=== PATIENT | female | born 1955 | race Caucasian/White ===

== ENCOUNTER → 2016-07-05 | Outpatient (CLI) | payer OTHER ==
[~2016-07-05] MED LIST: AMLO-114 PO; AMR2 PO; HYT/2 PO; LEVO25TA PO; METO-217 PO; SIMV10TA2 PO
[2016-07-05 16:39] LABS: HEMATOCRIT 39.9 % (37-47); MEAN CELL VOLUME 86.2 fL (80-100); MEAN CORPUSCULAR HEMOGLOBIN 27.6 pg (25-34); MEAN CORPUSCULAR HGB CONC 32.1 g/dl (32-36); MEAN PLATELET VOLUME 10.3 fL (7.4-10.4); PLATELET COUNT 358 K/uL (130-400); RED BLOOD COUNT 4.63 M/uL (4.2-5.4); WHITE BLOOD COUNT 8.45 K/uL (4.8-10.8)
[2016-07-05 17:20] LABS: ALT/SGPT 23 U/L (12-78); AST/SGOT 13 U/L (15-37); BLOOD UREA NITROGEN 44 mg/dl (7-18); CALCIUM 9.1 mg/dl (8.5-10.1); CARBON DIOXIDE 23 mmol/L (21-32); CHLORIDE 107 mmol/L (98-107); GLUCOSE 131 mg/dl (70-99); SODIUM 140 mmol/L (136-145)
[2016-07-05 17:31] LABS: ALB/GLOB RATIO 0.7 (0.9-2); ALKALINE PHOSPHATASE 104 U/L (45-117); CHOLESTEROL 124 mg/dl (0-200); CHOLESTEROL/HDL RATIO 2.5; HDL CHOLESTEROL 50 mg/dl; LDL CHOLESTEROL CALCULATED 42 mg/dl; TRIGLYCERIDES 158 mg/dl (0-150); VERY LOW DENSITY LIPOPROT CALC 32 mg/dl
[2016-07-06 06:43] LABS: ESTIMATED AVERAGE GLUCOSE 160 mg/dl; HA1C FLAG Normal (Normal)
== END | disposition home or self-care (01) ==
LOC: C.LABBFT 12:41
PROVIDERS: ATTEND Internal Medicine
DX: E11.29 Type 2 diabetes mellitus with other diabetic kidney complication (principal); I10 Essential (primary) hypertension; E78.00 Pure hypercholesterolemia, unspecified

== ENCOUNTER → 2016-07-19 | Outpatient (CLI) | payer OTHER ==
--- NOTE | 2016-07-19 12:13 | DIAGNOSTIC IMAGING REPORT ---
EXAMINATION: RENAL ULTRASOUND CLINICAL HISTORY: N17.9 Acute kidney [id number] COMPARISON STUDY: None FINDINGS: The right kidney measures 5.2 cm. The left kidney measures 9 cm. There is no evidence of hydronephrosis. There is a 12 mm lower pole right renal cyst. There is increased renal cortical echogenicity, consistent with medical renal disease. No bladder abnormalities are visualized. Bilateral ureteral jets were visualized. IMPRESSION : 1. Increased renal cortical echogenicity, consistent with medical renal disease 2. No evidence of hydronephrosis. Electronically signed by: Cesar Pan M.D. 07/19/2016 12:11 PM Dictated Date/Time: 07/19/2016 12:10 PM
== END | disposition home or self-care (01) ==
LOC: C.ULTR 11:32
PROVIDERS: ATTEND Internal Medicine
DX: N17.9 Acute kidney failure, unspecified (principal)

== ENCOUNTER → 2016-08-09 | Outpatient (CLI) | payer OTHER ==
[2016-08-14 10:12] LABS: ALBUMIN 3.1 G/DL (3.8-4.8); FREE KAPPA 60.2 MG/L (3.3-19.4); FREE LAMBDA 37.6 MG/L (5.7-26.3); GAMMA GLOBULIN 0.8 G/DL (0.8-1.7); TOTAL PROTEIN 6.4 G/DL (6.2-8.3)
== END | disposition home or self-care (01) ==
LOC: C.LABBFT 14:05
PROVIDERS: ATTEND Internal Medicine Nephrology
DX: N17.9 Acute kidney failure, unspecified (principal)

== ENCOUNTER → 2016-10-13 | Outpatient (CLI) | payer OTHER ==
[~2016-10-13] MED LIST changes: +ASPEC81 PO; +CHOL1TAB42 PO; +CMD3 PO; +CMD5 PO; +GLIM1TAB PO; +NVLGIPEN SC; +PLV75 PO; +TPRSR50 PO; +WARF2.5T8 PO; +ZCR40 PO
[2016-10-13 12:45] LABS: BLOOD UREA NITROGEN 38 mg/dl (7-18); BUN/CREATININE RATIO 21.2 (10-20); CALCIUM 8.7 mg/dl (8.5-10.1); CARBON DIOXIDE 27 mmol/L (21-32); CHLORIDE 106 mmol/L (98-107); GLUCOSE 104 mg/dl (70-99); MAGNESIUM 2.3 mg/dl (1.8-2.4); POTASSIUM 5.4 mmol/L (3.5-5.1); SODIUM 139 mmol/L (136-145)
[2016-10-13 12:46] LABS: PHOSPHORUS 4.2 mg/dl (2.5-4.9)
== END | disposition home or self-care (01) ==
LOC: C.LABBFT 10:04
PROVIDERS: ATTEND Internal Medicine Nephrology
DX: N18.3 Chronic kidney disease, stage 3 (moderate) (principal)

== ENCOUNTER → 2016-12-14 | Outpatient (CLI) | payer OTHER ==
[2016-12-14 17:31] LABS: BASO % 0.5 %; BASO ABS # 0.04 K/uL (0-0.2); COMPLETE YES; EOS % 2.7 %; HEMATOCRIT 36.8 % (37-47); IG% 0.3 %; LYMPH % 19.4 %; LYMPH ABS # 1.54 K/uL (1.2-3.4); MEAN CORPUSCULAR HEMOGLOBIN 25.7 pg (25-34); MEAN CORPUSCULAR HGB CONC 29.9 g/dl (32-36); MEAN PLATELET VOLUME 9.9 fL (7.4-10.4); MONO % 4.8 %; NEUT % 72.3 %; PLATELET COUNT 371 K/uL (130-400); RED BLOOD COUNT 4.28 M/uL (4.2-5.4); WHITE BLOOD COUNT 7.92 K/uL (4.8-10.8)
[2016-12-14 17:55] LABS: BLOOD UREA NITROGEN 43 mg/dl (7-18); BUN/CREATININE RATIO 20.3 (10-20); CALCIUM 8.4 mg/dl (8.5-10.1); CARBON DIOXIDE 23 mmol/L (21-32); CHLORIDE 110 mmol/L (98-107); GLUCOSE 51 mg/dl (70-99); MAGNESIUM 2.4 mg/dl (1.8-2.4); POTASSIUM 5.8 mmol/L (3.5-5.1); SODIUM 141 mmol/L (136-145)
[2016-12-14 17:56] LABS: PHOSPHORUS 3.7 mg/dl (2.5-4.9)
== END | disposition home or self-care (01) ==
LOC: C.LABBFT 11:45
PROVIDERS: ATTEND Internal Medicine Nephrology
DX: N18.3 Chronic kidney disease, stage 3 (moderate) (principal)

== ENCOUNTER → 2016-12-19 | Outpatient (CLI) | payer OTHER ==
[2016-12-19 16:45] LABS: BLOOD UREA NITROGEN 33 mg/dl (7-18); BUN/CREATININE RATIO 17.4 (10-20); CALCIUM 8.4 mg/dl (8.5-10.1); CARBON DIOXIDE 25 mmol/L (21-32); CHLORIDE 108 mmol/L (98-107); GLUCOSE 110 mg/dl (70-99); POTASSIUM 5.5 mmol/L (3.5-5.1); SODIUM 140 mmol/L (136-145)
== END | disposition home or self-care (01) ==
LOC: C.LAB1850 15:33
PROVIDERS: ATTEND Internal Medicine Nephrology
DX: E87.5 Hyperkalemia (principal)

== ENCOUNTER → 2017-01-05 | Outpatient (CLI) | payer OTHER ==
[~2017-01-05] MED LIST changes: -CHOL1TAB42 PO; -CMD3 PO; -GLIM1TAB PO; -WARF2.5T8 PO
[2017-01-05 13:07] LABS: BLOOD UREA NITROGEN 34 mg/dl (7-18); BUN/CREATININE RATIO 19.8 (10-20); CALCIUM 8.7 mg/dl (8.5-10.1); CARBON DIOXIDE 29 mmol/L (21-32); CHLORIDE 107 mmol/L (98-107); GLUCOSE 86 mg/dl (70-99); PHOSPHORUS 3.9 mg/dl (2.5-4.9); POTASSIUM 5.1 mmol/L (3.5-5.1); SODIUM 140 mmol/L (136-145)
== END | disposition home or self-care (01) ==
LOC: C.LABBFT 10:35
PROVIDERS: ATTEND Internal Medicine Nephrology
DX: E87.5 Hyperkalemia (principal)

== ENCOUNTER → 2017-03-12 | Outpatient (CLI) | payer OTHER ==
[2017-03-12 12:43] LABS: BASO % 0.8 %; BASO ABS # 0.07 K/uL (0-0.2); COMPLETE YES; EOS % 3.3 %; HEMATOCRIT 37.4 % (37-47); IG% 0.2 %; LYMPH % 16.8 %; LYMPH ABS # 1.41 K/uL (1.2-3.4); MEAN CELL VOLUME 82.6 fL (80-100); MEAN CORPUSCULAR HEMOGLOBIN 26.7 pg (25-34); MEAN CORPUSCULAR HGB CONC 32.4 g/dl (32-36); MEAN PLATELET VOLUME 9.6 fL (7.4-10.4); MONO % 5.7 %; NEUT % 73.2 %; PLATELET COUNT 339 K/uL (130-400); RED BLOOD COUNT 4.53 M/uL (4.2-5.4)
[2017-03-12 13:03] LABS: ESTIMATED AVERAGE GLUCOSE 163 mg/dl; HA1C FLAG Normal (Normal)
[2017-03-12 13:20] LABS: ALT/SGPT 13 U/L (12-78); AST/SGOT 9 U/L (15-37); BLOOD UREA NITROGEN 38 mg/dl (7-18); CALCIUM 8.5 mg/dl (8.5-10.1); CARBON DIOXIDE 27 mmol/L (21-32); CHLORIDE 102 mmol/L (98-107); GLUCOSE 126 mg/dl (70-99); POTASSIUM 5.3 mmol/L (3.5-5.1); SODIUM 135 mmol/L (136-145)
[2017-03-12 13:31] LABS: ALB/GLOB RATIO 0.5 (0.9-2); ALKALINE PHOSPHATASE 101 U/L (45-117); CHOLESTEROL 159 mg/dl (0-200); CHOLESTEROL/HDL RATIO 3.2; HDL CHOLESTEROL 50 mg/dl; LDL CHOLESTEROL CALCULATED 83 mg/dl; PHOSPHORUS 3.9 mg/dl (2.5-4.9); TRIGLYCERIDES 132 mg/dl (0-150); VERY LOW DENSITY LIPOPROT CALC 26 mg/dl
== END | disposition home or self-care (01) ==
LOC: C.LABBFT 10:03
PROVIDERS: ATTEND Internal Medicine
DX: I10 Essential (primary) hypertension (principal); E78.00 Pure hypercholesterolemia, unspecified; E03.9 Hypothyroidism, unspecified; E11.29 Type 2 diabetes mellitus with other diabetic kidney complication

== ENCOUNTER 2017-03-30 10:54 | Inpatient (IN) | payer OTHER ==
[~2017-03-30] VITALS: Ht 154.9 cm; Wt 70.3 kg
[2017-03-30] MEDS ORDERED: ONDANSETRON INJ 2 MG/ML 2 ML VIAL ONE (11:08)
[2017-03-30] MEDS ORDERED: SIMV10TA2 PO (11:34)
[2017-03-30] MEDS ORDERED: HYT/2 PO (11:34)
[2017-03-30] MEDS ORDERED: AMR2 PO (11:34)
[2017-03-30] MEDS ORDERED: AMLO-114 PO (11:34)
[2017-03-30] MEDS ORDERED: LEVO25TA PO (11:34)
[2017-03-30] MEDS ORDERED: METO-217 PO (11:34)
--- NOTE | 2017-03-30 11:43 | EMERGENCY ROOM VISIT NOTE ---
History Report prepared by Edi: Mónica Cook Under the Supervision of: Dr. Ghassan Lomas M.D. First contact with patient: 11:30 Chief Complaint: CARDIAC ASSESSMENT Stated Complaint: AFIB Nursing Triage Summary: Pt. arrives to exam room via EMS. Per EMS, pt. has had periods of confusion over the last 24 hours, has had several falls, and episodes of incontinence. On monitor, pt. in rapid afib. History of Present Illness The patient is a 61 year old female who presents to the Emergency Room with complaints of increasing confusion over the past two days. The patient's states that the patient fell yesterday, injuring the right side of her face. The patient's states that the patient has not been making sense over the past several days. He states that the patient did not want him to call anyone to help her, but states that today she was too confused. The patient's states that the patient has a history of atrial fibrillation, noting that the patient has been increasingly tachycardic. He states that the patient has been vomiting as well. The patient's denies the patient having any fever, pain, or shortness of breath. He reports that the patient has a history of hypertension as well. The history is limited secondary to the patient's altered mental status. Source of History: spouse/significant other (husbad) History Limited By: AMS Onset: two days Position: other (global) Quality: other (confusion) Timing: other (increasing) Associated Symptoms: No fevers, No SOB Note: Associated Symptoms: tachycardic, fall Review of Systems The history is limited secondary to the patient altered mental status Past Medical & Surgical Medical Problems: (1) Atrial fibrillation (2) Hypertension Family History No pertinent family history stated. Social History Smoking Status: Former Smoker Marital Status: Housing Status: lives with significant other Occupation Status: retired Current/Historical Medications Scheduled Amlodipine (Norvasc), 10 MG PO DAILY Glimepiride (Glimepiride), 2 MG PO BID Levothyroxine Sodium (Synthroid), 25 MCG PO DAILY Metoprolol Succinate (Toprol Xl), 50 MG PO DAILY Simvastatin (Zocor), 10 MG PO HS Terazosin Hcl (Hytrin), 1 CAP PO DAILY Allergies Coded Allergies: Penicillins (Unverified Allergy, Intermediate, ., 03/30/17) Physical Exam Vital Signs Date Time Temp Pulse Resp B/P (MAP) Pulse Ox O2 Delivery O2 Flow Rate FiO2 03/30/17 14:30 92 16 123/91 97 Nasal Cannula 2.0 03/30/17 14:29 98 Nasal Cannula 2.0 03/30/17 14:07 136/74 03/30/17 14:05 92 21 98 03/30/17 14:02 140/92 03/30/17 14:00 94 17 98 03/30/17 13:59 144 152/129 03/30/17 13:57 127/96 03/30/17 13:55 91 21 97 03/30/17 13:52 130/94 03/30/17 13:50 121 19 98 03/30/17 13:46 144 18 152/129 95 Nasal Cannula 2.0 03/30/17 13:46 152/129 03/30/17 13:45 134 12 96 03/30/17 12:00 116 18 130/93 95 Nasal Cannula 2.0 03/30/17 11:30 121 18 119/81 94 Nasal Cannula 2.0 03/30/17 11:05 132 03/30/17 10:54 95 Nasal Cannula 2.0 03/30/17 10:54 95 Nasal Cannula 2.0 03/30/17 10:54 36.7 152 28 129/108 95 Nasal Cannula 2.0 Physical Exam GENERAL: Patient awake, alert, confused, disoriented, not responding appropriately to any questions, patient apperas to be staring off into space. SKIN: No erythema, pallor, cyanosis or rash HEENT: Normal head, pupils equal, reactive to light and accommodation. Oral cavity and posterior pharynx appear normal. Neck: Without adenopathy, no neck vein distention. LUNGS: Clear to auscultation. No wheezes, no rales, no rhonchi. HEART: Irregular, irregular rapid rate. No murmurs. No gallops. No rubs ABDOMEN: Obese. No masses, no rebound, no hepatomegaly or splenomegaly. EXTREMITIES: No signs of trauma. No pedal or pretibial edema. No calf or thigh tenderness. NEUROLOGIC: Cranial nerves II-XII within normal limits. No gross motor sensory function deficits. Medical Decision & Procedures ER Provider Diagnostic Interpretation: Radiology results as stated below per my review and radiologist interpretation: HEAD CT NONCONTRAST CT DOSE: 537.48 mGy.cm HISTORY: Head injury. altered fell 1 day ago hit right confucianist TECHNIQUE: Multiaxial CT images of the head were performed without the use of intravenous contrast. Automated exposure control was utilized for this study. A dose lowering technique was utilized adhering to the principles of ALARA. Comparison: None. Findings: The paranasal sinuses and mastoid air cells are clear. The calvarium and skull base are intact. The ventricles and sulci demonstrate mild age-related involutional changes. There is no hematoma, midline shift. Old lacunar infarct seen within the left basal ganglia. Hypodensity within the left posterior temporal lobe. This could represent a subacute infarct or edema. Impression: 1. No acute intracranial hemorrhage. 2. Hypodensity within the left posterior temporal lobe favors a subacute infarct. However, vasogenic edema secondary to an underlying mass cannot be excluded. Therefore, follow-up brain MRI with and without intravenous contrast is recommended for further evaluation. Electronically signed by: Ethan Mari M.D. 03/30/2017 12:02 PM Dictated Date/Time: 03/30/2017 11:56 AM CHEST ONE VIEW PORTABLE CLINICAL HISTORY: Altered mental status. Atrial fibrillation. COMPARISON STUDY: No previous studies for comparison. FINDINGS: The heart is at the upper limits of normal in size. There is no failure. There is no lobar pulmonary consolidation.[ No pleural effusions are visualized. Minimally increased left basal markings are likely atelectatic, although a small inflammatory process could appear similar. IMPRESSION: Minimal increased left basal markings, likely atelectatic Electronically signed by: Cesar Pan M.D. 03/30/2017 12:31 PM Dictated Date/Time: 03/30/2017 12:30 PM MRI OF THE BRAIN WITHOUT CONTRAST CLINICAL HISTORY: Head trauma. Abnormal CT scan. Infarct versus mass. COMPARISON STUDY: Noncontrast head CT dated 03/30/2017 FINDINGS: Sagittal T1, axial diffusion, proton density and T2 weighted axial, coronal FLAIR, and axial T1-weighted images were acquired. No intra or extra-axial mass lesions are visualized. No contrast was administered, as the patient has a diminished GFR of 23. There is an extensive area of restricted water diffusion involving the left temporal lobe. There is also involvement of the left insular cortex. The reticular water diffusion extends over a length of 7 cm. The findings are consistent with acute/subacute infarct. There is no evidence of ventricular dilatation. Proton density T2-weighted and FLAIR images reveal there is increased FLAIR signal in the region of the patient's left temporal infarct. There is scattered foci of increased T2 and FLAIR signal within the white matter likely a small vessel basis. There is an old lacunar infarct in the left basal ganglia. There are no abnormal flow voids. IMPRESSION: Moderate sized acute/subacute left temporal lobe infarct. Electronically signed by: Cesar Pan M.D. 03/30/2017 1:40 PM Dictated Date/Time: 03/30/2017 1:36 PM Laboratory Results 03/30/17 12:07 Red Blood Count 4.71, Mean Corpuscular Volume 80.7, Mean Corpuscular Hemoglobin 25.5, Mean Corpuscular Hemoglobin Concent 31.6, Mean Platelet Volume 9.1, Neutrophils (%) (Auto) 92.8, Lymphocytes (%) (Auto) 4.2, Monocytes (%) (Auto) 2.5, Eosinophils (%) (Auto) 0.0, Basophils (%) (Auto) 0.2, Neutrophils # (Auto) 10.99, Lymphocytes # (Auto) 0.50, Monocytes # (Auto) 0.29, Eosinophils # (Auto) 0.00, Basophils # (Auto) 0.02 03/30/17 12:07 Test 03/30/17 12:07 03/30/17 12:18 03/30/17 14:38 White Blood Count 11.83 K/uL (4.8-10.8) Red Blood Count 4.71 M/uL (4.2-5.4) Hemoglobin 12.0 g/dL (12.0-16.0) Hematocrit 38.0 % (37-47) Mean Corpuscular Volume 80.7 fL (80-100) Mean Corpuscular Hemoglobin 25.5 pg (25-34) Mean Corpuscular Hemoglobin Concent 31.6 g/dl (32-36) Platelet Count 411 K/uL (130-400) Mean Platelet Volume 9.1 fL (7.4-10.4) Neutrophils (%) (Auto) 92.8 % Lymphocytes (%) (Auto) 4.2 % Monocytes (%) (Auto) 2.5 % Eosinophils (%) (Auto) 0.0 % Basophils (%) (Auto) 0.2 % Neutrophils # (Auto) 10.99 K/uL (1.4-6.5) Lymphocytes # (Auto) 0.50 K/uL (1.2-3.4) Monocytes # (Auto) 0.29 K/uL (0.11-0.59) Eosinophils # (Auto) 0.00 K/uL (0-0.5) Basophils # (Auto) 0.02 K/uL (0-0.2) RDW Standard Deviation 46.1 fL (36.4-46.3) RDW Coefficient of Variation 15.7 % (11.5-14.5) Immature Granulocyte % (Auto) 0.3 % Immature Granulocyte # (Auto) 0.03 K/uL (0.00-0.02) Prothrombin Time 11.2 SECONDS (9.0-12.0) Prothromb Time International Ratio 1.0 (0.9-1.1) Activated Partial Thromboplast Time 25.9 SECONDS (21.0-31.0) Partial Thromboplastin Ratio 1.0 Anion Gap 9.0 mmol/L (3-11) Est Creatinine Clear Calc Drug Dose 28.2 ml/min Estimated GFR () 26.8 Estimated GFR (Non- 23.1 BUN/Creatinine Ratio 17.9 (10-20) Calcium Level 9.1 mg/dl (8.5-10.1) Total Bilirubin 0.4 mg/dl (0.2-1) Aspartate Amino Transf (AST/SGOT) 13 U/L (15-37) Alanine Aminotransferase (ALT/SGPT) 12 U/L (12-78) Alkaline Phosphatase 107 U/L (45-117) Ammonia < 10.0 umol/L (11-32) Troponin I 0.337 ng/ml (0-0.045) Total Protein 7.9 gm/dl (6.4-8.2) Albumin 2.7 gm/dl (3.4-5.0) Globulin 5.1 gm/dl (2.5-4.0) Albumin/Globulin Ratio 0.5 (0.9-2) Thyroid Stimulating Hormone (TSH) 1.470 uIu/ml (0.300-4.500) Urine Color YELLOW Urine Appearance CLEAR (CLEAR) Urine pH 6.5 (4.5-7.5) Urine Specific [place] 1.018 (1.000-1.030) Urine Protein 4+ (NEG) Urine Glucose (UA) 1+ (NEG) Urine Ketones NEG (NEG) Urine Occult Blood 2+ (NEG) Urine Nitrite NEG (NEG) Urine Bilirubin NEG (NEG) Urine Urobilinogen NEG (NEG) Urine Leukocyte Esterase SMALL (NEG) Urine WBC (Auto) >30 /hpf (0-5) Urine RBC (Auto) 0-4 /hpf (0-4) Urine Hyaline Casts (Auto) 1-5 /lpf (0-5) Urine Epithelial Cells (Auto) 0-5 /lpf (0-5) Urine Bacteria (Auto) NEG (NEG) Laboratory results as stated above per my review. Medications Administered Medications (Trade) Dose Ordered Sig/Joe Route Start Time Stop Time Status Last Admin Dose Admin Ondansetron HCl (Zofran Inj) 4 mg STK-MED ONCE .ROUTE 03/30/17 11:08 03/30/17 11:09 DC 03/30/17 11:31 4 MG Metoprolol Tartrate (Lopressor Iv) 15 mg NOW STAT IV 03/30/17 13:06 03/30/17 13:07 DC 03/30/17 13:59 15 MG ECG Indication: altered mental status Rate (beats per minute): 136 Rhythm: atrial fibrillation Findings: nonspecific-ST abn, other (Rapid ventricular response, normal axis) ED Course 1108: Ordered Zofran Inj 4 mg .route. 1131: Past medical records reviewed. The patient was evaluated in room C9. A complete history and physical examination was performed. 1306: Ordered Lopressor IV 15 mg IV. 1327: I discussed the patients case with Dr. Mejia [facility]. He is going to evaluate the patient for further treatment. 1340: I reevaluated the patient and she is resting. I discussed the exam findings with the patient's family and I discussed the treatment plan. They verbalized complete understanding and agreement. The patient will be evaluated for further treatment. Medical Decision Nurses notes reviewed. Medical history sheet reviewed. Differential diagnosis includes but is not limited to: CVA, TIA, hepatic encephalopathy, subdural hematoma, epidural hematoma, metabolic disorder, infection, pneumonia, UTI, sepsis. The patient is here with significant alteration of her mental status compared to her baseline. The patient is now unable to follow commands or answer questions. Multiple labs, EKG and imaging were obtained. CT is concerning for a subacute infarct. MRI as listed above. Multiple labs were also evaluated. EKG reveals atrial fibrillation with rapid ventricular response. The family believes that she's had atrial fibrillation in the past. The patient also has an elevated troponin. I discussed care with the patient's family and with the hospitalist. The patient was given IV Lopressor to control her heart rate. Medication Reconcilliation Current Medication List: was personally reviewed by me Blood Pressure Screening Patient's blood pressure: Normal blood pressure Blood pressure disposition: Did not require urgent referral Consults Time Called: 1308 Consulting Physician: SUDHA Ashley Returned Call: 1327 I discussed the patients case with SUDHA Ashley. He is going to evaluate the patient for further treatment. Impression Primary Impression: Altered mental status Additional Impressions: Elevated troponin Atrial fibrillation with rapid ventricular response Focal infarction of brain Critical Care I have personally spent greater than 35 minutes of critical care time in the direct management of this patient. This includes bedside care, interpretation of diagnostic studies, and testing, discussion with consultants, patient, and family members, and other required patient management activities. This 35 minutes is in excess of all separately billable procedures. Scribe Attestation The scribe's documentation has been prepared under my direction and personally reviewed by me in its entirety. I confirm that the note above accurately reflects all work, treatment, procedures, and medical decision making performed by me. Departure Information Dispostion Being Evaluated By Hospitalist Referrals Ugo Walker M.D. (PCP) Problem Qualifiers
--- NOTE | 2017-03-30 12:04 | DIAGNOSTIC IMAGING REPORT ---
HEAD CT NONCONTRAST CT DOSE: 537.48 mGy.cm HISTORY: Head injury. altered fell 1 day ago hit right zoroastrianism TECHNIQUE: Multiaxial CT images of the head were performed without the use of intravenous contrast. Automated exposure control was utilized for this study. A dose lowering technique was utilized adhering to the principles of ALARA. Comparison: None. Findings: The paranasal sinuses and mastoid air cells are clear. The calvarium and skull base are intact. The ventricles and sulci demonstrate mild age-related involutional changes. There is no hematoma, midline shift. Old lacunar infarct seen within the left basal ganglia. Hypodensity within the left posterior temporal lobe. This could represent a subacute infarct or edema. Impression: 1. No acute intracranial hemorrhage. 2. Hypodensity within the left posterior temporal lobe favors a subacute infarct. However, vasogenic edema secondary to an underlying mass cannot be excluded. Therefore, follow-up brain MRI with and without intravenous contrast is recommended for further evaluation. Electronically signed by: Ethan Mari M.D. 03/30/2017 12:02 PM Dictated Date/Time: 03/30/2017 11:56 AM
[2017-03-30 12:26] LABS: MEAN CELL VOLUME 80.7 fL (80-100); MEAN CORPUSCULAR HEMOGLOBIN 25.5 pg (25-34); MEAN CORPUSCULAR HGB CONC 31.6 g/dl (32-36); MEAN PLATELET VOLUME 9.1 fL (7.4-10.4); PLATELET COUNT 411 K/uL (130-400); RED BLOOD COUNT 4.71 M/uL (4.2-5.4); WHITE BLOOD COUNT 11.83 K/uL (4.8-10.8)
[2017-03-30 12:32] LABS: URINE APPEARANCE CLEAR (CLEAR); URINE BILIRUBIN NEG (NEG); URINE COLOR YELLOW; URINE EPITHELIAL CELL AUTO 0-5 /lpf (0-5); URINE NITRITE NEG (NEG); URINE PH 6.5 (4.5-7.5); URINE SPECIFIC GRAVITY 1.018 (1.000-1.030); UROBILINOGEN NEG (NEG); ZZURINE CULT IF INDIC CATH YES
--- NOTE | 2017-03-30 12:33 | DIAGNOSTIC IMAGING REPORT ---
CHEST ONE VIEW PORTABLE CLINICAL HISTORY: Altered mental status. Atrial fibrillation. COMPARISON STUDY: No previous studies for comparison. FINDINGS: The heart is at the upper limits of normal in size. There is no failure. There is no lobar pulmonary consolidation.[ No pleural effusions are visualized. Minimally increased left basal markings are likely atelectatic, although a small inflammatory process could appear similar. IMPRESSION: Minimal increased left basal markings, likely atelectatic Electronically signed by: Cesar Pan M.D. 03/30/2017 12:31 PM Dictated Date/Time: 03/30/2017 12:30 PM
[2017-03-30 12:34] LABS: PROTHROMBIN TIME (PATIENT) 11.2 SECONDS (9.0-12.0)
[2017-03-30 12:35] LABS: MANUAL MICROSCOPIC REQUIRED? NO; REVIEW REQ? NO
[2017-03-30 12:44] LABS: BASO % 0.2 %; BASO ABS # 0.02 K/uL (0-0.2); COMPLETE YES; IG% 0.3 %; LYMPH % 4.2 %; MONO % 2.5 %; NEUT % 92.8 %
[2017-03-30 12:47] LABS: BUN/CREATININE RATIO 17.9 (10-20); CALCIUM 9.1 mg/dl (8.5-10.1); CREATININE 2.2 mg/dl (0.60-1.20); POTASSIUM 4.6 mmol/L (3.5-5.1)
[2017-03-30 13:03] LABS: ALB/GLOB RATIO 0.5 (0.9-2); THYROID STIMULATING HORMONE 1.47 uIu/ml (0.300-4.500)
[2017-03-30] MEDS ORDERED: METOPROLOL TARTRATE 1 MG/ML VIAL IV STA (13:06)
--- NOTE | 2017-03-30 13:42 | DIAGNOSTIC IMAGING REPORT ---
MRI OF THE BRAIN WITHOUT CONTRAST CLINICAL HISTORY: Head trauma. Abnormal CT scan. Infarct versus mass. COMPARISON STUDY: Noncontrast head CT dated 03/30/2017 FINDINGS: Sagittal T1, axial diffusion, proton density and T2 weighted axial, coronal FLAIR, and axial T1-weighted images were acquired. No intra or extra-axial mass lesions are visualized. No contrast was administered, as the patient has a diminished GFR of 23. There is an extensive area of restricted water diffusion involving the left temporal lobe. There is also involvement of the left insular cortex. The reticular water diffusion extends over a length of 7 cm. The findings are consistent with acute/subacute infarct. There is no evidence of ventricular dilatation. Proton density T2-weighted and FLAIR images reveal there is increased FLAIR signal in the region of the patient's left temporal infarct. There is scattered foci of increased T2 and FLAIR signal within the white matter likely a small vessel basis. There is an old lacunar infarct in the left basal ganglia. There are no abnormal flow voids. IMPRESSION: Moderate sized acute/subacute left temporal lobe infarct. Electronically signed by: Cesar Pan M.D. 03/30/2017 1:40 PM Dictated Date/Time: 03/30/2017 1:36 PM
[2017-03-30 14:29] VITALS: O2SAT 98; Ht 154.9 cm; Wt 70.3 kg
--- NOTE | 2017-03-30 14:58 | History and Physical ---
History & Physical Date & Time of Service: Mar 30, 2017 at 14:37 Chief Complaint: AFIB Primary Care Physician: Ugo Walker M.D. History of Present Illness Source: family Ms. Fletcher arrived to the emergency department today with her . This morning her heard her moaning and he found her laying on the floor by the recliner she normally sleeps in. She had a small emesis. Her then put a pillow under her head and went back to bed. When he got back up she was still on the floor and her speech was incoherent. She has been having decreasing mobility over the past year and yesterday she fell 4 times. She has not been eating or drinking for the past day although she was able to take her pills today. She was a smoker until a year and a half ago. She used to smoke a pack a day for 30 years. She was told in the past that she had a blockage in her carotid but she did not want to go to surgery. She has a history of diabetes type 2, hypertension, hypothyroidism, and hyperlipidemia. She sees Osmel Jang for kidney problems, her family doctor is Dr. Walker. Past Medical/Surgical History Medical Problems: (1) Atrial fibrillation Status: Chronic (2) Hypertension Status: Chronic Family History No children Both parents , father of a heart attack at 52, mother at 79 of ovarian ca. Two brothers history significant for htn and hyperlipidemia Social History Smoking Status: Former Smoker (30 pack year history) Smokeless Tobacco Use: No Alcohol Use: none Drug Use: none Marital Status: Housing status: lives with significant other () Occupational Status: retired Immunizations History of Influenza Vaccine: No History of Tetanus Vaccine?: No History of Pneumococcal: No Multi-Drug Resistant Organisms History of MDRO: No Allergies Coded Allergies: Penicillins (Unverified Allergy, Intermediate, ., 03/30/17) Home Medications Scheduled Amlodipine (Norvasc), 10 MG PO DAILY Glimepiride (Glimepiride), 2 MG PO BID Levothyroxine Sodium (Synthroid), 25 MCG PO DAILY Metoprolol Succinate (Toprol Xl), 50 MG PO DAILY Simvastatin (Zocor), 10 MG PO HS Terazosin Hcl (Hytrin), 1 CAP PO DAILY Review of Systems Respiratory: No cough, No shortness of breath Cardiovascular: No chest pain, No palpitations Abdomen: + nausea, + vomiting, No pain, No diarrhea Genitourinary - Female: + urinary incontinence (urge) Physical Exam Vital Signs Date Time Temp Pulse Resp B/P (MAP) Pulse Ox O2 Delivery O2 Flow Rate FiO2 03/30/17 14:07 136/74 03/30/17 14:05 92 21 98 03/30/17 14:02 140/92 03/30/17 14:00 94 17 98 03/30/17 13:59 144 152/129 03/30/17 13:57 127/96 03/30/17 13:55 91 21 97 03/30/17 13:52 130/94 03/30/17 13:50 121 19 98 03/30/17 13:46 144 18 152/129 95 Nasal Cannula 2.0 03/30/17 13:46 152/129 03/30/17 13:45 134 12 96 03/30/17 12:00 116 18 130/93 95 Nasal Cannula 2.0 03/30/17 11:30 121 18 119/81 94 Nasal Cannula 2.0 03/30/17 11:05 132 03/30/17 10:54 95 Nasal Cannula 2.0 03/30/17 10:54 95 Nasal Cannula 2.0 03/30/17 10:54 36.7 152 28 129/108 95 Nasal Cannula 2.0 General Appearance: + mild distress Eyes: PERRL, + pertinent finding (unable to follow command to move through EOM , able to track to either side ) Respiratory/Chest: chest non-tender, lungs clear, normal breath sounds, no respiratory distress, no accessory muscle use Cardiovascular: no edema, no gallop, no murmur, normal peripheral pulses, + irregularly irregular Abdomen/GI: normal bowel sounds, non tender, soft Extremities/Musculoskelatal: no pedal edema Neurologic/Psych: + aphasia (severe), + pertinent finding (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2 % Monocytes (%) (Auto) 2.5 % Eosinophils (%) (Auto) 0.0 % Basophils (%) (Auto) 0.2 % Neutrophils # (Auto) 10.99 1.4-6.5 K/uL Lymphocytes # (Auto) 0.50 1.2-3.4 K/uL Monocytes # (Auto) 0.29 0.11-0.59 K/uL Eosinophils # (Auto) 0.00 0-0.5 K/uL Basophils # (Auto) 0.02 0-0.2 K/uL RDW Standard Deviation 46.1 36.4-46.3 fL RDW Coefficient of Variation 15.7 11.5-14.5 % Immature Granulocyte % (Auto) 0.3 % Immature Granulocyte # (Auto) 0.03 0.00-0.02 K/uL Prothrombin Time 11.2 9.0-12.0 SECONDS Prothromb Time International Ratio 1.0 0.9-1.1 Activated Partial Thromboplast Time 25.9 21.0-31.0 SECONDS Partial Thromboplastin Ratio 1.0 Sodium Level 139 136-145 mmol/L Potassium Level 4.6 3.5-5.1 mmol/L Chloride Level 105 98-107 mmol/L Carbon Dioxide Level 25 21-32 mmol/L Anion Gap 9.0 3-11 mmol/L Blood Urea Nitrogen 39 7-18 mg/dl Creatinine 2.20 0.60-1.20 mg/dl Est Creatinine Clear Calc Drug Dose 28.2 ml/min Estimated GFR () 26.8 Estimated GFR (Non- 23.1 BUN/Creatinine Ratio 17.9 10-20 Random Glucose 195 70-99 mg/dl Calcium Level 9.1 8.5-10.1 mg/dl Total Bilirubin 0.4 0.2-1 mg/dl Aspartate Amino Transf (AST/SGOT) 13 15-37 U/L Alanine Aminotransferase (ALT/SGPT) 12 12-78 U/L Alkaline Phosphatase 107 45-117 U/L Ammonia < 10.0 11-32 umol/L Troponin I 0.337 0-0.045 ng/ml Total Protein 7.9 6.4-8.2 gm/dl Albumin 2.7 3.4-5.0 gm/dl Globulin 5.1 2.5-4.0 gm/dl Albumin/Globulin Ratio 0.5 0.9-2 Thyroid Stimulating Hormone (TSH) 1.470 0.300-4.500 uIu/ml Urine Color YELLOW Urine Appearance CLEAR CLEAR Urine pH 6.5 4.5-7.5 Urine Specific [place] 1.018 1.000-1.030 Urine Protein 4+ NEG Urine Glucose (UA) 1+ NEG Urine Ketones NEG NEG Urine Occult Blood 2+ NEG Urine Nitrite NEG NEG Urine Bilirubin NEG NEG Urine Urobilinogen NEG NEG Urine Leukocyte Esterase SMALL NEG Urine WBC (Auto) >30 0-5 /hpf Urine RBC (Auto) 0-4 0-4 /hpf Urine Hyaline Casts (Auto) 1-5 0-5 /lpf Urine Epithelial Cells (Auto) 0-5 0-5 /lpf Urine Bacteria (Auto) NEG NEG Microbiology Results 03/30/17 Urine Culture, Received Pending Diagnostic Radiology MRI OF THE BRAIN WITHOUT CONTRAST CLINICAL HISTORY: Head trauma. Abnormal CT scan. Infarct versus mass. COMPARISON STUDY: Noncontrast head CT dated 03/30/2017 FINDINGS: Sagittal T1, axial diffusion, proton density and T2 weighted axial, coronal FLAIR, and axial T1-weighted images were acquired. No intra or extra-axial mass lesions are visualized. No contrast was administered, as the patient has a diminished GFR of 23. There is an extensive area of restricted water diffusion involving the left temporal lobe. There is also involvement of the left insular cortex. The reticular water diffusion extends over a length of 7 cm. The findings are consistent with acute/subacute infarct. There is no evidence of ventricular dilatation. Proton density T2-weighted and FLAIR images reveal there is increased FLAIR signal in the region of the patient's left temporal infarct. There is scattered foci of increased T2 and FLAIR signal within the white matter likely a small vessel basis. There is an old lacunar infarct in the left basal ganglia. There are no abnormal flow voids. IMPRESSION: Moderate sized acute/subacute left temporal lobe infarct. CHEST ONE VIEW PORTABLE CLINICAL HISTORY: Altered mental status. Atrial fibrillation. COMPARISON STUDY: No previous studies for comparison. FINDINGS: The heart is at the upper limits of normal in size. There is no failure. There is no lobar pulmonary consolidation.[ No pleural effusions are visualized. Minimally increased left basal markings are likely atelectatic, although a small inflammatory process could appear similar. IMPRESSION: Minimal increased left basal markings, likely atelectatic HEAD CT NONCONTRAST CT DOSE: 537.48 mGy.cm HISTORY: Head injury. altered fell 1 day ago hit right bahai TECHNIQUE: Multiaxial CT images of the head were performed without the use of intravenous contrast. Automated exposure control was utilized for this study. A dose lowering technique was utilized adhering to the principles of ALARA. Comparison: None. Findings: The paranasal sinuses and mastoid air cells are clear. The calvarium and skull base are intact. The ventricles and sulci demonstrate mild age-related involutional changes. There is no hematoma, midline shift. Old lacunar infarct seen within the left basal ganglia. Hypodensity within the left posterior temporal lobe. This could represent a subacute infarct or edema. Impression: 1. No acute intracranial hemorrhage. 2. Hypodensity within the left posterior temporal lobe favors a subacute infarct. However, vasogenic edema secondary to an underlying mass cannot be excluded. Therefore, follow-up brain MRI with and without intravenous contrast is recommended for further evaluation. 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 She was also found to be in Afib RVR when she arrived to the ED with a max rate in the 150s that responded to IV metoprolol. CVA - She is outside the treatment window for TPA. Neurology consulted. Carotid dopplers. NPO until evaluated by speech, hydrate with NSS. ASA, PT/OT, Speech therapy A.fib - rate is now controlled in the 90s, metoprolol IV while NPO. Discussed case with Dr. Michele from neurology, recommended starting low dose no bolus drip and repeat CT in the morning. Echocardiogram Elevated troponin - likely demand ischemia from rapid rate - serial troponins Diabetes - hold home meds, start sliding scale, A1c HTN - permissive htn post ischemic CVA, home htn meds held for now Hypothyroidism - IV synthroid Code status - full resuscitation DVT prophylaxis - heparin gtt Level of Care Telemetry Advanced Directives Existing Advance Directive: No Existing Living Will: No Existing Power of Evidence Custodian: No Existing Health Care Proxy: No Resuscitation Status FULL RESUSCITATION VTE Prophylaxis VTE Risk Assessment Done? Y/N: Yes Risk Level: Moderate Social Service Consult None Apply
[2017-03-30] MEDS ORDERED: HydrALAZINE HCL 20 MG/ML VIAL IV. PRN (15:15)
[2017-03-30] MEDS ORDERED: PHARMACIST DISCHARGE MED REC CONSULT PRN (15:30)
[2017-03-30] MEDS ORDERED: GLUCOSE 10 TABS/TUBE PO PRN (17:00)
[2017-03-30] MEDS ORDERED: GLUCAGON FOR INJ 1 MG VIAL SQ PRN (17:00)
[2017-03-30] MEDS ORDERED: DEXTROSE 50% 50 ML SYR IV PRN (17:00)
[2017-03-30] MEDS ORDERED: GLUCOSE 40% GEL 15 GM TUBE PO PRN (17:00)
[2017-03-30] MEDS ORDERED: HEPARIN IV LOW DOSE NO BOLUS SCH (17:04)
[2017-03-30 17:30] VITALS: BP 156/83; PULSE 103; TEMP 36.9; O2SAT 94
[2017-03-30] MEDS ORDERED: ASPIRIN 300 MG SUPP PR ONE (17:45)
[2017-03-30] MEDS: SODIUM CHLORIDE 0.9% 1000ML 1,000 ML IV SCH (18:09)
[2017-03-30] MEDS: METOPROLOL TARTRATE 1 MG/ML VIAL IV. SCH (18:10)
[2017-03-30] MEDS: HEPARIN 25,000 UNIT/500ML D5W 500 ML IV PRN (18:48)
[2017-03-30 19:05] VITALS: BP 159/78; PULSE 95; TEMP 36.5; O2SAT 99
[2017-03-30] MEDS ORDERED: NURSING VERBAL MED ORDER ONE (19:15)
[2017-03-30 20:00] VITALS: O2SAT 99
[2017-03-30] MEDS ORDERED: SIMVASTATIN 10 MG TAB PO SCH (21:00)
[2017-03-30] MEDS ORDERED: INSULIN ASPART 100 UNITS/ML 3 ML PEN SC SCH (21:00)
--- NOTE | 2017-03-30 21:33 | DIAGNOSTIC IMAGING REPORT ---
CAROTID DOPPLER NECK ART CLINICAL HISTORY: 61 years-old Female with cva. Patient presents with acute to subacute left temporal lobe infarction. COMPARISON: MRI brain 03/30/2017 TECHNIQUE: Multiple real time sonographic images of the carotid bifurcations were obtained assessing caldwell scale, color Doppler and spectral wave form appearance FINDINGS: The exam is very limited secondary to patient being uncooperative and agitated throughout the study. The patient would not hold still per electron gun inspector. RIGHT CAROTID: The peak systolic velocity measured 55 cm/sec. The end diastolic velocity measured 9 cm/sec. The ICA to CCA ratio measured 0.9. There is no flow with increased echogenicity within the proximal right ICA compatible with occlusion of unknown chronicity. Extensive mixed plaquing is noted. LEFT CAROTID: The peak systolic velocity measured 93 cm/sec. The end diastolic velocity measured 28 cm/sec. The ICA to CCA ratio measured 0.9 which correlates with a stenosis of 0-50%. Extensive mixed plaquing of the left carotid bulb and left ICA. There is normal antegrade vertebral flow bilaterally. IMPRESSION: 1. Limited study secondary to uncooperative patient. 2. Occluded proximal right ICA of unknown chronicity. This finding could be further evaluated with CTA of the neck. 3. Extensive mixed plaquing of the bilateral carotid vasculature. No hemodynamically significant stenosis on the left. 4. Antegrade flow of the bilateral vertebral arteries. The above report was generated using voice recognition software. It may contain grammatical, syntax or spelling errors. Electronically signed by: José Sanchez M.D. 03/30/2017 9:31 PM Dictated Date/Time: 03/30/2017 9:24 PM
[2017-03-30] MEDS ORDERED: HEPARIN SOD 5000 UNIT/0.5 ML CARP SQ SCH (22:00)
[2017-03-30 23:59] VITALS: BP 118/85; PULSE 95; TEMP 37; O2SAT 98
[2017-03-31] VITALS (13 sets, daily range): BP systolic 145–167; BP diastolic 75–89; PULSE 76–112; TEMP 36.4–37.1; O2SAT 86–99
[2017-03-31] MEDS: METOPROLOL TARTRATE 1 MG/ML VIAL IV. SCH ×2 (00:08→06:17)
[2017-03-31 01:31] LABS: PARTIAL THROMBOPLASTIN RATIO 1.3
[2017-03-31 01:45] LABS: BUN/CREATININE RATIO 19.1 (10-20); CALCIUM 8.1 mg/dl (8.5-10.1); POTASSIUM 4.3 mmol/L (3.5-5.1)
[2017-03-31] MEDS ORDERED: NURSING VERBAL MED ORDER ONE (01:45)
[2017-03-31 01:57] LABS: CHOLESTEROL/HDL RATIO 2.3
[2017-03-31] MEDS: HEPARIN 25,000 UNIT/500ML D5W 500 ML IV PRN ×2 (02:04→22:28)
[2017-03-31] MEDS: SODIUM CHLORIDE 0.9% 1000ML 1,000 ML IV SCH ×4 (02:07→22:17)
[2017-03-31] MEDS: INSULIN ASPART 100 UNITS/ML 3 ML PEN SC SCH ×4 (06:00→17:37)
[2017-03-31 07:30] LABS: ESTIMATED AVERAGE GLUCOSE 166 mg/dl; HA1C FLAG Normal (Normal)
[2017-03-31 08:01] LABS: BASO % 0.4 %; BASO ABS # 0.04 K/uL (0-0.2); COMPLETE YES; EOS % 0.8 %; HEMATOCRIT 35.1 % (37-47); IG% 0.2 %; LYMPH % 8.2 %; LYMPH ABS # 0.74 K/uL (1.2-3.4); MEAN CELL VOLUME 82.4 fL (80-100); MEAN CORPUSCULAR HEMOGLOBIN 25.4 pg (25-34); MEAN CORPUSCULAR HGB CONC 30.8 g/dl (32-36); MEAN PLATELET VOLUME 9.2 fL (7.4-10.4); MONO % 4.6 %; NEUT % 85.8 %; PLATELET COUNT 355 K/uL (130-400); RED BLOOD COUNT 4.26 M/uL (4.2-5.4); WHITE BLOOD COUNT 9.01 K/uL (4.8-10.8)
[2017-03-31 08:15] LABS: PARTIAL THROMBOPLASTIN RATIO 1.4
--- NOTE | 2017-03-31 08:38 | DIAGNOSTIC IMAGING REPORT ---
HEAD WITHOUT CONTRAST (CT) CLINICAL HISTORY: 61 years-old Female presenting with cva. TECHNIQUE: Multidetector CT imaging of the head was performed without the use of intravenous contrast. IV contrast: None. A dose lowering technique was used consistent with the principles of ALARA (as low as reasonably achievable). COMPARISON: 03/30/2017. CT DOSE (mGy.cm): The estimated cumulative dose is 1074.96 mGy.cm. FINDINGS: Ambulatory Care Coordinator topogram: Unremarkable. Proportional ventricular and sulcal prominence, likely age-related parenchymal volume loss. Again demonstrated is hypodensity involving the caldwell and white matter of the posterior left temporal lobe with regional sulcal effacement, consistent with acute/subacute infarct in the left MCA territory. The left MCA is not hyperdense. Old lacunar infarct in the left basal ganglia adjacent to the head of the caudate. No mass effect or midline shift. No hemorrhage or acute territorial infarct. No extra-axial fluid collection. Paranasal sinuses and mastoid air cells clear. Calvarium intact. IMPRESSION: 1. Unchanged findings of acute/subacute infarct of the left posterior temporal lobe and the left MCA territory. No hemorrhage. No increased mass effect. 2. Old lacunar infarct in the left basal ganglia. Electronically signed by: Ubaldo Agarwal M.D. 03/31/2017 8:36 AM Dictated Date/Time: 03/31/2017 8:33 AM
[2017-03-31] MEDS ORDERED: LEVOTHYROXINE SODIUM INJ 12.5 MCG in SYRINGE 0 ML IV SCH (09:00)
[2017-03-31] MEDS ORDERED: ASPIRIN 300 MG SUPP PR SCH (09:00)
[2017-03-31] MEDS ORDERED: LEVOTHYROXINE 25 MCG TAB PO SCH (09:00)
[2017-03-31] MEDS ORDERED: ASPIRIN 81 MG ECTAB PO SCH (09:00)
[2017-03-31] MEDS: METOPROLOL SUCC 50MG EXT REL TAB PO SCH (09:19)
--- NOTE | 2017-03-31 10:31 | Neurology Consultation ---
Neurology Consultation Date of Consultation: Mar 31, 2017. Attending Physician: Nuha Currie MD Primary Care Physician: Ugo Walker M.D. Reason for Consultation: "CVA" History of Present Illness Source: hospital records The patient is a 61-year-old female who was admitted to the hospital yesterday for further assessment of altered mental status that began 2 days prior according to her . She has also had a recent fall with a slight injury to the right side of her face. Her had indicated that her confusion significantly worsened which prompted him to seek medical attention. She also has had some vomiting. The patient currently exhibits a significant mixed aphasia and is unable to provide a meaningful history of present illness. Her past medical history is notable for atrial fibrillation. She had not been prescribed an anticoagulant. History also notable for hypertension. Outpatient medications include Norvasc, glimepiride, Synthroid, metoprolol, Zocor, and Hytrin. Electrocardiogram revealed atrial fibrillation with a heart rate of [address] of the head reveals a hypodensity within the posterior aspect of the left temporal lobe as well as a chronic left basal ganglia lacunar. I reviewed the images and radiologist's report pertaining to this study. A follow-up brain MRI has also been completed. This study reveals an acute to subacute infarct within the left temporal lobe also affecting the left insular cortex. Infarct size about 7 cm. I reviewed both the images and radiologist's interpretation of this study as well and agree with the findings. If follow-up CT of the head was completed earlier this morning. There is no evidence of hemorrhagic transformation of the previously identified subacute/acute infarct. There is no evidence of midline shift. In light of this patient's history of atrial fibrillation and recent stroke she was started on a heparin drip. I had discussed her management with the admitting hospitalist last night. A carotid duplex has revealed an occluded proximal right internal carotid artery as well as extensive plaque of both carotid arteries. A follow-up CT angiogram of the neck was suggested although this patient appears to have acute renal insufficiency. It looks like an MRA of the neck without contrast has been ordered. Past Medical/Surgical History Medical Problems: (1) Altered mental status Status: Acute (2) Atrial fibrillation with rapid ventricular response Status: Acute (3) Elevated troponin Status: Acute (4) Focal infarction of brain Status: Acute Family History Family history notable for myocardial infarction in the father and ovarian cancer in the mother. Social History Smokeless Tobacco Use: No Alcohol Use: none Drug Use: none Marital Status: Housing Status: lives with significant other Occupation Status: retired Allergies Coded Allergies: Penicillins (Unverified Allergy, Intermediate, ., 03/30/17) Current Inpatient Medications Current Inpatient Medications Medications (Trade) Dose Ordered Sig/Joe Route Start Time Stop Time Status Last Admin Dose Admin Sodium Chloride 1,000 ml @ 125 mls/hr Q8H IV 03/30/17 15:03 04/29/17 15:02 03/31/17 09:19 125 MLS/HR Metoprolol Succinate (Toprol Xl Tab) 50 mg DAILY PO 03/31/17 09:00 04/30/17 08:59 03/31/17 09:19 50 MG Simvastatin (Zocor Tab) 10 mg HS PO 03/30/17 21:00 04/29/17 20:59 Hydralazine HCl (HydrALAZINE INJ) 10 mg Q4H PRN IV. 03/30/17 15:15 04/29/17 15:14 Miscellaneous Information (Pharmacist Discharge Med Rec Consult) 1 ea UD PRN N/A 03/30/17 15:30 04/29/17 15:29 Aspirin (Aspirin Supp) 300 mg DAILY LA 03/31/17 09:00 04/30/17 08:59 03/31/17 09:19 300 MG Metoprolol Tartrate (Lopressor Iv) 5 mg Q4 PRN IV 03/30/17 15:30 04/29/17 15:29 Metoprolol Tartrate (Lopressor Iv) 5 mg Q6 IV. 03/30/17 18:00 04/29/17 17:59 03/31/17 06:17 5 MG Levothyroxine Sodium 12.5 mcg/ Syringe 0.625 ml @ 2 mls/min DAILY@09 IV 03/31/17 09:00 04/30/17 08:59 03/31/17 09:19 2 MLS/MIN Glucose (Glucose 40% Gel) 15-30 GRAMS 15 GRAMS... UD PRN PO 03/30/17 17:00 04/29/17 16:59 Glucose (Glucose Chew Tab) 4-8 Tablets 4 Tabl... UD PRN PO 03/30/17 17:00 04/29/17 16:59 Dextrose (Dextrose 50% 50ML Syringe) 25-50ML OF 50% DW IV FOR... UD PRN IV 03/30/17 17:00 04/29/17 16:59 Glucagon (Glucagon Inj) 1 mg UD PRN SQ 03/30/17 17:00 04/29/17 16:59 Heparin Sodium/ Dextrose 500 ml @ 19 mls/hr Q24H PRN IV 03/30/17 18:30 04/29/17 18:29 03/31/17 02:04 19 MLS/HR Insulin Aspart (novoLOG ASPART) SLIDING SCALE If C... Q6 SC 03/31/17 00:00 04/30/17 00:00 Review of Systems A review of systems cannot be obtained from this patient given her significant mixed aphasia Physical Exam Vital Signs (Past 24 Hrs): Date Time Temp Pulse Resp B/P (MAP) Pulse Ox O2 Delivery O2 Flow Rate FiO2 03/31/17 07:30 97 Nasal Cannula 2.0 03/31/17 06:17 113 153/85 03/31/17 06:13 36.7 112 20 153/85 (107) 95 Nasal Cannula 2.0 03/31/17 04:00 98 Nasal Cannula 2.0 03/31/17 03:30 36.4 78 20 145/89 (107) 98 Nasal Cannula 2.0 03/31/17 00:08 86 03/31/17 00:00 98 Nasal Cannula 2.0 03/30/17 23:59 37.0 95 20 118/85 (96) 98 Nasal Cannula 2.0 03/30/17 20:00 99 Nasal Cannula 2.0 03/30/17 19:05 36.5 95 20 159/78 (105) 99 Nasal Cannula 2.0 03/30/17 18:10 87 156/83 03/30/17 17:30 36.9 103 16 156/83 (107) 94 Nasal Cannula 2.0 03/30/17 16:56 102 14 137/105 97 03/30/17 15:31 167/114 03/30/17 15:30 94 19 98 Nasal Cannula 2.0 03/30/17 15:01 145/98 03/30/17 15:00 91 21 98 Nasal Cannula 2.0 03/30/17 14:32 123/91 03/30/17 14:30 93 16 97 03/30/17 14:30 92 16 123/91 97 Nasal Cannula 2.0 03/30/17 14:29 98 Nasal Cannula 2.0 03/30/17 14:07 136/74 03/30/17 14:05 92 21 98 03/30/17 14:02 140/92 03/30/17 14:00 94 17 98 03/30/17 13:59 144 152/129 03/30/17 13:57 127/96 03/30/17 13:55 91 21 97 03/30/17 13:52 130/94 03/30/17 13:50 121 19 98 03/30/17 13:46 144 18 152/129 95 Nasal Cannula 2.0 03/30/17 13:46 152/129 03/30/17 13:45 134 12 96 03/30/17 12:00 116 18 130/93 95 Nasal Cannula 2.0 03/30/17 11:30 121 18 119/81 94 Nasal Cannula 2.0 03/30/17 11:05 132 03/30/17 10:54 95 Nasal Cannula 2.0 03/30/17 10:54 95 Nasal Cannula 2.0 03/30/17 10:54 36.7 152 28 129/108 95 Nasal Cannula 2.0 The patient is a chronically ill-appearing elderly female. She is lying quietly in bed and does not appear to be in significant distress. She is alert. Orientation to person place and time cannot be assessed due to her significant mixed aphasia. Recent and remote memory cannot be assessed. She appears attentive. Concentration cannot be assessed. The patient is unable to name objects. She is unable to repeat phrases. She does not follow simple commands. She was able to correctly show me her left thumb. Fund of knowledge and vocabulary cannot be assessed. Visual duffy cannot be adequately assessed although she appears to have a left gaze preference. Visual acuity cannot be adequately assessed. Pupils equal round reactive to light and accommodation. Eye movements grossly intact by observation. Corneal reflexes intact bilaterally. Otherwise, facial sensation cannot really be adequately assessed. There is a right facial droop. Hearing cannot be adequately assessed. Palate elevates to midline. Shoulder shrug strength intact bilaterally. Tongue protrudes to midline. Sensation of the limbs cannot be adequately assessed. Deep tendon reflexes are relatively brisk for the right arm and leg. The right plantar response is upgoing, left plantar responses downgoing. There is dysmetria with finger to nose and heel to kim on the right. No dysmetria with these maneuvers on the left. Ophthalmoscopic examination reveals normal- appearing optic disks and posterior segments. No hemorrhages or papilledema. Carotid pulses normal bilaterally, no bruits to auscultation. Gait and station cannot be tested. Muscle strength testing reveals a right hemiparesis affecting the face and arm greater than the leg. Right upper extremity strength and lower extremity strength would be graded 4 out of 5. There is increased flexor tone for the right upper extremity. There is no atrophy. No abnormal movements appreciated. Laboratory Results Past 24 Hours: 03/31/17 07:48 Red Blood Count 4.26, Mean Corpuscular Volume 82.4, Mean Corpuscular Hemoglobin 25.4, Mean Corpuscular Hemoglobin Concent 30.8, Mean Platelet Volume 9.2, Neutrophils (%) (Auto) 85.8, Lymphocytes (%) (Auto) 8.2, Monocytes (%) (Auto) 4.6, Eosinophils (%) (Auto) 0.8, Basophils (%) (Auto) 0.4, Neutrophils # (Auto) 7.73, Lymphocytes # (Auto) 0.74, Monocytes # (Auto) 0.41, Eosinophils # (Auto) 0.07, Basophils # (Auto) 0.04 03/31/17 01:01 Test 03/30/17 12:07 03/30/17 12:18 03/31/17 01:01 03/31/17 06:18 Prothrombin Time 11.2 SECONDS (9.0-12.0) Prothromb Time International Ratio 1.0 (0.9-1.1) Estimated Average Glucose 166 mg/dl Hemoglobin A1c 7.4 % (4.5-5.6) Total Bilirubin 0.4 mg/dl (0.2-1) Aspartate Amino Transf (AST/SGOT) 13 U/L (15-37) Alanine Aminotransferase (ALT/SGPT) 12 U/L (12-78) Alkaline Phosphatase 107 U/L (45-117) Ammonia < 10.0 umol/L (11-32) Total Protein 7.9 gm/dl (6.4-8.2) Albumin 2.7 gm/dl (3.4-5.0) Globulin 5.1 gm/dl (2.5-4.0) Albumin/Globulin Ratio 0.5 (0.9-2) Thyroid Stimulating Hormone (TSH) 1.470 uIu/ml (0.300-4.500) Hepatitis C Antibody Screen NEG (NEG) Urine Color YELLOW Urine Appearance CLEAR (CLEAR) Urine pH 6.5 (4.5-7.5) Urine Specific [place] 1.018 (1.000-1.030) Urine Protein 4+ (NEG) Urine Glucose (UA) 1+ (NEG) Urine Ketones NEG (NEG) Urine Occult Blood 2+ (NEG) Urine Nitrite NEG (NEG) Urine Bilirubin NEG (NEG) Urine Urobilinogen NEG (NEG) Urine Leukocyte Esterase SMALL (NEG) Urine WBC (Auto) >30 /hpf (0-5) Urine RBC (Auto) 0-4 /hpf (0-4) Urine Hyaline Casts (Auto) 1-5 /lpf (0-5) Urine Epithelial Cells (Auto) 0-5 /lpf (0-5) Urine Bacteria (Auto) NEG (NEG) Anion Gap 7.0 mmol/L (3-11) Est Creatinine Clear Calc Drug Dose 31.1 ml/min Estimated GFR () 30.0 Estimated GFR (Non- 25.9 BUN/Creatinine Ratio 19.1 (10-20) Calcium Level 8.1 mg/dl (8.5-10.1) Troponin I 0.736 ng/ml (0-0.045) Triglycerides Level 109 mg/dl (0-150) Cholesterol Level 127 mg/dl (0-200) HDL Cholesterol 55 mg/dl LDL Cholesterol, Calculated 50 mg/dl VLDL Cholesterol, Calculated 22 mg/dl Cholesterol/HDL Ratio 2.3 Bedside Glucose 102 mg/dl (70-90) Test 03/31/17 07:48 White Blood Count 9.01 K/uL (4.8-10.8) Red Blood Count 4.26 M/uL (4.2-5.4) Hemoglobin 10.8 g/dL (12.0-16.0) Hematocrit 35.1 % (37-47) Mean Corpuscular Volume 82.4 fL (80-100) Mean Corpuscular Hemoglobin 25.4 pg (25-34) Mean Corpuscular Hemoglobin Concent 30.8 g/dl (32-36) Platelet Count 355 K/uL (130-400) Mean Platelet Volume 9.2 fL (7.4-10.4) Neutrophils (%) (Auto) 85.8 % Lymphocytes (%) (Auto) 8.2 % Monocytes (%) (Auto) 4.6 % Eosinophils (%) (Auto) 0.8 % Basophils (%) (Auto) 0.4 % Neutrophils # (Auto) 7.73 K/uL (1.4-6.5) Lymphocytes # (Auto) 0.74 K/uL (1.2-3.4) Monocytes # (Auto) 0.41 K/uL (0.11-0.59) Eosinophils # (Auto) 0.07 K/uL (0-0.5) Basophils # (Auto) 0.04 K/uL (0-0.2) RDW Standard Deviation 47.7 fL (36.4-46.3) RDW Coefficient of Variation 15.8 % (11.5-14.5) Immature Granulocyte % (Auto) 0.2 % Immature Granulocyte # (Auto) 0.02 K/uL (0.00-0.02) Activated Partial Thromboplast Time 37.5 SECONDS (21.0-31.0) Partial Thromboplastin Ratio 1.4 Impression This is a 61-year-old female who presents with a significant mixed aphasia ( receptive and expressive) with an associated right hemiparesis and evidence of an acute to subacute posterior left temporal lobe/left insular cortex infarct identified on MRI. Her symptoms began 2 days prior to her assessment in the emergency department and she was thus not an appropriate candidate for TPA. Stroke etiology probably cardioembolic given her history of atrial fibrillation. She also has a complete occlusion of the right internal carotid artery on ultrasound of unknown chronicity. No occlusive lesion identified within the left internal carotid artery. Plan Agree with anticoagulation. Continue with heparin drip. Patient will need to be transitioned to an oral anticoagulant going forward. Warfarin may be advantageous as a can be acutely reversed if necessary. She will need to follow-up with her primary care physician or tree surgeon helper for monitoring of her atrial fibrillation and anticoagulation. Please order a transthoracic echocardiogram with bubble study. Please order a repeat noncontrast CT of the head to be completed tomorrow morning. Maintain systolic blood pressure between 140 and 160 mmHg for the time being. Follow up with results of noncontrast MRA of the neck. However, image quality will probably be poor and results may be of limited value. Perhaps if this patient's renal function improves, a CT angiogram of the head and neck could be completed. Alternatively, an MRA of the neck with gadolinium could be completed. Consultations with physical therapy, occupational therapy, and speech therapy Please contact me if I may be of further assistance
--- NOTE | 2017-03-31 10:37 | ECHOCARDIOGRAM REPORT ---
*NOTICE TO RECEIVING LIBERTARIAN AGENCY This information is strictly Confidential and protected under [place] law. [place] law prohibits you from making any further disclosure of this information unless further disclosure is expressly permitted by the written consent of the person to whom it pertains or is authorized by law. A general authorization for the release of medical or other information is not sufficient for this purpose. Hospital accepts no responsibility if the information is made available to any other person, INCLUDING THE PATIENT. Interpretation Summary * Name: HUGO STEIN Study Date: 03/31/2017 07:13 AM BP: 153/85 mmHg * Patient Location: C.2T\S\S231\S\1 HR: 90 * : 1955 (M/d/yyy) Gender: Female Height: 61 in * Age: 61 yrs Ethnicity: CA Weight: 218 lb * Ordering Physician: Tiffanie Otero * Referring Physician: Self, Referred * Performed By: Mónica Bush RDCS * * Reason For Study: CEREBRAL ISCHEMIA/EMBOLUS * BSA: 2.0 m2 * -- Conclusions -- * 1. Small LV cavity. Moderate concentric LVH. * 2. Hyperdynamic LV. LVEF >70%. No regional wall motion abnormalities. * 3. Normal RV size and function. * 4. No significant valvular pathology. * 5. Negative bubble study for interatrial shunt. * 6. Trace pericardial effusion. * 7. No prior studies for comparison. Procedure Details * A saline contrast injection was performed to assess for cardiac shunting. * The injection was performed through an intravenous line in the right arm. * The attending nurse who injected the saline contrast was NAE GILMAN. * A total of 10 cc of agitated saline was given. * PATIENT UNABLE TO FOLLOW COMMANDS Left Ventricle * The left ventricular cavity is small. * There is moderate concentric left ventricular hypertrophy. * Ejection Fraction = >70 %. * No regional wall motion abnormalities noted. Right Ventricle * The right ventricle is grossly normal size. * The right ventricular systolic function is normal as assessed by tricuspid annular plane systolic excursion (TAPSE) (normal >1.5 cm). Atria * The left atrium is mildly dilated. * Right atrial size is normal. * Injection of contrast documented no interatrial shunt. Mitral Valve * The mitral valve is grossly normal. * Mitral stenosis is absent. * There is trace mitral regurgitation. Tricuspid Valve * The tricuspid valve is not well visualized. * Significant tricuspid regurgitation is absent. Aortic Valve * The aortic valve opens well. * No hemodynamically significant valvular aortic stenosis. * There is no significant aortic regurgitation. Pulmonic Valve * The pulmonary valve is inadequately visualized, but the Doppler data is adequate for interpretation. * Pulmonic stenosis is absent. * Trace pulmonic valvular regurgitation. Great Vessels * The aortic root and proximal ascending aorta are normal sized. Pericardium/Pleural * Trace pericardial effusion. Great Vessels * Normal inferior vena cava size and collapsability with sniff indicates a normal right atrial pressure of 3 mmHg MMode 2D Measurements and Calculations IVSd 1.6 cm IVSs 2.2 cm LVIDd 3.6 cm LVIDs 2.6 cm LVPWd 1.8 cm LVPWs 2.0 cm IVS/LVPW 0.92 FS 27.4 % EDV(Teich) 53.3 ml ESV(Teich) 24.4 ml EF(Teich) 54.2 % EDV(cubed) 45.4 ml ESV(cubed) 17.4 ml EF(cubed) 61.7 % % IVS thick 37.1 % % LVPW thick 13.6 % LV mass(C)d 240.0 grams LV mass(C)dI 122.5 grams/m\S\2 LV mass(C)s 246.8 grams LV mass(C)sI 126.0 grams/m\S\2 SV(Teich) 28.9 ml SI(Teich) 14.7 ml/m\S\2 SV(cubed) 28.0 ml SI(cubed) 14.3 ml/m\S\2 LA dimension 3.6 cm LVAd ap4 24.4 cm\S\2 LVLd ap4 8.2 cm EDV(MOD-sp4) 61.1 ml EDV(sp4-el) 61.8 ml LVAs ap4 15.7 cm\S\2 LVLs ap4 7.7 cm ESV(MOD-sp4) 27.4 ml ESV(sp4-el) 27.3 ml EF(MOD-sp4) 55.1 % EF(sp4-el) 55.8 % LVAd ap2 18.3 cm\S\2 LVLd ap2 7.7 cm EDV(MOD-sp2) 36.4 ml EDV(sp2-el) 36.6 ml LVAs ap2 11.8 cm\S\2 LVLs ap2 7.6 cm ESV(MOD-sp2) 20.6 ml ESV(sp2-el) 15.5 ml EF(MOD-sp2) 43.4 % EF(sp2-el) 57.6 % LVLd %diff -5.39 % EDV(MOD-bp) 47.8 ml LVLs %diff -1.29 % ESV(MOD-bp) 22.4 ml EF(MOD-bp) 53.1 % SV(MOD-sp4) 33.6 ml SI(MOD-sp4) 17.2 ml/m\S\2 SV(MOD-sp2) 15.8 ml SI(MOD-sp2) 8.1 ml/m\S\2 SV(MOD-bp) 25.4 ml SI(MOD-bp) 12.9 ml/m\S\2 SV(sp4-el) 34.5 ml SI(sp4-el) 17.6 ml/m\S\2 SV(sp2-el) 21.0 ml SI(sp2-el) 10.7 ml/m\S\2 Doppler Measurements and Calculations MV E max tessie 96.0 cm/sec MV dec time 0.29 sec Ao V2 max 103.5 cm/sec Ao max PG 4.3 mmHg Ao max PG (full) 1.5 mmHg LV V1 max PG 2.8 mmHg LV V1 max 83.0 cm/sec
--- NOTE | 2017-03-31 11:26 | Hospitalist Progress Note ---
Hospitalist Progress Note Date of Service Mar 31, 2017. (Tiffanie Otero ., VAZQUEZ) Subjective Pt evaluation today including: conversation w/ patient, chart review Voiding: em catheter in place Ms. Fletcher is laying in bed this morning, no apparent distress, at bedside. She is severely aphasic and is unable to provide history or answer questions. She is able to follow some commands. Tender left shoulder to touch. Constitutional: + see HPI Respiratory: + see HPI All Other Systems: Reviewed and Negative (Tiffanie Otero CRNP) Objective Vital Signs Date Time Temp Pulse Resp B/P (MAP) Pulse Ox O2 Delivery O2 Flow Rate FiO2 03/31/17 07:30 97 Nasal Cannula 2.0 03/31/17 06:17 113 153/85 03/31/17 06:13 36.7 112 20 153/85 (107) 95 Nasal Cannula 2.0 03/31/17 04:00 98 Nasal Cannula 2.0 03/31/17 03:30 36.4 78 20 145/89 (107) 98 Nasal Cannula 2.0 03/31/17 00:08 86 03/31/17 00:00 98 Nasal Cannula 2.0 03/30/17 23:59 37.0 95 20 118/85 (96) 98 Nasal Cannula 2.0 03/30/17 20:00 99 Nasal Cannula 2.0 03/30/17 19:05 36.5 95 20 159/78 (105) 99 Nasal Cannula 2.0 03/30/17 18:10 87 156/83 03/30/17 17:30 36.9 103 16 156/83 (107) 94 Nasal Cannula 2.0 03/30/17 16:56 102 14 137/105 97 03/30/17 15:31 167/114 03/30/17 15:30 94 19 98 Nasal Cannula 2.0 03/30/17 15:01 145/98 03/30/17 15:00 91 21 98 Nasal Cannula 2.0 03/30/17 14:32 123/91 03/30/17 14:30 93 16 97 03/30/17 14:30 92 16 123/91 97 Nasal Cannula 2.0 03/30/17 14:29 98 Nasal Cannula 2.0 03/30/17 14:07 136/74 03/30/17 14:05 92 21 98 03/30/17 14:02 140/92 03/30/17 14:00 94 17 98 03/30/17 13:59 144 152/129 03/30/17 13:57 127/96 03/30/17 13:55 91 21 97 03/30/17 13:52 130/94 03/30/17 13:50 121 19 98 03/30/17 13:46 144 18 152/129 95 Nasal Cannula 2.0 03/30/17 13:46 152/129 03/30/17 13:45 134 12 96 03/30/17 12:00 116 18 130/93 95 Nasal Cannula 2.0 03/30/17 11:30 121 18 119/81 94 Nasal Cannula 2.0 (Tiffanie Otero CRNP) Physical Exam Notes: General: no distress Eyes: normal inspection, PERLL Respiratory: chest non tender, clear to auscultation, normal breath sounds, no respiratory distress, no accessory muscle use Cardiac: regular rate and rhythm, no rub or gallop, no murmur, no edema, no jvd GI/: active bowel sounds, no abd pain or tenderness, soft, non distended Extremities: Right arm has increased tone and is weaker than the left, tender left shoulder to touch. Legs are stiff, she is unable to hold them off the bed , she does grimace when Babinski performed in both feet. Neuro/Psych: alert unable to assess orientation due to aphasia, patient unable to name objects or answer questions intelligibly, right side hemiparesis and neglect. Skin: normal color, dry (Tiffanie Otero CRNP) Laboratory Results Last 24 Hours Test 03/30/17 12:07 03/30/17 12:18 03/30/17 18:54 03/31/17 00:16 White Blood Count 11.83 K/uL Red Blood Count 4.71 M/uL Hemoglobin 12.0 g/dL Hematocrit 38.0 % Mean Corpuscular Volume 80.7 fL Mean Corpuscular Hemoglobin 25.5 pg Mean Corpuscular Hemoglobin Concent 31.6 g/dl Platelet Count 411 K/uL Mean Platelet Volume 9.1 fL Neutrophils (%) (Auto) 92.8 % Lymphocytes (%) (Auto) 4.2 % Monocytes (%) (Auto) 2.5 % Eosinophils (%) (Auto) 0.0 % Basophils (%) (Auto) 0.2 % Neutrophils # (Auto) 10.99 K/uL Lymphocytes # (Auto) 0.50 K/uL Monocytes # (Auto) 0.29 K/uL Eosinophils # (Auto) 0.00 K/uL Basophils # (Auto) 0.02 K/uL RDW Standard Deviation 46.1 fL RDW Coefficient of Variation 15.7 % Immature Granulocyte % (Auto) 0.3 % Immature Granulocyte # (Auto) 0.03 K/uL Prothrombin Time 11.2 SECONDS Prothromb Time International Ratio 1.0 Activated Partial Thromboplast Time 25.9 SECONDS Partial Thromboplastin Ratio 1.0 Sodium Level 139 mmol/L Potassium Level 4.6 mmol/L Chloride Level 105 mmol/L Carbon Dioxide Level 25 mmol/L Anion Gap 9.0 mmol/L Blood Urea Nitrogen 39 mg/dl Creatinine 2.20 mg/dl Est Creatinine Clear Calc Drug Dose 28.2 ml/min Estimated GFR () 26.8 Estimated GFR (Non- 23.1 BUN/Creatinine Ratio 17.9 Random Glucose 195 mg/dl Estimated Average Glucose 166 mg/dl Hemoglobin A1c 7.4 % Calcium Level 9.1 mg/dl Total Bilirubin 0.4 mg/dl Aspartate Amino Transf (AST/SGOT) 13 U/L Alanine Aminotransferase (ALT/SGPT) 12 U/L Alkaline Phosphatase 107 U/L Ammonia < 10.0 umol/L Troponin I 0.337 ng/ml 0.656 ng/ml Total Protein 7.9 gm/dl Albumin 2.7 gm/dl Globulin 5.1 gm/dl Albumin/Globulin Ratio 0.5 Thyroid Stimulating Hormone (TSH) 1.470 uIu/ml Hepatitis C Antibody Screen NEG Urine Color YELLOW Urine Appearance CLEAR Urine pH 6.5 Urine Specific [place] 1.018 Urine Protein 4+ Urine Glucose (UA) 1+ Urine Ketones NEG Urine Occult Blood 2+ Urine Nitrite NEG Urine Bilirubin NEG Urine Urobilinogen NEG Urine Leukocyte Esterase SMALL Urine WBC (Auto) >30 /hpf Urine RBC (Auto) 0-4 /hpf Urine Hyaline Casts (Auto) 1-5 /lpf Urine Epithelial Cells (Auto) 0-5 /lpf Urine Bacteria (Auto) NEG Bedside Glucose 82 mg/dl Test 03/31/17 01:01 03/31/17 06:18 03/31/17 07:48 03/31/17 10:49 Activated Partial Thromboplast Time 32.8 SECONDS 37.5 SECONDS Partial Thromboplastin Ratio 1.3 1.4 Sodium Level 144 mmol/L Potassium Level 4.3 mmol/L Chloride Level 111 mmol/L Carbon Dioxide Level 26 mmol/L Anion Gap 7.0 mmol/L Blood Urea Nitrogen 38 mg/dl Creatinine 2.00 mg/dl Est Creatinine Clear Calc Drug Dose 31.1 ml/min Estimated GFR () 30.0 Estimated GFR (Non- 25.9 BUN/Creatinine Ratio 19.1 Random Glucose 77 mg/dl Calcium Level 8.1 mg/dl Troponin I 0.736 ng/ml Triglycerides Level 109 mg/dl Cholesterol Level 127 mg/dl HDL Cholesterol 55 mg/dl LDL Cholesterol, Calculated 50 mg/dl VLDL Cholesterol, Calculated 22 mg/dl Cholesterol/HDL Ratio 2.3 Bedside Glucose 102 mg/dl White Blood Count 9.01 K/uL Red Blood Count 4.26 M/uL Hemoglobin 10.8 g/dL Hematocrit 35.1 % Mean Corpuscular Volume 82.4 fL Mean Corpuscular Hemoglobin 25.4 pg Mean Corpuscular Hemoglobin Concent 30.8 g/dl Platelet Count 355 K/uL Mean Platelet Volume 9.2 fL Neutrophils (%) (Auto) 85.8 % Lymphocytes (%) (Auto) 8.2 % Monocytes (%) (Auto) 4.6 % Eosinophils (%) (Auto) 0.8 % Basophils (%) (Auto) 0.4 % Neutrophils # (Auto) 7.73 K/uL Lymphocytes # (Auto) 0.74 K/uL Monocytes # (Auto) 0.41 K/uL Eosinophils # (Auto) 0.07 K/uL Basophils # (Auto) 0.04 K/uL RDW Standard Deviation 47.7 fL RDW Coefficient of Variation 15.8 % Immature Granulocyte % (Auto) 0.2 % Immature Granulocyte # (Auto) 0.02 K/uL (Tiffanie Otero CRNP) Assessment and Plan 61 year old woman here with 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 She was also found to be in Afib RVR when she arrived to the ED with a max rate in the 150s that responded to IV metoprolol. CVA - She was outside the treatment window for TPA. Neurology consulted. Evaluated by speech - mechanical soft diet. Hydrate with NSS. plavix, PT/OT A.fib - No mention of A.fib from outpatient records. Currently rate controlled, continue po metoprolol. Discussed case with Dr. Michele from neurology, recommended starting low dose no bolus drip and initiating warfarin. Check check PT/ INR now and in the mornings. Repeat CT in the morning to monitor for bleed. No thrombus or PFO on echo. Right internal carotid occlusion on doppler and neck MRA - consulted vascular surgery Elevated troponin - likely demand ischemia from rapid rate - troponins peaked at .602, no wall motion abnormalities on echocardiogram. Hypoxia - titrate down O2 Shoulder/elbow tenderness s/p fall - Shoulder and wrist x ray. Diabetes - hold home meds, start sliding scale, A1c 7.4 HTN - permissive htn post ischemic CVA, home htn meds held for now Chronic Kidney Disease Stage IV - Avoid nephrotoxic drugs, renally dose medications. Hypothyroidism - continue levothyroxine 25 mg. 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 Discussed with Ms. Partidaoriadele and agree with findings and plan as documented in the note. Any exceptions or clarifications are listed here: Pt tried to answer my questions but would replace some words for others most of the time, but seemed to understand what I was asking. Discussed all results and case at length with pt and her at the bedside. Pt reports pt has been falling repeatedly and c/o bilateral foot and leg pain at least for the last month, having to use walker all the time. Does not recall a dx of peripheral neuropathy at all. found her down on the ground 4 times in the 2 days leading up to admission and attributed it to her usual falls she had been having , but then when her speech became unintelligible the day of admission, he called 911. Pt quit smoking about 18 months ago, no diagnosis of COPD Tele with A-fib, up to 130s when was out of bed with OT, but mostly rate controlled in 70s-80s. Vitals reviewed NAD, lying in bed, alert, awake, not able to answer orientation questions Anicteric sclerae Irreg irreg, rate normal, no mgr Lungs with diminished BS throughout and faint basilar crackles Abd +BS, soft NT ND Ext: left wrist with mild edema/effusion and exquisite point tenderness over distal radius, also with tenderness over left elbow and effusion, and +TTP over left superior aspect of shoulder, pt not verbal but jumped up off the bed during strength testing of her upper extremities indicating pain Neuro: Right sided facial droop present, right alison-neglect, strength slightly reduced in RUE and RLE compared to left but difficult to get her to follow commands for testing, sensory testing limited too but seemed to indicate it was equal throughout, RUE in flexion with increased tone All imaging reviewed as per H[employer] AND EYE ATTACHER note plus MRA Neck which again confirms total occlusion TARUN, also images of left wrist/elbow/shoulder reviewed and agree with Radiology assessment Pt is a 61 yo female with a h/o LOPEZ with complete occlusion TARUN, HTN, DMII, hypothyroidism, HL, and CKD stage IV, here with 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 -plan as per H[employer] AND EYE ATTACHER note -ASA allergy as per and confirmed in outpt chart--> so will give Plavix -starting coumadin and bridge with heparin gtt for A-fib, watching for hemorrhagic conversion clinically and repeat head CT in AM -complete occlusion TARUN but no right sided brain findings on MRI--> Vascular opinion appreciated, continue Plavix and increase Zocor to 40mg daily -Demand ischemia/PAF (new onset)--> ECHO result reviewed and no significant findings, continue Toprol for rate control, AC as above -PT/OT/ST evals and will need acute rehab -continue to hold home amlodipine and Hytrin from home -Acute hypoxemic Respiratory failure-previous long time smoker, no formal dx of COPD, quit smoking--> start albuterol nebs and wean O2 as able to -Left distal radius and possible prox radius fractures--> ice fo rnow, tylenol prn, will likely need reduction of wrist fracture and casting/splinting--> Appreciate Ortho consult Documented By: Nuha Currie (Nuha Currie MD)
--- NOTE | 2017-03-31 13:05 | Hospitalist Progress Note ---
Hospitalist Progress Note Date of Service Mar 31, 2017. Objective Vital Signs Date Time Temp Pulse Resp B/P (MAP) Pulse Ox O2 Delivery O2 Flow Rate FiO2 03/31/17 11:59 37.1 86 16 167/75 (105) 93 Nasal Cannula 03/31/17 07:30 97 Nasal Cannula 2.0 03/31/17 06:17 113 153/85 03/31/17 06:13 36.7 112 20 153/85 (107) 95 Nasal Cannula 2.0 03/31/17 04:00 98 Nasal Cannula 2.0 03/31/17 03:30 36.4 78 20 145/89 (107) 98 Nasal Cannula 2.0 03/31/17 00:08 86 03/31/17 00:00 98 Nasal Cannula 2.0 03/30/17 23:59 37.0 95 20 118/85 (96) 98 Nasal Cannula 2.0 03/30/17 20:00 99 Nasal Cannula 2.0 03/30/17 19:05 36.5 95 20 159/78 (105) 99 Nasal Cannula 2.0 03/30/17 18:10 87 156/83 03/30/17 17:30 36.9 103 16 156/83 (107) 94 Nasal Cannula 2.0 03/30/17 16:56 102 14 137/105 97 03/30/17 15:31 167/114 03/30/17 15:30 94 19 98 Nasal Cannula 2.0 03/30/17 15:01 145/98 03/30/17 15:00 91 21 98 Nasal Cannula 2.0 03/30/17 14:32 123/91 03/30/17 14:30 93 16 97 03/30/17 14:30 92 16 123/91 97 Nasal Cannula 2.0 03/30/17 14:29 98 Nasal Cannula 2.0 03/30/17 14:07 136/74 03/30/17 14:05 92 21 98 03/30/17 14:02 140/92 03/30/17 14:00 94 17 98 03/30/17 13:59 144 152/129 03/30/17 13:57 127/96 03/30/17 13:55 91 21 97 03/30/17 13:52 130/94 03/30/17 13:50 121 19 98 03/30/17 13:46 144 18 152/129 95 Nasal Cannula 2.0 03/30/17 13:46 152/129 03/30/17 13:45 134 12 96 Laboratory Results Last 24 Hours Test 03/30/17 18:54 03/31/17 00:16 03/31/17 01:01 03/31/17 06:18 Troponin I 0.656 ng/ml 0.736 ng/ml Bedside Glucose 82 mg/dl 102 mg/dl Activated Partial Thromboplast Time 32.8 SECONDS Partial Thromboplastin Ratio 1.3 Sodium Level 144 mmol/L Potassium Level 4.3 mmol/L Chloride Level 111 mmol/L Carbon Dioxide Level 26 mmol/L Anion Gap 7.0 mmol/L Blood Urea Nitrogen 38 mg/dl Creatinine 2.00 mg/dl Est Creatinine Clear Calc Drug Dose 31.1 ml/min Estimated GFR () 30.0 Estimated GFR (Non- 25.9 BUN/Creatinine Ratio 19.1 Random Glucose 77 mg/dl Calcium Level 8.1 mg/dl Triglycerides Level 109 mg/dl Cholesterol Level 127 mg/dl HDL Cholesterol 55 mg/dl LDL Cholesterol, Calculated 50 mg/dl VLDL Cholesterol, Calculated 22 mg/dl Cholesterol/HDL Ratio 2.3 Test 03/31/17 07:48 03/31/17 10:49 03/31/17 11:09 White Blood Count 9.01 K/uL Red Blood Count 4.26 M/uL Hemoglobin 10.8 g/dL Hematocrit 35.1 % Mean Corpuscular Volume 82.4 fL Mean Corpuscular Hemoglobin 25.4 pg Mean Corpuscular Hemoglobin Concent 30.8 g/dl Platelet Count 355 K/uL Mean Platelet Volume 9.2 fL Neutrophils (%) (Auto) 85.8 % Lymphocytes (%) (Auto) 8.2 % Monocytes (%) (Auto) 4.6 % Eosinophils (%) (Auto) 0.8 % Basophils (%) (Auto) 0.4 % Neutrophils # (Auto) 7.73 K/uL Lymphocytes # (Auto) 0.74 K/uL Monocytes # (Auto) 0.41 K/uL Eosinophils # (Auto) 0.07 K/uL Basophils # (Auto) 0.04 K/uL RDW Standard Deviation 47.7 fL RDW Coefficient of Variation 15.8 % Immature Granulocyte % (Auto) 0.2 % Immature Granulocyte # (Auto) 0.02 K/uL Activated Partial Thromboplast Time 37.5 SECONDS Partial Thromboplastin Ratio 1.4 Troponin I 0.602 ng/ml Bedside Glucose 106 mg/dl Assessment and Plan 61 year old woman here with 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 She was also found to be in Afib RVR when she arrived to the ED with a max rate in the 150s that responded to IV metoprolol. CVA - She is outside the treatment window for TPA. Neurology consulted. Carotid dopplers. NPO until evaluated by speech, hydrate with NSS. ASA, PT/OT, Speech therapy A.fib - rate is now controlled in the 90s, metoprolol IV while NPO. Discussed case with Dr. Michele from neurology, recommended starting low dose no bolus drip and repeat CT in the morning. Will consider starting warfarin . Echocardiogram Elevated troponin - likely demand ischemia from rapid rate - troponins peaked at .602 Hypoxia - titrate down O2 Diabetes - hold home meds, start sliding scale, A1c HTN - permissive htn post ischemic CVA, home htn meds held for now Chronic Kidney Disease Stage IV - Avoid nephrotoxic drugs, renally dose medications. Hypothyroidism - IV synthroid Code status - full resuscitation DVT prophylaxis - heparin gtt
--- NOTE | 2017-03-31 13:34 | DIAGNOSTIC IMAGING REPORT ---
MRA NECK WITHOUT CONTRAST CLINICAL HISTORY: 61 years-old Female presenting with stroke of the left temporal lobe. TECHNIQUE: MR angiography of the neck was performed without the use of intravenous contrast using 3-D [id number] technique. 3-D volumetric and/or maximum intensity projection (MIP) images were subsequently reconstructed for review. IV contrast: None. Stenosis measurements were based on NASCET-like criteria. COMPARISON: Ultrasound from 03/30/2017. FINDINGS: Suboptimal assessment secondary to motion artifact. The aortic arch is incompletely visualized. The bilateral common carotid arteries are grossly patent. Nonvisualization of the right internal carotid artery suggesting complete occlusion. The left internal carotid artery is patent. Left dominant vertebral artery. Both vertebral arteries contribute to the basilar artery. Limited evaluation of the intracranial vasculature demonstrates a patent posterior circulation. Anterior circulation is remarkable for hypoplastic A1 segment of the right anterior cerebral artery. IMPRESSION: 1. Occluded right internal carotid artery. 2. Significantly limited examination secondary to patient motion. No gross evidence of a significant stenosis within limits of image quality. If there is continuing clinical concern, CTA of the head or neck to be obtained. Electronically signed by: Ubaldo Agarwal M.D. 03/31/2017 1:32 PM Dictated Date/Time: 03/31/2017 1:27 PM
[2017-03-31 14:50] LABS: INR 1.1 (0.9-1.1); PROTHROMBIN TIME (PATIENT) 11.3 SECONDS (9.0-12.0)
--- NOTE | 2017-03-31 15:40 | DIAGNOSTIC IMAGING REPORT ---
L WRIST MIN 3 VIEWS ROUTINE CLINICAL HISTORY: 61 years-old Female presenting with wrist pain s/p fall. TECHNIQUE: Frontal, bilateral oblique, and lateral views of the left wrist were obtained. COMPARISON: None. FINDINGS: Osteopenia. Cortical deformity of the radial and ulnar aspects of the radial metaphysis with mild apex volar angulation, consistent with a distal radial metaphysis fracture. Radiocarpal, intercarpal, and carpometacarpal articulations intact. Distal radial ulnar joint intact. IMPRESSION: Distal radial metaphysis fracture with mild apex volar angulation (Colles' fracture). Electronically signed by: Ubaldo Agarwal M.D. 03/31/2017 3:39 PM Dictated Date/Time: 03/31/2017 3:37 PM
--- NOTE | 2017-03-31 15:42 | DIAGNOSTIC IMAGING REPORT ---
L ELBOW 2 VIEWS CLINICAL HISTORY: 61 years-old Female presenting with elbow pain s/p fall. TECHNIQUE: Frontal and lateral views of the left elbow were obtained. COMPARISON: None. FINDINGS: No acute fracture or malalignment. Posteriorly displaced posterior fat pad suggesting elbow joint effusion. Regional soft tissues otherwise normal. IMPRESSION: Suggestion of elbow joint effusion. This could suggest nondisplaced intra-articular fracture. However, no radiographic evidence of acute osseous injury. If there is continuing clinical concern, noncontrast CT could be obtained versus dedicated radiographs of the radial head. Electronically signed by: Ubaldo Agarwal M.D. 03/31/2017 3:41 PM Dictated Date/Time: 03/31/2017 3:39 PM
--- NOTE | 2017-03-31 15:43 | DIAGNOSTIC IMAGING REPORT ---
L SHOULDER MIN 2 VIEWS ROUTINE CLINICAL HISTORY: 61 years-old Female presenting with shoulder pain s/p fall. TECHNIQUE: Internal rotation, external rotation, and Grashey views of the left shoulder were obtained. COMPARISON: None. FINDINGS: Acromioclavicular and glenohumeral joints congruent. No acute fracture or subluxation. Regional soft tissues normal. Visualized portion of the left hemithorax demonstrates atherosclerosis. IMPRESSION: No acute osseous injury of the left shoulder. Electronically signed by: Ubaldo Agarwal M.D. 03/31/2017 3:42 PM Dictated Date/Time: 03/31/2017 3:41 PM
[2017-03-31] MEDS: WARFARIN SOD 5 MG TAB PO SCH (17:35)
[2017-03-31 17:37] LABS: PARTIAL THROMBOPLASTIN RATIO 1.6
[2017-03-31] MEDS: SIMVASTATIN 40 MG TAB PO SCH (19:51)
[2017-03-31] MEDS: ALBUTEROL 0.083% NEBU SOLN 3 ML VIAL INH SCH (20:15)
[2017-04-01] VITALS (12 sets, daily range): BP systolic 124–172; BP diastolic 71–84; PULSE 68–111; TEMP 36.7–37.2; O2SAT 90–96
[2017-04-01 00:35] LABS: PARTIAL THROMBOPLASTIN RATIO 1.7
[2017-04-01] MEDS: ALBUTEROL 0.083% NEBU SOLN 3 ML VIAL INH SCH ×4 (01:34→19:40)
[2017-04-01] MEDS: METOPROLOL TARTRATE 1 MG/ML VIAL IV PRN ×2 (02:06→08:00)
[2017-04-01] MEDS: LEVOTHYROXINE 25 MCG TAB PO SCH (06:30)
[2017-04-01] MEDS: SODIUM CHLORIDE 0.9% 1000ML 1,000 ML IV SCH ×3 (06:30→23:20)
[2017-04-01] MEDS: INSULIN ASPART 100 UNITS/ML 3 ML PEN SC SCH ×5 (06:31→21:00)
--- NOTE | 2017-04-01 06:35 | DIAGNOSTIC IMAGING REPORT ---
HEAD WITHOUT CONTRAST (CT) CLINICAL HISTORY: 61 years-old Female with cva with heparin gtt. Follow-up study to assess subacute left temporal lobe infarction TECHNIQUE: Multiple axial CT images of the head were obtained without contrast. A dose lowering technique was utilized adhering to the principles of ALARA. CT DOSE: 614.27 mGy.cm COMPARISON: None. FINDINGS: No acute intracranial hemorrhage, midline shift, mass, or abnormal extra-axial collection. Large subacute infarction involving the left MCA distribution within the posterior left temporal lobe redemonstrated. Mildly progressive evolution of the infarction is seen with sulcal effacement and cytotoxic edema within this distribution. No associated hemorrhage or significant mass effect. Background chronic microvascular ischemic changes with remote lacunar infarction in the region of the left lentiform nucleus and external capsule region of the left. There is moderate atrophy with ex vacuo ventriculomegaly. The calvarium is intact. The paranasal sinuses, mastoid air cells, and middle ear cavities are clear. IMPRESSION: 1. Mildly progressive evolution of a subacute infarction of the left MCA distribution posterior left temporal lobe with moderate degree of cytotoxic edema and sulcal effacement. No significant mass effect, midline shift or hemorrhage. 2. Atrophy with background chronic microvascular ischemic changes. Remote lacunar infarction of the left basal ganglia. The above report was generated using voice recognition software. It may contain grammatical, syntax or spelling errors. Electronically signed by: José Sanchez M.D. 04/01/2017 6:33 AM Dictated Date/Time: 04/01/2017 6:29 AM
[2017-04-01 07:39] LABS: BASO % 0.4 %; BASO ABS # 0.04 K/uL (0-0.2); COMPLETE YES; EOS % 0.2 %; HEMATOCRIT 33.7 % (37-47); IG% 0.3 %; LYMPH % 10.2 %; LYMPH ABS # 0.94 K/uL (1.2-3.4); MEAN CELL VOLUME 81.6 fL (80-100); MEAN CORPUSCULAR HEMOGLOBIN 25.7 pg (25-34); MEAN CORPUSCULAR HGB CONC 31.5 g/dl (32-36); MEAN PLATELET VOLUME 9.5 fL (7.4-10.4); MONO % 4.5 %; NEUT % 84.4 %; PLATELET COUNT 356 K/uL (130-400); RED BLOOD COUNT 4.13 M/uL (4.2-5.4); WHITE BLOOD COUNT 9.26 K/uL (4.8-10.8)
[2017-04-01 07:43] LABS: BUN/CREATININE RATIO 15.6 (10-20); CALCIUM 8.3 mg/dl (8.5-10.1); CREATININE 1.8 mg/dl (0.60-1.20); POTASSIUM 3.9 mmol/L (3.5-5.1)
[2017-04-01 08:00] LABS: INR 1.2 (0.9-1.1); PROTHROMBIN TIME (PATIENT) 12.9 SECONDS (9.0-12.0)
[2017-04-01] MEDS: CLOPIDOGREL BISULFATE 75 MG TAB PO SCH (08:04)
[2017-04-01] MEDS: METOPROLOL SUCC 50MG EXT REL TAB PO SCH (08:05)
[2017-04-01] MEDS: ASPIRIN 81 MG ECTAB PO SCH (08:05)
[2017-04-01] MEDS ORDERED: METOPROLOL SUCC 25MG EXT REL TAB PO SCH (09:00)
--- NOTE | 2017-04-01 09:21 | Neurology Progress Notes ---
Neurology Progress Note Date of Service Apr 01, 2017. Subjective Follow-up for stroke The patient continues to exhibit significant, mixed aphasia and associated mild to moderate right hemiparesis secondary to her subacute posterior left temporal lobe/insular cortex infarct. She has not exhibited any significant change in her neurological deficits compared with yesterday. The patient is unable to elaborate any further on symptoms given her significant mixed aphasia. A follow-up CT of the head was completed this morning. I reviewed both images and radiologist's interpretation of this test. There is normal evolution of the previously identified posterior left temporal lobe infarct with some associated cytotoxic edema. No shift or hemorrhage. Warfarin was started yesterday in light of this patient's history of atrial fibrillation. She continues with the heparin drip. Objective Date Time Temp Pulse Resp B/P (MAP) Pulse Ox O2 Delivery O2 Flow Rate FiO2 04/01/17 08:00 133 124/76 04/01/17 07:52 36.7 94 20 124/76 (92) 92 Nasal Cannula 2.0 04/01/17 07:26 82 18 92 Nasal Cannula 2.0 04/01/17 04:00 95 Nasal Cannula 2.0 04/01/17 03:33 37.2 107 16 159/84 (109) 92 Nasal Cannula 2.0 04/01/17 02:06 125 163/76 04/01/17 01:35 111 18 93 Nasal Cannula 2.0 04/01/17 00:00 96 Nasal Cannula 2.0 03/31/17 23:20 36.7 96 16 163/76 (105) 92 Nasal Cannula 2.0 03/31/17 20:15 76 20 96 Nasal Cannula 2.0 03/31/17 20:00 96 Nasal Cannula 2.0 03/31/17 19:20 36.7 89 20 153/78 (103) 86 Nasal Cannula 2.0 03/31/17 16:00 99 Nasal Cannula 2.0 03/31/17 15:14 36.6 93 22 157/77 (103) 93 Nasal Cannula 2.0 03/31/17 12:00 98 Nasal Cannula 2.0 03/31/17 11:59 37.1 86 16 167/75 (105) 93 Nasal Cannula Last 24 Hours Test 03/31/17 10:49 03/31/17 11:09 03/31/17 14:27 03/31/17 17:18 Troponin I 0.602 ng/ml Bedside Glucose 106 mg/dl Prothrombin Time 11.3 SECONDS Prothromb Time International Ratio 1.1 Activated Partial Thromboplast Time 42.4 SECONDS Partial Thromboplastin Ratio 1.6 Test 03/31/17 17:36 04/01/17 00:00 04/01/17 00:11 04/01/17 05:58 Bedside Glucose 117 mg/dl 89 mg/dl 152 mg/dl Activated Partial Thromboplast Time 44.4 SECONDS Partial Thromboplastin Ratio 1.7 Test 04/01/17 06:35 White Blood Count 9.26 K/uL Red Blood Count 4.13 M/uL Hemoglobin 10.6 g/dL Hematocrit 33.7 % Mean Corpuscular Volume 81.6 fL Mean Corpuscular Hemoglobin 25.7 pg Mean Corpuscular Hemoglobin Concent 31.5 g/dl Platelet Count 356 K/uL Mean Platelet Volume 9.5 fL Neutrophils (%) (Auto) 84.4 % Lymphocytes (%) (Auto) 10.2 % Monocytes (%) (Auto) 4.5 % Eosinophils (%) (Auto) 0.2 % Basophils (%) (Auto) 0.4 % Neutrophils # (Auto) 7.81 K/uL Lymphocytes # (Auto) 0.94 K/uL Monocytes # (Auto) 0.42 K/uL Eosinophils # (Auto) 0.02 K/uL Basophils # (Auto) 0.04 K/uL RDW Standard Deviation 47.6 fL RDW Coefficient of Variation 15.8 % Immature Granulocyte % (Auto) 0.3 % Immature Granulocyte # (Auto) 0.03 K/uL Nucleated RBC Absolute Count (auto) 0.00 K/uL Nucleated Red Blood Cells % 0.0 % Prothrombin Time 12.9 SECONDS Prothromb Time International Ratio 1.2 Activated Partial Thromboplast Time 51.4 SECONDS Partial Thromboplastin Ratio 2.0 Sodium Level 140 mmol/L Potassium Level 3.9 mmol/L Chloride Level 109 mmol/L Carbon Dioxide Level 22 mmol/L Anion Gap 9.0 mmol/L Blood Urea Nitrogen 28 mg/dl Creatinine 1.80 mg/dl Est Creatinine Clear Calc Drug Dose 29.3 ml/min Estimated GFR () 34.1 Estimated GFR (Non- 29.4 BUN/Creatinine Ratio 15.6 Random Glucose 148 mg/dl Calcium Level 8.3 mg/dl Exam: The patient is alert. Continues to exhibit a significant, mixed aphasia affecting both expressive and receptive speech. Orientation cannot be assessed. She often repeats the word "yes." She is unable to name objects. She is unable to repeat phrases. She will follow very simple commands such as "show me her left hand." She continues to have an element of right-sided visual neglect although this issue appears slightly improved compared with yesterday. Eye movements are normal to observation. Pupils equal round reactive to light. There is a right facial droop. There is normal movement of the tongue and palate. The patient continues to exhibit a right hemiparesis, 4 out of 5 strength for the arm and leg, although there may be an element of right sided sensory neglect confounding her motor assessment. Current Inpatient Medications Medications (Trade) Dose Ordered Sig/Joe Route Start Time Stop Time Status Last Admin Dose Admin Sodium Chloride 1,000 ml @ 125 mls/hr Q8H IV 03/30/17 15:03 04/29/17 15:02 04/01/17 06:30 125 MLS/HR Miscellaneous Information (Pharmacist Discharge Med Rec Consult) 1 ea UD PRN N/A 03/30/17 15:30 04/29/17 15:29 Metoprolol Tartrate (Lopressor Iv) 5 mg Q4 PRN IV 03/30/17 15:30 04/29/17 15:29 04/01/17 08:00 5 MG Glucose (Glucose 40% Gel) 15-30 GRAMS 15 GRAMS... UD PRN PO 03/30/17 17:00 04/29/17 16:59 Glucose (Glucose Chew Tab) 4-8 Tablets 4 Tabl... UD PRN PO 03/30/17 17:00 04/29/17 16:59 Dextrose (Dextrose 50% 50ML Syringe) 25-50ML OF 50% DW IV FOR... UD PRN IV 03/30/17 17:00 04/29/17 16:59 Glucagon (Glucagon Inj) 1 mg UD PRN SQ 03/30/17 17:00 04/29/17 16:59 Heparin Sodium/ Dextrose 500 ml @ 24 mls/hr [id number] PRN IV 03/30/17 18:30 04/29/17 18:29 03/31/17 22:28 23 MLS/HR Insulin Aspart (novoLOG ASPART) SLIDING SCALE If C... Q6 SC 03/31/17 00:00 04/30/17 00:00 04/01/17 06:31 1 UNITS Levothyroxine Sodium (Synthroid Tab) 25 mcg DAILYBB PO 04/01/17 06:00 05/01/17 05:59 04/01/17 06:30 25 MCG Aspirin (Ecotrin Tab) 81 mg DAILY PO 04/01/17 09:00 05/01/17 08:59 04/01/17 08:05 81 MG Simvastatin (Zocor Tab) 40 mg HS PO 03/31/17 21:00 04/29/17 20:59 03/31/17 19:51 40 MG Clopidogrel Bisulfate (plAVix TAB) 75 mg QAM PO 04/01/17 09:00 05/01/17 08:59 04/01/17 08:04 75 MG Warfarin Sodium (Coumadin Tab) 5 mg DAILY@16 PO 03/31/17 16:00 04/30/17 15:59 03/31/17 17:35 5 MG Albuterol Sulfate (Ventolin 0.083% 2.5MG/3ML Neb) 2.5 mg Q6R INH 03/31/17 21:00 04/30/17 20:59 04/01/17 07:24 2.5 MG Metoprolol Succinate (Toprol Xl Tab) 75 mg DAILY PO 04/02/17 09:00 05/02/17 08:59 Metoprolol Succinate (Toprol Xl Tab) 25 mg 0900 PO 04/01/17 09:00 04/01/17 10:00 Impression 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 Cardioembolic etiology in light of history of atrial fibrillation. 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 There is no evidence of acute or subacute infarct within the right cerebral hemisphere. Plan Continue with anticoagulation. Plan to transition from heparin to warfarin. Would consider obtaining a CT angiogram of the head and neck depending on further improvement of her renal function. Would obtain a repeat CT of the head tomorrow afternoon or evening to continue to observe for potential hemorrhagic transformation. Physical therapy, occupational therapy, and speech therapy. This patient's anticoagulation and atrial fibrillation will need to be monitored by her primary care physician and/or bike mechanic. Please contact me if I can be of further assistance.
--- NOTE | 2017-04-01 10:12 | Cardiology Consultation ---
Cardiology Consultation Date of Consultation: Apr 01, 2017. Requesting Physician: Dr. Currie Reason for Consultation: Atrial fibrillation, CVA Pt evaluation today including: conversation w/ patient, physical exam, lab review, review of studies, review of inpatient medication list History of Present Illness This is a 61-year-old woman who has a history of diabetes, hypertension, hypothyroidism, hyperlipidemia (on statins) and chronic kidney disease. Her hospital admission suggest that she has a history of atrial fibrillation although I don't see that in our office chart. She presented with less responsiveness, was noted to have a left hemispheric CVA and to be in atrial fibrillation with a rapid heart rate. She was therefore admitted. She was started on heparin as an anticoagulant and metoprolol IV, now switched to by mouth. I cannot obtain any history from her, she is awake and responds by moaning although she will say "yeah" in response to questions but not always appropriately. She appears to be comfortable. Her did arrive while I was examining her, however he seems quite unaware of her cardiac history although it sounds as though she may have had some type of cardiac examination in the past. He is not clear at all that she had atrial fibrillation identified however. Past Medical/Surgical History (1) Hypertension Social History Smoking Status: Former Smoker (30 pack year history) History of Alcohol Use: No Review of Systems Review of systems cannot be adequately performed due to her inability to answer questions appropriately Allergies Coded Allergies: Penicillins (Unverified Allergy, Intermediate, ., 03/30/17) Aspirin (Verified Allergy, Unknown, swelling, 03/31/17) Hydralazine (Verified Allergy, Unknown, myalgias, 03/31/17) Procaine (Verified Allergy, Unknown, unknown, 03/31/17) Medications Current Inpatient Medications Medications (Trade) Dose Ordered Sig/Joe Route Start Time Stop Time Status Last Admin Dose Admin Sodium Chloride 1,000 ml @ 125 mls/hr Q8H IV 03/30/17 15:03 04/29/17 15:02 04/01/17 06:30 125 MLS/HR Miscellaneous Information (Pharmacist Discharge Med Rec Consult) 1 ea UD PRN N/A 03/30/17 15:30 04/29/17 15:29 Metoprolol Tartrate (Lopressor Iv) 5 mg Q4 PRN IV 03/30/17 15:30 04/29/17 15:29 04/01/17 08:00 5 MG Glucose (Glucose 40% Gel) 15-30 GRAMS 15 GRAMS... UD PRN PO 03/30/17 17:00 04/29/17 16:59 Glucose (Glucose Chew Tab) 4-8 Tablets 4 Tabl... UD PRN PO 03/30/17 17:00 04/29/17 16:59 Dextrose (Dextrose 50% 50ML Syringe) 25-50ML OF 50% DW IV FOR... UD PRN IV 03/30/17 17:00 04/29/17 16:59 Glucagon (Glucagon Inj) 1 mg UD PRN SQ 03/30/17 17:00 04/29/17 16:59 Heparin Sodium/ Dextrose 500 ml @ 24 mls/hr [id number] PRN IV 03/30/17 18:30 04/29/17 18:29 03/31/17 22:28 23 MLS/HR Insulin Aspart (novoLOG ASPART) SLIDING SCALE If C... Q6 SC 03/31/17 00:00 04/30/17 00:00 04/01/17 06:31 1 UNITS Levothyroxine Sodium (Synthroid Tab) 25 mcg DAILYBB PO 04/01/17 06:00 05/01/17 05:59 04/01/17 06:30 25 MCG Aspirin (Ecotrin Tab) 81 mg DAILY PO 04/01/17 09:00 05/01/17 08:59 04/01/17 08:05 81 MG Simvastatin (Zocor Tab) 40 mg HS PO 03/31/17 21:00 04/29/17 20:59 03/31/17 19:51 40 MG Clopidogrel Bisulfate (plAVix TAB) 75 mg QAM PO 04/01/17 09:00 05/01/17 08:59 04/01/17 08:04 75 MG Warfarin Sodium (Coumadin Tab) 5 mg DAILY@16 PO 03/31/17 16:00 04/30/17 15:59 03/31/17 17:35 5 MG Albuterol Sulfate (Ventolin 0.083% 2.5MG/3ML Neb) 2.5 mg Q6R INH 03/31/17 21:00 04/30/17 20:59 04/01/17 07:24 2.5 MG Metoprolol Succinate (Toprol Xl Tab) 75 mg DAILY PO 04/02/17 09:00 05/02/17 08:59 Metoprolol Succinate (Toprol Xl Tab) 25 mg 0900 PO 04/01/17 09:00 04/01/17 10:00 Physical Exam Vital Signs Past 12 Hours Date Time Temp Pulse Resp B/P (MAP) Pulse Ox O2 Delivery O2 Flow Rate FiO2 04/01/17 08:00 133 124/76 04/01/17 07:52 36.7 94 20 124/76 (92) 92 Nasal Cannula 2.0 04/01/17 07:26 82 18 92 Nasal Cannula 2.0 04/01/17 04:00 95 Nasal Cannula 2.0 04/01/17 03:33 37.2 107 16 159/84 (109) 92 Nasal Cannula 2.0 04/01/17 02:06 125 163/76 04/01/17 01:35 111 18 93 Nasal Cannula 2.0 04/01/17 00:00 96 Nasal Cannula 2.0 03/31/17 23:20 36.7 96 16 163/76 (105) 92 Nasal Cannula 2.0 Constitutional: General Apperance: overweight Level of Distress: NAD Psychiatric: Mental Status: active & alert Head: normocephalic Eyes: EOM: EOMI ENMT: normal ENT inspection, hearing grossly normal, pertinent finding (right facial droop) Neck: supple, no masses Lungs: Respiratory effort: no dyspnea, good air movement Auscultation: breath sounds normal, no wheezing Cardiovascular: Heart Auscultation: no murmurs, no rubs, no gallops, tachycardia, irregular rate rhythm Peripheral Pulses: Bruits: none appreciated Abdomen: Bowel Sounds: normal Inspection & Palpation: soft, no tenderness, guarding & rebound, no masses Musculoskeletal: pertinent finding (she does not seem to be able to move her right arm or right leg and she has dysarthria or aphasia) Extremities: no edema Neurologic: Cranial Nerves: pertinent finding (right facial droop) Data Laboratory Results: Last 24 Hours Test 03/31/17 10:49 03/31/17 11:09 03/31/17 14:27 03/31/17 17:18 Troponin I 0.602 ng/ml Bedside Glucose 106 mg/dl Prothrombin Time 11.3 SECONDS Prothromb Time International Ratio 1.1 Activated Partial Thromboplast Time 42.4 SECONDS Partial Thromboplastin Ratio 1.6 Test 03/31/17 17:36 04/01/17 00:00 04/01/17 00:11 04/01/17 05:58 Bedside Glucose 117 mg/dl 89 mg/dl 152 mg/dl Activated Partial Thromboplast Time 44.4 SECONDS Partial Thromboplastin Ratio 1.7 Test 04/01/17 06:35 White Blood Count 9.26 K/uL Red Blood Count 4.13 M/uL Hemoglobin 10.6 g/dL Hematocrit 33.7 % Mean Corpuscular Volume 81.6 fL Mean Corpuscular Hemoglobin 25.7 pg Mean Corpuscular Hemoglobin Concent 31.5 g/dl Platelet Count 356 K/uL Mean Platelet Volume 9.5 fL Neutrophils (%) (Auto) 84.4 % Lymphocytes (%) (Auto) 10.2 % Monocytes (%) (Auto) 4.5 % Eosinophils (%) (Auto) 0.2 % Basophils (%) (Auto) 0.4 % Neutrophils # (Auto) 7.81 K/uL Lymphocytes # (Auto) 0.94 K/uL Monocytes # (Auto) 0.42 K/uL Eosinophils # (Auto) 0.02 K/uL Basophils # (Auto) 0.04 K/uL RDW Standard Deviation 47.6 fL RDW Coefficient of Variation 15.8 % Immature Granulocyte % (Auto) 0.3 % Immature Granulocyte # (Auto) 0.03 K/uL Nucleated RBC Absolute Count (auto) 0.00 K/uL Nucleated Red Blood Cells % 0.0 % Prothrombin Time 12.9 SECONDS Prothromb Time International Ratio 1.2 Activated Partial Thromboplast Time 51.4 SECONDS Partial Thromboplastin Ratio 2.0 Sodium Level 140 mmol/L Potassium Level 3.9 mmol/L Chloride Level 109 mmol/L Carbon Dioxide Level 22 mmol/L Anion Gap 9.0 mmol/L Blood Urea Nitrogen 28 mg/dl Creatinine 1.80 mg/dl Est Creatinine Clear Calc Drug Dose 29.3 ml/min Estimated GFR () 34.1 Estimated GFR (Non- 29.4 BUN/Creatinine Ratio 15.6 Random Glucose 148 mg/dl Calcium Level 8.3 mg/dl Imaging: CT scan shows a left hemispheric CVA, no bleed EKG: On arrival 03/30/2017 atrial fibrillation with a heart rate of 136 bpm, this morning atrial fibrillation with a heart rate of 108 bpm. Telemetry reviewed: Atrial fibrillation with a generally fast heart rate Assessment & Plan #1. CVA: Presumably due to atrial fibrillation, I don't know if she has had atrial fibrillation in the past although her chart suggests it, her think she might of had it but can't give me any indication that she actually did. She also has carotid disease, but that appears to be an occluded right internal carotid not the left. Since she did not have hemorrhagic conversion she is on an anticoagulant. #2. Atrial fibrillation: I can't tell if this is new or old, I think it is relatively new but probably not acute. I don't think there is any way to tell. She was in the office 03/16/2017 at her heart rate was not fast therefore I don' t believe she was in it that. We need to control the heart rate and keep her anticoagulated. I agree with increasing her beta blockade, her heart rate has been fast but she is just starting a higher dose of metoprolol today. I've not adjusted her medications. She is taking oral medications. #3. Elevated troponin: Her troponin is slightly elevated, there is no evidence of acute injury on her electrocardiogram and her echo does not show wall motion abnormalities. She may well of coronary disease (she does have carotid disease) but it is most likely due to demand ischemia and I would not pursue further at this time. Thank you for allowing me to participate in her care.
[2017-04-01] MEDS ORDERED: ACETAMINOPHEN 325 MG TAB PO PRN (16:00)
--- NOTE | 2017-04-01 16:02 | Hospitalist Progress Note ---
Hospitalist Progress Note Date of Service Apr 01, 2017. Subjective Pt evaluation today including: conversation w/ patient, conversation w/ family Pt sitting in chair today, still not able to say anything other than "yeah" to most questions. Is following some simple commands today. HR elevated on tele and metoprolol increased this AM. No other concerns All Other Systems: Reviewed and Negative Objective Vital Signs Date Time Temp Pulse Resp B/P (MAP) Pulse Ox O2 Delivery O2 Flow Rate FiO2 04/01/17 15:19 37.0 68 22 125/71 (89) 95 Nasal Cannula 3.0 04/01/17 14:13 96 18 94 Nasal Cannula 3.0 04/01/17 11:26 36.7 88 20 172/84 (113) 93 Nasal Cannula 2.0 04/01/17 08:00 133 124/76 04/01/17 07:52 36.7 94 20 124/76 (92) 92 Nasal Cannula 2.0 04/01/17 07:26 82 18 92 Nasal Cannula 2.0 04/01/17 04:00 95 Nasal Cannula 2.0 04/01/17 03:33 37.2 107 16 159/84 (109) 92 Nasal Cannula 2.0 04/01/17 02:06 125 163/76 04/01/17 01:35 111 18 93 Nasal Cannula 2.0 04/01/17 00:00 96 Nasal Cannula 2.0 03/31/17 23:20 36.7 96 16 163/76 (105) 92 Nasal Cannula 2.0 03/31/17 20:15 76 20 96 Nasal Cannula 2.0 03/31/17 20:00 96 Nasal Cannula 2.0 03/31/17 19:20 36.7 89 20 153/78 (103) 86 Nasal Cannula 2.0 03/31/17 16:00 99 Nasal Cannula 2.0 Physical Exam General Appearance: WD/WN, no apparent distress Eyes: normal inspection, sclerae normal ENT: hearing grossly normal Neck: trachea midline Respiratory/Chest: lungs clear, normal breath sounds, no respiratory distress, no accessory muscle use Cardiovascular: no edema, no murmur, + irregularly irregular (with mild tachycardia) Abdomen: normal bowel sounds, non tender, soft Extremities: no pedal edema, no calf tenderness, + pertinent finding ( sarcopenia in legs, right arm in flexed position at rest, left wrist with mild edema and +TTP over distal radius) Neurologic/Psychiatric: alert, + pertinent finding (+right sided hemineglect, when asked to raise her right hand she looks to the left, when asked to raise left hand she does, she has 4/5 strength in RLE today but has difficulty fully cooperating for the exam, right arm 2/5 strength, +right facial droop) Skin: warm/dry, no rash Laboratory Results Last 24 Hours Test 03/31/17 17:18 03/31/17 17:36 04/01/17 00:00 04/01/17 00:11 Activated Partial Thromboplast Time 42.4 SECONDS 44.4 SECONDS Partial Thromboplastin Ratio 1.6 1.7 Bedside Glucose 117 mg/dl 89 mg/dl Test 04/01/17 05:58 04/01/17 06:35 04/01/17 12:30 04/01/17 13:19 Bedside Glucose 152 mg/dl 162 mg/dl 210 mg/dl White Blood Count 9.26 K/uL Red Blood Count 4.13 M/uL Hemoglobin 10.6 g/dL Hematocrit 33.7 % Mean Corpuscular Volume 81.6 fL Mean Corpuscular Hemoglobin 25.7 pg Mean Corpuscular Hemoglobin Concent 31.5 g/dl Platelet Count 356 K/uL Mean Platelet Volume 9.5 fL Neutrophils (%) (Auto) 84.4 % Lymphocytes (%) (Auto) 10.2 % Monocytes (%) (Auto) 4.5 % Eosinophils (%) (Auto) 0.2 % Basophils (%) (Auto) 0.4 % Neutrophils # (Auto) 7.81 K/uL Lymphocytes # (Auto) 0.94 K/uL Monocytes # (Auto) 0.42 K/uL Eosinophils # (Auto) 0.02 K/uL Basophils # (Auto) 0.04 K/uL RDW Standard Deviation 47.6 fL RDW Coefficient of Variation 15.8 % Immature Granulocyte % (Auto) 0.3 % Immature Granulocyte # (Auto) 0.03 K/uL Nucleated RBC Absolute Count (auto) 0.00 K/uL Nucleated Red Blood Cells % 0.0 % Prothrombin Time 12.9 SECONDS Prothromb Time International Ratio 1.2 Activated Partial Thromboplast Time 51.4 SECONDS Partial Thromboplastin Ratio 2.0 Sodium Level 140 mmol/L Potassium Level 3.9 mmol/L Chloride Level 109 mmol/L Carbon Dioxide Level 22 mmol/L Anion Gap 9.0 mmol/L Blood Urea Nitrogen 28 mg/dl Creatinine 1.80 mg/dl Est Creatinine Clear Calc Drug Dose 29.3 ml/min Estimated GFR () 34.1 Estimated GFR (Non- 29.4 BUN/Creatinine Ratio 15.6 Random Glucose 148 mg/dl Calcium Level 8.3 mg/dl Assessment and Plan Pt is a 61 yo female with a h/o LOPEZ with complete occlusion TARUN, HTN, DMII, hypothyroidism, HL, and CKD stage IV, here with 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 Subacute-Acute CVA,Right LOPEZ- Large left side temporal lobe infarct w/ Right hemiparesis and significant mixed aphasia. She was outside the treatment window for TPA. Likely cardioembolic source given Rapid A-fib on presentation. ECHO without interatrial shunt and no thrombus. 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 Was told in past she needs CEA and she declined. But this is not the source of her left sided CVA. Neurology consulted and recommended continued surveillance for hemorrhagic conversion with Head CT -repeat head CT neg x 2 for ICH, shows evolution of infarct, no midline shift -repeat Head CT again on Sunday afternoon -Evaluated by speech - mechanical soft diet. 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 No previous h/o Afib as per records or by 's account Elevated troponin - likely demand ischemia from rapid rate - troponins peaked at .602, no wall motion abnormalities on echocardiogram. -continue Toprol for rate control and increase to 75mg daily -continue heparin drip and warfarin until INR therapeutic - follow PT/ INR HTN- allow permissive HTN -continue to hold home amlodipine and Hytrin from home -continue Toprol XL -continue IVF 125 mls/hr NS to keep BP up Acute hypoxemic Respiratory failure-previous long time smoker, no formal dx of COPD, quit smoking--> -continue albuterol nebs and wean O2 as able to Left distal radius and possible prox radius fractures--> from multiple falls -will likely need reduction of wrist fracture and casting/splinting -continue ice for now, tylenol prn - Appreciate Ortho consult which is still pending Diabetes mellitus II - A1c 7.4% hold home meds -SSI and accuchecks Chronic Kidney Disease Stage IV - 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 Hypothyroidism - TSH here normal -continue levothyroxine 25 mg. Code status - full resuscitation DVT prophylaxis - heparin gtt, coumadin Dispo-to acute rehab in 1-2 days if stable and accepted
[2017-04-01] MEDS: WARFARIN SOD 5 MG TAB PO SCH (16:51)
[2017-04-01] MEDS ORDERED: NURSING VERBAL MED ORDER ONE (17:00)
[2017-04-01] MEDS: SIMVASTATIN 40 MG TAB PO SCH (19:32)
[2017-04-01] MEDS: HEPARIN 25,000 UNIT/500ML D5W 500 ML IV PRN (19:41)
--- NOTE | 2017-04-01 22:04 | DIAGNOSTIC IMAGING REPORT ---
L WRIST 2 VIEW HISTORY: 61 years-old Female post reduction status post reduction of left distal radial fracture COMPARISON: Left wrist radiographs 03/31/2017 TECHNIQUE: 2 views of the left wrist were obtained status post reduction FINDINGS: Fine bony details obscured by overlying cast material. There is persistent slightly improved mild dorsal cortical buckling of the distal radius status post reduction and casting. No additional acute fracture or dislocation. IMPRESSION: Persistent slightly improved dorsal cortical buckling of the distal radius status post reduction and casting. The above report was generated using voice recognition software. It may contain grammatical, syntax or spelling errors. Electronically signed by: José Sanchez M.D. 04/01/2017 10:03 PM Dictated Date/Time: 04/01/2017 10:00 PM
[2017-04-02] VITALS (12 sets, daily range): BP systolic 156–189; BP diastolic 69–96; PULSE 85–107; TEMP 36.6–37.2; O2SAT 87–95
--- NOTE | 2017-04-02 01:21 | ORTHOPEDIC CONSULTATION ---
DATE OF CONSULTATION: 04/01/2017 CONSULTATION AND PROCEDURE NOTE HISTORY OF PRESENT ILLNESS: This is a 61-year-old woman who was transferred to [facility] after she had a stroke. She had apparently fallen and had incoherent speech. Transferred to [facility] and admitted to the hospital, and then when she was evaluated, was wincing in pain in her left wrist. She had radiographs of her wrist and her left elbow and noted a closed Colles fracture of her left wrist. Orthopedics was consulted at that time. PAST MEDICAL HISTORY: New onset atrial fibrillation, hypertension, tobacco abuse, coronary artery disease and carotid blockage, hypothyroidism, hyperlipidemia and diabetes mellitus type 2. PAST SURGICAL HISTORY: Noncontributory. ALLERGIES: PENICILLIN. MEDICATIONS: Norvasc 10 mg daily, glimepiride 2 mg p.o. b.i.d., Synthroid 25 mcg p.o. daily, Toprol-XL 50 mg p.o. daily, Zocor 10 mg p.o. at bedtime, Hytrin 1 cap p.o. daily. SOCIAL HISTORY: Former smoker with a [id number] history. No smokeless tobacco, no alcohol use, no drug use. She is , lives with her , and she is retired. PHYSICAL EXAMINATION: GENERAL: This is a 61-year-old female who is lying supine in the hospital room bed. She is alert and oriented x3. Speech is aphasic. She has difficulty with word formation and with word selection. She does appear to acknowledge conversation and does respond appropriately, however, cannot express her words appropriately. EXTREMITIES: The left upper extremity demonstrates skin warm, dry and intact. Cap refill less than 2 seconds. Radial pulse 2/4. Radial, ulnar and median nerve sensory and motor function appear to be intact. She has bruising of the left wrist, swelling of the left wrist, and tenderness of left distal radius is significant with palpation. She has no obvious crepitation; however, she does have limitation of range of motion of her wrist. Examination of her left elbow demonstrates minor tenderness over the olecranon. No tenderness over the radial head or radial neck. She has full extension and flexion, supination and pronation of the left elbow. She has minor bruising noted. Radiographs reviewed of the left wrist demonstrate a closed left Colles fracture with minimal angulation. Examination of the left elbow demonstrates a small fat pad sign. No obvious fractures of the humerus, radius or ulna. LABORATORIES: Reviewed. IMPRESSION: 1. Left minimally angulated Colles fracture, closed. 2. Left elbow contusion. Doubt occult fracture. RECOMMENDATION: 1. Closed reduction and application of plaster splint, left upper extremity. 2. Observation of left elbow contusion. PROCEDURE: The patient underwent gentle closed reduction and application of a well padded sugar-tong plaster splint overwrapped with an Dylan wrap. Post- reduction radiographs were obtained noting improvement in angulation and application of plaster splint. The patient will follow up in 1-[address] Damon for repeat radiographs and further care and management of her left distal radius fracture. Thank you for the opportunity to consult in the care of this patient. SHARAD
[2017-04-02] MEDS: ALBUTEROL 0.083% NEBU SOLN 3 ML VIAL INH SCH ×3 (01:55→19:18)
[2017-04-02] MEDS: LEVOTHYROXINE 25 MCG TAB PO SCH (06:02)
[2017-04-02 06:09] LABS: BASO % 0.6 %; BASO ABS # 0.04 K/uL (0-0.2); COMPLETE YES; EOS % 0.8 %; HEMATOCRIT 31.1 % (37-47); IG% 0.1 %; LYMPH % 16.3 %; LYMPH ABS # 1.18 K/uL (1.2-3.4); MEAN CELL VOLUME 81.2 fL (80-100); MEAN CORPUSCULAR HEMOGLOBIN 25.1 pg (25-34); MEAN CORPUSCULAR HGB CONC 30.9 g/dl (32-36); MEAN PLATELET VOLUME 9.2 fL (7.4-10.4); MONO % 5.8 %; NEUT % 76.4 %; PLATELET COUNT 292 K/uL (130-400); RED BLOOD COUNT 3.83 M/uL (4.2-5.4); WHITE BLOOD COUNT 7.25 K/uL (4.8-10.8)
[2017-04-02 06:29] LABS: INR 2.3 (0.9-1.1); PARTIAL THROMBOPLASTIN RATIO 3.3; PROTHROMBIN TIME (PATIENT) 25.2 SECONDS (9.0-12.0)
[2017-04-02 06:47] LABS: BUN/CREATININE RATIO 12.7 (10-20); CREATININE 1.7 mg/dl (0.60-1.20); MAGNESIUM 1.5 mg/dl (1.8-2.4); POTASSIUM 3.9 mmol/L (3.5-5.1)
[2017-04-02] MEDS: ASPIRIN 81 MG ECTAB PO SCH (07:35)
[2017-04-02] MEDS: CLOPIDOGREL BISULFATE 75 MG TAB PO SCH (07:35)
[2017-04-02] MEDS: SODIUM CHLORIDE 0.9% 1000ML 1,000 ML IV SCH (07:36)
[2017-04-02] MEDS: INSULIN ASPART 100 UNITS/ML 3 ML PEN SC SCH ×4 (07:39→21:37)
[2017-04-02] MEDS: MAGNESIUM OXIDE 400 MG TAB PO SCH ×2 (08:29→21:37)
--- NOTE | 2017-04-02 08:57 | Cardiology Follow-Up ---
Subjective Date of Service: Apr 02, 2017. Pt evaluation today including: conversation w/ patient, conversation w/ family , physical exam, lab review, review of studies, review of inpatient medication list History of Present Illness This is a 61-year-old woman who has a history of diabetes, hypertension, hypothyroidism, hyperlipidemia (on statins) and chronic kidney disease. Her hospital admission suggest that she has a history of atrial fibrillation although I don't see that in our office chart. She presented with less responsiveness, was noted to have a left hemispheric CVA and to be in atrial fibrillation with a rapid heart rate. She was therefore admitted. She was started on heparin as an anticoagulant (as well as warfarin) and metoprolol IV, now switched to oral. She is still not conversational however her speech is more clear and she seems to be brighter and more interactive today than yesterday. She also seems to have a few more words that she can use appropriately than yesterday. Social History Smoking Status: Former Smoker (30 pack year history) History of Alcohol Use: No Review of Systems Review of systems cannot be adequately performed due to her inability to answer questions appropriately Medications Cardiovascular: Item Value Date Time Metoprolol 75 mg 04/02/17 0900 Succinate DAILY/PO 04/02/17 0736 (Toprol Xl Tab) Magnesium Oxide 400 mg 04/02/17 0900 (Mag-Ox Tab) BID/PO 04/02/17 0829 Aspirin 81 mg 04/01/17 0900 (Ecotrin Tab) DAILY/PO 04/02/17 0735 Clopidogrel 75 mg 04/01/17 0900 Bisulfate QAM/PO 04/02/17 0735 (plAVix TAB) Simvastatin 40 mg 03/31/17 2100 (Zocor Tab) HS/PO 04/01/17 1932 Warfarin Sodium 5 mg 03/31/17 1600 (Coumadin Tab) DAILY@16/PO 04/01/17 1651 Objective Vital Signs Past 12 Hours Date Time Temp Pulse Resp B/P (MAP) Pulse Ox O2 Delivery O2 Flow Rate FiO2 04/02/17 07:43 36.8 88 20 184/95 (124) 95 2.0 04/02/17 07:15 92 18 95 Nasal Cannula 3.0 04/02/17 04:00 37.1 93 18 162/96 (118) 87 Nasal Cannula 3.0 04/02/17 04:00 94 Nasal Cannula 3.0 04/02/17 01:55 99 18 92 Nasal Cannula 3.0 04/02/17 00:11 37.0 93 18 187/69 (108) 92 Nasal Cannula 3.0 04/02/17 00:00 95 Nasal Cannula 3.0 Last Recorded Weight-Kilograms: 75.300 Physical Exam Constitutional: General Apperance: overweight Level of Distress: NAD Lungs: Respiratory effort: no dyspnea, good air movement Auscultation: breath sounds normal, no wheezing Cardiovascular: Heart Auscultation: no murmurs, no rubs, no gallops, tachycardia, irregular rate rhythm Peripheral Pulses: Bruits: none appreciated Extremities: no edema Data Laboratory Results: Last 24 Hours Test 04/01/17 12:30 04/01/17 13:19 04/01/17 16:48 04/01/17 20:42 Bedside Glucose 162 mg/dl 210 mg/dl 169 mg/dl 135 mg/dl Test 04/02/17 05:58 04/02/17 06:22 White Blood Count 7.25 K/uL Red Blood Count 3.83 M/uL Hemoglobin 9.6 g/dL Hematocrit 31.1 % Mean Corpuscular Volume 81.2 fL Mean Corpuscular Hemoglobin 25.1 pg Mean Corpuscular Hemoglobin Concent 30.9 g/dl Platelet Count 292 K/uL Mean Platelet Volume 9.2 fL Neutrophils (%) (Auto) 76.4 % Lymphocytes (%) (Auto) 16.3 % Monocytes (%) (Auto) 5.8 % Eosinophils (%) (Auto) 0.8 % Basophils (%) (Auto) 0.6 % Neutrophils # (Auto) 5.54 K/uL Lymphocytes # (Auto) 1.18 K/uL Monocytes # (Auto) 0.42 K/uL Eosinophils # (Auto) 0.06 K/uL Basophils # (Auto) 0.04 K/uL RDW Standard Deviation 47.8 fL RDW Coefficient of Variation 15.9 % Immature Granulocyte % (Auto) 0.1 % Immature Granulocyte # (Auto) 0.01 K/uL Prothrombin Time 25.2 SECONDS Prothromb Time International Ratio 2.3 Activated Partial Thromboplast Time 85.1 SECONDS Partial Thromboplastin Ratio 3.3 Sodium Level 142 mmol/L Potassium Level 3.9 mmol/L Chloride Level 111 mmol/L Carbon Dioxide Level 23 mmol/L Anion Gap 8.0 mmol/L Blood Urea Nitrogen 22 mg/dl Creatinine 1.70 mg/dl Est Creatinine Clear Calc Drug Dose 31.4 ml/min Estimated GFR () 36.6 Estimated GFR (Non- 31.5 BUN/Creatinine Ratio 12.7 Random Glucose 132 mg/dl Calcium Level 8.0 mg/dl Magnesium Level 1.5 mg/dl Bedside Glucose 161 mg/dl Telemetry reviewed: Atrial fibrillation, averaging around 90 overnight and this morning but often over 100. Assessment and Plan #1. CVA: Presumably due to atrial fibrillation, I don't know if she has had atrial fibrillation in the past although her chart suggests it, her think she might of had it but can't give me any assurance that she actually did. She also has carotid disease, but that appears to be an occluded right internal carotid not the left. Since she did not have hemorrhagic conversion she is on an anticoagulant. #2. Atrial fibrillation: I can't tell if this is new or old, I think it is relatively new but probably not acute. I don't think there is any way to tell. She was in the office 03/16/2017 and her heart rate was not fast therefore I don 't believe she was in it then. We need to control the heart rate and keep her anticoagulated. I am going to increase her beta blockade, her heart rate has been better controlled but remains a little bit fast. She is taking oral medications. #3. Elevated troponin: Her troponin was slightly elevated, there is no evidence of acute injury on her electrocardiogram and her echo does not show wall motion abnormalities. She may well of coronary disease (she does have carotid disease) but the troponin elevation is most likely due to demand ischemia and I would not pursue further evaluation at this time. Thank you for allowing me to participate in her care.
[2017-04-02] MEDS ORDERED: METOPROLOL SUCC 25MG EXT REL TAB PO SCH (09:00)
[2017-04-02] MEDS ORDERED: METOPROLOL SUCC 25MG EXT REL TAB PO STA (09:02)
--- NOTE | 2017-04-02 09:27 | Surgery Consultation ---
Consultation Date of Service Apr 02, 2017. Chief Complaint R ICA occlusion, CVA History of Present Illness The patient is a 61 year old female with hx of HTN, hypercholesterolemia, DMII, hypothyroidism, CKD, admitted with L hemispheric CVA, seen in consultation today for R ICA occlusion noted on imaging. Pt herself cannot provide any meaningful hx or follow commands d/t aphasia. Per , pt has been becoming weaker over past few weeks. Has had falls in past. unable to state whether pt was dx with a fib in past. Pt not on anticoagulation. Pt with severe R sided weakness and aphasia which began suddenly at home [facility]. Vitals Vital Signs Past 12 Hours Date Time Temp Pulse Resp B/P (MAP) Pulse Ox O2 Delivery O2 Flow Rate FiO2 04/02/17 07:43 36.8 88 20 184/95 (124) 95 2.0 04/02/17 07:15 92 18 95 Nasal Cannula 3.0 04/02/17 04:00 37.1 93 18 162/96 (118) 87 Nasal Cannula 3.0 04/02/17 04:00 94 Nasal Cannula 3.0 04/02/17 01:55 99 18 92 Nasal Cannula 3.0 04/02/17 00:11 37.0 93 18 187/69 (108) 92 Nasal Cannula 3.0 04/02/17 00:00 95 Nasal Cannula 3.0 Allergies Coded Allergies: Penicillins (Unverified Allergy, Intermediate, ., 03/30/17) Aspirin (Verified Allergy, Unknown, swelling, 03/31/17) Hydralazine (Verified Allergy, Unknown, myalgias, 03/31/17) Procaine (Verified Allergy, Unknown, unknown, 03/31/17) Home Medications Scheduled Amlodipine (Norvasc), 10 MG PO DAILY Glimepiride (Glimepiride), 2 MG PO BID Levothyroxine Sodium (Synthroid), 25 MCG PO DAILY Metoprolol Succinate (Toprol Xl), 50 MG PO DAILY Simvastatin (Zocor), 10 MG PO HS Terazosin Hcl (Hytrin), 1 CAP PO DAILY Problem List Medical Problems: (1) Atrial fibrillation (2) CVA (cerebral vascular accident) (3) Hypertension Surgical / Medical History Hx Cardiac Surgery: No Hx Abdominal Surgery: No Hx Cancer Surgery: No Hx Thoracic Surgery: No Hx Orthopedic: No Hx Urinary Tract Surgery: No HX Other Surgery: Yes (TEETH PULLED) Past Medical/Surgical History: Diabetes, High Cholesterol, Hypertension, Kidney Disease, Thyroid Disease Family History + father AR, mother ovarian ca Social History Smoking Status: Former Smoker (30 pack year history) Hx Alcohol Use - Type & Amnt: No Hx Substance Use -Type & Amnt: No Review of Systems Additional Comments: unable to elicit d/t aphasia Physical Exam Constitutional: General Apperance: well-nourished, well-developed Level of Distress: NAD Psychiatric: Mental Status: active & alert, confused (and aphasic) Head: normocephalic, atraumatic Eyes: EOM: EOMI ENMT: normal ENT inspection, hearing grossly normal Neck: supple, trachea midline Lungs: Respiratory effort: no dyspnea, good air movement Auscultation: breath sounds normal, no wheezing Cardiovascular: Apical Impulse: not displaced Heart Auscultation: no rubs, no gallops, pertinent finding (irregular) Peripheral Pulses: Pulses: full and equal, in all extremities except if noted Bruits: none appreciated Carotid Pulse: normal on the left, normal on the right Brachial Pulses: normal on the left, normal on the right Radial Pulse: normal on the left, normal on the right Femoral Pulse: normal on the left, normal on the right Posterior Tibialis Pulse: decreased on the left, decreased on the right Dorsalis Pedis Pulse: decreased on the left, decreased on the right Abdomen: Bowel Sounds: normal Inspection & Palpation: soft, non-distended, no tenderness, guarding & rebound Musculoskeletal: pertinent finding (R arm/hand with slight tone, but strength 0 /5. RLE weakness) Extremities: Upper Right: no cyanosis, no edema, no varicosities Upper Left: pertinent finding (L arm wrapped) Lower Right: no cyanosis, no edema, no varicosities Lower Left: no cyanosis, no edema, no varicosities Additional Comments: receptive and expressive aphasia noted, R arm and leg weakness. Assessment and Plan ASSESSMENT and PLAN: R ICA occlusion L hemispheric CVA Pt's imaging demonstrates R ICA occlusion, less than 50% stenosis L ICA. No indications for vascular surgical intervention at this time. Recommend eval with carotid US in 1 year for surveillance. aware. Please call if needed.
--- NOTE | 2017-04-02 09:52 | Hospitalist Progress Note ---
Hospitalist Progress Note Date of Service Apr 02, 2017. (Kenia Antunez ., PA-C) Subjective Pt evaluation today including: conversation w/ patient, [facility] physical exam, lab review, review of studies, review of inpatient medication list Voiding: no voiding problems Patient states she is feeling well. +discomfort to LUE. Eating and drinking OK. Patient denies any fever, chills, sweats, lightheadedness, dizziness, vision changes, CP, palpitations, edema, SOB, wheezing, cough, abdominal pain, nausea, vomiting, diarrhea, urinary symptoms, melena, numbness/tingling, anxiety/ depression, active bleeding, or new skin discoloration/changes. Per , patient has significantly improved since admission. Doing very well today. All questions/concerns addressed. (Kenia Antunez ., PA-C) Medications Current Inpatient Medications Medications (Trade) Dose Ordered Sig/Joe Route Start Time Stop Time Status Last Admin Dose Admin Miscellaneous Information (Pharmacist Discharge Med Rec Consult) 1 ea UD PRN N/A 03/30/17 15:30 04/29/17 15:29 Metoprolol Tartrate (Lopressor Iv) 5 mg Q4 PRN IV 03/30/17 15:30 04/29/17 15:29 04/01/17 08:00 5 MG Glucose (Glucose 40% Gel) 15-30 GRAMS 15 GRAMS... UD PRN PO 03/30/17 17:00 04/29/17 16:59 Glucose (Glucose Chew Tab) 4-8 Tablets 4 Tabl... UD PRN PO 03/30/17 17:00 04/29/17 16:59 Dextrose (Dextrose 50% 50ML Syringe) 25-50ML OF 50% DW IV FOR... UD PRN IV 03/30/17 17:00 04/29/17 16:59 Glucagon (Glucagon Inj) 1 mg UD PRN SQ 03/30/17 17:00 04/29/17 16:59 Heparin Sodium/ Dextrose 500 ml @ 21 mls/hr [id number] PRN IV 03/30/17 18:30 04/29/17 18:29 Future Hold 04/01/17 19:41 24 MLS/HR Levothyroxine Sodium (Synthroid Tab) 25 mcg DAILYBB PO 04/01/17 06:00 05/01/17 05:59 04/02/17 06:02 25 MCG Aspirin (Ecotrin Tab) 81 mg DAILY PO 04/01/17 09:00 05/01/17 08:59 04/02/17 07:35 81 MG Simvastatin (Zocor Tab) 40 mg HS PO 03/31/17 21:00 04/29/17 20:59 04/01/17 19:32 40 MG Clopidogrel Bisulfate (plAVix TAB) 75 mg QAM PO 04/01/17 09:00 05/01/17 08:59 04/02/17 07:35 75 MG Warfarin Sodium (Coumadin Tab) 5 mg DAILY@16 PO 03/31/17 16:00 04/30/17 15:59 04/01/17 16:51 5 MG Albuterol Sulfate (Ventolin 0.083% 2.5MG/3ML Neb) 2.5 mg Q6R INH 03/31/17 21:00 04/30/17 20:59 04/02/17 07:15 2.5 MG Acetaminophen (Tylenol Tab) 325 mg Q4H PRN PO 04/01/17 16:00 05/01/17 15:59 Insulin Aspart (novoLOG ASPART) SLIDING SCALE If C... ACHS SC 04/01/17 21:00 05/01/17 20:59 04/02/17 07:39 1 UNITS Magnesium Oxide (Mag-Ox Tab) 400 mg BID PO 04/02/17 09:00 05/02/17 08:59 04/02/17 08:29 400 MG Metoprolol Succinate (Toprol Xl Tab) 100 mg QAM PO 04/03/17 09:00 05/03/17 08:59 (Kenia Antunez, RODGERC) Objective Vital Signs Date Time Temp Pulse Resp B/P (MAP) Pulse Ox O2 Delivery O2 Flow Rate FiO2 04/02/17 07:43 36.8 88 20 184/95 (124) 95 2.0 04/02/17 07:15 92 18 95 Nasal Cannula 3.0 04/02/17 04:00 37.1 93 18 162/96 (118) 87 Nasal Cannula 3.0 04/02/17 04:00 94 Nasal Cannula 3.0 04/02/17 01:55 99 18 92 Nasal Cannula 3.0 04/02/17 00:11 37.0 93 18 187/69 (108) 92 Nasal Cannula 3.0 04/02/17 00:00 95 Nasal Cannula 3.0 04/01/17 20:00 95 Nasal Cannula 3.0 04/01/17 19:40 83 18 96 Nasal Cannula 3.0 04/01/17 19:24 36.9 88 22 158/80 (106) 90 Nasal Cannula 4.0 04/01/17 16:00 Nasal Cannula 4.0 04/01/17 15:19 37.0 68 22 125/71 (89) 95 Nasal Cannula 3.0 04/01/17 14:13 96 18 94 Nasal Cannula 3.0 04/01/17 12:00 Nasal Cannula 4.0 04/01/17 11:26 36.7 88 20 172/84 (113) 93 Nasal Cannula 2.0 (Kenia Antunez ., PA-C) Physical Exam General Appearance: no apparent distress, + obese, + pertinent finding (2L O2 NC) Eyes: PERRL ENT: hearing grossly normal Neck: supple Respiratory/Chest: lungs clear, no respiratory distress, no accessory muscle use Cardiovascular: + irregularly irregular (rate controlled ) Abdomen: normal bowel sounds, non tender, soft Extremities: no pedal edema, no calf tenderness, + pertinent finding (LUE w/ splint/DYLAN bandage; SCDs on ) Neurologic/Psychiatric: alert, + disoriented Skin: normal color, warm/dry, no rash (Kenia Antunez ., PA-C) Laboratory Results Last 24 Hours Test 04/01/17 12:30 04/01/17 13:19 04/01/17 16:48 04/01/17 20:42 Bedside Glucose 162 mg/dl 210 mg/dl 169 mg/dl 135 mg/dl Test 04/02/17 05:58 04/02/17 06:22 White Blood Count 7.25 K/uL Red Blood Count 3.83 M/uL Hemoglobin 9.6 g/dL Hematocrit 31.1 % Mean Corpuscular Volume 81.2 fL Mean Corpuscular Hemoglobin 25.1 pg Mean Corpuscular Hemoglobin Concent 30.9 g/dl Platelet Count 292 K/uL Mean Platelet Volume 9.2 fL Neutrophils (%) (Auto) 76.4 % Lymphocytes (%) (Auto) 16.3 % Monocytes (%) (Auto) 5.8 % Eosinophils (%) (Auto) 0.8 % Basophils (%) (Auto) 0.6 % Neutrophils # (Auto) 5.54 K/uL Lymphocytes # (Auto) 1.18 K/uL Monocytes # (Auto) 0.42 K/uL Eosinophils # (Auto) 0.06 K/uL Basophils # (Auto) 0.04 K/uL RDW Standard Deviation 47.8 fL RDW Coefficient of Variation 15.9 % Immature Granulocyte % (Auto) 0.1 % Immature Granulocyte # (Auto) 0.01 K/uL Prothrombin Time 25.2 SECONDS Prothromb Time International Ratio 2.3 Activated Partial Thromboplast Time 85.1 SECONDS Partial Thromboplastin Ratio 3.3 Sodium Level 142 mmol/L Potassium Level 3.9 mmol/L Chloride Level 111 mmol/L Carbon Dioxide Level 23 mmol/L Anion Gap 8.0 mmol/L Blood Urea Nitrogen 22 mg/dl Creatinine 1.70 mg/dl Est Creatinine Clear Calc Drug Dose 31.4 ml/min Estimated GFR () 36.6 Estimated GFR (Non- 31.5 BUN/Creatinine Ratio 12.7 Random Glucose 132 mg/dl Calcium Level 8.0 mg/dl Magnesium Level 1.5 mg/dl Bedside Glucose 161 mg/dl (Kenia Antunez, PA-C) Assessment and Plan Pt is a 61 y/o female with a h/o LOPEZ with complete occlusion TARUN, HTN, DMII, hypothyroidism, HL, and CKD stage IV, here with 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 Subacute-acute CVA- large 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 and significant mixed aphasia, Right LOPEZ, likely secondary to cardioembolic source: - Admitted to [facility] for cardiac monitoring - ECHO- without interatrial shunt, no thrombus - Carotid US and Neck MRA- -- Vascular surgery consulted- no intervention at this time, f/u in 1 year -- Zocor increased to 40 mg daily + Plavix - Neurology consulted, appreciate recommendations -- Head CT on 03/30 and 03/31- neg x 2 for ICH, shows evolution of infarct, no midline shift- repeat on 10/2 for hemorrhagic evaluation pending -- Consider CTA neck if creatinine allows - Plavix 75 mg daily+ ASA 81 mg daily- ASA allergy noted but has been on therapy since 03/30 - Coumadin and bridge with heparin gtt for a-fib- watching for hemorrhagic conversion- will d/c Heparin on 04/02 due to therapeutic INR and no acute source of emboli - Evaluated by speech- mechanical soft diet - PT/OT- acute rehab Demand ischemia/PAF (new onset) w/ RVR: - Admitted to tele for cardiac monitoring - Trended cardiac enzymes- peak trop 0.736 - ECHO- no wall abnormalities - Cardiology consulted, appreciate recommendations -- Titrating Toprol PRN for rate control- currently at 100 mg QAM - Warfarin- follow PT/INR and titrate Coumadin dose PRN HTN- allow permissive HTN, sbp 140-160 per neurology: - Holding home Amlodipine 10 mg daily and Hytrin - Continue Toprol XL as above - Treated w/ IVF 125 mls/hr NS to keep BP up- BPs now ranging sbp 160-180s, will d/c Acute hypoxemic respiratory failure: - O2 protocol, wean as tolerated - Continue albuterol nebs Hypomagnesemia at 1.5: Start Mag-Ox 400 mg BID, follow mag level Left minimally angulated Colles fracture, left elbow contusion, doubt occult fracture: - Ortho consulted, appreciate recommendations: -- s/p gentle closed reduction and application of a sugar-tong plaster splint overwrapped with an Dylan wrap on 04/[address] Damon -- f/u in 1-2 weeks - Tylenol PRN for pain management T2DM- HgbA1C 7.4: - Held Glimepiride 2 mg BID - BSG ACHS and sliding insulin scale RUPALI on CKD stage III, baseline Cr. 1.8- RESOLVED: - Avoid nephrotoxic drugs, renally dose medications Hypothyroidism- TSH 1.470: Continue Synthroid 25 mcg daily DVT prophylaxis: Coumadin Code Status: LEVEL I, FULL Dispo: From home, lives w/ - planning for acute rehab at [facility]- titrating medication, hopefully in the next 1-2 days- PT/OT and CM consulted (Kenia Antunez, PA-C) I agree with PA assessment and plan and have seen and examined pt myself Resting in bed comfortably No concerns at this time Noted to be tachycardic Agree in increase in toprol XL Appreciate neuro and card recs Will obtain CTA head/neck as Cr at baseline Await rehab at this time (Oscar Guzman D.O.)
[2017-04-02 12:53] LABS: PARTIAL THROMBOPLASTIN RATIO 2.5
--- NOTE | 2017-04-02 14:11 | DIAGNOSTIC IMAGING REPORT ---
CT SCAN OF THE BRAIN WITHOUT IV CONTRAST CLINICAL HISTORY: Follow-up stroke COMPARISON STUDY: CT scan of the brain dated 04/01/2017. TECHNIQUE: Unenhanced axial CT scan of the brain is performed from the vertex to the skull base. The patient was scanned twice due to motion artifact. CT DOSE: 767.83 mGy.cm FINDINGS: Brain parenchyma: Again seen is an evolving left MCA territory infarct involving probably the left temporal and occipital lobes. There is loss of caldwell-white matter differentiation and sulcal effacement. There is no hemorrhage or midline shift. A chronic lacunar infarct is seen in the left basal ganglia. There are age-related involutional changes noting mild subcortical and periventricular microangiopathic change. No extra-axial fluid collection is seen. Ventricles, sulci, cisterns: Prominent secondary to involutional change. Intracranial vasculature: There is atherosclerotic calcification of the cavernous carotid and vertebral arteries. Calvarium: Unremarkable. Sinuses and mastoids: The visualized paranasal sinuses are clear. The mastoid air cells are well pneumatized. Orbits: The bony orbits are grossly intact. IMPRESSION: 1. Again seen is an evolving left MCA territory infarct as above. This is similar in appearance to yesterday. 2. There is no hemorrhage or midline shift. Electronically signed by: Cooper Finch M.D. 04/02/2017 2:09 PM Dictated Date/Time: 04/02/2017 2:06 PM
[2017-04-02] MEDS ORDERED: OPTIRAY 320 IV PRN (15:30)
--- NOTE | 2017-04-02 16:00 | DIAGNOSTIC IMAGING REPORT ---
HEAD ANGIO WITH CONTRAST HISTORY: 61 years-old Female acute CVA, R LOPEZ subacute infarction of the left MCA territory. Follow-up study. COMPARISON: CT head of same day, MRI brain 03/30/2017, MRA neck 03/31/2017 TECHNIQUE: CTA of the head was obtained following the intravenous administration of 119 mL Optiray 320. 3-D coronal and sagittal MIPS were obtained from the axial data set and submitted for review. All measurements were obtained according to NASCET criteria. FINDINGS: There is mild atherosclerotic plaquing of the distal left cervical segment internal carotid artery with additional plaquing seen within the petrous and cavernous segments. Left M1 segment is patent. There is normal trifurcation of the MCA. No definite high-grade stenosis or proximal branch occlusion identified within the left MCA territory subacute infarction. There is only focal flow noted within the distal cervical, petrous and cavernous segments right internal carotid artery suggesting chronic high-grade stenosis with reconstitution of flow noted at the distal cavernous portion seen on image 84 series 3. The right middle cerebral artery is patent. Bilateral anterior cerebral arteries and anterior communicating artery are patent and within normal limits. Major venous sinuses are patent. The left vertebral artery is dominant. There is mild plaquing of the bilateral vertebral arteries without high-grade stenosis or occlusion. Basilar artery and bilateral posterior cerebral arteries are patent. Posterior communicating branches are patent. No abnormal enhancement identified. Evolving left MCA distribution infarction is unchanged in comparison. Soft tissues and orbits are unremarkable. Bones appear intact. Mastoid air cells and sinuses are generally clear with the exception of mild ethmoid sinus disease. IMPRESSION: 1. Evolving left MCA distribution infarction redemonstrated without proximal branch occlusion or high-grade stenosis identified involving the left MCA or its proximal branches. 2. Only trickle flow is noted within the right internal carotid artery with reconstitution of flow noted within the distal cavernous segment as detailed above. 3. No additional high-grade stenosis, proximal branch occlusion, aneurysm or dissection. The above report was generated using voice recognition software. It may contain grammatical, syntax or spelling errors. Electronically signed by: José Sanchez M.D. 04/02/2017 3:59 PM Dictated Date/Time: 04/02/2017 3:48 PM
--- NOTE | 2017-04-02 16:03 | DIAGNOSTIC IMAGING REPORT ---
CT ANGIOGRAM OF THE NECK CLINICAL HISTORY: Stroke. COMPARISON STUDY: Carotid artery ultrasound dated 03/30/2017. MR angiography of the neck dated 03/31/2017. TECHNIQUE: Following the IV administration of 119 of Optiray 320, CT angiogram of the neck was performed from the aortic arch to the skull base. Images are reviewed in the axial, sagittal, and coronal planes. 3-D MIPS images are created and assessed. IV contrast was administered without complication. All measurements were calculated based on NASCET criteria. A dose lowering technique was utilized adhering to the principles of ALARA. The examination is modestly degraded by motion artifact. CT DOSE: 473.81 mGy.cm FINDINGS: Thoracic aorta: There is advanced atherosclerotic calcification of the visualized thoracic aorta. Visualized portions of the thoracic aorta are normal in caliber. The aortic arch demonstrates bovine variant anatomy. Right carotid arterial system: The right common carotid artery is widely patent. 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 The right external carotid artery is patent. Left carotid arterial system: Left common carotid artery is widely patent. There is atherosclerotic calcification of the carotid bulb which causes less than 50% luminal narrowing at the origin of the left internal carotid artery. The left internal carotid artery is otherwise widely patent. The left external auditory canal artery is patent noting approximately 50% stenosis at its origin. Vertebral arteries: The vertebral arteries are patent noting left-sided dominance. Subclavian arteries: Patent bilaterally. Jugular veins: Widely patent bilaterally. Lung apices: Advanced emphysema is identified. A right pleural effusion is partially imaged. Soft tissues: The visualized pharyngeal soft tissues are normal in appearance noting angiographic phase technique. The oropharyngeal airway appears widely patent. The salivary glands are normal in appearance. A 1.7 cm low-attenuation nodule is present in the left thyroid lobe. No cervical lymphadenopathy is seen. Skeletal structures: The skeletal structures are osteopenic. Cervical spondylosis is observed. The visualized calvarium at the skull base appears intact. IMPRESSION: 1. 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 2. There is less than 50% narrowing at the origin of the left internal carotid artery. 3. There is approximately 50% stenosis at the origin of the left external carotid artery. 4. The vertebral arteries are patent. 5. Emphysema and right pleural effusion. 6. There is a 1.7 cm nodule in the left thyroid lobe. Follow-up with a nonemergent/outpatient thyroid ultrasound is recommended Electronically signed by: Cooper Finch M.D. 04/02/2017 4:02 PM Dictated Date/Time: 04/02/2017 3:53 PM
[2017-04-02] MEDS: WARFARIN SOD 5 MG TAB PO SCH (16:07)
[2017-04-02] MEDS: SIMVASTATIN 40 MG TAB PO SCH (21:36)
[2017-04-02] MEDS: METOPROLOL TARTRATE 1 MG/ML VIAL IV PRN (23:22)
[2017-04-03] VITALS (13 sets, daily range): BP systolic 156–201; BP diastolic 84–95; PULSE 63–124; TEMP 36.7–37.9; O2SAT 91–97
[2017-04-03] MEDS: ALBUTEROL 0.083% NEBU SOLN 3 ML VIAL INH SCH (02:07)
[2017-04-03] MEDS: LEVOTHYROXINE 25 MCG TAB PO SCH (05:08)
[2017-04-03] MEDS: ALBUT/IPRATROP 3MG/0.5MG NEB 3 ML VIAL INH SCH ×5 (05:39→18:55)
[2017-04-03 06:10] LABS: INR 2.9 (0.9-1.1); PARTIAL THROMBOPLASTIN RATIO 1.5
[2017-04-03 06:30] LABS: BUN/CREATININE RATIO 13.3 (10-20); CALCIUM 8.6 mg/dl (8.5-10.1); CREATININE 1.7 mg/dl (0.60-1.20); MAGNESIUM 1.8 mg/dl (1.8-2.4); POTASSIUM 4.4 mmol/L (3.5-5.1)
[2017-04-03] MEDS: INSULIN ASPART 100 UNITS/ML 3 ML PEN SC SCH ×4 (07:00→21:10)
[2017-04-03] MEDS: METOPROLOL TARTRATE 1 MG/ML VIAL IV PRN (07:37)
[2017-04-03] MEDS: MAGNESIUM OXIDE 400 MG TAB PO SCH ×2 (08:28→21:05)
[2017-04-03] MEDS: ASPIRIN 81 MG ECTAB PO SCH ×2 (08:28→09:00)
[2017-04-03] MEDS: CLOPIDOGREL BISULFATE 75 MG TAB PO SCH (08:29)
[2017-04-03] MEDS ORDERED: METOPROLOL SUCC 50MG EXT REL TAB PO SCH (09:00)
--- NOTE | 2017-04-03 09:31 | Cardiology Follow-Up ---
Subjective Date of Service: Apr 03, 2017. Pt evaluation today including: conversation w/ patient, conversation w/ family , physical exam, lab review, review of studies, review of inpatient medication list History of Present Illness This is a 61-year-old woman who has a history of diabetes, hypertension, hypothyroidism, hyperlipidemia (on statins) and chronic kidney disease. Her hospital admission suggest that she has a history of atrial fibrillation although I don't see that in our office chart. She presented with less responsiveness, was noted to have a left hemispheric CVA and to be in atrial fibrillation with a rapid heart rate. She was therefore admitted. She was started on heparin as an anticoagulant (as well as warfarin) and metoprolol IV, now switched to oral. She is sleepy today, still not able to communicate very effectively. Appears comfortable. Social History Smoking Status: Former Smoker (30 pack year history) History of Alcohol Use: No Review of Systems Review of systems cannot be adequately performed due to her inability to answer questions appropriately Medications Cardiovascular: Item Value Date Time Metoprolol 100 mg 04/03/17 0900 Succinate QAM/PO 04/03/17 0829 (Toprol Xl Tab) Aspirin 81 mg 04/01/17 0900 (Ecotrin Tab) DAILY/PO 04/03/17 0828 Clopidogrel 75 mg 04/01/17 0900 Bisulfate QAM/PO 04/03/17 0829 (plAVix TAB) Simvastatin 40 mg 03/31/17 2100 (Zocor Tab) HS/PO 04/02/17 2136 Warfarin Sodium 5 mg 03/31/17 1600 (Coumadin Tab) DAILY@16/PO 04/02/17 1607 Objective Vital Signs Past 12 Hours Date Time Temp Pulse Resp B/P (MAP) Pulse Ox O2 Delivery O2 Flow Rate FiO2 04/03/17 08:02 Nasal Cannula 3.0 04/03/17 08:00 Nasal Cannula 3.0 04/03/17 07:37 138 161/85 04/03/17 07:34 37.1 124 21 161/85 (110) 95 Nasal Cannula 3.0 04/03/17 07:21 102 18 92 Nasal Cannula 3.0 04/03/17 05:05 63 18 95 Nasal Cannula 3.0 04/03/17 04:01 94 Nasal Cannula 3.0 04/03/17 03:51 37.4 109 18 173/85 (114) 91 Nasal Cannula 3.5 04/02/17 23:59 94 Nasal Cannula 3.0 04/02/17 23:59 85 156/79 (104) 04/02/17 23:22 100 189/90 04/02/17 23:20 37.0 100 22 189/90 (123) 94 Nasal Cannula 3.0 Last Recorded Weight-Kilograms: 74.100 Physical Exam Constitutional: General Apperance: well-nourished, well-developed Level of Distress: NAD Lungs: Respiratory effort: no dyspnea, good air movement Auscultation: breath sounds normal, no wheezing Cardiovascular: Apical Impulse: not displaced Heart Auscultation: no murmurs, no rubs, no gallops, tachycardia, irregular rate rhythm Peripheral Pulses: Bruits: none appreciated Carotid Pulse: normal on the left, normal on the right Radial Pulse: normal on the left, normal on the right Femoral Pulse: normal on the left, normal on the right Dorsalis Pedis Pulse: decreased on the left, decreased on the right Extremities: no edema Right hemiparesis remains, aphasia remains Data Laboratory Results: Last 24 Hours Test 04/02/17 11:16 04/02/17 12:26 04/02/17 16:04 04/02/17 20:11 Bedside Glucose 163 mg/dl 122 mg/dl 120 mg/dl Activated Partial Thromboplast Time 65.0 SECONDS Partial Thromboplastin Ratio 2.5 Test 04/03/17 05:46 04/03/17 07:12 Prothrombin Time 33.0 SECONDS Prothromb Time International Ratio 2.9 Activated Partial Thromboplast Time 38.6 SECONDS Partial Thromboplastin Ratio 1.5 Sodium Level 141 mmol/L Potassium Level 4.4 mmol/L Chloride Level 109 mmol/L Carbon Dioxide Level 23 mmol/L Anion Gap 9.0 mmol/L Blood Urea Nitrogen 23 mg/dl Creatinine 1.70 mg/dl Est Creatinine Clear Calc Drug Dose 31.4 ml/min Estimated GFR () 36.6 Estimated GFR (Non- 31.5 BUN/Creatinine Ratio 13.3 Random Glucose 114 mg/dl Calcium Level 8.6 mg/dl Magnesium Level 1.8 mg/dl Bedside Glucose 113 mg/dl Telemetry reviewed: Atrial fibrillation, rate remains somewhat elevated, averaging around 100 Assessment and Plan #1. CVA: Presumably due to atrial fibrillation, I don't know if she has had atrial fibrillation in the past although her chart suggests it, her think she might of had it but can't give me any assurance that she actually did. She also has carotid disease, but that appears to be an occluded right internal carotid not the left. Since she did not have hemorrhagic conversion she is on an anticoagulant. #2. Atrial fibrillation: I can't tell if this is new or old, I think it is relatively new but probably not acute. I don't think there is any way to tell. She was in the office 03/16/2017 and her heart rate was not fast therefore I don 't believe she was in it then. We need to control the heart rate and keep her anticoagulated. I am going to increase her beta blockade, her heart rate has been better controlled but remains a little bit fast. She is taking oral medications. Her INR is now therapeutic. #3. Elevated troponin: Her troponin was slightly elevated, there is no evidence of acute injury on her electrocardiogram and her echo does not show wall motion abnormalities. She may well of coronary disease (she does have carotid disease) but the troponin elevation is most likely due to demand ischemia and I would not pursue further evaluation at this time. Thank you for allowing me to participate in her care.
[2017-04-03] MEDS ORDERED: METOPROLOL TARTRATE 50 MG TAB PO ONE (09:45)
--- NOTE | 2017-04-03 14:18 | Progress Note ---
Subjective Date of Service: Apr 03, 2017. Subjective Pt evaluation today including: conversation w/ patient, physical exam, chart review, lab review, review of studies, review of inpatient medication list Pt has mixed aphasia Seems to be in no distress at this time at bedside Problem List Medical Problems: (1) Altered mental status Status: Acute (2) Atrial fibrillation with rapid ventricular response Status: Acute (3) Elevated troponin Status: Acute (4) Focal infarction of brain Status: Acute Review of Systems Constitutional: No fever, No chills, No sweats, No weight loss, No weakness ENT: No hearing loss, No unusual epistaxis, No nasal symptoms, No sore throat Respiratory: No cough, No sputum, No wheezing, No shortness of breath Cardiac: No chest pain, No orthopnea, No PND, No edema, No claudication Abdomen: No pain, No nausea, No vomiting, No diarrhea, No constipation Musculoskeletal: No joint pain, No muscle pain, No swelling, No calf pain Female : No dysuria, No urinary frequency, No hematuria, No incontinence Neurologic: + paralysis, + weakness, No memory loss, No numbness/tingling Psychiatric: No depression symptoms, No anhedonism, No anxiety, No insomnia Endo: No fatigue, No excessive thirst Skin: No rash, No itch Objective Vital Signs Date Time Temp Pulse Resp B/P (MAP) Pulse Ox O2 Delivery O2 Flow Rate FiO2 04/03/17 12:00 Nasal Cannula 2.0 04/03/17 11:19 92 18 92 Nasal Cannula 2.0 04/03/17 11:14 37.4 93 22 160/84 (109) 93 Nasal Cannula 3.0 04/03/17 08:02 Nasal Cannula 3.0 04/03/17 08:00 Nasal Cannula 3.0 04/03/17 07:37 138 161/85 04/03/17 07:34 37.1 124 21 161/85 (110) 95 Nasal Cannula 3.0 04/03/17 07:21 102 18 92 Nasal Cannula 3.0 04/03/17 05:05 63 18 95 Nasal Cannula 3.0 04/03/17 04:01 94 Nasal Cannula 3.0 04/03/17 03:51 37.4 109 18 173/85 (114) 91 Nasal Cannula 3.5 04/02/17 23:59 94 Nasal Cannula 3.0 04/02/17 23:59 85 156/79 (104) 04/02/17 23:22 100 189/90 04/02/17 23:20 37.0 100 22 189/90 (123) 94 Nasal Cannula 3.0 04/02/17 20:28 37.2 92 16 179/80 (113) 92 Room Air 04/02/17 20:00 95 Nasal Cannula 3.0 04/02/17 17:01 Nasal Cannula 3.0 04/02/17 16:15 36.6 92 18 163/94 (117) 95 04/02/17 16:00 Room Air Physical Exam General Appearance: WD/WN, no apparent distress Eyes: normal inspection, PERRL, EOMI, sclerae normal Neck: supple, no adenopathy, thyroid normal, no JVD Respiratory/Chest: chest non-tender, lungs clear, normal breath sounds, no respiratory distress Cardiovascular: regular rate, rhythm, no edema, no gallop, no JVD Abdomen: normal bowel sounds, non tender, soft, no organomegaly Extremities: normal range of motion, non-tender, normal inspection, no pedal edema Neurologic/Psychiatric: alert, normal mood/affect, + motor weakness (right sided weakness, 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) Skin: normal color, warm/dry, no rash Lymphatic: no adenopathy Laboratory Results Last 24 Hours Test 04/02/17 16:04 04/02/17 20:11 04/03/17 05:46 04/03/17 07:12 Bedside Glucose 122 mg/dl 120 mg/dl 113 mg/dl Prothrombin Time 33.0 SECONDS Prothromb Time International Ratio 2.9 Activated Partial Thromboplast Time 38.6 SECONDS Partial Thromboplastin Ratio 1.5 Sodium Level 141 mmol/L Potassium Level 4.4 mmol/L Chloride Level 109 mmol/L Carbon Dioxide Level 23 mmol/L Anion Gap 9.0 mmol/L Blood Urea Nitrogen 23 mg/dl Creatinine 1.70 mg/dl Est Creatinine Clear Calc Drug Dose 31.4 ml/min Estimated GFR () 36.6 Estimated GFR (Non- 31.5 BUN/Creatinine Ratio 13.3 Random Glucose 114 mg/dl Calcium Level 8.6 mg/dl Magnesium Level 1.8 mg/dl Test 04/03/17 10:42 Bedside Glucose 135 mg/dl Assessment and Plan Pt is a 61 y/o female with a h/o LOPEZ with complete occlusion TARUN, HTN, DMII, hypothyroidism, HL, and CKD stage IV, here with 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 Subacute-acute CVA- large 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 and significant mixed aphasia, Right LOPEZ, likely secondary to cardioembolic source: - Admitted to tele for cardiac monitoring - ECHO- without interatrial shunt, no thrombus - Carotid US and Neck MRA- -- Vascular surgery consulted- no intervention at this time, f/u in 1 year -- Zocor increased to 40 mg daily + Plavix - Neurology consulted, appreciate recommendations -- Head CT on 03/30 and 03/31- neg x 2 for ICH, shows evolution of infarct, no midline shift- repeat on 04/02 for hemorrhagic evaluation pending -- Consider CTA neck if creatinine allows - Plavix 75 mg daily+ ASA 81 mg daily- ASA allergy noted but has been on therapy since 03/30 - Coumadin and bridge with heparin gtt for a-fib- watching for hemorrhagic conversion- will d/c Heparin on 04/02 due to therapeutic INR and no acute source of emboli - Evaluated by speech- mechanical soft diet - PT/OT- acute rehab Demand ischemia/PAF (new onset) w/ RVR: - Admitted to tele for cardiac monitoring - Trended cardiac enzymes- peak trop 0.736 - ECHO- no wall abnormalities - Cardiology consulted, appreciate recommendations -- Titrating Toprol PRN for rate control, increased to 150 mg tablet once daily - Warfarin- follow PT/INR and titrate Coumadin dose PRN HTN- allow permissive HTN, sbp 140-160 per neurology: - Holding home Amlodipine 10 mg daily and Hytrin - Continue Toprol XL as above - Treated w/ IVF 125 mls/hr NS to keep BP up- BPs now ranging sbp 160-180s, will d/c Acute hypoxemic respiratory failure: - O2 protocol, wean as tolerated - Continue albuterol nebs Left minimally angulated Colles fracture, left elbow contusion, doubt occult fracture: - Ortho consulted, appreciate recommendations: -- s/p gentle closed reduction and application of a sugar-tong plaster splint overwrapped with an Dylan wrap on 04/[address] Damon -- f/u in 1-2 weeks - Tylenol PRN for pain management T2DM- HgbA1C 7.4: - Held Glimepiride 2 mg BID - BSG ACHS and sliding insulin scale RUPALI on CKD stage III, baseline Cr. 1.8- RESOLVED: - Avoid nephrotoxic drugs, renally dose medications Hypothyroidism- TSH 1.470: Continue Synthroid 25 mcg daily DVT prophylaxis: Coumadin Code Status: LEVEL I, FULL
[2017-04-03] MEDS: WARFARIN SOD 5 MG TAB PO SCH (16:30)
[2017-04-03] MEDS: SIMVASTATIN 40 MG TAB PO SCH (21:06)
[2017-04-04] VITALS (11 sets, daily range): BP systolic 152–190; BP diastolic 76–96; PULSE 84–104; TEMP 36.3–37.4; O2SAT 84–99
[2017-04-04] MEDS: METOPROLOL TARTRATE 1 MG/ML VIAL IV PRN ×2 (04:04→16:50)
[2017-04-04] MEDS: LEVOTHYROXINE 25 MCG TAB PO SCH (05:32)
[2017-04-04 05:48] LABS: HEMATOCRIT 33.6 % (37-47); MEAN CORPUSCULAR HEMOGLOBIN 24.8 pg (25-34); MEAN CORPUSCULAR HGB CONC 30.7 g/dl (32-36); MEAN PLATELET VOLUME 9.6 fL (7.4-10.4); PLATELET COUNT 312 K/uL (130-400); RED BLOOD COUNT 4.15 M/uL (4.2-5.4); WHITE BLOOD COUNT 9.14 K/uL (4.8-10.8)
[2017-04-04 06:08] LABS: INR 4.4 (0.9-1.1); PARTIAL THROMBOPLASTIN RATIO 1.8; PROTHROMBIN TIME (PATIENT) 49.5 SECONDS (9.0-12.0)
[2017-04-04 06:14] LABS: BUN/CREATININE RATIO 15.5 (10-20); CALCIUM 8.4 mg/dl (8.5-10.1); CREATININE 1.8 mg/dl (0.60-1.20); MAGNESIUM 2.3 mg/dl (1.8-2.4); POTASSIUM 4.1 mmol/L (3.5-5.1)
[2017-04-04] MEDS: ALBUT/IPRATROP 3MG/0.5MG NEB 3 ML VIAL INH SCH ×4 (07:04→19:42)
[2017-04-04] MEDS: INSULIN ASPART 100 UNITS/ML 3 ML PEN SC SCH ×4 (08:12→20:59)
[2017-04-04] MEDS: MAGNESIUM OXIDE 400 MG TAB PO SCH ×2 (08:13→19:57)
[2017-04-04] MEDS: CLOPIDOGREL BISULFATE 75 MG TAB PO SCH (08:13)
[2017-04-04] MEDS: ASPIRIN 81 MG ECTAB PO SCH (08:13)
[2017-04-04] MEDS ORDERED: METOPROLOL SUCC 50MG EXT REL TAB PO SCH (09:00)
[2017-04-04] MEDS ORDERED: METOPROLOL SUCC 50MG EXT REL TAB PO STA (09:57)
--- NOTE | 2017-04-04 10:01 | Cardiology Follow-Up ---
Subjective Date of Service: Apr 04, 2017. Pt evaluation today including: conversation w/ patient, physical exam, lab review, review of studies, review of inpatient medication list History of Present Illness This is a 61-year-old woman who has a history of diabetes, hypertension, hypothyroidism, hyperlipidemia (on statins) and chronic kidney disease. Her hospital admission suggest that she has a history of atrial fibrillation although I don't see that in our office chart. She presented with less responsiveness, was noted to have a left hemispheric CVA and to be in atrial fibrillation with a rapid heart rate. She was therefore admitted. She was started on heparin as an anticoagulant (now warfarin) and metoprolol IV, now switched to oral. She is sleepy today, still not able to communicate very effectively. Appears comfortable. Social History Smoking Status: Former Smoker (30 pack year history) History of Alcohol Use: No Review of Systems Respiratory: No cough, No sputum, No wheezing, No shortness of breath Cardiac: No chest pain, No orthopnea, No PND, No edema, No claudication Review of systems cannot be adequately performed due to her inability to answer questions appropriately Medications Cardiovascular: Item Value Date Time Metoprolol 150 mg 04/04/17 0900 Succinate QAM/PO 04/04/17 0813 (Toprol Xl Tab) Magnesium Oxide 400 mg 04/02/17 0900 (Mag-Ox Tab) BID/PO 04/04/17 0813 Aspirin 81 mg 04/01/17 0900 (Ecotrin Tab) DAILY/PO 04/04/17 0813 Clopidogrel 75 mg 04/01/17 0900 Bisulfate QAM/PO 04/04/17 0813 (plAVix TAB) Simvastatin 40 mg 03/31/17 2100 (Zocor Tab) HS/PO 04/03/172105 Objective Vital Signs Past 12 Hours Date Time Temp Pulse Resp B/P (MAP) Pulse Ox O2 Delivery O2 Flow Rate FiO2 04/04/17 08:00 Nasal Cannula 2.0 04/04/17 07:58 37.0 99 20 179/76 (110) 98 2.0 04/04/17 07:04 84 18 91 Nasal Cannula 2.0 04/04/17 04:40 84 152/87 (108) 04/04/17 04:04 187/94 04/04/17 04:00 92 Nasal Cannula 2.0 04/04/17 03:46 37.4 104 20 187/94 (125) 92 Nasal Cannula 2.0 04/03/17 23:59 Nasal Cannula 2.0 04/03/17 23:06 37.9 103 18 169/89 (115) 93 Nasal Cannula 2.0 Last Recorded Weight-Kilograms: 77.000 Physical Exam Constitutional: General Apperance: well-nourished, well-developed Level of Distress: NAD Lungs: Respiratory effort: no dyspnea, good air movement Auscultation: breath sounds normal, no wheezing Cardiovascular: Apical Impulse: not displaced Heart Auscultation: no murmurs, no rubs, no gallops, tachycardia, irregular rate rhythm Peripheral Pulses: Bruits: none appreciated Carotid Pulse: normal on the left, normal on the right Radial Pulse: normal on the left, normal on the right Femoral Pulse: normal on the left, normal on the right Dorsalis Pedis Pulse: decreased on the left, decreased on the right Extremities: no edema Right hemiparesis remains, aphasia remains Data Laboratory Results: Last 24 Hours Test 04/03/17 10:42 04/03/17 16:17 04/03/17 20:20 04/04/17 05:16 Bedside Glucose 135 mg/dl 115 mg/dl 157 mg/dl White Blood Count 9.14 K/uL Red Blood Count 4.15 M/uL Hemoglobin 10.3 g/dL Hematocrit 33.6 % Mean Corpuscular Volume 81.0 fL Mean Corpuscular Hemoglobin 24.8 pg Mean Corpuscular Hemoglobin Concent 30.7 g/dl RDW Standard Deviation 47.0 fL RDW Coefficient of Variation 15.8 % Platelet Count 312 K/uL Mean Platelet Volume 9.6 fL Prothrombin Time 49.5 SECONDS Prothromb Time International Ratio 4.4 Activated Partial Thromboplast Time 47.9 SECONDS Partial Thromboplastin Ratio 1.8 Sodium Level 139 mmol/L Potassium Level 4.1 mmol/L Chloride Level 106 mmol/L Carbon Dioxide Level 26 mmol/L Anion Gap 7.0 mmol/L Blood Urea Nitrogen 28 mg/dl Creatinine 1.80 mg/dl Est Creatinine Clear Calc Drug Dose 30.0 ml/min Estimated GFR () 34.1 Estimated GFR (Non- 29.4 BUN/Creatinine Ratio 15.5 Random Glucose 120 mg/dl Calcium Level 8.4 mg/dl Magnesium Level 2.3 mg/dl Test 04/04/17 06:19 Bedside Glucose 121 mg/dl Telemetry reviewed: AF with average HR around 100 or a little less, little change with medication titration Assessment and Plan #1. CVA: Presumably due to atrial fibrillation, I don't know if she has had atrial fibrillation in the past although her chart suggests it, her think she might of had it but can't give me any assurance that she actually did. She also has carotid disease, but that appears to be an occluded right internal carotid not the left. Since she did not have hemorrhagic conversion she is on an anticoagulant. #2. Atrial fibrillation: I can't tell if this is new or old, I think it is relatively new but probably not acute. I don't think there is any way to tell. She was in the office 03/16/2017 and her heart rate was not fast therefore I don 't believe she was in it then. We need to control the heart rate and keep her anticoagulated. I am going to increase her beta blockade, her heart rate remains fast. She is taking oral medications. Her INR is now therapeutic. #3. Elevated troponin: Her troponin was slightly elevated, there is no evidence of acute injury on her electrocardiogram and her echo does not show wall motion abnormalities. She may well of coronary disease (she does have carotid disease) but the troponin elevation is most likely due to demand ischemia and I would not pursue further evaluation at this time. Thank you for allowing me to participate in her care.
--- NOTE | 2017-04-04 11:06 | Hospitalist Progress Note ---
Hospitalist Progress Note Date of Service Apr 04, 2017. (Kenia Antunez ., RODGERC) Subjective Pt evaluation today including: conversation w/ patient, physical exam, lab review, review of studies, review of inpatient medication list Voiding: incontinence Patient resting in bed. No signs of acute distress. Easily wakes to name. Denies any complaints. Answers yes/no questions. Limited ROS secondary to patient's status- denies any fever, chills, CP, palpitations, SOB, abdominal pain, nausea, vomiting, diarrhea, urinary symptoms , numbness/tingling, muscle/joint pain. (Kenia Antunez ., RODGERC) Medications Current Inpatient Medications Medications (Trade) Dose Ordered Sig/Joe Route Start Time Stop Time Status Last Admin Dose Admin Miscellaneous Information (Pharmacist Discharge Med Rec Consult) 1 ea UD PRN N/A 03/30/17 15:30 04/29/17 15:29 Metoprolol Tartrate (Lopressor Iv) 5 mg Q4 PRN IV 03/30/17 15:30 04/29/17 15:29 04/04/17 04:04 5 MG Glucose (Glucose 40% Gel) 15-30 GRAMS 15 GRAMS... UD PRN PO 03/30/17 17:00 04/29/17 16:59 Glucose (Glucose Chew Tab) 4-8 Tablets 4 Tabl... UD PRN PO 03/30/17 17:00 04/29/17 16:59 Dextrose (Dextrose 50% 50ML Syringe) 25-50ML OF 50% DW IV FOR... UD PRN IV 03/30/17 17:00 04/29/17 16:59 Glucagon (Glucagon Inj) 1 mg UD PRN SQ 03/30/17 17:00 04/29/17 16:59 Heparin Sodium/ Dextrose 500 ml @ 21 mls/hr [id number] PRN IV 03/30/17 18:30 04/29/17 18:29 Future Hold 04/01/17 19:41 24 MLS/HR Levothyroxine Sodium (Synthroid Tab) 25 mcg DAILYBB PO 04/01/17 06:00 05/01/17 05:59 04/04/17 05:32 25 MCG Aspirin (Ecotrin Tab) 81 mg DAILY PO 04/01/17 09:00 05/01/17 08:59 04/04/17 08:13 81 MG Simvastatin (Zocor Tab) 40 mg HS PO 03/31/17 21:00 04/29/17 20:59 04/03/17 21:06 40 MG Clopidogrel Bisulfate (plAVix TAB) 75 mg QAM PO 04/01/17 09:00 05/01/17 08:59 04/04/17 08:13 75 MG Warfarin Sodium (Coumadin Tab) 5 mg DAILY@16 PO 03/31/17 16:00 04/30/17 15:59 Future Hold 04/03/17 16:30 5 MG Albuterol Sulfate (Ventolin 0.083% 2.5MG/3ML Neb) 2.5 mg Q6R INH 03/31/17 21:00 04/30/17 20:59 Future Hold 04/02/17 07:15 2.5 MG Acetaminophen (Tylenol Tab) 325 mg Q4H PRN PO 04/01/17 16:00 05/01/17 15:59 Insulin Aspart (novoLOG ASPART) SLIDING SCALE If C... ACHS SC 04/01/17 21:00 05/01/17 20:59 04/03/17 21:10 1 UNITS Magnesium Oxide (Mag-Ox Tab) 400 mg BID PO 04/02/17 09:00 05/02/17 08:59 04/04/17 08:13 400 MG Ioversol (Optiray 320) 125 ml UD PRN IV 04/02/17 15:30 04/06/17 15:29 Albuterol/ Ipratropium (Duoneb) 3 ml QIDR INH 04/03/17 08:00 05/03/17 07:59 04/04/17 07:04 3 ML Metoprolol Succinate (Toprol Xl Tab) 150 mg QAM PO 04/04/17 09:00 05/04/17 08:59 04/04/17 08:13 150 MG (Kenia Antunez PA-C) Objective Vital Signs Date Time Temp Pulse Resp B/P (MAP) Pulse Ox O2 Delivery O2 Flow Rate FiO2 04/04/17 08:00 Nasal Cannula 2.0 04/04/17 07:58 37.0 99 20 179/76 (110) 98 2.0 04/04/17 07:04 84 18 91 Nasal Cannula 2.0 04/04/17 04:40 84 152/87 (108) 04/04/17 04:04 187/94 04/04/17 04:00 92 Nasal Cannula 2.0 04/04/17 03:46 37.4 104 20 187/94 (125) 92 Nasal Cannula 2.0 04/03/17 23:59 Nasal Cannula 2.0 04/03/17 23:06 37.9 103 18 169/89 (115) 93 Nasal Cannula 2.0 04/03/17 20:00 97 Nasal Cannula 2.0 04/03/17 18:58 37.1 104 20 161/95 (117) 97 Nebulizer 04/03/17 18:55 103 18 92 Nasal Cannula 2.0 04/03/17 16:00 Nasal Cannula 2.0 04/03/17 15:57 36.7 101 15 156/87 (110) 93 04/03/17 15:12 83 18 95 Nasal Cannula 2.0 04/03/17 12:00 Nasal Cannula 2.0 04/03/17 11:19 92 18 92 Nasal Cannula 2.0 04/03/17 11:14 37.4 93 22 160/84 (109) 93 Nasal Cannula 3.0 (Kenia Antunez, PA-C) Physical Exam General Appearance: no apparent distress, + obese, + pertinent finding (2L O2 NC ) Eyes: PERRL ENT: hearing grossly normal Neck: supple Respiratory/Chest: lungs clear, no respiratory distress, no accessory muscle use Cardiovascular: + irregularly irregular (rate controlled ) Abdomen: normal bowel sounds, non tender, soft Extremities: no pedal edema, no calf tenderness, + pertinent finding (LUE w/ splint/DYLAN bandage ) Neurologic/Psychiatric: alert, + disoriented Skin: normal color, warm/dry, no rash (Kenia Antunez ., PA-C) Laboratory Results Last 24 Hours Test 04/03/17 10:42 04/03/17 16:17 04/03/17 20:20 04/04/17 05:16 Bedside Glucose 135 mg/dl 115 mg/dl 157 mg/dl White Blood Count 9.14 K/uL Red Blood Count 4.15 M/uL Hemoglobin 10.3 g/dL Hematocrit 33.6 % Mean Corpuscular Volume 81.0 fL Mean Corpuscular Hemoglobin 24.8 pg Mean Corpuscular Hemoglobin Concent 30.7 g/dl RDW Standard Deviation 47.0 fL RDW Coefficient of Variation 15.8 % Platelet Count 312 K/uL Mean Platelet Volume 9.6 fL Prothrombin Time 49.5 SECONDS Prothromb Time International Ratio 4.4 Activated Partial Thromboplast Time 47.9 SECONDS Partial Thromboplastin Ratio 1.8 Sodium Level 139 mmol/L Potassium Level 4.1 mmol/L Chloride Level 106 mmol/L Carbon Dioxide Level 26 mmol/L Anion Gap 7.0 mmol/L Blood Urea Nitrogen 28 mg/dl Creatinine 1.80 mg/dl Est Creatinine Clear Calc Drug Dose 30.0 ml/min Estimated GFR () 34.1 Estimated GFR (Non- 29.4 BUN/Creatinine Ratio 15.5 Random Glucose 120 mg/dl Calcium Level 8.4 mg/dl Magnesium Level 2.3 mg/dl Test 04/04/17 06:19 Bedside Glucose 121 mg/dl (Kenia Antunez, PA-C) Assessment and Plan Patient is a 61 y/o female with a h/o LOPEZ with complete occlusion TARUN, HTN, DMII, hypothyroidism, HL, and CKD stage IV, here with 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 Subacute-acute CVA- large 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 and significant mixed aphasia, Right LOPEZ, likely secondary to cardioembolic source: - Admitted to [facility] for cardiac monitoring - ECHO- without interatrial shunt, no thrombus - Carotid US and Neck MRA- -- Vascular surgery consulted- no intervention at this time, f/u in 1 year -- Zocor increased to 40 mg daily + Plavix 75 mg daily - Neurology consulted, appreciate recommendations -- Head CT on 03/30 and 03/31- neg x 3 for ICH, shows evolution of infarct, no midline shift -- CTA head/neck- 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, less than 50% narrowing at the origin of the left internal carotid artery, ~50% stenosis at the origin of the left external carotid artery, vertebral arteries are patent, evolving infarct - Plavix 75 mg daily+ ASA 81 mg daily- ASA allergy noted but has been on therapy since 03/30 - Coumadin and bridge with heparin gtt for a-fib- watching for hemorrhagic conversion- d/c'd Heparin on 04/02 due to therapeutic INR and no acute source of emboli - Evaluated by speech- mechanical soft diet - PT/OT- acute rehab Demand ischemia/PAF (new onset) w/ RVR: - Admitted to tele for cardiac monitoring- a.fib, episodes of RVR up to 140s - Trended cardiac enzymes- peak trop 0.736 - ECHO- no wall abnormalities - Cardiology consulted, appreciate recommendations -- Titrating Toprol PRN for rate control- currently at 200 mg QAM - Warfarin- follow PT/INR and titrate Coumadin dose PRN for goal INR 2-3- INR 4.4 on 04/04, hold Coumadin HTN- allow permissive HTN, sbp 140-160 per neurology: - Holding home Amlodipine 10 mg daily and Hytrin - Continue Toprol XL as above and IV Lopressor PRN for HR >120- consider addition of CCB for better rate/BP control - Treated w/ IVF 125 mls/hr NS to keep BP up- BPs now ranging sbp 160-180s, d/c' d Acute hypoxemic respiratory failure: - O2 protocol, wean as tolerated - Continue albuterol nebs Hypomagnesemia at 1.5- RESOLVED: Start Mag-Ox 400 mg BID, follow mag level Left minimally angulated Colles fracture, left elbow contusion, doubt occult fracture: - Ortho consulted, appreciate recommendations: -- s/p gentle closed reduction and application of a sugar-tong plaster splint overwrapped with an Dylan wrap on 04/[address] Damon -- f/u in 1-2 weeks - Tylenol PRN for pain management T2DM- HgbA1C 7.4: - Held Glimepiride 2 mg BID - BSG ACHS and sliding insulin scale RUPALI on CKD stage III, baseline Cr. 1.8- RESOLVED: Avoid nephrotoxic drugs, renally dose medications Hypothyroidism- TSH 1.470: - Continue Synthroid 25 mcg daily - 1.7 cm nodule in the left thyroid lobe on CTA- f/u with a nonemergent/ outpatient thyroid ultrasound is recommended DVT prophylaxis: Coumadin Code Status: LEVEL I, FULL Dispo: Planning for acute rehab at [facility]- titrating medication- PT/OT and CM consulted (Kenia Antunez, PA-C) I agree with PA assessment and plan and have seen and examined pt myself Resting comfortably in bed Pt with subacute CVA Noted aphasia and right sided weakness Still in Afib with RVR Appreciate cardiology recs, increase toprol at this time (Oscar Guzman, D.O.)
--- NOTE | 2017-04-04 13:17 | DIAGNOSTIC IMAGING REPORT ---
MODIFIED BARIUM SWALLOW CLINICAL HISTORY: Evaluate for silent aspiration. Cerebrovascular accident. COMPARISON STUDY: No previous studies for comparison. Fluoroscopy time: 2.9 minutes. FINDINGS: No aspiration was identified within liquids, nectar thick liquids, pudding or crackers with paste. Several episodes of penetration were noted. Swallowing mechanism was intact. IMPRESSION: 1. Intact swallowing mechanism. No tracheal aspiration identified. 2. Full recommendations by speech pathology to follow. Electronically signed by: Jose Michel M.D. 04/04/2017 1:16 PM Dictated Date/Time: 04/04/2017 1:14 PM
[2017-04-04] MEDS: SIMVASTATIN 40 MG TAB PO SCH (19:56)
[2017-04-05] VITALS (13 sets, daily range): BP systolic 112–179; BP diastolic 69–111; PULSE 79–93; TEMP 36.2–37.1; O2SAT 84–95
[2017-04-05] MEDS: LEVOTHYROXINE 25 MCG TAB PO SCH (05:17)
[2017-04-05 06:14] LABS: INR 3.1 (0.9-1.1); PROTHROMBIN TIME (PATIENT) 35.1 SECONDS (9.0-12.0)
[2017-04-05 06:23] LABS: BUN/CREATININE RATIO 18.7 (10-20); CALCIUM 8.4 mg/dl (8.5-10.1); CREATININE 1.9 mg/dl (0.60-1.20); MAGNESIUM 2.9 mg/dl (1.8-2.4); POTASSIUM 4.3 mmol/L (3.5-5.1)
[2017-04-05] MEDS: INSULIN ASPART 100 UNITS/ML 3 ML PEN SC SCH ×4 (07:00→21:26)
[2017-04-05] MEDS: ALBUT/IPRATROP 3MG/0.5MG NEB 3 ML VIAL INH SCH ×4 (07:13→19:44)
[2017-04-05] MEDS: MAGNESIUM OXIDE 400 MG TAB PO SCH (07:45)
[2017-04-05] MEDS: CLOPIDOGREL BISULFATE 75 MG TAB PO SCH (07:45)
[2017-04-05] MEDS: ASPIRIN 81 MG ECTAB PO SCH (07:45)
[2017-04-05] MEDS: METOPROLOL SUCC 50MG EXT REL TAB PO SCH (07:45)
--- NOTE | 2017-04-05 09:03 | Cardiology Follow-Up ---
Subjective Date of Service: Apr 05, 2017. Pt evaluation today including: conversation w/ patient, physical exam, lab review, review of studies, review of inpatient medication list History of Present Illness This is a 61-year-old woman who has a history of diabetes, hypertension, hypothyroidism, hyperlipidemia (on statins) and chronic kidney disease. Her hospital admission suggest that she has a history of atrial fibrillation although I don't see that in our office chart. She presented with less responsiveness, was noted to have a left hemispheric CVA and to be in atrial fibrillation with a rapid heart rate. She was therefore admitted. She was started on heparin as an anticoagulant (now warfarin) and metoprolol IV, now switched to oral. She is sitting at her bedside today, she is much more communicative this morning , still not 100%. No complaints. Social History Smoking Status: Former Smoker (30 pack year history) History of Alcohol Use: No Review of Systems Respiratory: No cough, No sputum, No wheezing, No shortness of breath Cardiac: No chest pain, No orthopnea, No PND, No edema, No claudication Review of systems cannot be adequately performed due to her inability to answer questions appropriately Medications Cardiovascular: Item Value Date Time Metoprolol 200 mg 04/05/17 0900 Succinate QAM/PO 04/05/17 0745 (Toprol Xl Tab) Aspirin 81 mg 04/01/17 0900 (Ecotrin Tab) DAILY/PO 04/05/17 0745 Clopidogrel 75 mg 04/01/17 0900 Bisulfate QAM/PO 04/05/17 0745 (plAVix TAB) Simvastatin 40 mg 03/31/17 2100 (Zocor Tab) HS/PO 04/04/171955 Objective Vital Signs Past 12 Hours Date Time Temp Pulse Resp B/P (MAP) Pulse Ox O2 Delivery O2 Flow Rate FiO2 04/05/17 07:55 36.7 86 18 177/101 (126) 93 2.0 04/05/17 07:13 93 18 91 Nasal Cannula 2.0 04/05/17 04:00 Nasal Cannula 2.0 04/05/17 03:26 36.8 89 18 166/72 (103) 91 Nasal Cannula 2.0 04/05/17 00:01 Nasal Cannula 2.0 04/04/17 23:08 36.3 91 18 153/77 (102) 94 Nasal Cannula 1.5 Last Recorded Weight-Kilograms: 72.800 Physical Exam Constitutional: General Apperance: well-nourished, well-developed Level of Distress: NAD Lungs: Respiratory effort: no dyspnea, good air movement Auscultation: breath sounds normal, no wheezing Cardiovascular: Apical Impulse: not displaced Heart Auscultation: no murmurs, no rubs, no gallops, tachycardia, irregular rate rhythm Peripheral Pulses: Bruits: none appreciated Carotid Pulse: normal on the left, normal on the right Radial Pulse: normal on the left, normal on the right Femoral Pulse: normal on the left, normal on the right Dorsalis Pedis Pulse: decreased on the left, decreased on the right Extremities: no edema Moving R arm and leg, still some slurred speech but better Data Laboratory Results: Last 24 Hours Test 04/04/17 16:32 04/04/17 20:42 04/05/17 05:13 04/05/17 06:32 Bedside Glucose 114 mg/dl 195 mg/dl 138 mg/dl Prothrombin Time 35.1 SECONDS Prothromb Time International Ratio 3.1 Activated Partial Thromboplast Time 51.3 SECONDS Partial Thromboplastin Ratio 2.0 Sodium Level 138 mmol/L Potassium Level 4.3 mmol/L Chloride Level 104 mmol/L Carbon Dioxide Level 30 mmol/L Anion Gap 4.0 mmol/L Blood Urea Nitrogen 36 mg/dl Creatinine 1.90 mg/dl Est Creatinine Clear Calc Drug Dose 28.5 ml/min Estimated GFR () 32.0 Estimated GFR (Non- 27.6 BUN/Creatinine Ratio 18.7 Random Glucose 126 mg/dl Calcium Level 8.4 mg/dl Magnesium Level 2.9 mg/dl Telemetry reviewed: AF, HR is a little better now, consistently below 100 BPM. Assessment and Plan #1. CVA: Presumably due to atrial fibrillation, I don't know if she has had atrial fibrillation in the past although her chart suggests it, her think she might of had it but can't give me any assurance that she actually did. She also has carotid disease, but that appears to be an occluded right internal carotid not the left. Since she did not have hemorrhagic conversion she is on an anticoagulant. #2. Atrial fibrillation: I can't tell if this is new or old, I think it is relatively new but probably not acute. I don't think there is any way to tell. She was in the office 03/16/2017 and her heart rate was not fast therefore I don 't believe she was in it then. We need to control the heart rate and keep her anticoagulated. I believe her HR is adequately controlled now on Metoprolol succinate 200 mg daily. On Warfarin. #3. Elevated troponin: Her troponin was slightly elevated, there is no evidence of acute injury on her electrocardiogram and her echo does not show wall motion abnormalities. She may well of coronary disease (she does have carotid disease) but the troponin elevation is most likely due to demand ischemia and I would not pursue further evaluation at this time. Thank you for allowing me to participate in her care.
[2017-04-05] MEDS ORDERED: TPRSR50 PO (12:27)
[2017-04-05] MEDS ORDERED: ZCR40 PO (12:27)
[2017-04-05] MEDS ORDERED: NVLGIPEN SC (12:27)
[2017-04-05] MEDS ORDERED: CMD5 PO (12:27)
[2017-04-05] MEDS ORDERED: ASPEC81 PO (12:27)
[2017-04-05] MEDS ORDERED: PLV75 PO (12:27)
--- NOTE | 2017-04-05 12:47 | Discharge Instructions ---
Discharge Instructions Date of Service Apr 05, 2017. Admission Reason for Admission: CVA Discharge Discharge Diagnosis / Problem: CVA Discharge Goals Goal(s): Decrease discomfort, Improve function, Increase independence, Improve disease control, Learn about illness, Diagnostic testing, Therapeutic intervention, Prevent Disease Progression Activity Recommendations Activity Level: Assistance Required Therapies: Physical Therapy, Occupational Therapy, Speech Therapy Additional Information Patient informed of condition: Yes Advance Directives: No DNR: No Level of Care: Acute Rehab Communicable Disease: No Prognosis: Improving Oxygen at (LPM): by protocol Rodriguez Catheter: No Instructions / Follow-Up Instructions / Follow-Up Subacute-acute CVA- large 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 and significant mixed aphasia, Right LOPEZ, likely secondary to cardioembolic source: - Admitted to tele for cardiac monitoring - ECHO- without interatrial shunt, no thrombus - Carotid US and Neck MRA- -- Vascular surgery consulted- no intervention at this time, f/u in 1 year -- Zocor increased to 40 mg daily + Plavix 75 mg daily - Neurology consulted, appreciate recommendations -- Head CT on 03/30 and 03/31- neg x 3 for ICH, shows evolution of infarct, no midline shift -- CTA head/neck- 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, less than 50% narrowing at the origin of the left internal carotid artery, ~50% stenosis at the origin of the left external carotid artery, vertebral arteries are patent, evolving infarct - ASA 81 mg daily- ASA allergy noted but has been on therapy since 03/30 - Coumadin and bridge with heparin gtt for a-fib- watching for hemorrhagic conversion- d/c'd Heparin on 04/02 due to therapeutic INR and no acute source of emboli - Evaluated by speech- mechanical soft diet - PT/OT- acute rehab Demand ischemia/PAF (new onset) w/ RVR: - Admitted to tele for cardiac monitoring- a.fib, episodes of RVR up to 140s - Trended cardiac enzymes- peak trop 0.736 - ECHO- no wall abnormalities - Cardiology consulted, appreciate recommendations -- Toprol XL 200 mg QAM - Warfarin- follow PT/INR and titrate Coumadin dose PRN for goal INR 2-3 -- INR 3.1 on 04/05- recommend 2.5 mg tonight, then daily INR/PT and adjust Coumadin dosage PRN HTN- allow permissive HTN, sbp 140-160 per neurology: - Holding home Amlodipine 10 mg daily and Hytrin- resume Amlodipine 10 mg daily at discharge -- Recommend permissive HTN x1 week, then adjust BP medications PRN - Continue Toprol XL as above - Treated w/ IVF 125 mls/hr NS to keep BP up- BPs now ranging sbp 160-180s, d/c' d Acute hypoxemic respiratory failure: - O2 protocol, wean as tolerated - Continue albuterol nebs Hypomagnesemia at 1.5- RESOLVED: Start Mag-Ox 400 mg BID, followed mag level Left minimally angulated Colles fracture, left elbow contusion, doubt occult fracture: - Ortho consulted, appreciate recommendations: -- s/p gentle closed reduction and application of a sugar-tong plaster splint overwrapped with an Dylan wrap on 04/[address] Damon -- f/u in 1-2 weeks - Tylenol PRN for pain management T2DM- HgbA1C 7.4: - Held Glimepiride 2 mg BID- resume at discharge and continue sliding insulin scale at [facility] - BSG ACHS and sliding insulin scale RUPALI on CKD stage III, baseline Cr. 1.8- RESOLVED: Avoid nephrotoxic drugs, renally dose medications Hypothyroidism- TSH 1.470: - Continue Synthroid 25 mcg daily - 1.7 cm nodule in the left thyroid lobe on CTA- f/u with a nonemergent/ outpatient thyroid ultrasound is recommended DVT prophylaxis: Coumadin Code Status: LEVEL I, FULL Dispo: Discharge to [facility] Activity Recommendations: See above Activation of Emergency Medical System: Call 911, immediately, if you experience any of the following: Warning Signs and Symptoms of Stroke: * Sudden numbness or weakness of the face, arm or leg, especially on one side of the body * Sudden confusion, trouble speaking or understanding * Sudden trouble seeing in one or both eyes * Sudden trouble walking, dizziness, loss of balance or coordination * Sudden severe headache with no cause Do not delay calling 911 if you experience any warning signs or symptoms of a stroke. Delay in seeking medical attention may affect what treatments can be given to you. Risk Factors for Stroke: You can reduce your chances of stroke by working with your medical provider to adopt a healthy lifestyle. Some specific ways to lower your chance of stroke are: * If you are a smoker, now is the time to stop smoking cigarettes * If you are diabetic, improve the control of your blood sugars * Avoid excessive amounts of alcohol * Control high blood pressure * Lose weight if you are overweight * Be sure to lead an active lifestyle * Eat a healthy diet low in salt, cholesterol and fat You should know about other risk factors for stroke that you are unable to control. These include: * Age 55 years or older * Male gender * Certain racial groups: , or / * Family History of Stroke, Mini stroke or Heart Attack * Sickle Cell Disease Follow Up: It is important for you to keep your follow up appointments with your medical provider. Follow-up with [facility] provider within 24-48 hours Please follow-up with your PCP within 5-7 days after discharge from [facility] Recommend thyroid ultrasound to evaluate thyroid nodule Please follow-up with Orthopedics within 1-2 weeks Follow-up with Neurology within 1 month Follow-up with Vascular surgery in 1 year Follow-up with Cardiology as instructed by Dr. Smith Please follow-up/keep all of your subspecialty appointments Current Hospital Diet Patient's current hospital diet: Diabetes Type 2 Diet Discharge Diet Recommended Diet: Diabetes Type 2 Diet Pending Studies Studies pending at discharge: no Physician Orders On Transfer Special Precautions: Fall and aspiration precautions IV Therapy: None Vital Signs: Routine Additional Orders: Follow daily PT/INR POLST Discussion: without POLST completion Laboratory Results Hemoglobin A1c Test 03/30/17 12:07 Range/Units Estimated Average Glucose 166 mg/dl Hemoglobin A1c 7.4 H 4.5-5.6 % Lipid Panel Test 03/31/17 01:01 Range/Units Triglycerides Level 109 0-150 mg/dl Cholesterol Level 127 0-200 mg/dl HDL Cholesterol 55 mg/dl Cholesterol/HDL Ratio 2.3 LDL Cholesterol, Calculated 50 mg/dl Medical Emergencies . Who to Call and When: Medical Emergencies: If at any time you feel your situation is an emergency, please call 911 immediately. . Non-Emergent Contact Non-Emergency issues call your: Primary Care Provider Call Non-Emergent contact if: you have any medication questions . . "Provider Documentation" section prepared by Kenia Antunez. . Core Measure Problem Core Measures: Stroke Stroke Core Measures Reason no t-PA for Stroke: Treatment not indicated Reason no antithrom by day 2: Treatment provided - N/A Reason no antithrom at D/C: Treatment provided - N/A Reason no statin at D/C: Treatment provided - N/A Reason no anticoag w/a fib: Treatment provided - N/A
--- NOTE | 2017-04-05 12:58 | Discharge Summary ---
Discharge Summary Date of Service Apr 05, 2017. 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 altered fell 1 day ago hit right synagogue TECHNIQUE: Multiaxial CT images of the head were performed without the use of intravenous contrast. Automated exposure control was utilized for this study. A dose lowering technique was utilized adhering to the principles of ALARA. Comparison: None. Findings: The paranasal sinuses and mastoid air cells are clear. The calvarium and skull base are intact. The ventricles and sulci demonstrate mild age-related involutional changes. There is no hematoma, midline shift. Old lacunar infarct seen within the left basal ganglia. Hypodensity within the left posterior temporal lobe. This could represent a subacute infarct or edema. Impression: 1. No acute intracranial hemorrhage. 2. Hypodensity within the left posterior temporal lobe favors a subacute infarct. However, vasogenic edema secondary to an underlying mass cannot be excluded. Therefore, follow-up brain MRI with and without intravenous contrast is recommended for further evaluation. Electronically signed by: Ethan Mari M.D. 03/30/2017 12:02 PM Dictated Date/Time: 03/30/2017 11:56 AM The status of this report is Signed. Draft = Not yet reviewed or approved by Radiologist. Signed = Reviewed and approved by Radiologist. CHEST ONE VIEW PORTABLE CLINICAL HISTORY: Altered mental status. Atrial fibrillation. COMPARISON STUDY: No previous studies for comparison. FINDINGS: The heart is at the upper limits of normal in size. There is no failure. There is no lobar pulmonary consolidation.[ No pleural effusions are visualized. Minimally increased left basal markings are likely atelectatic, although a small inflammatory process could appear similar. IMPRESSION: Minimal increased left basal markings, likely atelectatic Electronically signed by: Cesar Pan M.D. 03/30/2017 12:31 PM Dictated Date/Time: 03/30/2017 12:30 PM The status of this report is Signed. Draft = Not yet reviewed or approved by Radiologist. Signed = Reviewed and approved by Radiologist MRI OF THE BRAIN WITHOUT CONTRAST CLINICAL HISTORY: Head trauma. Abnormal CT scan. Infarct versus mass. COMPARISON STUDY: Noncontrast head CT dated 03/30/2017 FINDINGS: Sagittal T1, axial diffusion, proton density and T2 weighted axial, coronal FLAIR, and axial T1-weighted images were acquired. No intra or extra-axial mass lesions are visualized. No contrast was administered, as the patient has a diminished GFR of 23. There is an extensive area of restricted water diffusion involving the left temporal lobe. There is also involvement of the left insular cortex. The reticular water diffusion extends over a length of 7 cm. The findings are consistent with acute/subacute infarct. There is no evidence of ventricular dilatation. Proton density T2-weighted and FLAIR images reveal there is increased FLAIR signal in the region of the patient's left temporal infarct. There is scattered foci of increased T2 and FLAIR signal within the white matter likely a small vessel basis. There is an old lacunar infarct in the left basal ganglia. There are no abnormal flow voids. IMPRESSION: Moderate sized acute/subacute left temporal lobe infarct. Electronically signed by: Cesar Pan M.D. 03/30/2017 1:40 PM Dictated Date/Time: 03/30/2017 1:36 PM The status of this report is Signed. Draft = Not yet reviewed or approved by Radiologist. Signed = Reviewed and approved by Radiologist. CAROTID DOPPLER NECK ART CLINICAL HISTORY: 61 years-old Female with cva. Patient presents with acute to subacute left temporal lobe infarction. COMPARISON: MRI brain 03/30/2017 TECHNIQUE: Multiple real time sonographic images of the carotid bifurcations were obtained assessing caldwell scale, color Doppler and spectral wave form appearance FINDINGS: The exam is very limited secondary to patient being uncooperative and agitated throughout the study. 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 RIGHT CAROTID: The peak systolic velocity measured 55 cm/sec. The end diastolic velocity measured 9 cm/sec. The ICA to CCA ratio measured 0.9. There is no flow with increased echogenicity within the proximal right ICA compatible with occlusion of unknown chronicity. Extensive mixed plaquing is noted. LEFT CAROTID: The peak systolic velocity measured 93 cm/sec. The end diastolic velocity measured 28 cm/sec. The ICA to CCA ratio measured 0.9 which correlates with a stenosis of 0-50%. Extensive mixed plaquing of the left carotid bulb and left ICA. There is normal antegrade vertebral flow bilaterally. IMPRESSION: 1. Limited study secondary to uncooperative patient. 2. Occluded proximal right ICA of unknown chronicity. This finding could be further evaluated with CTA of the neck. 3. Extensive mixed plaquing of the bilateral carotid vasculature. No hemodynamically significant stenosis on the left. 4. Antegrade flow of the bilateral vertebral arteries. The above report was generated using voice recognition software. It may contain grammatical, syntax or spelling errors. Electronically signed by: José Sanchez M.D. 03/30/2017 9:31 PM Dictated Date/Time: 03/30/2017 9:24 PM The status of this report is Signed. Draft = Not yet reviewed or approved by Radiologist. Signed = Reviewed and approved by Radiologist. HEAD WITHOUT CONTRAST (CT) CLINICAL HISTORY: 61 years-old Female presenting with cva. TECHNIQUE: Multidetector CT imaging of the head was performed without the use of intravenous contrast. IV contrast: None. A dose lowering technique was used consistent with the principles of ALARA (as low as reasonably achievable). COMPARISON: 03/30/2017. CT DOSE (mGy.cm): The estimated cumulative dose is 1074.96 mGy.cm. FINDINGS: Reports Analyst topogram: Unremarkable. Proportional ventricular and sulcal prominence, likely age-related parenchymal volume loss. Again demonstrated is hypodensity involving the caldwell and white matter of the posterior left temporal lobe with regional sulcal effacement, consistent with acute/subacute infarct in the left MCA territory. The left MCA is not hyperdense. Old lacunar infarct in the left basal ganglia adjacent to the head of the caudate. No mass effect or midline shift. No hemorrhage or acute territorial infarct. No extra-axial fluid collection. Paranasal sinuses and mastoid air cells clear. Calvarium intact. IMPRESSION: 1. Unchanged findings of acute/subacute infarct of the left posterior temporal lobe and the left MCA territory. No hemorrhage. No increased mass effect. 2. Old lacunar infarct in the left basal ganglia. Electronically signed by: Ubaldo Agarwal M.D. 03/31/2017 8:36 AM Dictated Date/Time: 03/31/2017 8:33 AM The status of this report is Signed. Draft = Not yet reviewed or approved by Radiologist. Signed = Reviewed and approved by Radiologist MRA NECK WITHOUT CONTRAST CLINICAL HISTORY: 61 years-old Female presenting with stroke of the left temporal lobe. TECHNIQUE: MR angiography of the neck was performed without the use of intravenous contrast using 3-D [id number] technique. 3-D volumetric and/or maximum intensity projection (MIP) images were subsequently reconstructed for review. IV contrast: None. Stenosis measurements were based on NASCET-like criteria. COMPARISON: Ultrasound from 03/30/2017. FINDINGS: Suboptimal assessment secondary to motion artifact. The aortic arch is incompletely visualized. The bilateral common carotid arteries are grossly patent. Nonvisualization of the right internal carotid artery suggesting complete occlusion. The left internal carotid artery is patent. Left dominant vertebral artery. Both vertebral arteries contribute to the basilar artery. Limited evaluation of the intracranial vasculature demonstrates a patent posterior circulation. Anterior circulation is remarkable for hypoplastic A1 segment of the right anterior cerebral artery. IMPRESSION: 1. Occluded right internal carotid artery. 2. Significantly limited examination secondary to patient motion. No gross evidence of a significant stenosis within limits of image quality. If there is continuing clinical concern, CTA of the head or neck to be obtained. Electronically signed by: Ubaldo Agarwal M.D. 03/31/2017 1:32 PM Dictated Date/Time: 03/31/2017 1:27 PM The status of this report is Signed. Draft = Not yet reviewed or approved by Radiologist. Signed = Reviewed and approved by Radiologist. L WRIST MIN 3 VIEWS ROUTINE CLINICAL HISTORY: 61 years-old Female presenting with wrist pain s/p fall. TECHNIQUE: Frontal, bilateral oblique, and lateral views of the left wrist were obtained. COMPARISON: None. FINDINGS: Osteopenia. Cortical deformity of the radial and ulnar aspects of the radial metaphysis with mild apex volar angulation, consistent with a distal radial metaphysis fracture. Radiocarpal, intercarpal, and carpometacarpal articulations intact. Distal radial ulnar joint intact. IMPRESSION: Distal radial metaphysis fracture with mild apex volar angulation (Colles' fracture). Electronically signed by: Ubaldo Agarwal M.D. 03/31/2017 3:39 PM Dictated Date/Time: 03/31/2017 3:37 PM The status of this report is Signed. Draft = Not yet reviewed or approved by Radiologist. Signed = Reviewed and approved by Radiologist L SHOULDER MIN 2 VIEWS ROUTINE CLINICAL HISTORY: 61 years-old Female presenting with shoulder pain s/p fall. TECHNIQUE: Internal rotation, external rotation, and Grashey views of the left shoulder were obtained. COMPARISON: None. FINDINGS: Acromioclavicular and glenohumeral joints congruent. No acute fracture or subluxation. Regional soft tissues normal. Visualized portion of the left hemithorax demonstrates atherosclerosis. IMPRESSION: No acute osseous injury of the left shoulder. Electronically signed by: Ubaldo Agarwal M.D. 03/31/2017 3:42 PM Dictated Date/Time: 03/31/2017 3:41 PM The status of this report is Signed. Draft = Not yet reviewed or approved by Radiologist. Signed = Reviewed and approved by Radiologist. L ELBOW 2 VIEWS CLINICAL HISTORY: 61 years-old Female presenting with elbow pain s/p fall. TECHNIQUE: Frontal and lateral views of the left elbow were obtained. COMPARISON: None. FINDINGS: No acute fracture or malalignment. Posteriorly displaced posterior fat pad suggesting elbow joint effusion. Regional soft tissues otherwise normal. IMPRESSION: Suggestion of elbow joint effusion. This could suggest nondisplaced intra-articular fracture. However, no radiographic evidence of acute osseous injury. If there is continuing clinical concern, noncontrast CT could be obtained versus dedicated radiographs of the radial head. Electronically signed by: Ubaldo Agarwal M.D. 03/31/2017 3:41 PM Dictated Date/Time: 03/31/2017 3:39 PM The status of this report is Signed. Draft = Not yet reviewed or approved by Radiologist. Signed = Reviewed and approved by Radiologist. HEAD WITHOUT CONTRAST (CT) CLINICAL HISTORY: 61 years-old Female with cva with heparin gtt. Follow-up study to assess subacute left temporal lobe infarction TECHNIQUE: Multiple axial CT images of the head were obtained without contrast. A dose lowering technique was utilized adhering to the principles of ALARA. CT DOSE: 614.27 mGy.cm COMPARISON: None. FINDINGS: No acute intracranial hemorrhage, midline shift, mass, or abnormal extra-axial collection. Large subacute infarction involving the left MCA distribution within the posterior left temporal lobe redemonstrated. Mildly progressive evolution of the infarction is seen with sulcal effacement and cytotoxic edema within this distribution. No associated hemorrhage or significant mass effect. Background chronic microvascular ischemic changes with remote lacunar infarction in the region of the left lentiform nucleus and external capsule region of the left. There is moderate atrophy with ex vacuo ventriculomegaly. The calvarium is intact. The paranasal sinuses, mastoid air cells, and middle ear cavities are clear. IMPRESSION: 1. Mildly progressive evolution of a subacute infarction of the left MCA distribution posterior left temporal lobe with moderate degree of cytotoxic edema and sulcal effacement. No significant mass effect, midline shift or hemorrhage. 2. Atrophy with background chronic microvascular ischemic changes. Remote lacunar infarction of the left basal ganglia. The above report was generated using voice recognition software. It may contain grammatical, syntax or spelling errors. Electronically signed by: José Sanchez M.D. 04/01/2017 6:33 AM Dictated Date/Time: 04/01/2017 6:29 AM The status of this report is Signed. Draft = Not yet reviewed or approved by Radiologist. Signed = Reviewed and approved by Radiologist. L WRIST 2 VIEW HISTORY: 61 years-old Female post reduction status post reduction of left distal radial fracture COMPARISON: Left wrist radiographs 03/31/2017 TECHNIQUE: 2 views of the left wrist were obtained status post reduction FINDINGS: Fine bony details obscured by overlying cast material. There is persistent slightly improved mild dorsal cortical buckling of the distal radius status post reduction and casting. No additional acute fracture or dislocation. IMPRESSION: Persistent slightly improved dorsal cortical buckling of the distal radius status post reduction and casting. The above report was generated using voice recognition software. It may contain grammatical, syntax or spelling errors. Electronically signed by: José Sanchez M.D. 04/01/2017 10:03 PM Dictated Date/Time: 04/01/2017 10:00 PM The status of this report is Signed. Draft = Not yet reviewed or approved by Radiologist. Signed = Reviewed and approved by Radiologist. CT SCAN OF THE BRAIN WITHOUT IV CONTRAST CLINICAL HISTORY: Follow-up stroke COMPARISON STUDY: CT scan of the brain dated 04/01/2017. TECHNIQUE: Unenhanced axial CT scan of the brain is performed from the vertex to the skull base. The patient was scanned twice due to motion artifact. CT DOSE: 767.83 mGy.cm FINDINGS: Brain parenchyma: Again seen is an evolving left MCA territory infarct involving probably the left temporal and occipital lobes. There is loss of caldwell-white matter differentiation and sulcal effacement. There is no hemorrhage or midline shift. A chronic lacunar infarct is seen in the left basal ganglia. There are age-related involutional changes noting mild subcortical and periventricular microangiopathic change. No extra-axial fluid collection is seen. Ventricles, sulci, cisterns: Prominent secondary to involutional change. Intracranial vasculature: There is atherosclerotic calcification of the cavernous carotid and vertebral arteries. Calvarium: Unremarkable. Sinuses and mastoids: The visualized paranasal sinuses are clear. The mastoid air cells are well pneumatized. Orbits: The bony orbits are grossly intact. IMPRESSION: 1. Again seen is an evolving left MCA territory infarct as above. This is similar in appearance to yesterday. 2. There is no hemorrhage or midline shift. Electronically signed by: Cooper Finch M.D. 04/02/2017 2:09 PM Dictated Date/Time: 04/02/2017 2:06 PM The status of this report is Signed. Draft = Not yet reviewed or approved by Radiologist. Signed = Reviewed and approved by Radiologist. CT ANGIOGRAM OF THE NECK CLINICAL HISTORY: Stroke. COMPARISON STUDY: Carotid artery ultrasound dated 03/30/2017. MR angiography of the neck dated 03/31/2017. TECHNIQUE: Following the IV administration of 119 of Optiray 320, CT angiogram of the neck was performed from the aortic arch to the skull base. Images are reviewed in the axial, sagittal, and coronal planes. 3-D MIPS images are created and assessed. IV contrast was administered without complication. All measurements were calculated based on NASCET criteria. A dose lowering technique was utilized adhering to the principles of ALARA. The examination is modestly degraded by motion artifact. CT DOSE: 473.81 mGy.cm FINDINGS: Thoracic aorta: There is advanced atherosclerotic calcification of the visualized thoracic aorta. Visualized portions of the thoracic aorta are normal in caliber. The aortic arch demonstrates bovine variant anatomy. Right carotid arterial system: The right common carotid artery is widely patent. 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 The right external carotid artery is patent. Left carotid arterial system: Left common carotid artery is widely patent. There is atherosclerotic calcification of the carotid bulb which causes less than 50% luminal narrowing at the origin of the left internal carotid artery. The left internal carotid artery is otherwise widely patent. The left external auditory canal artery is patent noting approximately 50% stenosis at its origin. Vertebral arteries: The vertebral arteries are patent noting left-sided dominance. Subclavian arteries: Patent bilaterally. Jugular veins: Widely patent bilaterally. Lung apices: Advanced emphysema is identified. A right pleural effusion is partially imaged. Soft tissues: The visualized pharyngeal soft tissues are normal in appearance noting angiographic phase technique. The oropharyngeal airway appears widely patent. The salivary glands are normal in appearance. A 1.7 cm low-attenuation nodule is present in the left thyroid lobe. No cervical lymphadenopathy is seen. Skeletal structures: The skeletal structures are osteopenic. Cervical spondylosis is observed. The visualized calvarium at the skull base appears intact. IMPRESSION: 1. 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 2. There is less than 50% narrowing at the origin of the left internal carotid artery. 3. There is approximately 50% stenosis at the origin of the left external carotid artery. 4. The vertebral arteries are patent. 5. Emphysema and right pleural effusion. 6. There is a 1.7 cm nodule in the left thyroid lobe. Follow-up with a nonemergent/outpatient thyroid ultrasound is recommended Electronically signed by: Cooper Finch M.D. 04/02/2017 4:02 PM Dictated Date/Time: 04/02/2017 3:53 PM The status of this report is Signed. Draft = Not yet reviewed or approved by Radiologist. Signed = Reviewed and approved by Radiologist. HEAD ANGIO WITH CONTRAST HISTORY: 61 years-old Female acute CVA, R LOPEZ subacute infarction of the left MCA territory. Follow-up study. COMPARISON: CT head of same day, MRI brain 03/30/2017, MRA neck 03/31/2017 TECHNIQUE: CTA of the head was obtained following the intravenous administration of 119 mL Optiray 320. 3-D coronal and sagittal MIPS were obtained from the axial data set and submitted for review. All measurements were obtained according to NASCET criteria. FINDINGS: There is mild atherosclerotic plaquing of the distal left cervical segment internal carotid artery with additional plaquing seen within the petrous and cavernous segments. Left M1 segment is patent. There is normal trifurcation of the MCA. No definite high-grade stenosis or proximal branch occlusion identified within the left MCA territory subacute infarction. There is only focal flow noted within the distal cervical, petrous and cavernous segments right internal carotid artery suggesting chronic high-grade stenosis with reconstitution of flow noted at the distal cavernous portion seen on image 84 series 3. The right middle cerebral artery is patent. Bilateral anterior cerebral arteries and anterior communicating artery are patent and within normal limits. Major venous sinuses are patent. The left vertebral artery is dominant. There is mild plaquing of the bilateral vertebral arteries without high-grade stenosis or occlusion. Basilar artery and bilateral posterior cerebral arteries are patent. Posterior communicating branches are patent. No abnormal enhancement identified. Evolving left MCA distribution infarction is unchanged in comparison. Soft tissues and orbits are unremarkable. Bones appear intact. Mastoid air cells and sinuses are generally clear with the exception of mild ethmoid sinus disease. IMPRESSION: 1. Evolving left MCA distribution infarction redemonstrated without proximal branch occlusion or high-grade stenosis identified involving the left MCA or its proximal branches. 2. Only trickle flow is noted within the right internal carotid artery with reconstitution of flow noted within the distal cavernous segment as detailed above. 3. No additional high-grade stenosis, proximal branch occlusion, aneurysm or dissection. The above report was generated using voice recognition software. It may contain grammatical, syntax or spelling errors. Electronically signed by: José Sanchez M.D. 04/02/2017 3:59 PM Dictated Date/Time: 04/02/2017 3:48 PM The status of this report is Signed. Draft = Not yet reviewed or approved by Radiologist. Signed = Reviewed and approved by Radiologist. MODIFIED BARIUM SWALLOW CLINICAL HISTORY: Evaluate for silent aspiration. Cerebrovascular accident. COMPARISON STUDY: No previous studies for comparison. Fluoroscopy time: 2.9 minutes. FINDINGS: No aspiration was identified within liquids, nectar thick liquids, pudding or crackers with paste. Several episodes of penetration were noted. Swallowing mechanism was intact. IMPRESSION: 1. Intact swallowing mechanism. No tracheal aspiration identified. 2. Full recommendations by speech pathology to follow. Electronically signed by: Jose Michel M.D. 04/04/2017 1:16 PM Dictated Date/Time: 04/04/2017 1:14 PM The status of this report is Signed. Draft = Not yet reviewed or approved by Radiologist. Signed = Reviewed and approved by Radiologist. ECHOCARDIOGRAM: Interpretation Summary * Name: HUGO FLETCHER Study Date: 03/31/2017 07:13 AM BP: 153/85 mmHg * Patient Location: [facility]\S\S231\S\1 HR: 90 * : 1955 (M/d/yyyy) Gender: Female Height: 61 in * Age: 61 yrs Ethnicity: CA Weight: 218 lb * Ordering Physician: Tiffanie Otero * Referring Physician: Self, Referred * Performed By: Mónica Bush RDCS * * Reason For Study: CEREBRAL ISCHEMIA/EMBOLUS * BSA: 2.0 m2 * -- Conclusions -- * 1. Small LV cavity. Moderate concentric LVH. * 2. Hyperdynamic LV. LVEF >70%. No regional wall motion abnormalities. * 3. Normal RV size and function. * 4. No significant valvular pathology. * 5. Negative bubble study for interatrial shunt. * 6. Trace pericardial effusion. * 7. No prior studies for comparison. Procedure Details * A saline contrast injection was performed to assess for cardiac shunting. * The injection was performed through an intravenous line in the right arm. * The attending nurse who injected the saline contrast was NAE GILMAN. * A total of 10 cc of agitated saline was given. * PATIENT UNABLE TO FOLLOW COMMANDS Left Ventricle * The left ventricular cavity is small. * There is moderate concentric left ventricular hypertrophy. * Ejection Fraction = >70 %. * No regional wall motion abnormalities noted. Right Ventricle * The right ventricle is grossly normal size. * The right ventricular systolic function is normal as assessed by tricuspid annular plane systolic excursion (TAPSE) (normal >1.5 cm). Atria * The left atrium is mildly dilated. * Right atrial size is normal. * Injection of contrast documented no interatrial shunt. Mitral Valve * The mitral valve is grossly normal. * Mitral stenosis is absent. * There is trace mitral regurgitation. Tricuspid Valve * The tricuspid valve is not well visualized. * Significant tricuspid regurgitation is absent. Aortic Valve * The aortic valve opens well. * No hemodynamically significant valvular aortic stenosis. * There is no significant aortic regurgitation. Pulmonic Valve * The pulmonary valve is inadequately visualized, but the Doppler data is adequate for interpretation. * Pulmonic stenosis is absent. * Trace pulmonic valvular regurgitation. Great Vessels * The aortic root and proximal ascending aorta are normal sized. Pericardium/Pleural * Trace pericardial effusion. Great Vessels * Normal inferior vena cava size and collapsability with sniff indicates a normal right atrial pressure of 3 mmHg Consultations: Neurology Cardiology Orthopedics Vascular surgery Medication Reconciliation New Medications: Aspirin (Aspirin EC Low Dose) 81 Mg Ectab 81 MG PO DAILY for 30 Days Clopidogrel Bisulfate (Clopidogrel) 75 Mg Tab 75 MG PO QAM for 30 Days, #30 TAB Insulin Aspart (Novolog Flexpen) 100 Units/Ml Inj 0 UNITS SC ACHS for 30 Days Metoprolol Succinate (Metoprolol Succinate ER) 50 Mg Tabcr 200 MG PO QAM for 30 Days, #120 TAB Simvastatin (Simvastatin) 40 Mg Tab 40 MG PO HS for 30 Days, TAB Warfarin Sod (Coumadin) 5 Mg Tab 5 MG PO DAILY@16 for 30 Days, #30 TAB Continued Medications: Amlodipine (Norvasc) 10 Mg Tab 10 MG PO DAILY Glimepiride (Glimepiride) 2 Mg Tab 2 MG PO BID Levothyroxine Sodium (Synthroid) 25 Mcg Tab 25 MCG PO DAILY Discontinued Medications: Metoprolol Succinate (Toprol Xl) 50 Mg Tabcr 50 MG PO DAILY Simvastatin (Zocor) 10 Mg Tab 10 MG PO HS Terazosin Hcl (Hytrin) Unknown Strength Cap 1 CAP PO DAILY Discharge Exam Limited ROS secondary to mental status Review of Systems: Constitutional: No fever, No chills, No sweats Respiratory: No cough, No shortness of breath Cardiovascular: No chest pain Abdomen: No pain Musculoskeletal: No joint pain, No muscle pain Hematologic / Lymphatic: No abnormal bleeding/bruising Physical Exam: General Appearance: no apparent distress Eyes: PERRL ENT: hearing grossly normal Neck: supple Respiratory/Chest: lungs clear, no respiratory distress, no accessory muscle use Cardiovascular: + irregularly irregular (rate controlled) Abdomen / GI: normal bowel sounds, non tender, soft Extremities: no calf tenderness, no pedal edema Neurologic/Psychiatric: alert, + disoriented Skin: normal color, warm/dry, no rash Hospital Course Admission H&P: Ms. Fletcher arrived to the emergency department today with her . This morning her heard her moaning and he found her laying on the floor by the recliner she normally sleeps in. She had a small emesis. Her then put a pillow under her head and went back to bed. When he got back up she was still on the floor and her speech was incoherent. She has been having decreasing mobility over the past year and yesterday she fell 4 times. She has not been eating or drinking for the past day although she was able to take her pills today. She was a smoker until a year and a half ago. She used to smoke a pack a day for 30 years. She was told in the past that she had a blockage in her carotid but she did not want to go to surgery. She has a history of diabetes type 2, hypertension, hypothyroidism, and hyperlipidemia. She sees Osmel Jang for kidney problems, her family doctor is Dr. Walker. Physical Exam Vital Signs Date Time Temp Pulse Resp B/P (MAP) Pulse Ox O2 Delivery O2 Flow Rate FiO2 03/30/17 14:07 136/74 03/30/17 14:05 92 21 98 03/30/17 14:02 140/92 03/30/17 14:00 94 17 98 03/30/17 13:59 144 152/129 03/30/17 13:57 127/96 03/30/17 13:55 91 21 97 03/30/17 13:52 130/94 03/30/17 13:50 121 19 98 03/30/17 13:46 144 18 152/129 95 Nasal Cannula 2.0 03/30/17 13:46 152/129 03/30/17 13:45 134 12 96 03/30/17 12:00 116 18 130/93 95 Nasal Cannula 2.0 03/30/17 11:30 121 18 119/81 94 Nasal Cannula 2.0 03/30/17 11:05 132 03/30/17 10:54 95 Nasal Cannula 2.0 03/30/17 10:54 95 Nasal Cannula 2.0 03/30/17 10:54 36.7 152 28 129/108 95 Nasal Cannula 2.0 General Appearance: + mild distress Eyes: PERRL, + pertinent finding (unable to follow command to move through EOM , able to track to either side ) Respiratory/Chest: chest non-tender, lungs clear, normal breath sounds, no respiratory distress, no accessory muscle use Cardiovascular: no edema, no gallop, no murmur, normal peripheral pulses, + irregularly irregular Abdomen/GI: normal bowel sounds, non tender, soft Extremities/Musculoskelatal: no pedal edema Neurologic/Psych: + aphasia (severe), + pertinent finding (difficulty assessing director social service or sensation as patient was unable to follow commands, right side neglect and right side weakness) Skin: normal color, warm/dry Hospital Course: Subacute-acute CVA- large 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 and significant mixed aphasia, Right LOPEZ, likely secondary to cardioembolic source: - Admitted to tele for cardiac monitoring - ECHO- without interatrial shunt, no thrombus - Carotid US and Neck MRA- -- Vascular surgery consulted- no intervention at this time, f/u in 1 year -- Zocor increased to 40 mg daily + Plavix 75 mg daily - Neurology consulted, appreciate recommendations -- Head CT on 03/30 and 03/31- neg x 3 for ICH, shows evolution of infarct, no midline shift -- CTA head/neck- 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, less than 50% narrowing at the origin of the left internal carotid artery, ~50% stenosis at the origin of the left external carotid artery, vertebral arteries are patent, evolving infarct - Plavix 75 mg daily+ ASA 81 mg daily- ASA allergy noted but has been on therapy since 03/30 - Coumadin and bridge with heparin gtt for a-fib- watching for hemorrhagic conversion- d/c'd Heparin on 04/02 due to therapeutic INR and no acute source of emboli - Evaluated by speech- mechanical soft diet - PT/OT- acute rehab Demand ischemia/PAF (new onset) w/ RVR: - Admitted to tele for cardiac monitoring- a.fib, episodes of RVR up to 140s - Trended cardiac enzymes- peak trop 0.736 - ECHO- no wall abnormalities - Cardiology consulted, appreciate recommendations -- Toprol 200 mg QAM - Warfarin- follow PT/INR and titrate Coumadin dose PRN for goal INR 2-3 -- INR 3.1 on discharge- recommend 2.5 mg tonight, then [facility] to monitor daily PT/INR and adjust Coumadin PRN HTN- allow permissive HTN, sbp 140-160 per neurology: - Holding home Amlodipine 10 mg daily and Hytrin- resume Norvasc at discharge -- Recommend permissive HTN x1 more week, then adjust BP medications PRN - Continue Toprol XL as above and IV Lopressor PRN for HR >120- consider addition of CCB for better rate/BP control - Treated w/ IVF 125 mls/hr NS to keep BP up- BPs now ranging sbp 160-180s, d/c' d Acute hypoxemic respiratory failure: - O2 protocol, wean as tolerated - Continue albuterol nebs Hypomagnesemia at 1.5- RESOLVED: Start Mag-Ox 400 mg BID, follow mag level Left minimally angulated Colles fracture, left elbow contusion, doubt occult fracture: - Ortho consulted, appreciate recommendations: -- s/p gentle closed reduction and application of a sugar-tong plaster splint overwrapped with an Dylan wrap on 04/[address] Damon -- f/u in 1-2 weeks - Tylenol PRN for pain management T2DM- HgbA1C 7.4: - Held Glimepiride 2 mg BID- resume at discharge - BSG ACHS and sliding insulin scale RUPALI on CKD stage III, baseline Cr. 1.8- RESOLVED: Avoid nephrotoxic drugs, renally dose medications Hypothyroidism- TSH 1.470: - Continue Synthroid 25 mcg daily - 1.7 cm nodule in the left thyroid lobe on CTA- f/u with a nonemergent/ outpatient thyroid ultrasound is recommended DVT prophylaxis: Coumadin Code Status: LEVEL I, FULL Dispo: Discharge to N Total Time Spent: Greater than 30 minutes This includes examination of the patient, discharge planning, medication reconciliation, and communication with other providers. Discharge Instructions Please refer to the electronic Patient Visit Report (Discharge Instructions) for additional information. Follow-Up Follow-up with [facility] provider within 24-48 hours Please follow-up with your PCP within 5-7 days after discharge from N Recommend thyroid ultrasound to evaluate thyroid nodule Please follow-up with Orthopedics within 1-2 weeks Follow-up with Neurology within 1 month Follow-up with Vascular surgery in 1 year Follow-up with Cardiology as instructed by Dr. Smith Please follow-up/keep all of your subspecialty appointments Additional Copies To [facility]
[2017-04-05] MEDS: SIMVASTATIN 40 MG TAB PO SCH (21:52)
[2017-04-06] MEDS: LEVOTHYROXINE 25 MCG TAB PO SCH (06:27)
[2017-04-06 06:47] LABS: MEAN CELL VOLUME 79.8 fL (80-100); MEAN CORPUSCULAR HEMOGLOBIN 25.2 pg (25-34); MEAN CORPUSCULAR HGB CONC 31.6 g/dl (32-36); MEAN PLATELET VOLUME 9.3 fL (7.4-10.4); PLATELET COUNT 345 K/uL (130-400); RED BLOOD COUNT 4.01 M/uL (4.2-5.4); WHITE BLOOD COUNT 8.53 K/uL (4.8-10.8)
[2017-04-06 07:05] VITALS: BP 121/78; PULSE 91; TEMP 36.5; O2SAT 97
[2017-04-06 07:07] LABS: INR 2.8 (0.9-1.1); PARTIAL THROMBOPLASTIN RATIO 1.8; PROTHROMBIN TIME (PATIENT) 31.4 SECONDS (9.0-12.0)
[2017-04-06 07:09] VITALS: PULSE 91; O2SAT 97
[2017-04-06] MEDS: ALBUT/IPRATROP 3MG/0.5MG NEB 3 ML VIAL INH SCH ×3 (07:09→14:48)
[2017-04-06] MEDS: ASPIRIN 81 MG ECTAB PO SCH (08:36)
[2017-04-06] MEDS: METOPROLOL SUCC 50MG EXT REL TAB PO SCH (08:36)
[2017-04-06] MEDS: CLOPIDOGREL BISULFATE 75 MG TAB PO SCH (08:36)
[2017-04-06] MEDS: INSULIN ASPART 100 UNITS/ML 3 ML PEN SC SCH ×2 (08:40→12:27)
[2017-04-06 11:31] VITALS: PULSE 88; O2SAT 92
[2017-04-06 14:48] VITALS: PULSE 88; O2SAT 90
== END 2017-04-06 16:30 | DRG 64 ==
LOC: EDBD 10:54 → C.EDC 10:56 → C.2T 15:26 → ENRESERV 15:38 → CANRESERV 15:41 → ENRESERV 04-05 15:43 → C.MED 04-05 16:38 → C.4E 04-06 08:26
PROVIDERS: ADMIT Hospitalist; ATTEND Hospitalist
PROC: 0PSJXZZ Reposition Left Radius, External Approach (ICD-10-PCS; principal; 2017-04-01)
DX: I63.8 Other cerebral infarction (principal); J96.01 Acute respiratory failure with hypoxia; S52.502A Unspecified fracture of the lower end of left radius, initial encounter for closed fracture; G81.93 Hemiplegia, unspecified affecting right nondominant side; R47.01 Aphasia; I65.29 Occlusion and stenosis of unspecified carotid artery; I48.91 Unspecified atrial fibrillation; I12.9 Hypertensive chronic kidney disease with stage 1 through stage 4 chronic kidney disease, or unspecified chronic kidney disease; E11.9 Type 2 diabetes mellitus without complications; E03.9 Hypothyroidism, unspecified; N18.3 Chronic kidney disease, stage 3 (moderate); E83.42 Hypomagnesemia; E78.5 Hyperlipidemia, unspecified; W19.XXXA Unspecified fall, initial encounter; Z79.01 Long term (current) use of anticoagulants; Z87.891 Personal history of nicotine dependence; Z80.41 Family history of malignant neoplasm of ovary

== ENCOUNTER 2017-05-07 11:24 | Observation (INO) | payer OTHER ==
[~2017-05-07] VITALS: Ht 162.6 cm; Wt 67.2 kg
[~2017-05-07 11:24] MED LIST changes: -ASPEC81 PO; -HYT/2 PO; -METO-217 PO; -SIMV10TA2 PO
[2017-05-07] MEDS ORDERED: WARF2.5T8 PO (11:54)
[2017-05-07] MEDS ORDERED: GLIM1TAB PO (11:54)
[2017-05-07] MEDS ORDERED: CHOL1TAB42 PO (11:54)
[2017-05-07] MEDS ORDERED: SODIUM CHLORIDE 0.9% 1000ML 500 ML IV STA (11:54)
--- NOTE | 2017-05-07 12:01 | EMERGENCY ROOM VISIT NOTE ---
History Report prepared by Edi: Mónica Cook Under the Supervision of: Dr. Cooper Pinedo M.D. First contact with patient: 11:49 Chief Complaint: BRADYCARDIA Stated Complaint: LOW HEART RATE Nursing Triage Summary: Found to have low heart rate on home health RN ryan today, told to come to the hospital. states she has been sleeping more than usual. Pt with no complaints of pain. Pt has a hx of stroke. History of Present Illness The patient is a 61 year old female who presents to the Emergency Room with complaints of persistent bradycardia that began prior to arrival. Per the patient's , the patient has a history of a stroke, noting that the patient was recently evaluated in the hospital for one week. Records indicate that the patient was discharged from the hospital on April 06 after a stroke that affected the right side of the body. The patient's states that the patient then went to a rehabilitation facility, but is now home with the assistance of home health nurses. He states that the patient was evaluated by her home health nurses today and was found to be bradycardic. The patient's notes that the patient recently had a change in medication. Per records , the patient was recently started on Metoprolol and Warfarin. The patient denies any fever, vomiting, diarrhea, or loss of consciousness. The patient's states that the patient has been sleeping more. He additionally notes that the patient has had a persistent cough. Source of History: patient Onset: prior to arrival Position: other (global) Quality: other (bradycardia) Timing: other (persistent) Associated Symptoms: + cough, No LOC, No fevers, No vomiting, No diarrhea Note: Associated Symptoms: sleeping more Review of Systems See HPI for pertinent positives & negatives. A total of 10 systems reviewed and were otherwise negative. Past Medical & Surgical Medical Problems: (1) Atrial fibrillation (2) CVA (cerebral vascular accident) (3) Hypertension Family History Cancer FH: heart disease Hyperlipidemia Hypertension Social History Smoking Status: Former Smoker Drug Use: none Marital Status: Housing Status: lives with significant other Occupation Status: retired Current/Historical Medications Scheduled Amlodipine (Norvasc), 10 MG PO DAILY Cholecalciferol (Vitamin D), 5,000 UNITS PO DAILY Clopidogrel Bisulfate (Clopidogrel), 75 MG PO QAM Glimepiride (Amaryl), 1 MG PO DAILY Insulin Aspart (Novolog Flexpen), 0 UNITS SC ACHS Levothyroxine Sodium (Synthroid), 25 MCG PO DAILY Metoprolol Succinate (Metoprolol Succinate ER), 200 MG PO QAM Simvastatin (Simvastatin), 40 MG PO HS Warfarin Sod (Jantoven), 2.5 MG PO UD Allergies Coded Allergies: Penicillins (Unverified Allergy, Intermediate, ., 05/07/17) Aspirin (Verified Allergy, Unknown, swelling, 05/07/17) Hydralazine (Verified Allergy, Unknown, myalgias, 05/07/17) Procaine (Verified Allergy, Unknown, unknown, 05/07/17) Physical Exam Vital Signs Date Time Temp Pulse Resp B/P (MAP) Pulse Ox O2 Delivery O2 Flow Rate FiO2 05/07/17 12:46 41 18 168/66 96 Room Air 05/07/17 12:38 47 19 184/69 97 Room Air 05/07/17 12:04 50 05/07/17 11:35 97 Room Air 05/07/17 11:28 36.8 47 20 138/61 97 Physical Exam GENERAL: Patient is in no acute distress. HEENT: No acute trauma, normocephalic atraumatic, mucous membranes dry, no nasal congestion, no scleral icterus. NECK: No stridor, no adenopathy, no meningismus, trachea is midline. LUNGS: Clear to auscultation bilaterally, no wheeze, no rhonchi, breath sounds equal. HEART: Bradycardic with a 2/6 systolic murmur and a regular rhythm. ABDOMEN: Soft, nontender, bowel sounds positive, no hernias, no peritonitis. EXTREMITIES: No cyanosis or edema, full range of motion of all the joints without pain or difficulty, no signs for acute trauma. NEUROLOGIC: Moving all extremities, awake, alert, confusion noted which is baseline as per the . SKIN: No rash, no jaundice, no diaphoresis. Medical Decision & Procedures ER Provider Diagnostic Interpretation: X-ray results as stated below per interpretation by me and the radiologist: CHEST ONE VIEW PORTABLE HISTORY: 61 years-old Female EVALUATE ALTERED MENTAL STATUS/WEAKNESS acute altered mental status with bradycardia COMPARISON: Chest radiograph 03/30/2017 TECHNIQUE: Portable upright AP view of the chest FINDINGS: Cardiomediastinal and hilar silhouettes are within normal limits. Linear subsegmental left lateral midlung and left basilar opacities suggest atelectasis or scarring. There is no pneumothorax or pleural effusion. No overt pulmonary edema. There is atherosclerosis of the aorta. Bones of the chest are grossly intact. IMPRESSION: No acute cardiopulmonary process. The above report was generated using voice recognition software. It may contain grammatical, syntax or spelling errors. Electronically signed by: José Sanchez M.D. 05/07/2017 12:43 PM Dictated Date/Time: 05/07/2017 12:42 PM Laboratory Results 05/07/17 11:41 Red Blood Count 4.30, Mean Corpuscular Volume 82.8, Mean Corpuscular Hemoglobin 25.6, Mean Corpuscular Hemoglobin Concent 30.9, Mean Platelet Volume 8.7, Neutrophils (%) (Auto) 67.5, Lymphocytes (%) (Auto) 22.7, Monocytes (%) (Auto) 5.8, Eosinophils (%) (Auto) 3.1, Basophils (%) (Auto) 0.6, Neutrophils # (Auto) 4.52, Lymphocytes # (Auto) 1.52, Monocytes # (Auto) 0.39, Eosinophils # (Auto) 0.21, Basophils # (Auto) 0.04 05/07/17 11:41 Test 05/07/17 11:41 05/07/17 12:00 White Blood Count 6.70 K/uL (4.8-10.8) Red Blood Count 4.30 M/uL (4.2-5.4) Hemoglobin 11.0 g/dL (12.0-16.0) Hematocrit 35.6 % (37-47) Mean Corpuscular Volume 82.8 fL (80-100) Mean Corpuscular Hemoglobin 25.6 pg (25-34) Mean Corpuscular Hemoglobin Concent 30.9 g/dl (32-36) Platelet Count 395 K/uL (130-400) Mean Platelet Volume 8.7 fL (7.4-10.4) Neutrophils (%) (Auto) 67.5 % Lymphocytes (%) (Auto) 22.7 % Monocytes (%) (Auto) 5.8 % Eosinophils (%) (Auto) 3.1 % Basophils (%) (Auto) 0.6 % Neutrophils # (Auto) 4.52 K/uL (1.4-6.5) Lymphocytes # (Auto) 1.52 K/uL (1.2-3.4) Monocytes # (Auto) 0.39 K/uL (0.11-0.59) Eosinophils # (Auto) 0.21 K/uL (0-0.5) Basophils # (Auto) 0.04 K/uL (0-0.2) RDW Standard Deviation 50.7 fL (36.4-46.3) RDW Coefficient of Variation 16.9 % (11.5-14.5) Immature Granulocyte % (Auto) 0.3 % Immature Granulocyte # (Auto) 0.02 K/uL (0.00-0.02) Prothrombin Time 30.1 SECONDS (9.0-12.0) Prothromb Time International Ratio 2.7 (0.9-1.1) Activated Partial Thromboplast Time 38.7 SECONDS (21.0-31.0) Partial Thromboplastin Ratio 1.5 Anion Gap 6.0 mmol/L (3-11) Est Creatinine Clear Calc Drug Dose 23.0 ml/min Estimated GFR () 24.5 Estimated GFR (Non- 21.1 BUN/Creatinine Ratio 17.6 (10-20) Calcium Level 9.3 mg/dl (8.5-10.1) Magnesium Level 2.2 mg/dl (1.8-2.4) Total Bilirubin 0.2 mg/dl (0.2-1) Aspartate Amino Transf (AST/SGOT) 13 U/L (15-37) Alanine Aminotransferase (ALT/SGPT) 19 U/L (12-78) Alkaline Phosphatase 96 U/L (45-117) Troponin I 0.072 ng/ml (0-0.045) Total Protein 7.0 gm/dl (6.4-8.2) Albumin 2.3 gm/dl (3.4-5.0) Globulin 4.7 gm/dl (2.5-4.0) Albumin/Globulin Ratio 0.5 (0.9-2) Thyroid Stimulating Hormone (TSH) 2.710 uIu/ml (0.300-4.500) Urine Color YELLOW Urine Appearance CLEAR (CLEAR) Urine pH 6.5 (4.5-7.5) Urine Specific [place] 1.020 (1.000-1.030) Urine Protein 4+ (NEG) Urine Glucose (UA) 1+ (NEG) Urine Ketones NEG (NEG) Urine Occult Blood 1+ (NEG) Urine Nitrite NEG (NEG) Urine Bilirubin NEG (NEG) Urine Urobilinogen NEG (NEG) Urine Leukocyte Esterase SMALL (NEG) Urine WBC (Auto) >30 /hpf (0-5) Urine RBC (Auto) 5-10 /hpf (0-4) Urine Hyaline Casts (Auto) 5-10 /lpf (0-5) Urine Epithelial Cells (Auto) >30 /lpf (0-5) Urine Bacteria (Auto) NEG (NEG) Laboratory results reviewed by me. Medications Administered Medications (Trade) Dose Ordered Sig/Joe Route Start Time Stop Time Status Last Admin Dose Admin Sodium Chloride 500 ml @ 999 mls/hr Q31M STAT IV 05/07/17 11:54 05/07/17 12:24 DC 05/07/17 12:06 999 MLS/HR Sodium Chloride 500 ml @ 999 mls/hr Q31M STAT IV 05/07/17 12:54 05/07/17 13:24 DC 05/07/17 13:01 999 MLS/HR ECG Indication: bradycardia Rate (beats per minute): 47 Rhythm: junctional Findings: no acute ischemic change, no ectopy ED Course 1151: The patient was evaluated in room A10. A complete history and physical exam was performed. 1154: Ordered Sodium Chloride 500 ml @ 999 mls/hr IV. 1203: I discussed the patients case with Dr. Johnson, [facility]. He states that the patient should be evaluated in the hospital and taken off her Metoprolol to see if her heart rate improves. 1251: I discussed the patients case with Dr. Quijano [facility] [place]. He is going to evaluate the patient for further treatment. 1254: Ordered Sodium Chloride 500 ml @ 999 mls/hr IV. 1310: I reevaluated the patient and she is resting comfortably. I discussed all the exam findings with her and I discussed the treatment plan. Her and her verbalized complete understanding and agreement. The patient will be evaluated for further treatment. Medical Decision The patient is a 61 year old female who presents to the ED with complaints of bradycardia. Differential diagnoses considered include Medication reaction, need for pacemaker, electrolyte imbalance, infection, anemia, dehydration, DC. There is no leukocytosis or worrisome anemia. Renal panel testing does show renal failure, no significant electrolyte abnormality requiring correction. There is no hepatitis. INR is elevated consistent with her Coumadin use. Urinalysis shows contamination, urine culture is pending. Chest x-ray does not show pneumonia or CHF. EKG shows a junctional bradycardia. No acute ischemia. Cardiac enzyme testing times one does show a very mild troponin elevation. The patient received IV saline. This was given for the dehydration/renal failure. She has been watched on the nurse monitoring. Her blood pressure is adequate and she is awake. I discussed her case with cardiology. Admission/observation is warranted. The bradycardia may be from her metoprolol use. We will hold her beta blockers, if things improve, her medications can be adjusted. If she has no improvement, a pacemaker may be necessary. I did speak to the patient and her , the on- call hospitalist was consulted. Case management has been involved. Medication Reconcilliation Current Medication List: was personally reviewed by me Blood Pressure Screening Patient's blood pressure: Elevated blood pressure Blood pressure disposition: Elevated BP felt to be situational, Did not require urgent referral Consults Time Called: 1200 Consulting Physician: Dr. Johnson, [facility] Returned Call: 1203 I discussed the patients case with Dr. Johnson, [facility]. He states that the patient should be evaluated in the hospital and taken off her Metoprolol to see if her heart rate improves. Additional Consults: Time Called: 1247 Consulted Physician: SUDHA Macdonald Returned Call: [phone] Additional Comments: I discussed the patients case with SUDHA Macdonald. He is going to evaluate the patient for further treatment. Impression Primary Impression: Bradycardia Additional Impressions: Acute renal failure Junctional rhythm Elevated troponin Scribe Attestation The scribe's documentation has been prepared under my direction and personally reviewed by me in its entirety. I confirm that the note above accurately reflects all work, treatment, procedures, and medical decision making performed by me. Departure Information Dispostion Being Evaluated By Hospitalist Referrals Ugo Walker M.D. (PCP) Problem Qualifiers
[2017-05-07 12:06] LABS: HEMATOCRIT 35.6 % (37-47); MEAN CELL VOLUME 82.8 fL (80-100); MEAN CORPUSCULAR HEMOGLOBIN 25.6 pg (25-34); MEAN CORPUSCULAR HGB CONC 30.9 g/dl (32-36); MEAN PLATELET VOLUME 8.7 fL (7.4-10.4); PLATELET COUNT 395 K/uL (130-400)
[2017-05-07 12:16] LABS: INR 2.7 (0.9-1.1); PARTIAL THROMBOPLASTIN RATIO 1.5; PROTHROMBIN TIME (PATIENT) 30.1 SECONDS (9.0-12.0)
[2017-05-07 12:17] LABS: URINE APPEARANCE CLEAR (CLEAR); URINE BILIRUBIN NEG (NEG); URINE COLOR YELLOW; URINE PH 6.5 (4.5-7.5); ZZUR CULT IF INDIC CLEAN CATCH YES
[2017-05-07 12:18] LABS: URINE EPITHELIAL CELL AUTO >30 /lpf (0-5); URINE NITRITE NEG (NEG); UROBILINOGEN NEG (NEG)
[2017-05-07 12:19] LABS: MANUAL MICROSCOPIC REQUIRED? NO; REVIEW REQ? NO
[2017-05-07 12:26] LABS: BUN/CREATININE RATIO 17.6 (10-20); CALCIUM 9.3 mg/dl (8.5-10.1); CREATININE 2.37 mg/dl (0.60-1.20); MAGNESIUM 2.2 mg/dl (1.8-2.4); POTASSIUM 5.5 mmol/L (3.5-5.1)
[2017-05-07 12:30] LABS: BASO % 0.6 %; BASO ABS # 0.04 K/uL (0-0.2); COMPLETE YES; EOS % 3.1 %; IG% 0.3 %; LYMPH % 22.7 %; LYMPH ABS # 1.52 K/uL (1.2-3.4); MONO % 5.8 %; NEUT % 67.5 %
[2017-05-07 12:41] LABS: ALB/GLOB RATIO 0.5 (0.9-2); THYROID STIMULATING HORMONE 2.71 uIu/ml (0.300-4.500)
--- NOTE | 2017-05-07 12:44 | DIAGNOSTIC IMAGING REPORT ---
CHEST ONE VIEW PORTABLE HISTORY: 61 years-old Female EVALUATE ALTERED MENTAL STATUS/WEAKNESS acute altered mental status with bradycardia COMPARISON: Chest radiograph 03/30/2017 TECHNIQUE: Portable upright AP view of the chest FINDINGS: Cardiomediastinal and hilar silhouettes are within normal limits. Linear subsegmental left lateral midlung and left basilar opacities suggest atelectasis or scarring. There is no pneumothorax or pleural effusion. No overt pulmonary edema. There is atherosclerosis of the aorta. Bones of the chest are grossly intact. IMPRESSION: No acute cardiopulmonary process. The above report was generated using voice recognition software. It may contain grammatical, syntax or spelling errors. Electronically signed by: José Sanchez M.D. 05/07/2017 12:43 PM Dictated Date/Time: 05/07/2017 12:42 PM
[2017-05-07] MEDS ORDERED: SODIUM CHLORIDE 0.9% 500ML 500 ML IV STA (12:54)
--- NOTE | 2017-05-07 13:45 | History and Physical ---
History & Physical Date & Time of Service: May 07, 2017 at 13:33 Chief Complaint: Low Heart Rate Primary Care Physician: Ugo Walker M.D. History of Present Illness Source: patient, spouse 61 year old female who was asymptomatic presents to the hospital with bradycardia. This was noticed by her home health nurse who saw the heart rate in the 40s. Patient is asymptomatic, and denies any other symptoms. Patient is however a poor historian given that she had a stroke in the past. Patient reports taking am meds today which include her metoprolol. Spouse is also a poor historian and does not provide much more information, just that patient ambulates well at home. Past Medical/Surgical History Medical Problems: (1) Atrial fibrillation Status: Chronic (2) Hypertension Status: Chronic Family History Cancer FH: heart disease Hyperlipidemia Hypertension Social History Smoking Status: Former Smoker Drug Use: none Marital Status: Housing status: lives with significant other Occupational Status: retired Immunizations History of Influenza Vaccine: No History of Tetanus Vaccine?: No History of Pneumococcal: No Multi-Drug Resistant Organisms History of MDRO: No Allergies Coded Allergies: Penicillins (Unverified Allergy, Intermediate, ., 05/07/17) Aspirin (Verified Allergy, Unknown, swelling, 05/07/17) Hydralazine (Verified Allergy, Unknown, myalgias, 05/07/17) Procaine (Verified Allergy, Unknown, unknown, 05/07/17) Home Medications Scheduled Amlodipine (Norvasc), 10 MG PO DAILY Cholecalciferol (Vitamin D), 5,000 UNITS PO DAILY Clopidogrel Bisulfate (Clopidogrel), 75 MG PO QAM Glimepiride (Amaryl), 1 MG PO DAILY Insulin Aspart (Novolog Flexpen), 0 UNITS SC ACHS Levothyroxine Sodium (Synthroid), 25 MCG PO DAILY Metoprolol Succinate (Metoprolol Succinate ER), 200 MG PO QAM Simvastatin (Simvastatin), 40 MG PO HS Warfarin Sod (Jantoven), 2.5 MG PO UD Review of Systems Constitutional: No fever, No chills Respiratory: No cough, No sputum, No wheezing Cardiovascular: No chest pain, No orthopnea Abdomen: No pain, No nausea Neurologic: + memory loss, + weakness Psychiatric: No depression symptoms, No anhedonism Endocrine: No fatigue Physical Exam Vital Signs Date Time Temp Pulse Resp B/P (MAP) Pulse Ox O2 Delivery O2 Flow Rate FiO2 05/07/17 12:46 41 18 168/66 96 Room Air 05/07/17 12:38 47 19 184/69 97 Room Air 05/07/17 12:04 50 05/07/17 11:35 97 Room Air 05/07/17 11:28 36.8 47 20 138/61 97 General Appearance: WD/WN, no apparent distress Head: normocephalic, atraumatic Neck: supple, no adenopathy Respiratory/Chest: chest non-tender, lungs clear Cardiovascular: no edema, + bradycardia Abdomen/GI: normal bowel sounds, non tender, soft Back: no CVA tenderness, no muscle spasm Extremities/Musculoskelatal: no calf tenderness, + pertinent finding (left arm in long arm cast) Neurologic/Psych: alert (significant mixed aphasia), + aphasia, + facial droop (right; no motor weakness on exam.) Skin: normal color Lymphatic: no adenopathy Diagnostics Laboratory Results Results Past 24 Hours Test 05/07/17 11:41 05/07/17 12:00 Range/Units White Blood Count 6.70 4.8-10.8 K/uL Red Blood Count 4.30 4.2-5.4 M/uL Hemoglobin 11.0 12.0-16.0 g/dL Hematocrit 35.6 37-47 % Mean Corpuscular Volume 82.8 80-100 fL Mean Corpuscular Hemoglobin 25.6 25-34 pg Mean Corpuscular Hemoglobin Concent 30.9 32-36 g/dl Platelet Count 395 130-400 K/uL Mean Platelet Volume 8.7 7.4-10.4 fL Neutrophils (%) (Auto) 67.5 % Lymphocytes (%) (Auto) 22.7 % Monocytes (%) (Auto) 5.8 % Eosinophils (%) (Auto) 3.1 % Basophils (%) (Auto) 0.6 % Neutrophils # (Auto) 4.52 1.4-6.5 K/uL Lymphocytes # (Auto) 1.52 1.2-3.4 K/uL Monocytes # (Auto) 0.39 0.11-0.59 K/uL Eosinophils # (Auto) 0.21 0-0.5 K/uL Basophils # (Auto) 0.04 0-0.2 K/uL RDW Standard Deviation 50.7 36.4-46.3 fL RDW Coefficient of Variation 16.9 11.5-14.5 % Immature Granulocyte % (Auto) 0.3 % Immature Granulocyte # (Auto) 0.02 0.00-0.02 K/uL Prothrombin Time 30.1 9.0-12.0 SECONDS Prothromb Time International Ratio 2.7 0.9-1.1 Activated Partial Thromboplast Time 38.7 21.0-31.0 SECONDS Partial Thromboplastin Ratio 1.5 Sodium Level 137 136-145 mmol/L Potassium Level 5.5 3.5-5.1 mmol/L Chloride Level 103 98-107 mmol/L Carbon Dioxide Level 28 21-32 mmol/L Anion Gap 6.0 3-11 mmol/L Blood Urea Nitrogen 42 7-18 mg/dl Creatinine 2.37 0.60-1.20 mg/dl Est Creatinine Clear Calc Drug Dose 23.0 ml/min Estimated GFR () 24.5 Estimated GFR (Non- 21.1 BUN/Creatinine Ratio 17.6 10-20 Random Glucose 156 70-99 mg/dl Calcium Level 9.3 8.5-10.1 mg/dl Magnesium Level 2.2 1.8-2.4 mg/dl Total Bilirubin 0.2 0.2-1 mg/dl Aspartate Amino Transf (AST/SGOT) 13 15-37 U/L Alanine Aminotransferase (ALT/SGPT) 19 12-78 U/L Alkaline Phosphatase 96 45-117 U/L Troponin I 0.072 0-0.045 ng/ml Total Protein 7.0 6.4-8.2 gm/dl Albumin 2.3 3.4-5.0 gm/dl Globulin 4.7 2.5-4.0 gm/dl Albumin/Globulin Ratio 0.5 0.9-2 Thyroid Stimulating Hormone (TSH) 2.710 0.300-4.500 uIu/ml Urine Color YELLOW Urine Appearance CLEAR CLEAR Urine pH 6.5 4.5-7.5 Urine Specific [place] 1.020 1.000-1.030 Urine Protein 4+ NEG Urine Glucose (UA) 1+ NEG Urine Ketones NEG NEG Urine Occult Blood 1+ NEG Urine Nitrite NEG NEG Urine Bilirubin NEG NEG Urine Urobilinogen NEG NEG Urine Leukocyte Esterase SMALL NEG Urine WBC (Auto) >30 0-5 /hpf Urine RBC (Auto) 5-10 0-4 /hpf Urine Hyaline Casts (Auto) 5-10 0-5 /lpf Urine Epithelial Cells (Auto) >30 0-5 /lpf Urine Bacteria (Auto) NEG NEG Microbiology Results 05/07/17 Urine Culture, Received Pending CXR normal other (bradycardia) Impression Assessment and Plan 61 yo female with h/o of RVR a.fib, presents to the hospital with asymptomatic bradycardia in the 40s. She also had a recent admission one month ago for a stroke. Bradycardia: will hold metoprolol in AM Patient already received dose today Dr. Coe as already been notified and consulted If bradycardia does not improve, may need pacemaker. 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 HTN -cont. home meds. H/O a.fib on coumadin. INR is at goal. Unsure of exact dose patient takes as an outpatient our pharmacy tried to confirm the 2.5mg dose but was unable to. Spouse and patient are both poor historians. will give 2.5 today and recheck INR daily. Left minimally angulated Colles fracture, left elbow contusion, doubt occult fracture: - seeing ortho as an outpatient -has long arm cast. -no need to consult ortho during hospitalization unless new event occurs. T2DM- HgbA1C 7.4: - Held Glimepiride 2 mg BID- resume at discharge - BSG ACHS and sliding insulin scale RUPALI on CKD stage III, baseline Cr. 1.8- currently at 2.3 -patient received 1 liter bolus. if no improvement, may start IVF in am. Hypothyroidism- TSH 1.470: - Continue Synthroid 25 mcg daily - 1.7 cm nodule in the left thyroid lobe on CTA- f/u with a nonemergent/ outpatient thyroid ultrasound is recommended (from last admission) DVT prophylaxis: Coumadin Level of Care Telemetry Advanced Directives Existing Advance Directive: No Existing Living Will: No Existing Power of Undercar Specialist: No Existing Health Care Proxy: No Resuscitation Status FULL RESUSCITATION VTE Prophylaxis VTE Risk Assessment Done? Y/N: Yes Risk Level: Moderate Given or contraindicated: Warfarin (Coumadin) Social Service Consult Receiving Home Health
[2017-05-07] MEDS ORDERED: DEXTROSE 50% 50 ML SYR IV PRN (15:00)
[2017-05-07] MEDS ORDERED: GLUCAGON FOR INJ 1 MG VIAL SQ PRN (15:00)
[2017-05-07] MEDS ORDERED: GLUCOSE 40% GEL 15 GM TUBE PO PRN (15:00)
[2017-05-07] MEDS ORDERED: GLUCOSE 10 TABS/TUBE PO PRN (15:00)
[2017-05-07] MEDS ORDERED: IV FLUIDS COMPLETED PRN (15:30)
[2017-05-07] MEDS ORDERED: INSULIN ASPART 100 UNITS/ML 3 ML PEN SC SCH (16:00)
[2017-05-07] MEDS ORDERED: WARFARIN SOD 2.5 MG TAB PO SCH (16:00)
[2017-05-07 16:30] VITALS: BP 170/63; PULSE 44; TEMP 36.8; O2SAT 96; BMI 25.7
[2017-05-07] MEDS: INSULIN ASPART 100 UNITS/ML 3 ML PEN SC SCH ×2 (18:35→21:11)
[2017-05-07 19:10] VITALS: BP 150/64; PULSE 46; TEMP 37; O2SAT 96
[2017-05-07] MEDS: SIMVASTATIN 40 MG TAB PO SCH (21:11)
[2017-05-07 23:36] VITALS: BP 150/58; PULSE 40; TEMP 36.9; O2SAT 91
[2017-05-08] VITALS (7 sets, daily range): BP systolic 129–174; BP diastolic 53–75; PULSE 38–55; TEMP 36.7–37.1; O2SAT 89–96; Ht 162.6 cm; Wt 67.2 kg
[2017-05-08] MEDS: LEVOTHYROXINE 25 MCG TAB PO SCH (05:02)
[2017-05-08 05:55] LABS: HEMATOCRIT 34.5 % (37-47); MEAN CELL VOLUME 83.7 fL (80-100); MEAN CORPUSCULAR HEMOGLOBIN 25.2 pg (25-34); MEAN CORPUSCULAR HGB CONC 30.1 g/dl (32-36); MEAN PLATELET VOLUME 8.9 fL (7.4-10.4); PLATELET COUNT 363 K/uL (130-400); RED BLOOD COUNT 4.12 M/uL (4.2-5.4); WHITE BLOOD COUNT 6.35 K/uL (4.8-10.8)
[2017-05-08 06:04] LABS: INR 2.6 (0.9-1.1); PROTHROMBIN TIME (PATIENT) 29.4 SECONDS (9.0-12.0)
[2017-05-08 06:34] LABS: BUN/CREATININE RATIO 18.4 (10-20); CALCIUM 8.1 mg/dl (8.5-10.1); CREATININE 2.36 mg/dl (0.60-1.20); POTASSIUM 5.5 mmol/L (3.5-5.1)
[2017-05-08] MEDS: INSULIN ASPART 100 UNITS/ML 3 ML PEN SC SCH ×4 (08:06→20:19)
[2017-05-08] MEDS: CHOLECALCIFEROL 1000 INTER.UNIT TAB PO SCH (08:08)
[2017-05-08] MEDS: CLOPIDOGREL BISULFATE 75 MG TAB PO SCH (08:08)
[2017-05-08] MEDS: AMLODIPINE BESYLATE 5 MG TAB PO SCH (08:09)
--- NOTE | 2017-05-08 09:50 | Cardiology Consultation ---
Cardiology Consultation Date of Consultation: May 08, 2017. Requesting Physician: Dr. Quijano Reason for Consultation: Junctional bradycardia Pt evaluation today including: conversation w/ patient, physical exam, lab review, review of studies, review of inpatient medication list History of Present Illness This is a 61-year-old woman who has a history of diabetes, hypertension, hypothyroidism, hyperlipidemia (on statins) and chronic kidney disease. There is a suggestion that she has a history of atrial fibrillation although I don't see that in our office chart. She presented with less responsiveness 03/30/2017 , was noted to have a left hemispheric CVA and to be in atrial fibrillation with a rapid heart rate. She was therefore admitted. She was anticoagulated, the rate was controlled with metoprolol succinate 200 mg daily. She remained in atrial fibrillation throughout that hospitalization and was discharged on 2016. She went to rehabilitation, but then was sent home with visiting nurses. She was seen by Dr. Walker on 05/02/2017, at that time her heart rate was 72 bpm. On evaluation by home health nursing on 05/07/2017 she was found to be bradycardic and she was brought to the emergency room where she was found to be in a junctional bradycardia in the 30s. It sounds as though she was not terribly symptomatic with it. The patient is a poor historian, in part due to an expressive aphasia, and she is unable to tell me if she had symptoms of lightheadedness, dizziness or any other cardiovascular symptoms. She is not ambulatory therefore we cannot evaluate her exertional ability. It sounds as though she did not have presyncope or syncope. As near as I can tell she had remained on metoprolol succinate 200 mg daily with no other negative chronotrope. Past Medical/Surgical History (1) CVA (cerebral vascular accident) (2) Elevated troponin (3) Atrial fibrillation (4) Hypertension Family History Cancer FH: heart disease Hyperlipidemia Hypertension Social History Smoking Status: Former Smoker History of Alcohol Use: No Review of Systems Constitutional: No fever, No weight loss, No weakness Respiratory: No cough, No wheezing, No shortness of breath, No dyspnea on exertion Cardiac: No chest pain, No orthopnea, No PND, No edema, No palpitations Abdomen: No pain, No nausea, No vomiting, No diarrhea, No GI bleeding Female : No problem reported Neurologic: No paralysis, No weakness, No numbness/tingling, No balance problems Heme: No abnormal bleeding/bruising, No clotting problems Endo: No fatigue Skin: No problem reported Her review of systems is likely not accurate due to her expressive aphasia All Other Systems: Reviewed and Negative Allergies Coded Allergies: Penicillins (Unverified Allergy, Intermediate, ., 05/07/17) Aspirin (Verified Allergy, Unknown, swelling, 05/07/17) Hydralazine (Verified Allergy, Unknown, myalgias, 05/07/17) Procaine (Verified Allergy, Unknown, unknown, 05/07/17) Medications Current Inpatient Medications Medications (Trade) Dose Ordered Sig/Joe Route Start Time Stop Time Status Last Admin Dose Admin Amlodipine Besylate (Norvasc Tab) 10 mg DAILY PO 05/08/17 09:00 06/07/17 08:59 05/08/17 08:09 10 MG Clopidogrel Bisulfate (plAVix TAB) 75 mg QAM PO 05/08/17 09:00 06/07/17 08:59 05/08/17 08:08 75 MG Levothyroxine Sodium (Synthroid Tab) 25 mcg DAILYBB PO 05/08/17 06:00 06/07/17 06:59 05/08/17 05:02 25 MCG Simvastatin (Zocor Tab) 40 mg HS PO 05/07/17 21:00 06/06/17 20:59 05/07/17 21:11 40 MG Cholecalciferol (Vitamin D Tab) 5,000 inter.unit DAILY PO 05/08/17 09:00 06/07/17 08:59 05/08/17 08:08 5,000 INTER.UNIT Insulin Aspart (novoLOG ASPART) SLIDING SCALE If C... ACHS SC 05/07/17 16:00 06/06/17 15:59 05/07/17 18:35 4 UNITS Glucose (Glucose 40% Gel) 15-30 GRAMS 15 GRAMS... UD PRN PO 05/07/17 15:00 06/06/17 14:59 Glucose (Glucose Chew Tab) 4-8 Tablets 4 Tabl... UD PRN PO 05/07/17 15:00 06/06/17 14:59 Dextrose (Dextrose 50% 50ML Syringe) 25-50ML OF 50% DW IV FOR... UD PRN IV 05/07/17 15:00 12/6/17 14:59 Glucagon (Glucagon Inj) 1 mg UD PRN SQ 05/07/17 15:00 06/06/17 14:59 Miscellaneous (Iv Fluids Completed) 1 ea PRN PRN N/A 05/07/17 15:30 05/07/18 15:29 Warfarin Sodium (Coumadin Tab) 2.5 mg DAILY@16 PO 05/08/17 16:00 06/07/17 15:59 UNV Sodium Chloride 1,000 ml @ 75 mls/hr [id number] IV 05/08/17 09:15 06/07/17 09:14 UNV Sodium Polystyrene Sulfonate (Kayexalate Susp) 15 gm NOW STAT PO 05/08/17 09:04 05/08/17 09:05 UNV Physical Exam Vital Signs Past 12 Hours Date Time Temp Pulse Resp B/P (MAP) Pulse Ox O2 Delivery O2 Flow Rate FiO2 05/08/17 08:04 36.9 44 20 155/53 (87) 89 Room Air 05/08/17 04:58 40 158/61 (93) 05/08/17 04:18 36.7 38 18 174/66 (102) 92 Nasal Cannula 2.0 05/08/17 04:15 Nasal Cannula 2.0 05/08/17 00:00 Nasal Cannula 2.0 05/07/17 23:36 36.9 40 22 150/58 (88) 91 Nasal Cannula 2.0 Constitutional: Level of Distress: NAD Psychiatric: Mental Status: active & alert Head: normocephalic Eyes: EOM: EOMI ENMT: normal ENT inspection, hearing grossly normal Neck: supple, no masses Lungs: Respiratory effort: no dyspnea, good air movement Auscultation: breath sounds normal, no wheezing Cardiovascular: Heart Auscultation: RRR, no murmurs, no rubs, no gallops, bradycardia Peripheral Pulses: Bruits: none appreciated Abdomen: Bowel Sounds: normal Inspection & Palpation: soft, no tenderness, guarding & rebound, no masses Extremities: no edema Neurologic: Gait & Station: pertinent finding (right facial droop) Data Laboratory Results: Last 24 Hours Test 05/07/17 11:41 05/07/17 12:00 05/07/17 16:13 05/07/17 20:23 White Blood Count 6.70 K/uL Red Blood Count 4.30 M/uL Hemoglobin 11.0 g/dL Hematocrit 35.6 % Mean Corpuscular Volume 82.8 fL Mean Corpuscular Hemoglobin 25.6 pg Mean Corpuscular Hemoglobin Concent 30.9 g/dl Platelet Count 395 K/uL Mean Platelet Volume 8.7 fL Neutrophils (%) (Auto) 67.5 % Lymphocytes (%) (Auto) 22.7 % Monocytes (%) (Auto) 5.8 % Eosinophils (%) (Auto) 3.1 % Basophils (%) (Auto) 0.6 % Neutrophils # (Auto) 4.52 K/uL Lymphocytes # (Auto) 1.52 K/uL Monocytes # (Auto) 0.39 K/uL Eosinophils # (Auto) 0.21 K/uL Basophils # (Auto) 0.04 K/uL RDW Standard Deviation 50.7 fL RDW Coefficient of Variation 16.9 % Immature Granulocyte % (Auto) 0.3 % Immature Granulocyte # (Auto) 0.02 K/uL Prothrombin Time 30.1 SECONDS Prothromb Time International Ratio 2.7 Activated Partial Thromboplast Time 38.7 SECONDS Partial Thromboplastin Ratio 1.5 Sodium Level 137 mmol/L Potassium Level 5.5 mmol/L Chloride Level 103 mmol/L Carbon Dioxide Level 28 mmol/L Anion Gap 6.0 mmol/L Blood Urea Nitrogen 42 mg/dl Creatinine 2.37 mg/dl Est Creatinine Clear Calc Drug Dose 23.0 ml/min Estimated GFR () 24.5 Estimated GFR (Non- 21.1 BUN/Creatinine Ratio 17.6 Random Glucose 156 mg/dl Calcium Level 9.3 mg/dl Magnesium Level 2.2 mg/dl Total Bilirubin 0.2 mg/dl Aspartate Amino Transf (AST/SGOT) 13 U/L Alanine Aminotransferase (ALT/SGPT) 19 U/L Alkaline Phosphatase 96 U/L Troponin I 0.072 ng/ml Total Protein 7.0 gm/dl Albumin 2.3 gm/dl Globulin 4.7 gm/dl Albumin/Globulin Ratio 0.5 Thyroid Stimulating Hormone (TSH) 2.710 uIu/ml Urine Color YELLOW Urine Appearance CLEAR Urine pH 6.5 Urine Specific [place] 1.020 Urine Protein 4+ Urine Glucose (UA) 1+ Urine Ketones NEG Urine Occult Blood 1+ Urine Nitrite NEG Urine Bilirubin NEG Urine Urobilinogen NEG Urine Leukocyte Esterase SMALL Urine WBC (Auto) >30 /hpf Urine RBC (Auto) 5-10 /hpf Urine Hyaline Casts (Auto) 5-10 /lpf Urine Epithelial Cells (Auto) >30 /lpf Urine Bacteria (Auto) NEG Bedside Glucose 189 mg/dl 56 mg/dl Test 05/07/17 20:39 05/07/17 20:57 05/08/17 05:19 05/08/17 08:54 Bedside Glucose 65 mg/dl 82 mg/dl White Blood Count 6.35 K/uL Red Blood Count 4.12 M/uL Hemoglobin 10.4 g/dL Hematocrit 34.5 % Mean Corpuscular Volume 83.7 fL Mean Corpuscular Hemoglobin 25.2 pg Mean Corpuscular Hemoglobin Concent 30.1 g/dl RDW Standard Deviation 50.8 fL RDW Coefficient of Variation 16.8 % Platelet Count 363 K/uL Mean Platelet Volume 8.9 fL Prothrombin Time 29.4 SECONDS Prothromb Time International Ratio 2.6 Sodium Level 140 mmol/L Potassium Level 5.5 mmol/L Chloride Level 107 mmol/L Carbon Dioxide Level 29 mmol/L Anion Gap 4.0 mmol/L Blood Urea Nitrogen 43 mg/dl Creatinine 2.36 mg/dl Est Creatinine Clear Calc Drug Dose 23.1 ml/min Estimated GFR () 24.6 Estimated GFR (Non- 21.2 BUN/Creatinine Ratio 18.4 Random Glucose 104 mg/dl Calcium Level 8.1 mg/dl Imaging: Chest x-ray shows no acute findings EKG: On admission junctional bradycardia at 47 bpm. Telemetry reviewed: Initially junctional rhythm, most often sinus rhythm at a slow heart rate, occasional periods of junctional bradycardia. No atrial tachycardia or atrial fibrillation. Assessment & Plan #1. Sinus bradycardia and junctional rhythm: This is most likely due to suppression of sinus node function, this probably occurred some time following her 05/02/2017 office visit where her heart rate was noted to be 72 bpm. This is likely to be due to high dose beta blockers which were used to control her atrial fibrillation, I don't think any other medications were added. He could represent a component of sick sinus syndrome with her prior history of atrial fibrillation. I agree with holding her beta nayeli for now, if her heart rate increases appropriately we should try lower dose beta blockade to see whether her sinus rate can tolerate it. If not we may have to consider pacemaker since she will need rate control for atrial fibrillation. I suspect the proximate cause of her bradycardia was termination of atrial fibrillation which evidently occurred spontaneously, to my knowledge she was in atrial fibrillation at the time of her discharge in early April as well as probably during her office visit 05/02/2017 (based on a heart rate of 72 bpm). #2. Atrial fibrillation: She had atrial fibrillation with a rapid heart rate, we controlled it with metoprolol succinate 200 mg daily. Since she was not in sinus rhythm during her hospitalization we did not know how that would affect her sinus node. Possibly we can use lower doses of metoprolol and still not run into difficulty with bradycardia, if not our options are to add low-dose digoxin (which doesn't affect sinus rate as much), to use Bystolic which is less prone to cause sinus bradycardia or to implant a pacemaker to control her heart rate when she is in sinus rhythm. We will need to see how her heart rate response over the next several days. #3. Anticoagulation: She should remain on anticoagulation, it is likely her stroke was due to atrial fibrillation. Even though she is in sinus rhythm now she is at risk for stroke as I suspect she converted recently to sinus rhythm. Thank you for allowing me to participate in her care.
[2017-05-08] MEDS ORDERED: SODIUM POLYST. SULF SUSP 15G/60ML PO ONE (10:00)
--- NOTE | 2017-05-08 10:31 | DIAGNOSTIC IMAGING REPORT ---
(RENAL)RETROPERITON COMP CLINICAL HISTORY: 61 years-old Female presenting with renal failure. TECHNIQUE: Real-time grayscale and limited color Doppler ultrasound imaging of the kidneys and bladder was performed. COMPARISON: 07/19/2016. FINDINGS: Right kidney: Increased parenchymal echogenicity. Right kidney measures 8.7 cm. No hydronephrosis. No convincing evidence of calculus or mass. Normal perfusion. Left kidney: Increased parenchymal echogenicity. Left kidney measures 9.6 cm. No hydronephrosis. No convincing evidence of calculus or mass. Normal perfusion. Bladder: No bladder wall thickening. Left ureteral jet present; right not visualized. Other: None. IMPRESSION: 1. Increased renal parenchymal echogenicity suggests medical renal disease. No obstruction. Electronically signed by: Ubaldo Agarwal M.D. 05/08/2017 10:30 AM Dictated Date/Time: 05/08/2017 10:28 AM
[2017-05-08] MEDS: SODIUM CHLORIDE 0.9% 1000ML 1,000 ML IV SCH ×2 (10:43→23:09)
[2017-05-08 13:29] LABS: BUN/CREATININE RATIO 18.6 (10-20); CALCIUM 8.4 mg/dl (8.5-10.1); CREATININE 2.23 mg/dl (0.60-1.20); POTASSIUM 5.3 mmol/L (3.5-5.1)
--- NOTE | 2017-05-08 15:58 | Medical Student: [facility] ---
Med Student History & Physical Date & Time of Service: May 08, 2017 at 15:01 Chief Complaint: Atrial Fibrillation, Bradycardia, Hypertension Primary Care Physician: Ugo Walker M.D. History of Present Illness Shayy is a 61 yo female with history notable for recent admission for left temporal stroke 6 weeks ago with Afib diagnosed at that time and coumadin and metoprolol initiation prior to discharge who presented to the ED for asymptomatic bradycardia recognized by home nurse. Her pulse was in the 40' s. She has expressive aphasia secondary to the stroke 6 weeks ago, but appears to be improving and seems able to answer most questions with generic responses. She was started on 200mg daily of metoprolol XR following her last hospitalization. She denies lightheadedness, dizziness, loss of vision, chest pain, chest pressure, n/v/d/c, fevers or chills. Past Medical/Surgical History Medical Problems: (1) Acute renal failure Status: Acute (2) Altered mental status Status: Acute (3) Atrial fibrillation with rapid ventricular response Status: Acute (4) Bradycardia Status: Acute (5) Elevated troponin Status: Acute (6) Elevated troponin Status: Resolved (7) Focal infarction of brain Status: Acute (8) Junctional rhythm Status: Acute Social History Smoking Status: Former Smoker (35 pack years, quit 2 years ago) Drug Use: none Marital Status: Housing status: lives with significant other Occupational Status: retired Immunizations History of Influenza Vaccine: No History of Tetanus Vaccine?: No History of Pneumococcal: No Allergies Coded Allergies: Penicillins (Unverified Allergy, Intermediate, ., 05/07/17) Aspirin (Verified Allergy, Unknown, swelling, 05/07/17) Hydralazine (Verified Allergy, Unknown, myalgias, 05/07/17) Procaine (Verified Allergy, Unknown, unknown, 05/07/17) Medications Amlodipine (Norvasc), 10 MG PO DAILY Cholecalciferol (Vitamin D), 5,000 UNITS PO DAILY Clopidogrel Bisulfate (Clopidogrel), 75 MG PO QAM Glimepiride (Amaryl), 1 MG PO DAILY Insulin Aspart (Novolog Flexpen), 0 UNITS SC ACHS Levothyroxine Sodium (Synthroid), 25 MCG PO DAILY Metoprolol Succinate (Metoprolol Succinate ER), 200 MG PO QAM Simvastatin (Simvastatin), 40 MG PO HS Warfarin Sod (Jantoven), 2.5 MG PO UD Review of Systems Constitutional: No fever, No chills, No sweats, No fatigue, No problem reported Respiratory: No cough, No sputum, No wheezing, No shortness of breath, No dyspnea on exertion, No dyspnea at rest, No problem reported Cardiovascular: No chest pain, No orthopnea, No edema, No claudication, No palpitations, No problem reported Abdomen: No pain, No nausea, No vomiting, No diarrhea, No constipation, No problem reported Neurologic: + problem reported (aphasia), No paralysis, No numbness/tingling, No vertigo, No balance problems Physical Exam Vital Signs (24 Hours) Date Time Temp Pulse Resp B/P (MAP) Pulse Ox O2 Delivery O2 Flow Rate FiO2 05/08/17 12:21 37.1 52 20 129/75 (93) 91 05/08/17 12:00 Room Air 05/08/17 10:54 48 96 05/08/17 08:04 36.9 44 20 155/53 (87) 89 Room Air 05/08/17 08:00 Room Air 05/08/17 04:58 40 158/61 (93) 05/08/17 04:18 36.7 38 18 174/66 (102) 92 Nasal Cannula 2.0 05/08/17 04:15 Nasal Cannula 2.0 05/08/17 00:00 Nasal Cannula 2.0 05/07/17 23:36 36.9 40 22 150/58 (88) 91 Nasal Cannula 2.0 05/07/17 21:11 Room Air 05/07/17 19:10 37.0 46 20 150/64 (92) 96 Room Air 05/07/17 16:30 36.8 44 18 170/63 96 Room Air 05/07/17 15:05 36.8 43 18 159/59 96 General Appearance: WD/WN, no apparent distress Head: normocephalic, atraumatic ENT: hearing grossly normal Neck: supple, no JVD, no carotid bruits, trachea midline Respiratory/Chest: chest non-tender, lungs clear (patient seemed to have difficulty following commands and would not take full breaths, and sometimes would not attempt at all), normal breath sounds, no respiratory distress, no accessory muscle use Cardiovascular: no edema, no gallop, no JVD, no murmur, normal peripheral pulses, + bradycardia Abdomen/GI: normal bowel sounds, non tender, soft Neurologic/Psych: alert, normal mood/affect, + aphasia (Will respond with generic phrases "yeah", "I'm good", "no" but seems to have difficulty giving specific answers. Will also answer inappropriately to questions (ex. saying "yes " to a question that is not a yes/no question)) Diagnostics Laboratory Results Results Past 24 Hours Test 05/07/17 16:13 05/07/17 20:23 05/07/17 20:39 05/07/17 20:57 Range/Units Bedside Glucose 189 56 65 82 70-90 mg/dl Test 05/08/17 05:19 05/08/17 12:44 Range/Units White Blood Count 6.35 4.8-10.8 K/uL Red Blood Count 4.12 4.2-5.4 M/uL Hemoglobin 10.4 12.0-16.0 g/dL Hematocrit 34.5 37-47 % Mean Corpuscular Volume 83.7 80-100 fL Mean Corpuscular Hemoglobin 25.2 25-34 pg Mean Corpuscular Hemoglobin Concent 30.1 32-36 g/dl RDW Standard Deviation 50.8 36.4-46.3 fL RDW Coefficient of Variation 16.8 11.5-14.5 % Platelet Count 363 130-400 K/uL Mean Platelet Volume 8.9 7.4-10.4 fL Prothrombin Time 29.4 9.0-12.0 SECONDS Prothromb Time International Ratio 2.6 0.9-1.1 Sodium Level 140 139 136-145 mmol/L Potassium Level 5.5 5.3 3.5-5.1 mmol/L Chloride Level 107 106 98-107 mmol/L Carbon Dioxide Level 29 29 21-32 mmol/L Anion Gap 4.0 5.0 3-11 mmol/L Blood Urea Nitrogen 43 41 7-18 mg/dl Creatinine 2.36 2.23 0.60-1.20 mg/dl Est Creatinine Clear Calc Drug Dose 23.1 24.5 ml/min Estimated GFR () 24.6 26.3 Estimated GFR (Non- 21.2 22.7 BUN/Creatinine Ratio 18.4 18.6 10-20 Random Glucose 104 181 70-99 mg/dl Calcium Level 8.1 8.4 8.5-10.1 mg/dl Troponin I 0.079 0-0.045 ng/ml Diagnostic Radiology (RENAL)RETROPERITON COMP CLINICAL HISTORY: 61 years-old Female presenting with renal failure. TECHNIQUE: Real-time grayscale and limited color Doppler ultrasound imaging of the kidneys and bladder was performed. COMPARISON: 07/19/2016. FINDINGS: Right kidney: Increased parenchymal echogenicity. Right kidney measures 8.7 cm. No hydronephrosis. No convincing evidence of calculus or mass. Normal perfusion. Left kidney: Increased parenchymal echogenicity. Left kidney measures 9.6 cm. No hydronephrosis. No convincing evidence of calculus or mass. Normal perfusion. Bladder: No bladder wall thickening. Left ureteral jet present; right not visualized. Other: None. IMPRESSION: 1. Increased renal parenchymal echogenicity suggests medical renal disease. No obstruction. Electronically signed by: Ubaldo Agarwal M.D. 05/08/2017 10:30 AM CHEST ONE VIEW PORTABLE HISTORY: 61 years-old Female EVALUATE ALTERED MENTAL STATUS/WEAKNESS acute altered mental status with bradycardia COMPARISON: Chest radiograph 03/30/2017 TECHNIQUE: Portable upright AP view of the chest FINDINGS: Cardiomediastinal and hilar silhouettes are within normal limits. Linear subsegmental left lateral midlung and left basilar opacities suggest atelectasis or scarring. There is no pneumothorax or pleural effusion. No overt pulmonary edema. There is atherosclerosis of the aorta. Bones of the chest are grossly intact. IMPRESSION: No acute cardiopulmonary process. The above report was generated using voice recognition software. It may contain grammatical, syntax or spelling errors. Electronically signed by: José Sanchez M.D. 05/07/2017 12:43 PM CXR normal EKG absent P waves, possibly peaked T waves, Normal rhythm, bradycardic. Impression Assessment and Plan Shayy is a 61 yo female who presented for asymptomatic bradycardia in the setting of recent diagnosis of AFib and stroke 6 weeks ago. Bradycardia: Likely due to 200mg daily dose of Metoprolol prescribed at discharge from last hospitalization for newly diagnosed AFib. Have been withholding the medication since admission. Has a half life of 3-7 hours, so by 21-28 hours most of the medication's effects should have subsided. Other consideration is for sick sinus syndrome. Given that her HR has minimally improved during the >24 hours since admission, I am questionable if metoprolol was the cause. Cardiology is following this patient and suggests considering pacemaker if holding metoprolol does not resolve her bradycardia. Plan: Cardiology consult for consideration of pacemaker placement. Continue to hold metoprolol. Continue on telemetry. Hypertension: Likely due to severe vascular disease, given her history and as it is non-responsive to bradycardia. Has been down trending into 150's systolic and most recently 120's. Given that she has poor kidney function, ACEIs and ARBs are less desirable. She has bradycardia making CCBs and B-Blockers less desirable. She has hyperkalemia so spironolactone is less desirable. She is allergic to hydralazine. May consider furosemide or HCTZ if HTN does not remain controlled. Will defer to Cardiology however. Plan: Continue to monitor vitals. Continue Amlodipine 10mg PO daily. Defer to cardiology for management. If BP becomes elevated while bradycardic and hyperkalemic, may consider furosemide or HCTZ. Elevated BUN/Cr: On 05Apr2017 Cr was 1.90 and presented on 07May2017 with 2.37 ( 0.47 increase), per EMR her output has been 0.18mL/kg/h since yesterday, however I'm not sure if this can account for any at home voiding prior to as well as during her time in the ER. If her output truly is less than 0.5mL/kg/h for >6hrs and the 0.47 increase was in less than 48 hours, or 50% increase in SCr over <7 days, then this can be classified as an RUPALI per RIFLE and DYLAN criteria. following her historical Cr values, this seems more like a baseline over the past 5 months for her. Will continue to monitor however and she will likely benefit of maintaining adequate hydration as well as avoiding nephrotoxic medications. In addition, her BUN has also fluctuated between 22 and 43 in the past 5 months, with improvement during hospitalization. Her chronic kidney disease could also be a factor in her elevated troponin of 0.072. Plan: Continue IVF, avoid nephrotoxic drugs, repeat BMP tomorrow. Likely will need [employer] outpatient management following discharge. Hyperkalemia: May be due to beta nayeli as well as RUPALI. Decreased from 5.5 to 5.3 following withholding metoprolol as well as slight improvement in BUN/Cr. Other than possible peaked T waves on EKG, has been asymptomatic (no weakness, paresthesias, or palpitations). Plan: Will monitor with repeat BMP tomorrow. Afib: EKG showed regular rhythm. She is asymptomatic. INR of 2.6. Plan: Will continue anticoagulation with warfarin 2.5mg PO daily Hypothyroidism: Asymptomatic, manage outpatient. Plan: Continue Synthroid 25mcg PO daily Hyperlipidemia: Stable, manage outpatient. Plan: Continue simvastatin 40mg PO HS Diabetes: 156-189, on sliding scale insulin. Plan: Continue sliding scale insulin. Level of Care Telemetry Advanced Directives Existing Advance Directive: No Existing Living Will: No Existing Power of Binder Chainstitch: No Existing Health Care Proxy: No DVT Prophylaxis warfarin (Coumadin)
[2017-05-08 16:02] LABS: CREATININE RANDOM URINE 58.5 mg/dl
[2017-05-08 16:03] LABS: CREATININE, URINE 58.9 mg/dl; URINE PROTIEN/CREAT RATIO 6.4 (0-0.2)
--- NOTE | 2017-05-08 16:15 | Nephrology Consultation ---
Nephrology Consultation Date & Providers Date of Consultation: May 08, 2017. Primary Care Provider: Ugo Walker M.D. Referring Provider: Reason for Consultation Acute on chronic renal insufficiency History of Present Illness Shayy is a 61-year-old female with chronic kidney disease class III A3. I have followed Shayy in the nephrology clinic since July 2016. Shayy was last evaluated in the CKD clinic in January. Baseline creatinine has been 1.8 mg/dL with a creatinine clearance of 30 ml/min. Baseline proteinuria 2.4 grams/day. CKD attributed to nephrosclerosis from longstanding hypertension as well as renovascular disease. In November 2016, Shayy developed RUPALI. Creatinine peaked at 2.1 mg/dL. RUPALI was attributed to hemodynamic changes and VERO inhibitor use. VERO has not been restarted. Imaging documented renal asymmetry. Duplex showing 60% proximal left DION. The right kidney is smaller in size but with <60% stenosis. Right kidney measured 5.3 centimeters and left kidney 10 centimeters. Shayy was hospitalized March 30, 2017 - April 05, 2017 with an acute CVA. MRI notable for a large left temporal lobe infarct. Deficits include right hemiparesis and significant mixed aphasia. This was complicated by paroxysmal atrial fibrillation with rapid ventricular response. CVA was felt to be cardioembolic. Significant carotid artery stenosis was noted as well. She was transitioned from heparin gtt to warfarin. Neurology also recommended clopidogrel. Simvastatin was increased up to 40 milligrams daily. Follow-up CT scans were performed prior to discharge. There was mild elevation in troponin. No ischemic EKG changes and echocardiogram showed no wall motion abnormalities. Metoprolol dose was increased up to 200 milligrams daily. Acute kidney injury was also noted. Creatinine peaked at 2.2 mg/dL on hospital day 2. Serum creatinine returned to 1.8 mg/dL at discharge. She was discharged to [facility] from April 06 and subsequently returned home with home health services. At [facility], a UTI was treated with a short course of nitrofurantoin. Shayy suffered a left radial forearm fracture due to a fall prior to hospitalization. Orthopedics recommended closed reduction and splinting. Shayy was reportedly doing well at home initially. Functional status slowly improving. On evaluation by home health nursing today, she was found to be bradycardic. She was brought to the ED with junctional bradycardia in the 30s. Cardiology consultation was obtained and reviewed. Admission labs are notable for recurrent RUPALI. The patient is reportedly non oliguric. No recent NSAID or other nephrotoxic medications are noted. Past Medical/Surgical History Medical: Atrophy of right kidney Renal artery stenosis Chronic kidney disease, stage 3 Atrial fibrillation History of CVA Diabetes mellitus II Hypercholesterolemia Hypertension Tobacco abuse Hypothyroidism Thyroid nodule (incidental finding of a 1.7 centimeter left thyroid lobe nodule noted on CT scan) Vitamin D deficiency with secondary hyperparathyroidism - not able to tolerate ergocalciferol due to bone pain Surgical: Sinus surgery, D&C Allergies Coded Allergies: Penicillins (Unverified Allergy, Intermediate, ., 05/07/17) Aspirin (Verified Allergy, Unknown, swelling, 05/07/17) Hydralazine (Verified Allergy, Unknown, myalgias, 05/07/17) Procaine (Verified Allergy, Unknown, unknown, 05/07/17) Inpatient Medications Current Inpatient Medications Medications (Trade) Dose Ordered Sig/Joe Route Start Time Stop Time Status Last Admin Dose Admin Amlodipine Besylate (Norvasc Tab) 10 mg DAILY PO 05/08/17 09:00 06/07/17 08:59 05/08/17 08:09 10 MG Clopidogrel Bisulfate (plAVix TAB) 75 mg QAM PO 05/08/17 09:00 06/07/17 08:59 05/08/17 08:08 75 MG Levothyroxine Sodium (Synthroid Tab) 25 mcg DAILYBB PO 05/08/17 06:00 06/07/17 06:59 05/08/17 05:02 25 MCG Simvastatin (Zocor Tab) 40 mg HS PO 05/07/17 21:00 06/06/17 20:59 05/07/17 21:11 40 MG Cholecalciferol (Vitamin D Tab) 5,000 inter.unit DAILY PO 05/08/17 09:00 06/07/17 08:59 05/08/17 08:08 5,000 INTER.UNIT Insulin Aspart (novoLOG ASPART) SLIDING SCALE If C... ACHS SC 05/07/17 16:00 06/06/17 15:59 05/08/17 12:23 4 UNITS Glucose (Glucose 40% Gel) 15-30 GRAMS 15 GRAMS... UD PRN PO 11/6/17 15:00 06/06/17 14:59 Glucose (Glucose Chew Tab) 4-8 Tablets 4 Tabl... UD PRN PO 05/07/17 15:00 06/06/17 14:59 Dextrose (Dextrose 50% 50ML Syringe) 25-50ML OF 50% DW IV FOR... UD PRN IV 05/07/17 15:00 06/06/17 14:59 Glucagon (Glucagon Inj) 1 mg UD PRN SQ 05/07/17 15:00 06/06/17 14:59 Miscellaneous (Iv Fluids Completed) 1 ea PRN PRN N/A 05/07/17 15:30 05/07/18 15:29 Warfarin Sodium (Coumadin Tab) 2.5 mg DAILY@16 PO 05/08/17 16:00 06/07/17 15:59 Sodium Chloride 1,000 ml @ 75 mls/hr [id number] IV 05/08/17 10:00 06/07/17 09:59 05/08/17 10:43 75 MLS/HR Family History Cancer FH: heart disease Hyperlipidemia Hypertension Social History Smoking Status: Former Smoker Drug Use: none Marital Status: Housing Status: lives with significant other Occupation: retired Review of Systems A complete review of systems was performed but complicated by expressive aphasia. Pertinent positives are noted above. Physical Exam Date Time Temp Pulse Resp B/P (MAP) Pulse Ox O2 Delivery O2 Flow Rate FiO2 05/08/17 12:21 37.1 52 20 129/75 (93) 91 05/08/17 12:00 Room Air 05/08/17 10:54 48 96 05/08/17 08:04 36.9 44 20 155/53 (87) 89 Room Air 05/08/17 08:00 Room Air 05/08/17 04:58 40 158/61 (93) 05/08/17 04:18 36.7 38 18 174/66 (102) 92 Nasal Cannula 2.0 05/08/17 04:15 Nasal Cannula 2.0 05/08/17 00:00 Nasal Cannula 2.0 05/07/17 23:36 36.9 40 22 150/58 (88) 91 Nasal Cannula 2.0 05/07/17 21:11 Room Air 05/07/17 19:10 37.0 46 20 150/64 (92) 96 Room Air 05/07/17 16:30 36.8 44 18 170/63 96 Room Air General Appearance: WD/WN, no apparent distress Head: normocephalic, atraumatic Eyes: normal inspection, sclerae normal ENT: normal ENT inspection, + pertinent finding (oral mucosa dry) Neck: supple Respiratory/Chest: lungs clear, no respiratory distress, no accessory muscle use Cardiovascular: no murmur, + bradycardia Abdomen/GI: non tender, soft Extremities/Musculoskelatal: no pedal edema, + pertinent finding (left forearm cast, no distal cyanosis) Neurologic/Psych: alert, + pertinent finding (right sided weakness) Skin: normal color Laboratory Results Last 24 Hours Test 05/07/17 16:13 05/07/17 20:23 05/07/17 20:39 05/07/17 20:57 Bedside Glucose 189 mg/dl 56 mg/dl 65 mg/dl 82 mg/dl Test 05/08/17 05:19 05/08/17 12:44 05/08/17 15:30 White Blood Count 6.35 K/uL Red Blood Count 4.12 M/uL Hemoglobin 10.4 g/dL Hematocrit 34.5 % Mean Corpuscular Volume 83.7 fL Mean Corpuscular Hemoglobin 25.2 pg Mean Corpuscular Hemoglobin Concent 30.1 g/dl RDW Standard Deviation 50.8 fL RDW Coefficient of Variation 16.8 % Platelet Count 363 K/uL Mean Platelet Volume 8.9 fL Prothrombin Time 29.4 SECONDS Prothromb Time International Ratio 2.6 Sodium Level 140 mmol/L 139 mmol/L Potassium Level 5.5 mmol/L 5.3 mmol/L Chloride Level 107 mmol/L 106 mmol/L Carbon Dioxide Level 29 mmol/L 29 mmol/L Anion Gap 4.0 mmol/L 5.0 mmol/L Blood Urea Nitrogen 43 mg/dl 41 mg/dl Creatinine 2.36 mg/dl 2.23 mg/dl Est Creatinine Clear Calc Drug Dose 23.1 ml/min 24.5 ml/min Estimated GFR () 24.6 26.3 Estimated GFR (Non- 21.2 22.7 BUN/Creatinine Ratio 18.4 18.6 Random Glucose 104 mg/dl 181 mg/dl Calcium Level 8.1 mg/dl 8.4 mg/dl Troponin I 0.079 ng/ml Impression (1) RUPALI (acute kidney injury) (2) Renal artery stenosis (3) Hypertension (4) Atrial fibrillation (5) Bradycardia Shayy is a 61-year-old female with CKD III A3 (baseline creatinine 1.8 mg/dL) 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 She has an atrophic right kidney and left DION. Medical history is notable for multiple episodes of hemodynamically mediated RUPALI. Recent history also notable for CVA and new atrial fibrillation. She was admitted with junctional bradycardia. Metoprolol has been held. She does not appear symptomatic. Creatinine is slightly increased. Metabolic profile otherwise acceptable. Mild hyperkalemia noted and unlikely to be contributing to EKG changes. Medications appropriate for renal function. Urine output reported appropriate. She received 15 gm of Kayexalate x 1 dose. UA +4 protein. Microscopy notable for >30 WBC, 10-30 RBC and hyaline cast. Renal US shows renal asymmetry without evidence of obstruction. Recommendations -- Blood pressure and volume status appropriate -- RUPALI likely hemodynamically mediated -- Urine studies consistent with prerenal physiology and possible cystitis -- Reasonable to continue NS @ 75 ml/hr -- IVF to encourage UOP -- Document I/O's -- No additional treatment for hyperkalemia at this time -- Repeat metabolic profile tomorrow AM -- Medications are appropriate for renal function
[2017-05-08] MEDS: WARFARIN SOD 2.5 MG TAB PO SCH (16:16)
[2017-05-08] MEDS: SIMVASTATIN 40 MG TAB PO SCH (19:36)
[2017-05-08] MEDS ORDERED: NURSING VERBAL MED ORDER ONE (20:00)
[2017-05-08] MEDS ORDERED: HydrALAZINE HCL 20 MG/ML VIAL IV. PRN (20:00)
--- NOTE | 2017-05-08 23:58 | Hospitalist Progress Note ---
Hospitalist Progress Note Date of Service May 08, 2017. Subjective Pt evaluation today including: conversation w/ patient, conversation w/ family Feels fine, no complaints. Remains SB and some junctional rhythm on tele, rates in 40s-50s. Respiratory: No shortness of breath Cardiovascular: No chest pain All Other Systems: Reviewed and Negative Objective Vital Signs Date Time Temp Pulse Resp B/P (MAP) Pulse Ox O2 Delivery O2 Flow Rate FiO2 05/08/17 19:37 37.0 51 20 170/73 (105) 91 Room Air 05/08/17 19:36 Room Air 05/08/17 16:00 Room Air 05/08/17 16:00 36.8 55 22 134/57 (82) 92 Room Air 05/08/17 12:21 37.1 52 20 129/75 (93) 91 05/08/17 12:00 Room Air 05/08/17 10:54 48 96 05/08/17 08:04 36.9 44 20 155/53 (87) 89 Room Air 05/08/17 08:00 Room Air 05/08/17 04:58 40 158/61 (93) 05/08/17 04:18 36.7 38 18 174/66 (102) 92 Nasal Cannula 2.0 05/08/17 04:15 Nasal Cannula 2.0 05/08/17 00:00 Nasal Cannula 2.0 Physical Exam General Appearance: WD/WN, no apparent distress Eyes: normal inspection, sclerae normal ENT: hearing grossly normal Neck: trachea midline Respiratory/Chest: lungs clear, normal breath sounds, no respiratory distress, no accessory muscle use Cardiovascular: no edema, no gallop, + bradycardia (with reg rhythm) Abdomen: normal bowel sounds, non tender, soft Extremities: non-tender, normal inspection, no pedal edema, no calf tenderness Neurologic/Psychiatric: alert Skin: normal color, warm/dry, no rash Laboratory Results Last 24 Hours Test 05/08/17 05:19 05/08/17 06:35 05/08/17 11:30 05/08/17 12:44 White Blood Count 6.35 K/uL Red Blood Count 4.12 M/uL Hemoglobin 10.4 g/dL Hematocrit 34.5 % Mean Corpuscular Volume 83.7 fL Mean Corpuscular Hemoglobin 25.2 pg Mean Corpuscular Hemoglobin Concent 30.1 g/dl RDW Standard Deviation 50.8 fL RDW Coefficient of Variation 16.8 % Platelet Count 363 K/uL Mean Platelet Volume 8.9 fL Prothrombin Time 29.4 SECONDS Prothromb Time International Ratio 2.6 Sodium Level 140 mmol/L 139 mmol/L Potassium Level 5.5 mmol/L 5.3 mmol/L Chloride Level 107 mmol/L 106 mmol/L Carbon Dioxide Level 29 mmol/L 29 mmol/L Anion Gap 4.0 mmol/L 5.0 mmol/L Blood Urea Nitrogen 43 mg/dl 41 mg/dl Creatinine 2.36 mg/dl 2.23 mg/dl Est Creatinine Clear Calc Drug Dose 23.1 ml/min 24.5 ml/min Estimated GFR () 24.6 26.3 Estimated GFR (Non- 21.2 22.7 BUN/Creatinine Ratio 18.4 18.6 Random Glucose 104 mg/dl 181 mg/dl Calcium Level 8.1 mg/dl 8.4 mg/dl Troponin I 0.079 ng/ml Bedside Glucose 113 mg/dl 137 mg/dl Test 05/08/17 15:30 05/08/17 16:56 05/08/17 20:10 Urine Random Creatinine 58.9 mg/dl Urine Random Total Protein 375.0 mg/dl Urine Random Sodium 71 mEq/L Urine Protein/Creatinine Ratio 6.4 Bedside Glucose 123 mg/dl 145 mg/dl Assessment and Plan 61 yo female with h/o of atrial fibrillation with RVR, recent large cardioembolic stroke with residual aphasia, carotid artery stenosis, diabetes mellitus type 2, hypothyroidism, dyslipidemia, who presents with asymptomatic bradycardia in the 40s. Bradycardia/history of paroxysmal atrial fibrillation: Likely due to converting to sinus rhythm at some point while being on a high dose of metoprolol. 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 Rates are slightly improved today but still low. Patient remains asymptomatic -Appreciate cardiology consult -Continue to hold metoprolol -May need pacemaker -On Coumadin for anticoagulation for stroke prevention, follow INR History of Subacute-acute CVA/occluded right internal carotid artery- large 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 and significant mixed aphasia, Right LOPEZ, likely secondary to cardioembolic source: -Continue Coumadin, Plavix, statin - completed rehabilitation HTN-blood pressure is elevated here off of her metoprolol -continue amlodipine -IV hydralazine when necessary Elevated troponin/demand ischemia-troponin mildly elevated but stable at 0.072 , could be chronically elevated due to renal failure and was higher last admission during her CVA -No ischemic changes on ECG and patient is asymptomatic Left minimally angulated Colles fracture, left elbow contusion - seeing ortho as an outpatient -has long arm cast T2DM- HgbA1C 7.4 in March . With hypoglycemia on admission here likely secondary to oral hypoglycemic in the setting of renal failure - Held Glimepiride 2 mg BID-would not resume at discharge - BSG ACHS and sliding insulin scale and will resume home insulin at discharge Acute renal insufficiency on CKD stage III-IV, baseline Cr. 1.8- possibly worsening renal function due to bradycardia and poor perfusion? Renal ultrasound shows medical renal disease which is expected likely on a microvascular basis given her history of diabetes and vasculopathy Creatinine at 2.3 on admission -patient received 1 liter bolus in the ER, and creatinine did not improve -Restart IV fluids with normal saline at 75 ML's per hour -Consult nephrology appreciated -Follow PRP Hypothyroidism- TSH normal at 2.7 - Continue Synthroid 25 mcg daily - 1.7 cm nodule in the left thyroid lobe on CTA- f/u with a nonemergent/ outpatient thyroid ultrasound is recommended (from last admission) DVT prophylaxis: Coumadin Disposition-to home when stable Full code
[2017-05-09 00:53] VITALS: BP 166/60; PULSE 54; TEMP 36.6; O2SAT 93
[2017-05-09 02:49] VITALS: BP 163/64; PULSE 49; TEMP 36.5; O2SAT 98
[2017-05-09] MEDS: LEVOTHYROXINE 25 MCG TAB PO SCH (05:03)
[2017-05-09 08:05] VITALS: BP 173/68; PULSE 64; TEMP 36.6; O2SAT 93
[2017-05-09 08:21] LABS: INR 2.3 (0.9-1.1); PROTHROMBIN TIME (PATIENT) 25.6 SECONDS (9.0-12.0)
[2017-05-09] MEDS: CLOPIDOGREL BISULFATE 75 MG TAB PO SCH (08:23)
[2017-05-09] MEDS: CHOLECALCIFEROL 1000 INTER.UNIT TAB PO SCH (08:24)
[2017-05-09] MEDS: AMLODIPINE BESYLATE 5 MG TAB PO SCH (08:24)
[2017-05-09] MEDS: INSULIN ASPART 100 UNITS/ML 3 ML PEN SC SCH ×4 (08:28→21:00)
[2017-05-09 08:51] LABS: CREATININE 1.78 mg/dl (0.60-1.20)
[2017-05-09 08:52] LABS: BUN/CREATININE RATIO 17.3 (10-20); CALCIUM 7.9 mg/dl (8.5-10.1); PHOSPHORUS 3.6 mg/dl (2.5-4.9); POTASSIUM 4.7 mmol/L (3.5-5.1)
--- NOTE | 2017-05-09 10:05 | Nephrology Progress Note ---
Nephrology Progress Note Date of Service May 09, 2017. Chief Complaint Acute on chronic renal insufficiency Subjective No acute events overnight. Shayy is resting comfortably in bed. Heart rate 70 's at the time of my assessment; SR on tele. She denies chest pain or palpitations. Shayy denies lightheadedness or dizziness. Appetite good. No urinary complaints. Review of Systems A complete review of systems was performed. Pertinent positives are noted above. All other systems are negative. Vital Signs Last 8 Hrs Date Time Temp Pulse Resp B/P (MAP) Pulse Ox O2 Delivery O2 Flow Rate FiO2 05/09/17 08:05 36.6 64 22 173/68 (103) 93 Room Air 05/09/17 04:10 Nasal Cannula 2.0 05/09/17 02:49 36.5 49 18 163/64 (97) 98 Nasal Cannula 2.0 Last Recorded Weight Weight (Kilograms): 68.500 Physical Exam General Appearance: WD/WN, no apparent distress Head: normocephalic, atraumatic Eyes: normal inspection, sclerae normal ENT: normal ENT inspection, pharynx normal Neck: supple, no JVD Respiratory/Chest: lungs clear, no respiratory distress, no accessory muscle use Cardiovascular: regular rate, rhythm, no gallop Abdomen/GI: non tender, soft Extremities/Musculoskelatal: normal inspection, no pedal edema Neurologic/Psych: alert, normal mood/affect Family History Cancer FH: heart disease Hyperlipidemia Hypertension Social History Drug Use: none Marital Status: Housing Status: lives with significant other Occupation: retired Laboratory Results Past 24 Hours 05/08/17 12:44 05/09/17 07:46 Test 05/08/17 11:30 05/08/17 12:44 05/08/17 15:30 05/08/17 16:56 Bedside Glucose 137 mg/dl (70-90) 123 mg/dl (70-90) Anion Gap 5.0 mmol/L (3-11) Est Creatinine Clear Calc Drug Dose 24.5 ml/min Estimated GFR () 26.3 Estimated GFR (Non- 22.7 BUN/Creatinine Ratio 18.6 (10-20) Calcium Level 8.4 mg/dl (8.5-10.1) Urine Random Creatinine 58.9 mg/dl Urine Random Total Protein 375.0 mg/dl (0-11.9) Urine Random Sodium 71 mEq/L Urine Protein/Creatinine Ratio 6.4 (0-0.2) Test 05/08/17 20:10 05/09/17 06:53 05/09/17 07:46 Bedside Glucose 145 mg/dl (70-90) 102 mg/dl (70-90) Prothrombin Time 25.6 SECONDS (9.0-12.0) Prothromb Time International Ratio 2.3 (0.9-1.1) Anion Gap 6.0 mmol/L (3-11) Est Creatinine Clear Calc Drug Dose 30.8 ml/min Estimated GFR () 34.6 Estimated GFR (Non- 29.8 BUN/Creatinine Ratio 17.3 (10-20) Calcium Level 7.9 mg/dl (8.5-10.1) Phosphorus Level 3.6 mg/dl (2.5-4.9) Albumin 2.0 gm/dl (3.4-5.0) Allergies Coded Allergies: Penicillins (Unverified Allergy, Intermediate, ., 05/07/17) Aspirin (Verified Allergy, Unknown, swelling, 05/07/17) Hydralazine (Verified Allergy, Unknown, myalgias, 05/07/17) Procaine (Verified Allergy, Unknown, unknown, 05/07/17) Medications Current Inpatient Medications Medications (Trade) Dose Ordered Sig/Joe Route Start Time Stop Time Status Last Admin Dose Admin Amlodipine Besylate (Norvasc Tab) 10 mg DAILY PO 05/08/17 09:00 06/07/17 08:59 05/09/17 08:24 10 MG Clopidogrel Bisulfate (plAVix TAB) 75 mg QAM PO 05/08/17 09:00 06/07/17 08:59 05/09/17 08:23 75 MG Levothyroxine Sodium (Synthroid Tab) 25 mcg DAILYBB PO 05/08/17 06:00 06/07/17 06:59 05/09/17 05:03 25 MCG Simvastatin (Zocor Tab) 40 mg HS PO 05/07/17 21:00 06/06/17 20:59 05/08/17 19:36 40 MG Cholecalciferol (Vitamin D Tab) 5,000 inter.unit DAILY PO 05/08/17 09:00 06/07/17 08:59 05/09/17 08:24 5,000 INTER.UNIT Insulin Aspart (novoLOG ASPART) SLIDING SCALE If C... ACHS SC 05/07/17 16:00 06/06/17 15:59 05/09/17 08:28 2 UNITS Glucose (Glucose 40% Gel) 15-30 GRAMS 15 GRAMS... UD PRN PO 05/07/17 15:00 06/06/17 14:59 Glucose (Glucose Chew Tab) 4-8 Tablets 4 Tabl... UD PRN PO 05/07/17 15:00 06/06/17 14:59 Dextrose (Dextrose 50% 50ML Syringe) 25-50ML OF 50% DW IV FOR... UD PRN IV 05/07/17 15:00 06/06/17 14:59 Glucagon (Glucagon Inj) 1 mg UD PRN SQ 05/07/17 15:00 06/06/17 14:59 Miscellaneous (Iv Fluids Completed) 1 ea PRN PRN N/A 05/07/17 15:30 05/07/18 15:29 Warfarin Sodium (Coumadin Tab) 2.5 mg DAILY@16 PO 05/08/17 16:00 06/07/17 15:59 05/08/17 16:16 2.5 MG Sodium Chloride 1,000 ml @ 75 mls/hr [id number] IV 05/08/17 10:00 06/07/17 09:59 05/08/17 23:09 75 MLS/HR Hydralazine HCl (HydrALAZINE INJ) 10 mg Q8H PRN IV. 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 She has an atrophic right kidney and left DION. Medical history is notable for multiple episodes of hemodynamically mediated RUPALI. Recent medical history also notable for CVA and new atrial fibrillation. She was admitted yesterday with junctional bradycardia. Metoprolol has been held. She does not appear symptomatic. Tele showing SR this morning. Heart rate showing evidence of improvement. Creatinine improving. Metabolic profile otherwise acceptable. Medications appropriate for renal function. Urine output reported appropriate. UA +4 protein. Microscopy notable for >30 WBC, 10-30 RBC and hyaline cast. Renal US shows renal asymmetry without evidence of obstruction. Recommendations -- Blood pressure and volume status appropriate -- Stop IVF -- RUPALI hemodynamically mediated in setting of renovascular disease -- Hyperkalemia resolved -- Urine studies consistent with prerenal physiology and possible cystitis -- Document I/O's -- Monitor metabolic profile daily while inpatient -- Follow up in the nephrology clinic within 1 week of discharge -- Medications are appropriate for renal function
[2017-05-09 11:37] VITALS: BP 165/71; PULSE 82; TEMP 36.7; O2SAT 91
--- NOTE | 2017-05-09 12:53 | Hospitalist Progress Note ---
Hospitalist Progress Note Date of Service May 09, 2017. Subjective Pt evaluation today including: conversation w/ patient, conversation w/ cruise consultant (Nephro and Cardio) Pt has no complaints. Rates better in the 60s today, renal function improved.Discussed case with Cardio and Nephro All Other Systems: Reviewed and Negative Objective Vital Signs Date Time Temp Pulse Resp B/P (MAP) Pulse Ox O2 Delivery O2 Flow Rate FiO2 05/09/17 12:00 Room Air 05/09/17 11:37 36.7 82 22 165/71 (102) 91 Room Air 05/09/17 08:05 36.6 64 22 173/68 (103) 93 Room Air 05/09/17 08:00 Room Air 05/09/17 04:10 Nasal Cannula 2.0 05/09/17 02:49 36.5 49 18 163/64 (97) 98 Nasal Cannula 2.0 05/09/17 00:53 36.6 54 18 166/60 (95) 93 Nasal Cannula 2.0 05/09/17 00:30 Nasal Cannula 2.0 05/08/17 19:37 37.0 51 20 170/73 (105) 91 Room Air 05/08/17 19:36 Room Air 05/08/17 16:00 Room Air 05/08/17 16:00 36.8 55 22 134/57 (82) 92 Room Air Physical Exam General Appearance: WD/WN, no apparent distress Eyes: normal inspection, sclerae normal ENT: hearing grossly normal Neck: trachea midline Respiratory/Chest: lungs clear, normal breath sounds, no respiratory distress, no accessory muscle use Cardiovascular: regular rate, rhythm, no edema, no gallop, no murmur Abdomen: normal bowel sounds Extremities: non-tender, normal inspection, no pedal edema, no calf tenderness Neurologic/Psychiatric: alert, + pertinent finding (confused, aphasic expressive and receptive) Skin: normal color, warm/dry, no rash Laboratory Results Last 24 Hours Test 05/08/17 15:30 05/08/17 16:56 05/08/17 20:10 05/09/17 06:53 Urine Random Creatinine 58.9 mg/dl Urine Random Total Protein 375.0 mg/dl Urine Random Sodium 71 mEq/L Urine Protein/Creatinine Ratio 6.4 Bedside Glucose 123 mg/dl 145 mg/dl 102 mg/dl Test 05/09/17 07:46 05/09/17 11:49 Prothrombin Time 25.6 SECONDS Prothromb Time International Ratio 2.3 Sodium Level 143 mmol/L Potassium Level 4.7 mmol/L Chloride Level 109 mmol/L Carbon Dioxide Level 27 mmol/L Anion Gap 6.0 mmol/L Blood Urea Nitrogen 31 mg/dl Creatinine 1.78 mg/dl Est Creatinine Clear Calc Drug Dose 30.8 ml/min Estimated GFR () 34.6 Estimated GFR (Non- 29.8 BUN/Creatinine Ratio 17.3 Random Glucose 99 mg/dl Calcium Level 7.9 mg/dl Phosphorus Level 3.6 mg/dl Albumin 2.0 gm/dl Bedside Glucose 125 mg/dl Assessment and Plan 61 yo female with h/o of atrial fibrillation with RVR, recent large cardioembolic stroke with residual aphasia, carotid artery stenosis, diabetes mellitus type 2, hypothyroidism, dyslipidemia, who presents with asymptomatic bradycardia in the 40s. Bradycardia/history of paroxysmal atrial fibrillation: Likely due to converting to sinus rhythm at some point while being on a high dose of metoprolol. 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 Rates are improved today in the 60s on tele, 50s overnight. Patient remains asymptomatic -Appreciate cardiology consult -d/w Cardio-will restart Toprol XL today at 100mg daily and continue to watch her overnight to see if drops too low, watching also for A-fib -May need pacemaker if difficult to control -On Coumadin for anticoagulation for stroke prevention, follow INR which remains therapeutic History of Subacute-acute CVA/occluded right internal carotid artery- large 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 and significant mixed aphasia, Right LOPEZ, likely secondary to cardioembolic source: -Continue Coumadin, Plavix, statin - completed rehabilitation HTN-blood pressure is elevated here off of her metoprolol -continue amlodipine -no hydralazine due to allergy -restarting Toprol XL 100mg daily as above -consider starting low dose diuretic in future as per Nephro, but not right now -cannot have ACEI or ARB due to right atrophic kidney and left 0% DION as per Nephro Elevated troponin/demand ischemia-troponin mildly elevated but stable at 0.072 , could be chronically elevated due to renal failure and was higher last admission during her CVA -No ischemic changes on ECG and patient is asymptomatic Left minimally angulated Colles fracture, left elbow contusion - seeing ortho as an outpatient -has long arm cast T2DM- HgbA1C 7.4 in March . With hypoglycemia on admission here likely secondary to oral hypoglycemic in the setting of renal failure - Held Glimepiride 2 mg BID-would not resume at discharge - BSG ACHS and sliding insulin scale and will resume home insulin at discharge Acute renal insufficiency on CKD stage III-IV, baseline Cr. 1.8/Left DION/Right atrophic kidney- possibly worsening renal function due to bradycardia and poor perfusion? Renal ultrasound shows medical renal disease which is expected likely on a microvascular basis given her history of diabetes and vasculopathy Creatinine at 2.3 on admission -patient received 1 liter bolus in the ER, and creatinine did not improve -Restarted IV fluids with normal saline at 75 ML's per hour and now soa engineer back to baseline 1.7, Stop IVFs -Consult nephrology appreciated -Follow PRP and with Nephro in 1 week as outpt -avoid nephrotoxins, renally dose all meds Hypothyroidism- TSH normal at 2.7 - Continue Synthroid 25 mcg daily - 1.7 cm nodule in the left thyroid lobe on CTA- f/u with a nonemergent/ outpatient thyroid ultrasound is recommended (from last admission) DVT prophylaxis: Coumadin Disposition-to home in 1 day if HR ok with restarting Toprol Full code
[2017-05-09] MEDS ORDERED: METOPROLOL SUCC 50MG EXT REL TAB PO ONE (13:00)
--- NOTE | 2017-05-09 13:13 | Cardiology Follow-Up ---
Subjective Date of Service: May 09, 2017. Pt evaluation today including: conversation w/ patient, conversation w/ family , physical exam, lab review, review of studies, review of inpatient medication list, conversation w/ attending History of Present Illness This is a 61-year-old woman who has a history of diabetes, hypertension, hypothyroidism, hyperlipidemia (on statins) and chronic kidney disease. There is a suggestion that she has a history of atrial fibrillation although I don't see that in our office chart. She presented with less responsiveness 03/30/2017 , was noted to have a left hemispheric CVA and to be in atrial fibrillation with a rapid heart rate. She was therefore admitted. She was anticoagulated, the rate was controlled with metoprolol succinate 200 mg daily. She remained in atrial fibrillation throughout that hospitalization and was discharged on 2016. She went to rehabilitation, but then was sent home with visiting nurses. She was seen by Dr. Walker on 05/02/2017, at that time her heart rate was 72 bpm. On evaluation by home health nursing on 05/07/2017 she was found to be bradycardic and she was brought to the emergency room where she was found to be in a junctional bradycardia in the 30s. It sounds as though she was not terribly symptomatic with it. The patient is a poor historian, in part due to an expressive aphasia, and she is unable to tell me if she had symptoms of lightheadedness, dizziness or any other cardiovascular symptoms. She is not ambulatory therefore we cannot evaluate her exertional ability. It sounds as though she did not have presyncope or syncope. As near as I can tell she had remained on metoprolol succinate 200 mg daily with no other negative chronotropes. My hypothesis is that she converted from atrial fibrillation to sinus rhythm resulting in this low heart rate, exacerbated by beta-blockade. Her beta-blockade was held on admission but she received it on the morning of 05/08/2017. Today she feels well, she has no complaints. Her is visiting and she is very interactive. Social History Smoking Status: Former Smoker History of Alcohol Use: No Review of Systems Respiratory: No shortness of breath Cardiac: No chest pain Her review of systems is likely not accurate due to her expressive aphasia Medications Cardiovascular: Item Value Date Time Warfarin Sodium 2.5 mg 05/08/17 1600 (Coumadin Tab) DAILY@16/PO 05/08/17 1616 Amlodipine 10 mg 05/08/17 0900 Besylate DAILY/PO 05/09/17 0824 (Norvasc Tab) Clopidogrel 75 mg 05/08/17 0900 Bisulfate QAM/PO 05/09/17 0823 (plAVix TAB) Simvastatin 40 mg 05/07/17 2100 (Zocor Tab) HS/PO 05/08/17 1936 Objective Vital Signs Past 12 Hours Date Time Temp Pulse Resp B/P (MAP) Pulse Ox O2 Delivery O2 Flow Rate FiO2 05/09/17 12:00 Room Air 05/09/17 11:37 36.7 82 22 165/71 (102) 91 Room Air 05/09/17 08:05 36.6 64 22 173/68 (103) 93 Room Air 05/09/17 08:00 Room Air 05/09/17 04:10 Nasal Cannula 2.0 05/09/17 02:49 36.5 49 18 163/64 (97) 98 Nasal Cannula 2.0 Last Recorded Weight-Kilograms: 68.500 Physical Exam Constitutional: Level of Distress: NAD Lungs: Respiratory effort: no dyspnea, good air movement Auscultation: breath sounds normal, no wheezing Cardiovascular: Heart Auscultation: RRR, no murmurs, no rubs, no gallops Peripheral Pulses: Bruits: none appreciated Extremities: no edema Data Laboratory Results: Last 24 Hours Test 05/08/17 15:30 05/08/17 16:56 05/08/17 20:10 05/09/17 06:53 Urine Random Creatinine 58.9 mg/dl Urine Random Total Protein 375.0 mg/dl Urine Random Sodium 71 mEq/L Urine Protein/Creatinine Ratio 6.4 Bedside Glucose 123 mg/dl 145 mg/dl 102 mg/dl Test 05/09/17 07:46 05/09/17 11:49 Prothrombin Time 25.6 SECONDS Prothromb Time International Ratio 2.3 Sodium Level 143 mmol/L Potassium Level 4.7 mmol/L Chloride Level 109 mmol/L Carbon Dioxide Level 27 mmol/L Anion Gap 6.0 mmol/L Blood Urea Nitrogen 31 mg/dl Creatinine 1.78 mg/dl Est Creatinine Clear Calc Drug Dose 30.8 ml/min Estimated GFR () 34.6 Estimated GFR (Non- 29.8 BUN/Creatinine Ratio 17.3 Random Glucose 99 mg/dl Calcium Level 7.9 mg/dl Phosphorus Level 3.6 mg/dl Albumin 2.0 gm/dl Bedside Glucose 125 mg/dl Telemetry reviewed: She remains in sinus rhythm, her rate has gradually increased and she is in the 50s and 60s today. Assessment and Plan #1. Sinus bradycardia and junctional rhythm: This is most likely due to suppression of sinus node function from beta-blockade, this probably occurred some time following her 05/02/2017 office visit where her heart rate was noted to be 72 bpm. This could represent a component of sick sinus syndrome with her prior history of atrial fibrillation. I would suggest a trial of metoprolol succinate 100 mg daily to see whether her sinus rate can tolerate it. If not we may have to consider pacemaker since she will need rate control for atrial fibrillation. #2. Atrial fibrillation: She had atrial fibrillation with a rapid heart rate, we controlled it with metoprolol succinate 200 mg daily. Since she was not in sinus rhythm during her hospitalization we did not know how that would affect her sinus node. Hopefully on lower doses of metoprolol (100 mg daily) her sinus node will not be significantly suppressed, if she has significant bradycardia our options are to add low-dose digoxin (which doesn't affect sinus rate as much ), to use Bystolic which is less prone to cause sinus bradycardia or to implant a pacemaker to control her heart rate when she is in sinus rhythm. We will need to see how her heart rate response over the next several days. #3. Anticoagulation: She should remain on anticoagulation, it is likely her stroke was due to atrial fibrillation. Even though she is in sinus rhythm now she is at risk for stroke as I suspect she converted recently to sinus rhythm. Thank you for allowing me to participate in her care.
--- NOTE | 2017-05-09 13:20 | Medical Student: [facility] ---
Med Student Progress Note Date of Service May 09, 2017. Subjective Pt evaluation today including: conversation w/ patient, physical exam, chart review, review of studies Shayy is doing well today. She was speaking with a slightly improved vocabulary and walked to the bathroom without difficulty. She has no complaints and wanted to know when she would go home as she says she is getting bored being in the hospital all day. Her wanted to know what is going to be done with her medications. I discussed that her HR is improving and that we will have cardiology discuss with them the plans. I discussed that she seems to be responding to holding metoprolol, but later than expected. I discussed that I felt at this time I would like to continue to observe her HR response and observe for irregularities suggestive of Afib. Then, if she remains within an acceptable range and depending on the regularity will decide how to manage. Otherwise, she denies parasthesias, n/v/d/c, palpitations, chest pain, shortness of breath, fever, chills, or loss of balance. Review of Systems Constitutional: + see HPI Objective Vital Signs Date Time Temp Pulse Resp B/P (MAP) Pulse Ox O2 Delivery O2 Flow Rate FiO2 05/09/17 08:05 36.6 64 22 173/68 (103) 93 Room Air 05/09/17 08:00 Room Air 05/09/17 04:10 Nasal Cannula 2.0 05/09/17 02:49 36.5 49 18 163/64 (97) 98 Nasal Cannula 2.0 05/09/17 00:53 36.6 54 18 166/60 (95) 93 Nasal Cannula 2.0 05/09/17 00:30 Nasal Cannula 2.0 05/08/17 19:37 37.0 51 20 170/73 (105) 91 Room Air 05/08/17 19:36 Room Air 05/08/17 16:00 Room Air 05/08/17 16:00 36.8 55 22 134/57 (82) 92 Room Air 05/08/17 12:21 37.1 52 20 129/75 (93) 91 05/08/17 12:00 Room Air Physical Exam General Appearance: WD/WN, no apparent distress ENT: hearing grossly normal Neck: supple, no carotid bruits, trachea midline Respiratory/Chest: chest non-tender, lungs clear, normal breath sounds, no respiratory distress, no accessory muscle use Cardiovascular: regular rate, rhythm (Manually timed HR of 60 (30 beats in 30 seconds multiplied by 2)), no edema, no gallop, no JVD, no murmur Abdomen: normal bowel sounds, non tender, soft Extremities: non-tender, normal inspection, no pedal edema Neurologic/Psychiatric: no motor/sensory deficits, alert, normal mood/affect, + pertinent finding (She tends to have a resting facial expression consisting of mouth hanging open and a fatigued expression to her face, but when she talks she appears to have no facial expression deficits. She is using a more expressive vocabulary today and seems to be able to elaborate in slightly more detail than previous days. ) Skin: normal color, warm/dry, no rash Laboratory Results Last 24 Hours Test 05/08/17 11:30 05/08/17 12:44 05/08/17 15:30 05/08/17 16:56 Bedside Glucose 137 mg/dl 123 mg/dl Sodium Level 139 mmol/L Potassium Level 5.3 mmol/L Chloride Level 106 mmol/L Carbon Dioxide Level 29 mmol/L Anion Gap 5.0 mmol/L Blood Urea Nitrogen 41 mg/dl Creatinine 2.23 mg/dl Est Creatinine Clear Calc Drug Dose 24.5 ml/min Estimated GFR () 26.3 Estimated GFR (Non- 22.7 BUN/Creatinine Ratio 18.6 Random Glucose 181 mg/dl Calcium Level 8.4 mg/dl Urine Random Creatinine 58.9 mg/dl Urine Random Total Protein 375.0 mg/dl Urine Random Sodium 71 mEq/L Urine Protein/Creatinine Ratio 6.4 Test 05/08/17 20:10 05/09/17 06:53 05/09/17 07:46 Bedside Glucose 145 mg/dl 102 mg/dl Prothrombin Time 25.6 SECONDS Prothromb Time International Ratio 2.3 Sodium Level 143 mmol/L Potassium Level 4.7 mmol/L Chloride Level 109 mmol/L Carbon Dioxide Level 27 mmol/L Anion Gap 6.0 mmol/L Blood Urea Nitrogen 31 mg/dl Creatinine 1.78 mg/dl Est Creatinine Clear Calc Drug Dose 30.8 ml/min Estimated GFR () 34.6 Estimated GFR (Non- 29.8 BUN/Creatinine Ratio 17.3 Random Glucose 99 mg/dl Calcium Level 7.9 mg/dl Phosphorus Level 3.6 mg/dl Albumin 2.0 gm/dl Assessment and Plan Assessment and Plan: Shayy is a 61 yo female who presented for asymptomatic bradycardia in the setting of recent diagnosis of AFib and stroke 6 weeks ago. Bradycardia: Is in the 60-70bpm range today. Likely due to 200mg daily dose of Metoprolol prescribed at discharge from last hospitalization for newly diagnosed AFib. Have been withholding the medication since admission. Metoprolol succinate has a half life of 3-7 hours, so by 21-28 hours most of the medication's effects should have subsided. Other consideration is for sick sinus syndrome. Was questionable if metoprolol was the cause given she was not responding yesterday, but she seems to be responding today. Given her renal impairment, this may have been the cause for delayed response. Cardiology is following this patient and suggests considering pacemaker if holding metoprolol does not resolve her bradycardia. Plan: Cardiology recommends restarting metoprolol at 100mg today and monitor overnight for response. Continue on telemetry. Monitor for reemergence of irregular rhythms or tachycardia. If heart monitoring is reassuring overnight, following metoprolol reinitiation, then can likely discharge tomorrow. Hypertension: Likely due to severe vascular disease, given her history and as it is non-responsive to bradycardia. Has been in the 160-175 range systolic in the past 16 hours. Given that she has poor kidney function and renal stenosis, ACEIs and ARBs are less desirable. She has bradycardia (although improving) making non-dihydropyridine CCBs and B-Blockers less desirable. She is predisposed to hyperkalemia given renal function impairment so spironolactone is less desirable. She is allergic to hydralazine (myalgias). Will defer to input from cardiology and nephrology. Plan: Continue to monitor vitals. Continue Amlodipine 10mg PO daily. Defer to cardiology and nephrology for management. If BP becomes elevated while bradycardic and hyperkalemic, may consider furosemide or HCTZ. Elevated BUN/Cr in the setting of Stage 3/4 CKD: Improved from 41/2.23 yesterday to 31/1.78 today. Following her historical Cr values, this seems more like her baseline over the past 5 months. Will continue to monitor however and she will likely benefit from maintaining adequate hydration as well as avoiding nephrotoxic medications. In addition, her BUN has also fluctuated between 22 and 43 in the past 5 months, with improvement during hospitalization. Her chronic kidney disease could also be a factor in her elevated troponin of 0.072. Plan: Continue IVF, avoid nephrotoxic drugs, repeat BMP tomorrow. 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 Hyperkalemia: May be due to beta nayeli as well as RUPALI. Decreased from 5.5 to 5.3 yesterday and to 4.7 today following withholding metoprolol as well as continued improvement in BUN/Cr. Other than possible peaked T waves on EKG, has been asymptomatic (no weakness, paresthesias, or palpitations). Will be restarting metoprolol at half previous dose. Plan: Will monitor with repeat BMP tomorrow. Afib: EKG showed regular rhythm overnight. She is asymptomatic. INR of 2.3. Plan: Will continue anticoagulation with warfarin 2.5mg PO daily Hypothyroidism: Asymptomatic, manage outpatient. Plan: Continue Synthroid 25mcg PO daily Hyperlipidemia: Stable, manage outpatient. Plan: Continue simvastatin 40mg PO HS Diabetes: 100-145, on sliding scale insulin. Plan: Continue sliding scale insulin. Continued [facility] stay due to: abnormal vital signs
[2017-05-09 16:39] VITALS: BP 151/69; PULSE 56; TEMP 36.8; O2SAT 91
[2017-05-09] MEDS: WARFARIN SOD 2.5 MG TAB PO SCH (17:36)
[2017-05-09 20:30] VITALS: BP 146/57; PULSE 56; TEMP 36.9; O2SAT 95
[2017-05-09] MEDS: SIMVASTATIN 40 MG TAB PO SCH (21:31)
[2017-05-10] VITALS (7 sets, daily range): BP systolic 140–192; BP diastolic 54–71; PULSE 46–61; TEMP 36.9–37.1; O2SAT 86–94
[2017-05-10] MEDS: LEVOTHYROXINE 25 MCG TAB PO SCH (05:39)
[2017-05-10 08:05] LABS: PROTHROMBIN TIME (PATIENT) 22.4 SECONDS (9.0-12.0)
[2017-05-10] MEDS: CLOPIDOGREL BISULFATE 75 MG TAB PO SCH (08:07)
[2017-05-10] MEDS: CHOLECALCIFEROL 1000 INTER.UNIT TAB PO SCH (08:07)
[2017-05-10] MEDS: AMLODIPINE BESYLATE 5 MG TAB PO SCH (08:08)
[2017-05-10] MEDS: INSULIN ASPART 100 UNITS/ML 3 ML PEN SC SCH ×4 (08:09→20:44)
[2017-05-10 08:34] LABS: BUN/CREATININE RATIO 16.9 (10-20); CALCIUM 8.6 mg/dl (8.5-10.1); CREATININE 1.88 mg/dl (0.60-1.20); MAGNESIUM 1.9 mg/dl (1.8-2.4)
[2017-05-10] MEDS ORDERED: METOPROLOL SUCC 50MG EXT REL TAB PO SCH (09:00)
--- NOTE | 2017-05-10 09:47 | Nephrology Progress Note ---
Nephrology Progress Note Date of Service May 10, 2017. Chief Complaint Acute on chronic renal insufficiency Subjective No acute events overnight. Shayy is ambulating from bed to bathroom without difficulty. She feels well and hopes to go home today. No chest pain or palpitations. Appetite is good. She denies lightheadedness or dizziness. Review of Systems A complete review of systems was performed. Pertinent positives are noted above. All other systems are negative. Vital Signs Last 8 Hrs Date Time Temp Pulse Resp B/P (MAP) Pulse Ox O2 Delivery O2 Flow Rate FiO2 05/10/17 08:00 Room Air 05/10/17 07:17 37.0 61 22 192/66 (108) 86 Room Air 05/10/17 05:06 37.0 51 20 176/70 (105) 91 Room Air 05/10/17 04:00 94 Room Air Last Recorded Weight Weight (Kilograms): 66.000 Physical Exam General Appearance: WD/WN, no apparent distress Head: normocephalic, atraumatic Eyes: normal inspection, sclerae normal ENT: normal ENT inspection, pharynx normal Neck: supple, no JVD Respiratory/Chest: lungs clear, no respiratory distress, no accessory muscle use Cardiovascular: no murmur, + bradycardia Abdomen/GI: non tender, soft Extremities/Musculoskelatal: normal inspection, no pedal edema, + pertinent finding (left arm casted) Family History Cancer FH: heart disease Hyperlipidemia Hypertension Social History Drug Use: none Marital Status: Housing Status: lives with significant other Occupation: retired Laboratory Results Past 24 Hours 05/10/17 07:35 Test 05/09/17 11:49 05/09/17 16:24 05/09/17 20:59 05/10/17 06:53 Bedside Glucose 125 mg/dl (70-90) 129 mg/dl (70-90) 134 mg/dl (70-90) 105 mg/dl (70-90) Test 05/10/17 07:35 Prothrombin Time 22.4 SECONDS (9.0-12.0) Prothromb Time International Ratio 2.0 (0.9-1.1) Anion Gap 6.0 mmol/L (3-11) Est Creatinine Clear Calc Drug Dose 28.6 ml/min Estimated GFR () 32.4 Estimated GFR (Non- 27.9 BUN/Creatinine Ratio 16.9 (10-20) Calcium Level 8.6 mg/dl (8.5-10.1) Magnesium Level 1.9 mg/dl (1.8-2.4) Allergies Coded Allergies: Penicillins (Unverified Allergy, Intermediate, ., 05/07/17) Aspirin (Verified Allergy, Unknown, swelling, 05/07/17) Hydralazine (Verified Allergy, Unknown, myalgias, 05/07/17) Procaine (Verified Allergy, Unknown, unknown, 05/07/17) Medications Current Inpatient Medications Medications (Trade) Dose Ordered Sig/Joe Route Start Time Stop Time Status Last Admin Dose Admin Amlodipine Besylate (Norvasc Tab) 10 mg DAILY PO 05/08/17 09:00 06/07/17 08:59 05/10/17 08:08 10 MG Clopidogrel Bisulfate (plAVix TAB) 75 mg QAM PO 05/08/17 09:00 06/07/17 08:59 05/10/17 08:07 75 MG Levothyroxine Sodium (Synthroid Tab) 25 mcg DAILYBB PO 05/08/17 06:00 06/07/17 06:59 05/10/17 05:39 25 MCG Simvastatin (Zocor Tab) 40 mg HS PO 05/07/17 21:00 06/06/17 20:59 05/09/17 21:31 40 MG Cholecalciferol (Vitamin D Tab) 5,000 inter.unit DAILY PO 05/08/17 09:00 06/07/17 08:59 05/10/17 08:07 5,000 INTER.UNIT Insulin Aspart (novoLOG ASPART) SLIDING SCALE If C... ACHS SC 05/07/17 16:00 06/06/17 15:59 05/10/17 08:09 1 UNITS Glucose (Glucose 40% Gel) 15-30 GRAMS 15 GRAMS... UD PRN PO 05/07/17 15:00 06/06/17 14:59 Glucose (Glucose Chew Tab) 4-8 Tablets 4 Tabl... UD PRN PO 05/07/17 15:00 06/06/17 14:59 Dextrose (Dextrose 50% 50ML Syringe) 25-50ML OF 50% DW IV FOR... UD PRN IV 05/07/17 15:00 06/06/17 14:59 Glucagon (Glucagon Inj) 1 mg UD PRN SQ 05/07/17 15:00 06/06/17 14:59 Miscellaneous (Iv Fluids Completed) 1 ea PRN PRN N/A 05/07/17 15:30 05/07/18 15:29 Warfarin Sodium (Coumadin Tab) 2.5 mg DAILY@16 PO 05/08/17 16:00 06/07/17 15:59 05/09/17 17:36 2.5 MG Metoprolol Succinate (Toprol Xl Tab) 100 mg QAM PO 05/10/17 09:00 06/09/17 08:59 05/10/17 08:08 100 MG Impression (1) RUPALI (acute kidney injury) (2) Renal artery stenosis (3) Hypertension (4) Atrial fibrillation (5) Bradycardia Shayy is a 61-year-old female with CKD III A3 (baseline creatinine 1.8 mg/dL) 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 She has an atrophic right kidney and left DION. Medical history is notable for multiple episodes of hemodynamically mediated RUPALI. Recent medical history also notable for CVA and new atrial fibrillation. She was admitted with junctional bradycardia. Metoprolol held and restarted at reduced dose. Blood pressure and heart rate appear acceptable. Sinus phyllis on monitor. She does not appear symptomatic. Creatinine improving. Metabolic profile otherwise acceptable. Medications appropriate for renal function. Urine output reported appropriate. UA +4 protein. Microscopy notable for >30 WBC, 10-30 RBC and hyaline cast. Renal US shows renal asymmetry without evidence of obstruction. Recommendations -- Blood pressure and volume status appropriate -- RUPALI hemodynamically mediated in setting of renovascular disease -- Hyperkalemia resolved -- Urine studies consistent with prerenal physiology and possible cystitis -- Document I/O's while inpatient -- Repeat metabolic profile within 1 week of discharge (results can be faxed to [phone]) -- Follow up in the nephrology clinic within 1 week of discharge (patient can call [phone] to schedule) -- Medications are appropriate for renal function
--- NOTE | 2017-05-10 16:03 | Medical Student: [facility] ---
Med Student Progress Note Date of Service May 10, 2017. Subjective Pt evaluation today including: conversation w/ patient, physical exam, chart review, lab review, review of studies Sinus bradycardia overnight, asymptomatic, feels well. Spoke with her and her about the plan with cardiology to decrease metoprolol to 75mg starting tomorrow and observe for response, followed by possible discharge tomorrow afternoon. Review of Systems Constitutional: No fever, No chills Respiratory: No cough, No sputum, No wheezing, No shortness of breath, No dyspnea on exertion, No dyspnea at rest Cardiac: No chest pain, No edema, No palpitations Abdomen: No nausea, No vomiting, No diarrhea, No constipation Neurologic: No vertigo, No balance problems Objective Vital Signs Date Time Temp Pulse Resp B/P (MAP) Pulse Ox O2 Delivery O2 Flow Rate FiO2 05/10/17 15:41 36.9 46 18 157/71 (99) 90 05/10/17 12:00 Room Air 05/10/17 10:42 37.1 52 20 171/54 (93) 91 Room Air 05/10/17 08:00 Room Air 05/10/17 07:17 37.0 61 22 192/66 (108) 86 Room Air 05/10/17 05:06 37.0 51 20 176/70 (105) 91 Room Air 05/10/17 04:00 94 Room Air 05/10/17 00:21 36.9 56 18 140/65 (90) 94 Room Air 05/09/17 23:59 Nasal Cannula 2.0 05/09/17 20:30 36.9 56 16 146/57 (86) 95 Nasal Cannula 2.0 05/09/17 20:00 Room Air 05/09/17 16:39 36.8 56 18 151/69 (96) 91 Room Air 05/09/17 16:00 Room Air Physical Exam General Appearance: WD/WN, no apparent distress ENT: hearing grossly normal Neck: supple, trachea midline Respiratory/Chest: chest non-tender, lungs clear, normal breath sounds, no respiratory distress, no accessory muscle use Cardiovascular: no edema, no gallop, no JVD, no murmur, + bradycardia (regular rhythm), + normal peripheral pulses Abdomen: non tender, soft Extremities: non-tender, normal inspection, no pedal edema Neurologic/Psychiatric: alert, + pertinent finding (patient continues to seem confused and needs things repeated. Vocabulary is about the same as yesterday, she will use more specific terms, but still seems limited. Typically has a blank expression with mouth hanging open. ) Laboratory Results Last 24 Hours Test 05/09/17 16:24 05/09/17 20:59 05/10/17 06:53 05/10/17 07:35 Bedside Glucose 129 mg/dl 134 mg/dl 105 mg/dl Prothrombin Time 22.4 SECONDS Prothromb Time International Ratio 2.0 Sodium Level 141 mmol/L Potassium Level 5.0 mmol/L Chloride Level 108 mmol/L Carbon Dioxide Level 27 mmol/L Anion Gap 6.0 mmol/L Blood Urea Nitrogen 32 mg/dl Creatinine 1.88 mg/dl Est Creatinine Clear Calc Drug Dose 28.6 ml/min Estimated GFR () 32.4 Estimated GFR (Non- 27.9 BUN/Creatinine Ratio 16.9 Random Glucose 108 mg/dl Calcium Level 8.6 mg/dl Magnesium Level 1.9 mg/dl Test 05/10/17 11:37 Bedside Glucose 116 mg/dl Assessment and Plan Assessment and Plan: Shayy is a 61 yo female who presented for asymptomatic bradycardia in the setting of recent diagnosis of AFib and stroke 6 weeks ago. Bradycardia: Is in the 48-60bpm range today. This is in the setting of 100mg Metoprolol since yesterday afternoon. Other consideration is for sick sinus syndrome. Cardiology is following this patient and suggests considering digoxin , Bystolic, or pacemaker if unable to tolerate metoprolol and/or return of Afib while on metoprolol. Plan: Cardiology recommends decreasing metoprolol to 75mg tomorrow AM and monitor for response. Continue on telemetry. Monitor for reemergence of irregular rhythms or tachycardia. If heart monitoring is reassuring tomorrow, following metoprolol reduction, then can likely discharge tomorrow. Hypertension: Likely due to severe vascular disease, given her history and as it is non-responsive to bradycardia. Has been in the 146-192 range systolic in the past 24 hours. Given that she has poor kidney function and renal stenosis, ACEIs and ARBs are less desirable. She has bradycardia (although improving) making non-dihydropyridine CCBs and B-Blockers less desirable. She is predisposed to hyperkalemia given renal function impairment so spironolactone is less desirable. She is allergic to hydralazine (myalgias). Will defer to input from cardiology and nephrology. Plan: Continue to monitor vitals. Continue Amlodipine 10mg PO daily. Defer to cardiology and nephrology for management. If BP becomes elevated while bradycardic and hyperkalemic, may consider furosemide or HCTZ. Will likely need further management outpatient and likely nephrology assessment and management for renal causes of her hypertension. Elevated BUN/Cr in the setting of Stage 3/4 CKD: Slight set back from 31/1.78 yesterday to 32/1.88 today. Following her historical Cr values, this seems near to her baseline over the past 5 months. Will continue to monitor however and she will likely benefit from maintaining adequate hydration as well as avoiding nephrotoxic medications. In addition, her BUN has also fluctuated between 22 and 43 in the past 5 months, with improvement during hospitalization. Her chronic kidney disease could also be a factor in her elevated troponin of 0.072. Plan: Continue IVF, avoid nephrotoxic drugs, repeat BMP tomorrow. 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 Hyperkalemia: May be due to beta nayeli as well as CKD. Remains hunter today following restarting metoprolol. Other than possible peaked T waves on EKG at admission, has been asymptomatic (no weakness, paresthesias, or palpitations). Plan: Will monitor with repeat BMP tomorrow. Afib: EKG showed sinus bradycardia overnight. She is asymptomatic. INR of 2.0. Plan: Will continue anticoagulation with warfarin 2.5mg PO daily Hypothyroidism: Asymptomatic, manage outpatient. Plan: Continue Synthroid 25mcg PO daily Hyperlipidemia: Stable, manage outpatient. Plan: Continue simvastatin 40mg PO HS Diabetes: 105-134, on sliding scale insulin. Plan: Continue sliding scale insulin. Continued [facility] stay due to: abnormal vital signs
[2017-05-10] MEDS: WARFARIN SOD 2.5 MG TAB PO SCH (16:20)
--- NOTE | 2017-05-10 16:38 | Cardiology Follow-Up ---
Subjective Date of Service: May 10, 2017. Pt evaluation today including: conversation w/ patient, conversation w/ family , physical exam, lab review, review of studies, review of inpatient medication list, conversation w/ attending History of Present Illness This is a 61-year-old woman who has a history of diabetes, hypertension, hypothyroidism, hyperlipidemia (on statins) and chronic kidney disease. There is a suggestion that she has a history of atrial fibrillation although I don't see that in our office chart. She presented with less responsiveness 03/30/2017 , was noted to have a left hemispheric CVA and to be in atrial fibrillation with a rapid heart rate. She was therefore admitted. She was anticoagulated, the rate was controlled with metoprolol succinate 200 mg daily. She remained in atrial fibrillation throughout that hospitalization and was discharged on 2016. She went to rehabilitation, but then was sent home with visiting nurses. She was seen by Dr. Walker on 05/02/2017, at that time her heart rate was 72 bpm. On evaluation by home health nursing on 05/07/2017 she was found to be bradycardic and she was brought to the emergency room where she was found to be in a junctional bradycardia in the 30s. It sounds as though she was not terribly symptomatic with it. The patient is a poor historian, in part due to an expressive aphasia, and she is unable to tell me if she had symptoms of lightheadedness, dizziness or any other cardiovascular symptoms. She is not ambulatory therefore we cannot evaluate her exertional ability. It sounds as though she did not have presyncope or syncope. As near as I can tell she had remained on metoprolol succinate 200 mg daily with no other negative chronotropes. My hypothesis is that she converted from atrial fibrillation to sinus rhythm resulting in this low heart rate, exacerbated by beta-blockade. Her beta-blockade was held on admission but she received it on the morning of 05/08/2017. She received 100 mg of metoprolol succinate on the morning of 05/09/2017 and this morning. Her heart rate is in the 140s now with her sitting in a chair. She doesn't have any complaints but that seems a little bit low. She is alert and cooperative and anxious to go home. Social History Smoking Status: Former Smoker History of Alcohol Use: No Review of Systems Respiratory: No cough, No sputum, No wheezing, No shortness of breath, No dyspnea on exertion, No dyspnea at rest Cardiac: No chest pain, No edema, No palpitations Her review of systems is likely not accurate due to her expressive aphasia Medications Cardiovascular: Item Value Date Time Metoprolol 75 mg 05/11/17 0900 Succinate QAM/PO (Toprol Xl Tab) Warfarin Sodium 2.5 mg 05/08/17 1600 (Coumadin Tab) DAILY@16/PO 05/10/17 1620 Amlodipine 10 mg 05/08/17 0900 Besylate DAILY/PO 05/10/17 0808 (Norvasc Tab) Clopidogrel 75 mg 05/08/17 0900 Bisulfate QAM/PO 05/10/17 0807 (plAVix TAB) Simvastatin 40 mg 05/07/17 2100 (Zocor Tab) HS/PO 05/09/171 Objective Vital Signs Past 12 Hours Date Time Temp Pulse Resp B/P (MAP) Pulse Ox O2 Delivery O2 Flow Rate FiO2 05/10/17 15:41 36.9 46 18 157/71 (99) 90 05/10/17 12:00 Room Air 05/10/17 10:42 37.1 52 20 171/54 (93) 91 Room Air 05/10/17 08:00 Room Air 05/10/17 07:17 37.0 61 22 192/66 (108) 86 Room Air 05/10/17 05:06 37.0 51 20 176/70 (105) 91 Room Air Last Recorded Weight-Kilograms: 66.000 Intake & Output 8-Hour Column 05/10/17 05/11/17 05/11/17 16:00 00:00 08:00 Intake Total 220 ml Balance 220 ml 24-Hour Column 05/11/17 08:00 Intake Total 220 ml Balance 220 ml Physical Exam Constitutional: Level of Distress: NAD Lungs: Respiratory effort: no dyspnea, good air movement Auscultation: breath sounds normal, no wheezing Cardiovascular: Heart Auscultation: RRR, no murmurs, no rubs, no gallops, bradycardia Peripheral Pulses: Bruits: none appreciated Extremities: no edema Data Laboratory Results: Last 24 Hours Test 05/09/17 20:59 05/10/17 06:53 05/10/17 07:35 05/10/17 11:37 Bedside Glucose 134 mg/dl 105 mg/dl 116 mg/dl Prothrombin Time 22.4 SECONDS Prothromb Time International Ratio 2.0 Sodium Level 141 mmol/L Potassium Level 5.0 mmol/L Chloride Level 108 mmol/L Carbon Dioxide Level 27 mmol/L Anion Gap 6.0 mmol/L Blood Urea Nitrogen 32 mg/dl Creatinine 1.88 mg/dl Est Creatinine Clear Calc Drug Dose 28.6 ml/min Estimated GFR () 32.4 Estimated GFR (Non- 27.9 BUN/Creatinine Ratio 16.9 Random Glucose 108 mg/dl Calcium Level 8.6 mg/dl Magnesium Level 1.9 mg/dl Telemetry reviewed: Sinus bradycardia, heart rate fairly stable in the mid 40s to low 50s, currently mid 40s. Assessment and Plan #1. Sinus bradycardia and junctional rhythm: This is most likely due to suppression of sinus node function from beta-blockade, this probably occurred some time following her 05/02/2017 office visit where her heart rate was noted to be 72 bpm. This could represent a component of sick sinus syndrome with her prior history of atrial fibrillation. It appears that 100 mg of metoprolol succinate is too much, I would like her to reduce that to 50 mg tomorrow. If her heart rate is acceptable tomorrow afternoon she could go home and we can follow this as an outpatient. #2. Atrial fibrillation: She had atrial fibrillation with a rapid heart rate last admission, we controlled it with metoprolol succinate 200 mg daily. Since she was not in sinus rhythm during her hospitalization we did not know how that would affect her sinus node. Hopefully on lower doses of metoprolol (50 mg daily ) her sinus node will not be significantly suppressed, if she has significant bradycardia our options are to add low-dose digoxin (which doesn't affect sinus rate as much), to use Bystolic which is less prone to cause sinus bradycardia or to implant a pacemaker to control her heart rate when she is in sinus rhythm. Until she goes back and atrial fibrillation we won't know the degree of control. #3. Anticoagulation: She should remain on anticoagulation, it is likely her stroke was due to atrial fibrillation. Even though she is in sinus rhythm now she is at risk for stroke as I suspect she converted recently to sinus rhythm. Thank you for allowing me to participate in her care.
[2017-05-10] MEDS: SIMVASTATIN 40 MG TAB PO SCH (19:31)
[2017-05-11 00:35] VITALS: BP 165/63; PULSE 51; TEMP 36.8; O2SAT 98
[2017-05-11 04:37] VITALS: BP 161/61; PULSE 49; TEMP 36.6; O2SAT 95
[2017-05-11] MEDS: LEVOTHYROXINE 25 MCG TAB PO SCH (06:24)
--- NOTE | 2017-05-11 06:57 | Hospitalist Progress Note ---
Hospitalist Progress Note Date of Service May 10, 2017. Subjective Pt evaluation today including: conversation w/ patient, conversation w/ family , conversation w/ campaign consultant (cardiology) Patient has no complaints. Rates were in the 50s mostly, but currently in the 40s and sinus on telemetry. Patient is asymptomatic All Other Systems: Reviewed and Negative Objective Vital Signs Date Time Temp Pulse Resp B/P (MAP) Pulse Ox O2 Delivery O2 Flow Rate FiO2 05/11/17 04:37 36.6 49 18 161/61 (94) 95 Nasal Cannula 2.0 05/11/17 04:30 Nasal Cannula 2.0 05/11/17 00:35 36.8 51 17 165/63 (97) 98 Nasal Cannula 3.0 05/10/17 23:30 Nasal Cannula 2.0 05/10/17 20:00 Room Air 05/10/17 19:53 36.9 47 20 162/66 (98) 91 Nasal Cannula 2.0 05/10/17 16:00 Room Air 05/10/17 15:41 36.9 46 18 157/71 (99) 90 05/10/17 12:00 Room Air 05/10/17 10:42 37.1 52 20 171/54 (93) 91 Room Air 05/10/17 08:00 Room Air 05/10/17 07:17 37.0 61 22 192/66 (108) 86 Room Air Physical Exam General Appearance: WD/WN, no apparent distress Eyes: normal inspection, sclerae normal ENT: hearing grossly normal Neck: trachea midline Respiratory/Chest: lungs clear, normal breath sounds, no respiratory distress, no accessory muscle use Cardiovascular: no edema, no gallop, no murmur, + bradycardia (with regular rhythm) Abdomen: normal bowel sounds, non tender, soft Extremities: non-tender, normal inspection, no pedal edema, no calf tenderness Neurologic/Psychiatric: alert, + disoriented (continued moderate expressive and receptive aphasia) Skin: normal color, warm/dry, no rash Laboratory Results Last 24 Hours Test 05/10/17 06:53 05/10/17 07:35 05/10/17 11:37 05/10/17 16:01 Bedside Glucose 105 mg/dl 116 mg/dl 125 mg/dl Prothrombin Time 22.4 SECONDS Prothromb Time International Ratio 2.0 Sodium Level 141 mmol/L Potassium Level 5.0 mmol/L Chloride Level 108 mmol/L Carbon Dioxide Level 27 mmol/L Anion Gap 6.0 mmol/L Blood Urea Nitrogen 32 mg/dl Creatinine 1.88 mg/dl Est Creatinine Clear Calc Drug Dose 28.6 ml/min Estimated GFR () 32.4 Estimated GFR (Non- 27.9 BUN/Creatinine Ratio 16.9 Random Glucose 108 mg/dl Calcium Level 8.6 mg/dl Magnesium Level 1.9 mg/dl Test 05/10/17 20:08 05/11/17 04:44 05/11/17 06:36 Bedside Glucose 107 mg/dl Assessment and Plan 61 yo female with h/o of atrial fibrillation with RVR, recent large cardioembolic stroke with residual aphasia, carotid artery stenosis, diabetes mellitus type 2, hypothyroidism, dyslipidemia, who presents with asymptomatic bradycardia in the 40s. Bradycardia/history of paroxysmal atrial fibrillation: Likely due to converting to sinus rhythm at some point while being on a high dose of metoprolol. 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 Rates were improved improved after holding Toprol- XL for 2 days, and it was restarted at 100 mg daily yesterday-now rates her back in the 40s but Patient remains asymptomatic. -Appreciate cardiology consult-discussed the case with Dr. Smith again today -d/w Cardio-will lower Toprol XL today to 50mg daily and continue to watch her overnight to see if drops too low, watching also for A-fib -May need pacemaker if difficult to control -On Coumadin for anticoagulation for stroke prevention, follow INR which remains therapeutic History of Subacute-acute CVA/occluded right internal carotid artery- large 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 and significant mixed aphasia, Right LOPEZ, likely secondary to cardioembolic source: -Continue Coumadin, Plavix, statin - completed rehabilitation HTN-blood pressure is elevated here off of her metoprolol -continue amlodipine -no hydralazine due to allergy -restarted Toprol XL as above -consider starting low dose diuretic in future as per Nephro, but not right now -cannot have ACEI or ARB due to right atrophic kidney and left 60% DION as per Nephro -Continue to follow and could consider trial hydralazine in the hospital- and patient cannot recall this allergy Elevated troponin/demand ischemia-troponin mildly elevated but stable at 0.072 , could be chronically elevated due to renal failure and was higher last admission during her CVA -No ischemic changes on ECG and patient is asymptomatic Left minimally angulated Colles fracture, left elbow contusion - seeing ortho as an outpatient -has long arm cast T2DM- HgbA1C 7.4 in March . With hypoglycemia on admission here likely secondary to oral hypoglycemic in the setting of renal failure - Held Glimepiride-would consider not resuming at discharge in favor of another oral diabetes medication like Januvia or Tradjenta if affordable - BSG ACHS and sliding insulin scale Acute renal insufficiency on CKD stage III-IV, baseline Cr. 1.8/Left DION/Right atrophic kidney- possibly worsening renal function due to bradycardia and poor perfusion? Renal ultrasound shows medical renal disease which is expected likely on a microvascular basis given her history of diabetes and vasculopathy Creatinine at 2.3 on admission, now remains at baseline around 1.80 -patient received 1 liter bolus in the ER, and creatinine did not improve -Restarted IV fluids with normal saline at 75 ML's per hour and now residential team leader back to baseline, Stopped IVFs -Consult nephrology appreciated -Follow PRP and with Nephro in 1 week as outpt after discharge -avoid nephrotoxins, renally dose all meds Hypothyroidism- TSH normal at 2.7 - Continue Synthroid 25 mcg daily - 1.7 cm nodule in the left thyroid lobe on CTA- f/u with a nonemergent/ outpatient thyroid ultrasound is recommended (from last admission) DVT prophylaxis: Coumadin Disposition-to home once rates acceptable Full code
[2017-05-11 07:33] LABS: BASO % 0.8 %; BASO ABS # 0.05 K/uL (0-0.2); COMPLETE YES; EOS % 3.6 %; IG% 0.3 %; LYMPH % 19.7 %; MEAN CELL VOLUME 83.6 fL (80-100); MEAN CORPUSCULAR HEMOGLOBIN 25.8 pg (25-34); MEAN CORPUSCULAR HGB CONC 30.9 g/dl (32-36); MEAN PLATELET VOLUME 8.8 fL (7.4-10.4); MONO % 5.9 %; NEUT % 69.7 %; PLATELET COUNT 371 K/uL (130-400); RED BLOOD COUNT 3.83 M/uL (4.2-5.4)
[2017-05-11 07:46] LABS: INR 1.9 (0.9-1.1); PROTHROMBIN TIME (PATIENT) 21.4 SECONDS (9.0-12.0)
[2017-05-11 07:56] VITALS: BP 155/65; PULSE 54; TEMP 36.9; O2SAT 90
[2017-05-11 07:59] LABS: BUN/CREATININE RATIO 18.4 (10-20); CALCIUM 8.5 mg/dl (8.5-10.1); CREATININE 1.97 mg/dl (0.60-1.20); MAGNESIUM 1.9 mg/dl (1.8-2.4); POTASSIUM 5.1 mmol/L (3.5-5.1)
[2017-05-11] MEDS: AMLODIPINE BESYLATE 5 MG TAB PO SCH (08:08)
[2017-05-11] MEDS: CLOPIDOGREL BISULFATE 75 MG TAB PO SCH (08:08)
[2017-05-11] MEDS: CHOLECALCIFEROL 1000 INTER.UNIT TAB PO SCH (08:08)
[2017-05-11] MEDS: INSULIN ASPART 100 UNITS/ML 3 ML PEN SC SCH (08:14)
[2017-05-11] MEDS ORDERED: METOPROLOL SUCC 50MG EXT REL TAB PO SCH ×2 (09:00)
[2017-05-11] MEDS ORDERED: MAGNESIUM SULFATE 1GM / D5W 1 GM in PREMIXED IN D5W 100 ML IV ONE (09:15)
--- NOTE | 2017-05-11 11:09 | Nephrology Progress Note ---
Nephrology Progress Note Date of Service May 11, 2017. Chief Complaint Follow-up for acute kidney injury with history of CKD. Jennifer Lucas was seen and examined in her room this morning. She has been lying in bed, comfortable, denies any symptoms. Blood pressure has been stable. Renal function remained stable creatinine 2.0, close to her baseline. Decent urine output. Review of Systems A complete review of systems was performed. Pertinent positives are noted above. All other systems are negative. Vital Signs Last 8 Hrs Date Time Temp Pulse Resp B/P (MAP) Pulse Ox O2 Delivery O2 Flow Rate FiO2 05/11/17 07:56 36.9 54 19 155/65 (95) 90 Nasal Cannula 2.0 05/11/17 04:37 36.6 49 18 161/61 (94) 95 Nasal Cannula 2.0 05/11/17 04:30 Nasal Cannula 2.0 Last Recorded Weight Weight (Kilograms): 67.200 Physical Exam GENERAL: Middle-aged female, AAA x 3, pleasant, healthy-appearing, not in any distress. NECK: Supple, no JVD. RESPIRATORY: Normal breathing efforts, no accessory muscle use, clear to auscultation bilaterally, no wheezes or rales. CARDIOVASCULAR: S1, S2 normal, rate rhythm regular. EXTREMITY: No lower extremity edema NEURO: speech fluent. PSYCHIATRY: Normal mood and judgment Family History Cancer FH: heart disease Hyperlipidemia Hypertension Social History Drug Use: none Marital Status: Housing Status: lives with significant other Occupation: retired Laboratory Results Past 24 Hours 05/11/17 07:07 Red Blood Count 3.83, Mean Corpuscular Volume 83.6, Mean Corpuscular Hemoglobin 25.8, Mean Corpuscular Hemoglobin Concent 30.9, Mean Platelet Volume 8.8, Neutrophils (%) (Auto) 69.7, Lymphocytes (%) (Auto) 19.7, Monocytes (%) (Auto) 5.9, Eosinophils (%) (Auto) 3.6, Basophils (%) (Auto) 0.8, Neutrophils # (Auto) 4.60, Lymphocytes # (Auto) 1.30, Monocytes # (Auto) 0.39, Eosinophils # (Auto) 0.24, Basophils # (Auto) 0.05 05/11/17 07:07 Test 05/10/17 11:37 05/10/17 16:01 05/10/17 20:08 05/11/17 06:59 Bedside Glucose 116 mg/dl (70-90) 125 mg/dl (70-90) 107 mg/dl (70-90) 113 mg/dl (70-90) Test 05/11/17 07:07 White Blood Count 6.60 K/uL (4.8-10.8) Red Blood Count 3.83 M/uL (4.2-5.4) Hemoglobin 9.9 g/dL (12.0-16.0) Hematocrit 32.0 % (37-47) Mean Corpuscular Volume 83.6 fL (80-100) Mean Corpuscular Hemoglobin 25.8 pg (25-34) Mean Corpuscular Hemoglobin Concent 30.9 g/dl (32-36) Platelet Count 371 K/uL (130-400) Mean Platelet Volume 8.8 fL (7.4-10.4) Neutrophils (%) (Auto) 69.7 % Lymphocytes (%) (Auto) 19.7 % Monocytes (%) (Auto) 5.9 % Eosinophils (%) (Auto) 3.6 % Basophils (%) (Auto) 0.8 % Neutrophils # (Auto) 4.60 K/uL (1.4-6.5) Lymphocytes # (Auto) 1.30 K/uL (1.2-3.4) Monocytes # (Auto) 0.39 K/uL (0.11-0.59) Eosinophils # (Auto) 0.24 K/uL (0-0.5) Basophils # (Auto) 0.05 K/uL (0-0.2) RDW Standard Deviation 51.3 fL (36.4-46.3) RDW Coefficient of Variation 16.8 % (11.5-14.5) Immature Granulocyte % (Auto) 0.3 % Immature Granulocyte # (Auto) 0.02 K/uL (0.00-0.02) Prothrombin Time 21.4 SECONDS (9.0-12.0) Prothromb Time International Ratio 1.9 (0.9-1.1) Anion Gap 5.0 mmol/L (3-11) Est Creatinine Clear Calc Drug Dose 27.6 ml/min Estimated GFR () 30.6 Estimated GFR (Non- 26.4 BUN/Creatinine Ratio 18.4 (10-20) Calcium Level 8.5 mg/dl (8.5-10.1) Magnesium Level 1.9 mg/dl (1.8-2.4) Allergies Coded Allergies: Penicillins (Unverified Allergy, Intermediate, ., 05/07/17) Aspirin (Verified Allergy, Unknown, swelling, 05/07/17) Hydralazine (Verified Allergy, Unknown, myalgias, 05/07/17) Procaine (Verified Allergy, Unknown, unknown, 05/07/17) Medications Current Inpatient Medications Medications (Trade) Dose Ordered Sig/Joe Route Start Time Stop Time Status Last Admin Dose Admin Amlodipine Besylate (Norvasc Tab) 10 mg DAILY PO 05/08/17 09:00 06/07/17 08:59 05/11/17 08:08 10 MG Clopidogrel Bisulfate (plAVix TAB) 75 mg QAM PO 05/08/17 09:00 06/07/17 08:59 05/11/17 08:08 75 MG Levothyroxine Sodium (Synthroid Tab) 25 mcg DAILYBB PO 05/08/17 06:00 06/07/17 06:59 05/11/17 06:24 25 MCG Simvastatin (Zocor Tab) 40 mg HS PO 05/07/17 21:00 06/06/17 20:59 05/10/17 19:31 40 MG Cholecalciferol (Vitamin D Tab) 5,000 inter.unit DAILY PO 05/08/17 09:00 06/07/17 08:59 05/11/17 08:08 5,000 INTER.UNIT Insulin Aspart (novoLOG ASPART) SLIDING SCALE If C... ACHS SC 05/07/17 16:00 06/06/17 15:59 05/11/17 08:14 4 UNITS Glucose (Glucose 40% Gel) 15-30 GRAMS 15 GRAMS... UD PRN PO 05/07/17 15:00 06/06/17 14:59 Glucose (Glucose Chew Tab) 4-8 Tablets 4 Tabl... UD PRN PO 05/07/17 15:00 06/06/17 14:59 Dextrose (Dextrose 50% 50ML Syringe) 25-50ML OF 50% DW IV FOR... 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 She has an atrophic right kidney and left DION. Medical history is notable for multiple episodes of hemodynamically mediated RUPALI. Recent medical history also notable for CVA and new atrial fibrillation. She was admitted with junctional bradycardia. Metoprolol held and restarted at reduced dose. Blood pressure and heart rate appear acceptable. Sinus phyllis on monitor. She does not appear symptomatic. Creatinine improving. Metabolic profile otherwise acceptable. Medications appropriate for renal function. Urine output reported appropriate. UA +4 protein. Microscopy notable for >30 WBC, 10-30 RBC and hyaline cast. Renal US shows renal asymmetry without evidence of obstruction. Recommendations -- Blood pressure and volume status appropriate, RUPALI hemodynamically mediated in setting of renovascular disease, seems to have resolved and creatinine staying around 1.8-2.0 which is her baseline. Has decent urine output, Hyperkalemia resolved --blood pressure slightly running high possibly due to medication changes specially as beta-nayeli was reduced in dose. Continue to monitor blood pressure with amlodipine only, if blood pressure continues to remain elevated will consider starting on loop diuretics considering low GFR -- Document I/O's while inpatient -- Repeat metabolic profile within 1 week of discharge (results can be faxed to [phone]) -- Follow up in the nephrology clinic within 1 week of discharge (patient can call [phone] to schedule) -- Medications are appropriate for renal function
[2017-05-11] MEDS ORDERED: CMD3 PO (12:52)
--- NOTE | 2017-05-11 13:02 | Discharge Instructions ---
Discharge Instructions Date of Service May 11, 2017. Admission Reason for Admission: Bradycardia Discharge Discharge Diagnosis / Problem: Bradycardia Discharge Goals Goal(s): Improve disease control, Diagnostic testing, Therapeutic intervention Activity Recommendations Activity Limitations: resume your previous activity Exercise/Sports Limitations: as tolerated Shower/Bathe: no limitations . Instructions / Follow-Up Instructions / Follow-Up You were admitted with a low heart rate likely due to your medication metoprolol. You were originally placed on this medication to control your fast heart rate when you were in atrial fibrillation. You are not in atrial fibrillation right now. DO NOT TAKE THE METOPROLOL when you return home. Your visiting nurse will come out this weekend to check your vital signs. Please follow up with your PCP, Mechanic General Operational Test, and Cafeteria Cook as scheduled for you. Please have your INR checked by the visiting nurse on Monday 05/14. Your coumadin dose was increased to 3mg daily and a new prescription was called into your pharmacy. Current Hospital Diet Patient's current hospital diet: AHA Diet (Heart Healthy), Diabetes Type 2 Diet Discharge Diet Recommended Diet: AHA Diet (Heart Healthy), Diabetes Type 2 Diet Procedures Procedures Performed: Renal ultrasound Chest xray Pending Studies Studies pending at discharge: no Laboratory Results Last 24 Hours Test 05/10/17 16:01 05/10/17 20:08 05/11/17 06:59 05/11/17 07:07 Bedside Glucose 125 mg/dl 107 mg/dl 113 mg/dl White Blood Count 6.60 K/uL Red Blood Count 3.83 M/uL Hemoglobin 9.9 g/dL Hematocrit 32.0 % Mean Corpuscular Volume 83.6 fL Mean Corpuscular Hemoglobin 25.8 pg Mean Corpuscular Hemoglobin Concent 30.9 g/dl Platelet Count 371 K/uL Mean Platelet Volume 8.8 fL Neutrophils (%) (Auto) 69.7 % Lymphocytes (%) (Auto) 19.7 % Monocytes (%) (Auto) 5.9 % Eosinophils (%) (Auto) 3.6 % Basophils (%) (Auto) 0.8 % Neutrophils # (Auto) 4.60 K/uL Lymphocytes # (Auto) 1.30 K/uL Monocytes # (Auto) 0.39 K/uL Eosinophils # (Auto) 0.24 K/uL Basophils # (Auto) 0.05 K/uL RDW Standard Deviation 51.3 fL RDW Coefficient of Variation 16.8 % Immature Granulocyte % (Auto) 0.3 % Immature Granulocyte # (Auto) 0.02 K/uL Prothrombin Time 21.4 SECONDS Prothromb Time International Ratio 1.9 Sodium Level 141 mmol/L Potassium Level 5.1 mmol/L Chloride Level 109 mmol/L Carbon Dioxide Level 27 mmol/L Anion Gap 5.0 mmol/L Blood Urea Nitrogen 36 mg/dl Creatinine 1.97 mg/dl Est Creatinine Clear Calc Drug Dose 27.6 ml/min Estimated GFR () 30.6 Estimated GFR (Non- 26.4 BUN/Creatinine Ratio 18.4 Random Glucose 114 mg/dl Calcium Level 8.5 mg/dl Magnesium Level 1.9 mg/dl Test 05/11/17 11:41 Bedside Glucose 184 mg/dl Hemoglobin A1c Test 03/30/17 12:07 Range/Units Estimated Average Glucose 166 mg/dl Hemoglobin A1c 7.4 H 4.5-5.6 % Lipid Panel Test 03/31/17 01:01 Range/Units Triglycerides Level 109 0-150 mg/dl Cholesterol Level 127 0-200 mg/dl HDL Cholesterol 55 mg/dl Cholesterol/HDL Ratio 2.3 LDL Cholesterol, Calculated 50 mg/dl Medical Emergencies . Who to Call and When: Medical Emergencies: If at any time you feel your situation is an emergency, please call 911 immediately. . Non-Emergent Contact Non-Emergency issues call your: Primary Care Provider, [employer]ic [employer] Operational Test, Cafeteria Cook Call Non-Emergent contact if: you have any medication questions you have a rapid heartbeat or if you feel lightheaded, or for any other acute concerns. . . "Provider Documentation" section prepared by Nuha Currie. . VTE Core Measure Inpt VTE Proph given/why not?: Warfarin (Coumadin)
[2017-05-11 13:17] VITALS: BP 145/62; PULSE 50; TEMP 36.8; O2SAT 97
[2017-05-11 13:35] VITALS: BP 145/62; PULSE 50; TEMP 36.8; O2SAT 97
--- NOTE | 2017-05-11 13:47 | Medical Student: [facility] ---
Med Student Progress Note Date of Service May 11, 2017. Subjective Pt evaluation today including: conversation w/ patient, physical exam, chart review, lab review Shayy feels well today. No changes since yesterday. Denies chest pain, shortness of breath, dizziness, passing out, weakness, fatigue, n/v/d/c, fever, and chills. She does mention feeling "tired of this life" and expresses her desire to be discharged. Otherwise, I explained to her and her that we reduced the metoprolol to 50mg/day but due to her bradycardia, she was not given it this am. After speaking to cardiology, I informed them that she will be discharged today and WILL NOT be taking her metoprolol until instructed to. Home nursing will evaluate her tomorrow and Sunday and evaluate her cardiac situation. I also informed them that her Coumadin has been increased to 3mg daily, compared to 2.5mg previously. Review of Systems Constitutional: + see HPI Objective Vital Signs Date Time Temp Pulse Resp B/P (MAP) Pulse Ox O2 Delivery O2 Flow Rate FiO2 05/11/17 13:17 36.8 50 18 145/62 (89) 97 05/11/17 08:00 Room Air 05/11/17 07:56 36.9 54 19 155/65 (95) 90 Nasal Cannula 2.0 05/11/17 04:37 36.6 49 18 161/61 (94) 95 Nasal Cannula 2.0 05/11/17 04:30 Nasal Cannula 2.0 05/11/17 00:35 36.8 51 17 165/63 (97) 98 Nasal Cannula 3.0 05/10/17 23:30 Nasal Cannula 2.0 05/10/17 20:00 Room Air 05/10/17 19:53 36.9 47 20 162/66 (98) 91 Nasal Cannula 2.0 05/10/17 16:00 Room Air 05/10/17 15:41 36.9 46 18 157/71 (99) 90 Physical Exam General Appearance: WD/WN, no apparent distress ENT: hearing grossly normal Neck: supple, trachea midline Respiratory/Chest: chest non-tender, lungs clear, normal breath sounds, no respiratory distress, no accessory muscle use Cardiovascular: regular rate, rhythm, no edema, no gallop, no JVD, no murmur, + normal peripheral pulses Abdomen: normal bowel sounds, non tender, soft Extremities: non-tender, normal inspection, no pedal edema, no calf tenderness Neurologic/Psychiatric: alert, + pertinent finding (Today she was becoming concerning for depression. She would mention how she is tired of life and in general seems to be greatly saddened by her condition and being hospitalized. She sometimes seems to express hopelessness when she asks "will I ever get better?" However, given her mental status, I cannot tell if these are true feelings or fleeting thoughts, as she tends to speak sporadically without much contemplation into what she will say next.) Skin: normal color, warm/dry Laboratory Results Last 24 Hours Test 05/10/17 16:01 05/10/17 20:08 05/11/17 06:59 05/11/17 07:07 Bedside Glucose 125 mg/dl 107 mg/dl 113 mg/dl White Blood Count 6.60 K/uL Red Blood Count 3.83 M/uL Hemoglobin 9.9 g/dL Hematocrit 32.0 % Mean Corpuscular Volume 83.6 fL Mean Corpuscular Hemoglobin 25.8 pg Mean Corpuscular Hemoglobin Concent 30.9 g/dl Platelet Count 371 K/uL Mean Platelet Volume 8.8 fL Neutrophils (%) (Auto) 69.7 % Lymphocytes (%) (Auto) 19.7 % Monocytes (%) (Auto) 5.9 % Eosinophils (%) (Auto) 3.6 % Basophils (%) (Auto) 0.8 % Neutrophils # (Auto) 4.60 K/uL Lymphocytes # (Auto) 1.30 K/uL Monocytes # (Auto) 0.39 K/uL Eosinophils # (Auto) 0.24 K/uL Basophils # (Auto) 0.05 K/uL RDW Standard Deviation 51.3 fL RDW Coefficient of Variation 16.8 % Immature Granulocyte % (Auto) 0.3 % Immature Granulocyte # (Auto) 0.02 K/uL Prothrombin Time 21.4 SECONDS Prothromb Time International Ratio 1.9 Sodium Level 141 mmol/L Potassium Level 5.1 mmol/L Chloride Level 109 mmol/L Carbon Dioxide Level 27 mmol/L Anion Gap 5.0 mmol/L Blood Urea Nitrogen 36 mg/dl Creatinine 1.97 mg/dl Est Creatinine Clear Calc Drug Dose 27.6 ml/min Estimated GFR () 30.6 Estimated GFR (Non- 26.4 BUN/Creatinine Ratio 18.4 Random Glucose 114 mg/dl Calcium Level 8.5 mg/dl Magnesium Level 1.9 mg/dl Test 05/11/17 11:41 Bedside Glucose 184 mg/dl Assessment and Plan Assessment and Plan: Shayy is a 61 yo female who presented for asymptomatic bradycardia in the setting of recent diagnosis of AFib and stroke 6 weeks ago. Bradycardia: Overnight sinus bradycardia per telemetry. 40-50bpm range with some events in the 30's. This is in the setting of 100mg Metoprolol yesterday morning. Other consideration is for sick sinus syndrome. Cardiology is following this patient and suggests considering digoxin, Bystolic, or pacemaker if unable to tolerate metoprolol and/or return of Afib while on metoprolol. Cardiology wants to hold metoprolol, discharge, and follow outpatient and with home nursing. Plan: Hold metoprolol, discharge and follow outpatient. Home nurse visits this weekend. Hypertension: Likely due to severe vascular disease, given her history and as it is non-responsive to bradycardia. Improved since yesterday, has been in the 160/60 range in last 24 hours. Given that she has poor kidney function and renal stenosis, ACEIs and ARBs are less desirable. She has bradycardia ( although improving) making non-dihydropyridine CCBs and B-Blockers less desirable. She is predisposed to hyperkalemia given renal function impairment so spironolactone is less desirable. She is allergic to hydralazine (myalgias). Will defer to input from cardiology and nephrology. Plan: Home nursing vital checks. Continue Amlodipine 10mg PO daily. Defer to cardiology and nephrology for management. Will likely need further management outpatient and likely nephrology assessment and management for renal causes of her hypertension. Elevated BUN/Cr in the setting of Stage 3/4 CKD: 36/1.97 today, up from yesterday. Following her historical Cr values, this seems near to her baseline over the past 5 months. Will continue to monitor however and she will likely benefit from maintaining adequate hydration as well as avoiding nephrotoxic medications. In addition, her BUN has also fluctuated between 22 and 43 in the past 5 months, with improvement during hospitalization. Her chronic kidney disease could also be a factor in her elevated troponin of 0.072. Plan: Encourage PO hydration at home. Likely will need care home outpatient management following discharge. Hyperkalemia: May be due to beta nayeli as well as CKD. Remains normal today. Other than possible peaked T waves on EKG at admission, has been asymptomatic ( no weakness, paresthesias, or palpitations). Plan: Will monitor with outpatient checks Afib: EKG showed sinus bradycardia overnight. She is asymptomatic. INR of 1.9. Plan: Increase warfarin to 3.0mg PO daily Hypothyroidism: Asymptomatic, manage outpatient. Plan: Continue Synthroid 25mcg PO daily Hyperlipidemia: Stable, manage outpatient. Plan: Continue simvastatin 40mg PO HS Diabetes: low 100's, on sliding scale insulin. Plan: Return to at home regimen following discharge. Discharge planning: home with home health
[2017-05-11] MEDS ORDERED: WARFARIN SOD 3 MG TAB PO SCH (16:00)
--- NOTE | 2017-05-11 16:58 | Cardiology Follow-Up ---
Subjective Date of Service: May 11, 2017. Pt evaluation today including: conversation w/ patient, physical exam, lab review, review of inpatient medication list, conversation w/ attending History of Present Illness This is a 61-year-old woman who has a history of diabetes, hypertension, hypothyroidism, hyperlipidemia (on statins) and chronic kidney disease. There is a suggestion that she has a history of atrial fibrillation although I don't see that in our office chart. She presented with less responsiveness 03/30/2017 , was noted to have a left hemispheric CVA and to be in atrial fibrillation with a rapid heart rate. She was therefore admitted. She was anticoagulated, the rate was controlled with metoprolol succinate 200 mg daily. She remained in atrial fibrillation throughout that hospitalization and was discharged on 2016. She went to rehabilitation, but then was sent home with visiting nurses. She was seen by Dr. Walker on 05/02/2017, at that time her heart rate was 72 bpm. On evaluation by home health nursing on 05/07/2017 she was found to be bradycardic and she was brought to the emergency room where she was found to be in a junctional bradycardia in the 30s. It sounds as though she was not terribly symptomatic with it. The patient is a poor historian, in part due to an expressive aphasia, and she is unable to tell me if she had symptoms of lightheadedness, dizziness or any other cardiovascular symptoms. She is not ambulatory therefore we cannot evaluate her exertional ability. It sounds as though she did not have presyncope or syncope. As near as I can tell she had remained on metoprolol succinate 200 mg daily with no other negative chronotropes. My hypothesis is that she converted from atrial fibrillation to sinus rhythm resulting in this low heart rate, exacerbated by beta-blockade. Her beta-blockade was held on admission but she received it on the morning of 05/08/2017. She has no complaints today, she has no lightheadedness or dizziness despite a low heart rate. Her beta nayeli was held today due to bradycardia. Social History Smoking Status: Former Smoker History of Alcohol Use: No Review of Systems Respiratory: No cough, No sputum, No wheezing, No shortness of breath, No dyspnea on exertion, No dyspnea at rest Cardiac: No chest pain, No edema, No palpitations Her review of systems is likely not accurate due to her expressive aphasia Objective Vital Signs Past 12 Hours Date Time Temp Pulse Resp B/P (MAP) Pulse Ox O2 Delivery O2 Flow Rate FiO2 05/11/17 13:35 36.8 50 18 97 Room Air 05/11/17 13:17 36.8 50 18 145/62 (89) 97 05/11/17 08:00 Room Air 05/11/17 07:56 36.9 54 19 155/65 (95) 90 Nasal Cannula 2.0 Last Recorded Weight-Kilograms: 67.200 Physical Exam Constitutional: Level of Distress: NAD Lungs: Respiratory effort: no dyspnea, good air movement Auscultation: breath sounds normal, no wheezing Cardiovascular: Heart Auscultation: RRR, no murmurs, no rubs, no gallops, bradycardia Peripheral Pulses: Bruits: none appreciated Extremities: no edema Data Laboratory Results: Last 24 Hours Test 05/10/17 20:08 05/11/17 06:59 05/11/17 07:07 05/11/17 11:41 Bedside Glucose 107 mg/dl 113 mg/dl 184 mg/dl White Blood Count 6.60 K/uL Red Blood Count 3.83 M/uL Hemoglobin 9.9 g/dL Hematocrit 32.0 % Mean Corpuscular Volume 83.6 fL Mean Corpuscular Hemoglobin 25.8 pg Mean Corpuscular Hemoglobin Concent 30.9 g/dl Platelet Count 371 K/uL Mean Platelet Volume 8.8 fL Neutrophils (%) (Auto) 69.7 % Lymphocytes (%) (Auto) 19.7 % Monocytes (%) (Auto) 5.9 % Eosinophils (%) (Auto) 3.6 % Basophils (%) (Auto) 0.8 % Neutrophils # (Auto) 4.60 K/uL Lymphocytes # (Auto) 1.30 K/uL Monocytes # (Auto) 0.39 K/uL Eosinophils # (Auto) 0.24 K/uL Basophils # (Auto) 0.05 K/uL RDW Standard Deviation 51.3 fL RDW Coefficient of Variation 16.8 % Immature Granulocyte % (Auto) 0.3 % Immature Granulocyte # (Auto) 0.02 K/uL Prothrombin Time 21.4 SECONDS Prothromb Time International Ratio 1.9 Sodium Level 141 mmol/L Potassium Level 5.1 mmol/L Chloride Level 109 mmol/L Carbon Dioxide Level 27 mmol/L Anion Gap 5.0 mmol/L Blood Urea Nitrogen 36 mg/dl Creatinine 1.97 mg/dl Est Creatinine Clear Calc Drug Dose 27.6 ml/min Estimated GFR () 30.6 Estimated GFR (Non- 26.4 BUN/Creatinine Ratio 18.4 Random Glucose 114 mg/dl Calcium Level 8.5 mg/dl Magnesium Level 1.9 mg/dl Telemetry reviewed: Sinus bradycardia with a heart rate in the 40s and 50s, no atrial fibrillation Assessment and Plan #1. Sinus bradycardia and junctional rhythm: Bradycardia is probably in part due to suppression of sinus node function from beta-blockade, conversion from atrial fibrillation probably occurred some time following her 05/02/2017 office visit where her heart rate was noted to be 72 bpm. This seems tor epresent a component of sick sinus syndrome with her prior history of atrial fibrillation. Although we have not held her beta blockers long enough to eliminate their effect, it seems that even low doses of beta blockade resulted in sinus bradycardia. Perhaps it is most prudent to discontinue them, follow her rate and see if she has recurrence of her atrial arrhythmia. If she does in of the rate is fast we will need to implant a pacemaker to protect her from sinus bradycardia. #2. Atrial fibrillation: She had atrial fibrillation with a rapid heart rate last admission, we controlled it with metoprolol succinate 200 mg daily. Since she was not in sinus rhythm during her hospitalization we did not know how that would affect her sinus node. Now with elimination of beta-blockade she may have a rapid response if she goes back into atrial fibrillation, however we do not know how often she does that. We will need to watch for recurrence. #3. Anticoagulation: She should remain on anticoagulation, it is likely her stroke was due to atrial fibrillation. Even though she is in sinus rhythm now she is at risk for stroke as I suspect she converted recently to sinus rhythm. Thank you for allowing me to participate in her care.
--- NOTE | 2017-05-14 16:53 | Discharge Summary ---
Discharge Summary Date of Service May 11, 2017. Discharge Summary Admission Date: May 07, 2017 at 14:33 Discharge Date: May 11, 2017 Discharge Disposition: Home with services Principal Diagnosis: Bradycardia Problems/Secondary Diagnoses: Paroxysmal atrial fibrillation Severe carotid artery stenosis with complete occlusion TARUN Diabetes mellitus type 2 with hypoglycemia Hypothyroidism Dyslipidemia retirement anticoagulation with warfarin History of recent CVA with large 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 and significant mixed aphasia HTN Elevated troponin/demand ischemia Left minimally angulated Colles fracture Acute renal insufficiency on CKD stage III-IV H/o Left DION and Right atrophic kidney Left thyroid lobe Immunizations: Have You Had Influenza Vaccine: No History of Tetanus Vaccine?: No History of Pneumococcal: No Procedures: Renal US CXR Consultations: Nephrology Cardiology Medication Reconciliation New Medications: Warfarin Sod (Coumadin) 3 Mg Tab 3 MG PO DAILY@16 for 30 Days, #30 TAB AND FURTHER DOSING TO BE BASED ON BLOOD WORK Continued Medications: Amlodipine (Norvasc) 10 Mg Tab 10 MG PO DAILY Cholecalciferol (Vitamin D) 5,000 Unit Tab 5000 UNITS PO DAILY Clopidogrel Bisulfate (Clopidogrel) 75 Mg Tab 75 MG PO QAM for 30 Days, #30 TAB Glimepiride (Amaryl) 1 Mg Tab 1 MG PO DAILY, TAB Insulin Aspart (Novolog Flexpen) 100 Units/Ml Inj 0 UNITS SC ACHS for 30 Days Levothyroxine Sodium (Synthroid) 25 Mcg Tab 25 MCG PO DAILY Simvastatin (Simvastatin) 40 Mg Tab 40 MG PO HS for 30 Days, TAB Discontinued Medications: Metoprolol Succinate (Metoprolol Succinate ER) 50 Mg Tabcr 200 MG PO QAM for 30 Days, #120 TAB Warfarin Sod (Jantoven) 2.5 Mg Tab 2.5 MG PO UD, TAB Discharge Exam Physical Exam General Appearance: WD/WN, no apparent distress Eyes: normal inspection, sclerae normal ENT: hearing grossly normal Neck: trachea midline Respiratory/Chest: lungs clear, normal breath sounds, no respiratory distress, no accessory muscle use Cardiovascular: no edema, no gallop, no murmur, + bradycardia (with regular rhythm) Abdomen: normal bowel sounds, non tender, soft Extremities: non-tender, normal inspection, no pedal edema, no calf tenderness Neurologic/Psychiatric: alert, + disoriented (continued moderate expressive and receptive aphasia) Skin: normal color, warm/dry, no rash Review of Systems: Constitutional: No fever Eyes: No problem reported ENT: No problem reported Respiratory: No shortness of breath Cardiovascular: No chest pain Abdomen: No problem reported Genitourinary - Female: No problem reported Neurologic: No problem reported Psychiatric: No problem reported Endocrine: No problem reported Hematologic / Lymphatic: No problem reported Integumentary: No problem reported Hospital Course 61 yo female with h/o of atrial fibrillation with RVR, recent large cardioembolic stroke with residual expressive and receptive aphasia, carotid artery stenosis, CKD stage III-IV, diabetes mellitus type 2, hypothyroidism, dyslipidemia, who presents with asymptomatic bradycardia in the 40s. A visiting nurse noted her to have a low HR which was unusual and was concerned. Pt was recently in the hospital for Rapid A-fib and acute CVA and had been placed on Toprol XL 200mg once daily for rate control. She was in a sinus rhythm on admission. Bradycardia/history of paroxysmal atrial fibrillation: Likely due to converting to sinus rhythm at some point while being on a high dose of metoprolol. 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 Rates were improved improved after holding Toprol- XL for 2 days, and it was restarted at 100 mg daily-then her rates went back in the 40s but patient remained asymptomatic. After d/w Cardiology, it was decided to leave her off Toprol completely and have close follow p with Home visiting RN as well as PCP next week. There is a great chance she will likely go back into atrial fibrillation at some point and possibly have a rapid response again. At that point, there would need to be consideration made for a permanent pacemaker insertion. -Appreciate cardiology consult -On Coumadin for anticoagulation for stroke prevention, follow INR on Sunday after discharge--> increased dose of coumadin to 3mg daily on the day of discharge for INR 1.9 History of Subacute-acute CVA/occluded right internal carotid artery- large 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 and significant mixed aphasia, Right LOPEZ-CVA was likely secondary to cardioembolic source (NOT the LOPEZ ): -Continue Coumadin, Plavix, statin - completed rehabilitation and other than her aphasia, she is doing remarkably well HTN-blood pressure is elevated here off of her metoprolol -continue amlodipine -no hydralazine due to allergy but would be her best choice -consider starting low dose diuretic in future as per Nephro, but not right now -cannot have ACEI or ARB due to right atrophic kidney and left 60% DION as per Nephro -Continue to follow and could consider trial hydralazine in the future- and patient cannot recall this allergy of "myalgias" listed Elevated troponin/demand ischemia-troponin mildly elevated but stable at 0.072 , could be chronically elevated due to renal failure and was higher last admission during her CVA -No ischemic changes on ECG and patient is asymptomatic Left minimally angulated Colles fracture, left elbow contusion - seeing ortho as an outpatient early next week -has long arm cast T2DM- HgbA1C 7.4 in March . With hypoglycemia on admission here likely secondary to oral hypoglycemic in the setting of renal failure - Held Glimepiride during admisison-would consider not resuming at discharge in favor of another oral diabetes medication like Januvia or Tradjenta if affordable - BSG ACHS and sliding insulin scale Acute renal insufficiency on CKD stage III-IV, baseline Cr. 1.8/Left DION/Right atrophic kidney- possibly worsening renal function due to bradycardia and poor perfusion? 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 maid back to baseline, Stopped IVFs -Consult nephrology appreciated -Follow PRP and with Nephro in 1 week as outpt after discharge -avoid nephrotoxins, renally dose all meds Hypothyroidism- TSH normal at 2.7 - Continue Synthroid 25 mcg daily - 1.7 cm nodule in the left thyroid lobe on CTA- f/u with a nonemergent/ outpatient thyroid ultrasound is recommended (from last admission) DVT prophylaxis: Coumadin Disposition-to home Full code Total Time Spent: Greater than 30 minutes This includes examination of the patient, discharge planning, medication reconciliation, and communication with other providers. Discharge Instructions Please refer to the electronic Patient Visit Report (Discharge Instructions) for additional information. Follow-Up PCP within 1 week Nephrology within 1 week Cardiology in 2-3 weeks Ortho next week Check INR in 3 days Additional Copies To Saroj Smith M.D.; Ugo Walker M.D.
== END 2017-05-11 14:20 | disposition home health service (06) ==
LOC: C.EDB 11:26 → C.2T 14:33 → ENRESERV 14:49 → C.2T 05-11 12:04
PROVIDERS: ADMIT Internal Medicine Sports Medicine; ATTEND Family Medicine
DX: R00.1 Bradycardia, unspecified (principal); N19 Unspecified kidney failure; R79.89 Other specified abnormal findings of blood chemistry; I10 Essential (primary) hypertension; Z86.73 Personal history of transient ischemic attack (TIA), and cerebral infarction without residual deficits

== ENCOUNTER → 2017-05-17 | Outpatient (CLI) | payer OTHER ==
[~2017-05-17] MED LIST changes: -AMR2 PO; +CHOL1TAB42 PO; +CMD3 PO; -CMD5 PO; +GLIM1TAB PO; -TPRSR50 PO
[2017-05-17 17:50] LABS: BASO ABS # 0.08 K/uL (0-0.2); COMPLETE YES; EOS % 1.7 %; HEMATOCRIT 36.4 % (37-47); IG% 0.2 %; LYMPH % 17.4 %; MEAN CELL VOLUME 82.7 fL (80-100); MEAN CORPUSCULAR HEMOGLOBIN 25.7 pg (25-34); MEAN PLATELET VOLUME 9.5 fL (7.4-10.4); NEUT % 72.7 %; PLATELET COUNT 507 K/uL (130-400); WHITE BLOOD COUNT 8.04 K/uL (4.8-10.8)
[2017-05-17 18:28] LABS: BLOOD UREA NITROGEN 42 mg/dl (7-18); BUN/CREATININE RATIO 18.3 (10-20); CALCIUM 8.3 mg/dl (8.5-10.1); CARBON DIOXIDE 25 mmol/L (21-32); CHLORIDE 104 mmol/L (98-107); CREATININE 2.28 mg/dl (0.60-1.20); GLUCOSE 130 mg/dl (70-99); POTASSIUM 4.8 mmol/L (3.5-5.1); SODIUM 139 mmol/L (136-145)
[2017-05-17 18:33] LABS: FERRITIN 63.2 ng/ml (8.0-388.0); TOTAL IRON BINDING CAPACITY 226 mcg/dl (250-450)
== END | disposition home or self-care (01) ==
LOC: C.LAB1850 16:27
PROVIDERS: ATTEND Internal Medicine Nephrology
DX: D64.9 Anemia, unspecified (principal); N18.3 Chronic kidney disease, stage 3 (moderate)

== ENCOUNTER 2017-06-13 14:29 | Inpatient (IN) | payer OTHER ==
[~2017-06-13] VITALS: Ht 160 cm; Wt 67.5 kg
[2017-06-13] MEDS ORDERED: SODIUM CHLORIDE 0.9% 1000ML 1,000 ML IV SCH (14:46)
[2017-06-13] MEDS ORDERED: SODIUM CHLORIDE 0.9% 500ML 500 ML IV STA (15:12)
--- NOTE | 2017-06-13 15:19 | DIAGNOSTIC IMAGING REPORT ---
CHEST ONE VIEW PORTABLE CLINICAL HISTORY: Stroke COMPARISON STUDY: Chest radiograph May 07, 2017. FINDINGS: Lung volumes are normal. No pneumothorax or pleural effusion is present. There is no consolidation to suggest pneumonia. There is no evidence of pulmonary edema. Mild cardiomegaly is noted. An old left sixth rib fracture is noted. IMPRESSION: No acute cardiopulmonary findings. Electronically signed by: Jose Michel M.D. 06/13/2017 3:18 PM Dictated Date/Time: 06/13/2017 3:17 PM
[2017-06-13] MEDS ORDERED: SIMV40TA2 PO (15:23)
[2017-06-13] MEDS ORDERED: FERR1TAB23 PO (15:23)
[2017-06-13] MEDS ORDERED: METO25TA3 PO (15:23)
[2017-06-13] MEDS ORDERED: ERGO500037 PO (15:23)
[2017-06-13] MEDS ORDERED: CLOP1TAB15 PO (15:23)
[2017-06-13] MEDS ORDERED: ACET-1256 PO (15:23)
[2017-06-13] MEDS ORDERED: WARF3TAB6 PO (15:23)
--- NOTE | 2017-06-13 15:39 | EMERGENCY ROOM VISIT NOTE ---
History Report prepared by Edi: Jimmy Cary Under the Supervision of: Dr. Osmel Dolan M.D. First contact with patient: 14:39 Chief Complaint: WEAKNESS Stated Complaint: WEAKNESS Nursing Triage Summary: pt arrives via ALS from home per ALS pt had a left sided stroke 8 weeks ago she was sent to [facility] for rehab for 3 weeks she was home for 1 week and home health was in during that time per EMS home health diagnosed her with a "TIA and low heart rate." she was up to bedside from bed a total of 2 feet without tolerance she comes in today with right hip/thigh pain prevent ambulation she is weak on the right side and unable to lift the left upon assessment identifies herself as "Maddy." Unable to state full birthday "[birth year]." Right hand arrives in splint from fracture with previous stroke History of Present Illness The patient is a 61 year old female who presents to the Emergency Room with complaints of constant weakness starting last night. The patient's states that the patient wanted to go to bed earlier than usual last night, and she did not want to get up. Additionally, the states that she has not been drinking, and she has been confused about her name and birthday. The patient has a history of a stroke that affected the right side of her body. Source of History: patient, spouse/significant other Onset: last night Position: other (global) Quality: other (weakness) Timing: constant Note: Associated symptoms: Weakness Review of Systems See HPI for pertinent positives & negatives. A total of 10 systems reviewed and were otherwise negative. Past Medical & Surgical Medical Problems: (1) RUPALI (acute kidney injury) (2) Atrial fibrillation (3) CVA (cerebral vascular accident) (4) Elevated troponin (5) Hypertension (6) Renal artery stenosis Family History Cancer FH: heart disease Hyperlipidemia Hypertension Social History Smoking Status: Former Smoker Drug Use: none Marital Status: Housing Status: lives with significant other Occupation Status: retired Current/Historical Medications Scheduled Amlodipine (Norvasc), 10 MG PO DAILY Clopidogrel (Plavix), 75 MG PO DAILY Ergocalciferol (Vitamin D 30096 Unit), 50,000 UNIT PO WK Ferrous Sulfate (Iron), 325 MG PO BID Glimepiride (Amaryl), 1 MG PO DAILY Levothyroxine Sodium (Synthroid), 25 MCG PO DAILY Metoprolol Succ (Toprol Xl) (Toprol-Xl), 25 MG PO DAILY Simvastatin (Zocor), 40 MG PO QPM Warfarin Sod (Jantoven), 3 MG PO Q2D Warfarin Sod (Jantoven), 4.5 MG PO Q2D Scheduled PRN Acetaminophen (Tylenol), 500 MG PO Q4 PRN for Pain or Fever Allergies Coded Allergies: Penicillins (Unverified Allergy, Intermediate, ., 05/07/17) Aspirin (Verified Allergy, Unknown, swelling, 05/07/17) Hydralazine (Verified Allergy, Unknown, myalgias, 05/07/17) Procaine (Verified Allergy, Unknown, unknown, 05/07/17) Physical Exam Vital Signs Date Time Temp Pulse Resp B/P (MAP) Pulse Ox O2 Delivery O2 Flow Rate FiO2 06/13/17 17:44 77 16 162/70 96 Room Air 06/13/17 16:20 71 06/13/17 16:05 73 16 165/71 96 Room Air 06/13/17 14:51 37.0 98 16 156/99 98 Room Air 06/13/17 14:38 90 Room Air 06/13/17 14:38 90 Room Air Physical Exam GENERAL: Patient has generalized weakness. HEAD: Normocephalic atraumatic EYES: Ocular movements intact pupils equal and react to light OROPHARYNX mucous membranes are moist no exudates present no erythema or edema present NECK: Supple no nuchal rigidity CHEST: Good equal expansion LUNGS: Clear and equal to auscultation CARDIAC: Normal S1 and S2 ABDOMEN: Soft nontender no guarding BACK: No CVA tenderness EXTREMITIES: No pain upon palpation normal muscle strength in all groups no clubbing cyanosis or edema NEURO: Unable to move her right leg, but she is able to move her foot. Her strength is 3/5 in the right leg and 4/5 in the left leg. She is neurovascularly intact. Patient is following commands and answering questions appropriately. Alert and oriented x3 Cranial Nerves 2-12 grossly intact Medical Decision & Procedures ER Provider Diagnostic Interpretation: Radiology results as stated below per my review and radiologist interpretation: HEAD CT NONCONTRAST CT DOSE: 614.27 mGy.cm HISTORY: Stroke symptoms. TECHNIQUE: Multiaxial CT images of the head were performed without the use of intravenous contrast. Automated exposure control was utilized for this study. A dose lowering technique was utilized adhering to the principles of ALARA. Comparison: Head CTA 04/02/2017. Findings: The paranasal sinuses and mastoid air cells are clear. The calvarium and skull base are intact. There is complete evolution of the old left MCA territory infarct. Small old right periventricular infarct is again noted. There is no mass, hematoma, midline shift, acute infarct. Impression: No acute intracranial abnormality. Old infarcts as described above. Electronically signed by: Ethan Mari M.D. 06/13/2017 3:39 PM Dictated Date/Time: 06/13/2017 3:33 PM CHEST ONE VIEW PORTABLE CLINICAL HISTORY: Stroke COMPARISON STUDY: Chest radiograph May 07, 2017. FINDINGS: Lung volumes are normal. No pneumothorax or pleural effusion is present. There is no consolidation to suggest pneumonia. There is no evidence of pulmonary edema. Mild cardiomegaly is noted. An old left sixth rib fracture is noted. IMPRESSION: No acute cardiopulmonary findings. Electronically signed by: Jose Michel M.D. 06/13/2017 3:18 PM Dictated Date/Time: 06/13/2017 3:17 PM PELVIS 1 OR 2 VIEW ROUTINE, R FEMUR 2 VIEWS ROUTINE, L FEMUR 2 VIEWS ROUTINE HISTORY: 61 years-old Female Pt c/o Rt hip pain acute pelvic and bilateral hip pain COMPARISON: None available TECHNIQUE: Single AP view the pelvis with 2 views of the bilateral femora FINDINGS: PELVIS: High attenuating material seen within the central pelvis. Vascular calcifications are noted. There are degenerative changes of the lower lumbar spine. No pelvic ring fracture identified. The sacrum appears intact. Mild degenerative changes of the bilateral femoral acetabular joints without acute fracture or dislocation identified. Degenerative changes are seen within the pubic symphysis and bilateral SI joints. There is mild internal rotation of the right femur. RIGHT FEMUR: No acute fracture or dislocation identified. Degenerative changes are noted about the knee which appear moderate within the medial and patellofemoral compartments. Small knee joint effusion. LEFT FEMUR: Moderate degenerative changes are noted about the knee with small knee joint effusion. No acute fracture or dislocation. IMPRESSION: 1. No acute fracture or dislocation identified involving the pelvis or bilateral femora. 2. Degenerative changes are noted about the bilateral hips and knees with small bilateral knee joint effusions. 3. Peripheral vascular disease. The above report was generated using voice recognition software. It may contain grammatical, syntax or spelling errors. Electronically signed by: José Sanchez M.D. 06/13/2017 5:11 PM Dictated Date/Time: 06/13/2017 5:07 PM PELVIS 1 OR 2 VIEW ROUTINE, R FEMUR 2 VIEWS ROUTINE, L FEMUR 2 VIEWS ROUTINE HISTORY: 61 years-old Female Pt c/o Rt hip pain acute pelvic and bilateral hip pain COMPARISON: None available TECHNIQUE: Single AP view the pelvis with 2 views of the bilateral femora FINDINGS: PELVIS: High attenuating material seen within the central pelvis. Vascular calcifications are noted. There are degenerative changes of the lower lumbar spine. No pelvic ring fracture identified. The sacrum appears intact. Mild degenerative changes of the bilateral femoral acetabular joints without acute fracture or dislocation identified. Degenerative changes are seen within the pubic symphysis and bilateral SI joints. There is mild internal rotation of the right femur. RIGHT FEMUR: No acute fracture or dislocation identified. Degenerative changes are noted about the knee which appear moderate within the medial and patellofemoral compartments. Small knee joint effusion. LEFT FEMUR: Moderate degenerative changes are noted about the knee with small knee joint effusion. No acute fracture or dislocation. IMPRESSION: 1. No acute fracture or dislocation identified involving the pelvis or bilateral femora. 2. Degenerative changes are noted about the bilateral hips and knees with small bilateral knee joint effusions. 3. Peripheral vascular disease. The above report was generated using voice recognition software. It may contain grammatical, syntax or spelling errors. Electronically signed by: José Sanchez M.D. 06/13/2017 5:11 PM Dictated Date/Time: 06/13/2017 5:07 PM PELVIS 1 OR 2 VIEW ROUTINE, R FEMUR 2 VIEWS ROUTINE, L FEMUR 2 VIEWS ROUTINE HISTORY: 61 years-old Female Pt c/o Rt hip pain acute pelvic and bilateral hip pain COMPARISON: None available TECHNIQUE: Single AP view the pelvis with 2 views of the bilateral femora FINDINGS: PELVIS: High attenuating material seen within the central pelvis. Vascular calcifications are noted. There are degenerative changes of the lower lumbar spine. No pelvic ring fracture identified. The sacrum appears intact. Mild degenerative changes of the bilateral femoral acetabular joints without acute fracture or dislocation identified. Degenerative changes are seen within the pubic symphysis and bilateral SI joints. There is mild internal rotation of the right femur. RIGHT FEMUR: No acute fracture or dislocation identified. Degenerative changes are noted about the knee which appear moderate within the medial and patellofemoral compartments. Small knee joint effusion. LEFT FEMUR: Moderate degenerative changes are noted about the knee with small knee joint effusion. No acute fracture or dislocation. IMPRESSION: 1. No acute fracture or dislocation identified involving the pelvis or bilateral femora. 2. Degenerative changes are noted about the bilateral hips and knees with small bilateral knee joint effusions. 3. Peripheral vascular disease. The above report was generated using voice recognition software. It may contain grammatical, syntax or spelling errors. Electronically signed by: José Sanchez M.D. 06/13/2017 5:11 PM Dictated Date/Time: 06/13/2017 5:07 PM Laboratory Results Test 06/13/17 15:14 06/13/17 15:16 06/13/17 17:31 06/13/17 17:45 Bedside Prothrombin Time INR 4.9 (0.9-1.1) Immature Granulocyte % (Auto) 0.4 % White Blood Count 13.35 K/uL (4.8-10.8) Red Blood Count 4.14 M/uL (4.2-5.4) Hemoglobin 10.4 g/dL (12.0-16.0) Hematocrit 33.0 % (37-47) Mean Corpuscular Volume 79.7 fL (80-100) Mean Corpuscular Hemoglobin 25.1 pg (25-34) Mean Corpuscular Hemoglobin Concent 31.5 g/dl (32-36) Platelet Count 448 K/uL (130-400) Mean Platelet Volume 9.0 fL (7.4-10.4) Neutrophils (%) (Auto) 84.4 % Lymphocytes (%) (Auto) 7.3 % Monocytes (%) (Auto) 7.7 % Eosinophils (%) (Auto) 0.0 % Basophils (%) (Auto) 0.2 % Neutrophils # (Auto) 11.27 K/uL (1.4-6.5) Lymphocytes # (Auto) 0.97 K/uL (1.2-3.4) Monocytes # (Auto) 1.03 K/uL (0.11-0.59) Eosinophils # (Auto) 0.00 K/uL (0-0.5) Basophils # (Auto) 0.03 K/uL (0-0.2) Immature Granulocyte # (Auto) 0.05 K/uL (0.00-0.02) Activated Partial Thromboplast Time 57.2 SECONDS (21.0-31.0) Partial Thromboplastin Ratio 2.2 Magnesium Level 2.2 mg/dl (1.8-2.4) Total Bilirubin 0.2 mg/dl (0.2-1) Direct Bilirubin < 0.1 mg/dl (0-0.2) Aspartate Amino Transf (AST/SGOT) 9 U/L (15-37) Alanine Aminotransferase (ALT/SGPT) 12 U/L (12-78) Alkaline Phosphatase 86 U/L (45-117) Total Creatine Kinase 21 U/L (26-192) Creatine Kinase MB < 0.5 ng/ml (0.5-3.6) Creatine Kinase MB Ratio (0-3.0) Troponin I < 0.015 ng/ml (0-0.045) Total Protein 7.6 gm/dl (6.4-8.2) Albumin 2.0 gm/dl (3.4-5.0) Thyroid Stimulating Hormone (TSH) 1.430 uIu/ml (0.300-4.500) Urine Color YELLOW Urine Appearance CLEAR (CLEAR) Urine pH 7.0 (4.5-7.5) Urine Specific [place] 1.019 (1.000-1.030) Urine Protein 4+ (NEG) Urine Glucose (UA) 2+ (NEG) Urine Ketones NEG (NEG) Urine Occult Blood 2+ (NEG) Urine Nitrite NEG (NEG) Urine Bilirubin NEG (NEG) Urine Urobilinogen NEG (NEG) Urine Leukocyte Esterase TRACE (NEG) Urine WBC (Auto) >30 /hpf (0-5) Urine RBC (Auto) 10-30 /hpf (0-4) Urine Hyaline Casts (Auto) 5-10 /lpf (0-5) Urine Epithelial Cells (Auto) >30 /lpf (0-5) Urine Bacteria (Auto) 1+ (NEG) Influenza Type A (RT-PCR) Neg for Influ A (NEG) Influenza Type A Antigen Neg for Influ A (NEG) Influenza Type B Antigen Neg for Influ B (NEG) Influenza Type B (RT-PCR) Neg for Influ B (NEG) Labs reviewed by ED physician. Medications Administered Medications (Trade) Dose Ordered Sig/Joe Route Start Time Stop Time Status Last Admin Dose Admin Sodium Chloride 1,000 ml @ 50 mls/hr Q20H IV 06/13/17 14:46 06/13/17 19:24 DC 06/13/17 15:40 50 MLS/HR Sodium Chloride 500 ml @ 999 mls/hr Q31M STAT IV 06/13/17 15:12 06/13/17 15:42 DC 06/13/17 15:40 999 MLS/HR Ceftriaxone Sodium (Rocephin Inj) 1 gm NOW STAT IV 06/13/17 17:19 06/13/17 17:20 DC 06/13/17 17:49 1 GM ECG Indication: weakness Rate (beats per minute): 77 Rhythm: normal sinus Findings: no acute ischemic change, no ectopy ED Course 1439: Past medical records reviewed. The patient was evaluated in room A3. A complete history and physical examination was performed. 1446: Sodium Chloride 1000 ml @ 50 mls/hr IV 1512: Sodium Chloride 500 ml @ 999 mls/hr IV 1719: Rocephin 1gm IV 1725: I discussed the patient's case with Dr. Wong, she has agreed to evaluate the patient for further management and care. 1735: I reevaluated the patient, and I discussed the treatment plan with her and her . They are agreeable to the treatment plan. Medical Decision Differential diagnosis: Etiologies such as metabolic, infection, hypo/hyperglycemia, electrolyte abnormalities, cardiac sources, intracerebral event, toxicologic, neurologic, as well as others were entertained. This is a 61-year-old female who refuses to walk due to generalized weakness. The patient has a history of right-sided weakness due to a CVA. She appears acutely dehydrated and is dehydrated according to her laboratory work. In addition the patient appears to have urinary tract infection. For this reason she was started on Rocephin and given a normal saline bolus in the emergency department. I do feel that the patient is well enough to be discharged home for follow-up with primary care physician. Patient was in agreement with the treatment plan. Medication Reconcilliation Current Medication List: was personally reviewed by me Blood Pressure Screening Patient's blood pressure: Elevated blood pressure Monitored by the hospitalist Consults Time Called: 1722 Consulting Physician: Dr. Wong Returned Call: 1725 I discussed the patient's case with Dr. Wong, she has agreed to evaluate the patient for further management and care. Impression Primary Impression: Weakness Additional Impression: UTI (urinary tract infection) Scribe Attestation The scribe's documentation has been prepared under my direction and personally reviewed by me in its entirety. I confirm that the note above accurately reflects all work, treatment, procedures, and medical decision making performed by me. Departure Information Dispostion Being Evaluated By Hospitalist Referrals Ugo Walker M.D. (PCP) Patient Instructions My [facility] Problem Qualifiers Additional Impression: UTI (urinary tract infection) Urinary tract infection type: acute cystitis Hematuria presence: with hematuria Qualified Codes: N30.01 - Acute cystitis with hematuria
[2017-06-13 15:40] LABS: BASO % 0.2 %; BASO ABS # 0.03 K/uL (0-0.2); COMPLETE YES; IG% 0.4 %; LYMPH % 7.3 %; LYMPH ABS # 0.97 K/uL (1.2-3.4); MEAN CELL VOLUME 79.7 fL (80-100); MEAN CORPUSCULAR HEMOGLOBIN 25.1 pg (25-34); MEAN CORPUSCULAR HGB CONC 31.5 g/dl (32-36); MONO % 7.7 %; NEUT % 84.4 %; PLATELET COUNT 448 K/uL (130-400); RED BLOOD COUNT 4.14 M/uL (4.2-5.4); WHITE BLOOD COUNT 13.35 K/uL (4.8-10.8)
[2017-06-13 15:50] LABS: ALT/SGPT 12 U/L (12-78); BLOOD UREA NITROGEN 47 mg/dl (7-18); BUN/CREATININE RATIO 17.4 (10-20); CALCIUM 8.8 mg/dl (8.5-10.1); CARBON DIOXIDE 27 mmol/L (21-32); CHLORIDE 100 mmol/L (98-107); CREATININE 2.72 mg/dl (0.60-1.20); GLUCOSE 195 mg/dl (70-99); MAGNESIUM 2.2 mg/dl (1.8-2.4); POTASSIUM 4.8 mmol/L (3.5-5.1); SODIUM 133 mmol/L (136-145)
[2017-06-13 15:54] LABS: INR 3.9 (0.9-1.1); PARTIAL THROMBOPLASTIN RATIO 2.2; PROTHROMBIN TIME (PATIENT) 40.1 SECONDS (9.0-12.0)
[2017-06-13 16:01] LABS: ALKALINE PHOSPHATASE 86 U/L (45-117); AST/SGOT 9 U/L (15-37)
--- NOTE | 2017-06-13 17:13 | DIAGNOSTIC IMAGING REPORT ---
PELVIS 1 OR 2 VIEW ROUTINE, R FEMUR 2 VIEWS ROUTINE, L FEMUR 2 VIEWS ROUTINE HISTORY: 61 years-old Female Pt c/o Rt hip pain acute pelvic and bilateral hip pain COMPARISON: None available TECHNIQUE: Single AP view the pelvis with 2 views of the bilateral femora FINDINGS: PELVIS: High attenuating material seen within the central pelvis. Vascular calcifications are noted. There are degenerative changes of the lower lumbar spine. No pelvic ring fracture identified. The sacrum appears intact. Mild degenerative changes of the bilateral femoral acetabular joints without acute fracture or dislocation identified. Degenerative changes are seen within the pubic symphysis and bilateral SI joints. There is mild internal rotation of the right femur. RIGHT FEMUR: No acute fracture or dislocation identified. Degenerative changes are noted about the knee which appear moderate within the medial and patellofemoral compartments. Small knee joint effusion. LEFT FEMUR: Moderate degenerative changes are noted about the knee with small knee joint effusion. No acute fracture or dislocation. IMPRESSION: 1. No acute fracture or dislocation identified involving the pelvis or bilateral femora. 2. Degenerative changes are noted about the bilateral hips and knees with small bilateral knee joint effusions. 3. Peripheral vascular disease. The above report was generated using voice recognition software. It may contain grammatical, syntax or spelling errors. Electronically signed by: José Sanchez M.D. 06/13/2017 5:11 PM Dictated Date/Time: 06/13/2017 5:07 PM
[2017-06-13] MEDS ORDERED: CEFTRIAXONE SOD INJ 1 GM ADDVIAL IV STA ×2 (17:19→19:00)
[2017-06-13 17:50] LABS: URINE APPEARANCE CLEAR (CLEAR); URINE BILIRUBIN NEG (NEG); URINE COLOR YELLOW; URINE EPITHELIAL CELL AUTO >30 /lpf (0-5); URINE NITRITE NEG (NEG); URINE SPECIFIC GRAVITY 1.019 (1.000-1.030); UROBILINOGEN NEG (NEG); ZZUR CULT IF INDIC CLEAN CATCH YES
[2017-06-13 17:53] LABS: MANUAL MICROSCOPIC REQUIRED? NO; REVIEW REQ? NO
[2017-06-13] MEDS ORDERED: GLUCOSE 40% GEL 15 GM TUBE PO PRN (19:00)
[2017-06-13] MEDS ORDERED: ONDANSETRON INJ 2 MG/ML 2 ML VIAL IV PRN (19:00)
[2017-06-13] MEDS ORDERED: HEPARIN SOD 5000 UNIT/0.5 ML CARP SQ SCH (19:00)
[2017-06-13] MEDS ORDERED: ACETAMINOPHEN 325 MG TAB PO PRN (19:00)
[2017-06-13] MEDS ORDERED: ACETAMINOPHEN 500 MG TAB PO PRN (19:00)
[2017-06-13] MEDS ORDERED: GLUCOSE 10 TABS/TUBE PO PRN (19:00)
[2017-06-13] MEDS ORDERED: GLUCAGON FOR INJ 1 MG VIAL SQ PRN (19:00)
[2017-06-13] MEDS ORDERED: MAGNESIUM HYDROXIDE SUSP 30 ML UDC PO PRN (19:00)
[2017-06-13] MEDS ORDERED: DEXTROSE 50% 50 ML SYR IV PRN (19:00)
--- NOTE | 2017-06-13 19:05 | History and Physical ---
History & Physical Date & Time of Service: Jun 13, 2017 at 19:05 Chief Complaint: Weakness Primary Care Physician: Ugo Walker M.D. History of Present Illness Source: patient, spouse 61 y/o F c/o "I can't move". Pt cannot tell me any other hx, but she is aware that she cannot move. reports that she was fine yesterday, but that he attempted to get her out of bed this morning and she stated she could not move or walk. She denies pain and thinks she is just weak. Per , pt has had memory issues since her stroke about 2 months ago, but had been ambulating well. She is supposed to be d/c'd from speech therapy tomorrow and still works with OT, but no longer with PT. He states she did have an episode of emesis a few days ago, but none since and this was attributed to something she ate. She has been tolerating PO without issue other than the single emesis a few days ago. Pt's only concern at present is that she is hungry. Pt denies fever, SOB, chest pain, abd pain, n/v/c/d, LE pain or swelling. Pt's baseline is orientation to self, but not place or time. She can tell you immediate needs but not reliable hx. Past Medical/Surgical History Medical Problems: (1) Atrial fibrillation--on coumadin Status: Chronic (2) CVA (cerebral vascular accident) Status: Chronic (3) Elevated troponin Status: Resolved (4) Hypertension Status: Chronic DM Hypothyroid HTN Family History Family history was reviewed; no changes noted. Social History Smoking Status: Former Smoker Alcohol Use: none Drug Use: none Marital Status: Housing status: lives with significant other Occupational Status: retired Immunizations History of Influenza Vaccine: No History of Tetanus Vaccine?: No History of Pneumococcal: No Multi-Drug Resistant Organisms History of MDRO: No Allergies Coded Allergies: Penicillins (Unverified Allergy, Intermediate, ., 05/07/17) Aspirin (Verified Allergy, Unknown, swelling, 05/07/17) Hydralazine (Verified Allergy, Unknown, myalgias, 05/07/17) Procaine (Verified Allergy, Unknown, unknown, 05/07/17) Home Medications Scheduled Amlodipine (Norvasc), 10 MG PO DAILY Clopidogrel (Plavix), 75 MG PO DAILY Ergocalciferol (Vitamin D 54785 Unit), 50,000 UNIT PO WK Ferrous Sulfate (Iron), 325 MG PO BID Glimepiride (Amaryl), 1 MG PO DAILY Levothyroxine Sodium (Synthroid), 25 MCG PO DAILY Metoprolol Succ (Toprol Xl) (Toprol-Xl), 25 MG PO DAILY Simvastatin (Zocor), 40 MG PO QPM Warfarin Sod (Jantoven), 3 MG PO Q2D Warfarin Sod (Jantoven), 4.5 MG PO Q2D Scheduled PRN Acetaminophen (Tylenol), 500 MG PO Q4 PRN for Pain or Fever Review of Systems Pertinent positives and negatives reviewed in HPI--all others negative Physical Exam Vital Signs Date Time Temp Pulse Resp B/P (MAP) Pulse Ox O2 Delivery O2 Flow Rate FiO2 06/13/17 17:44 77 16 162/70 96 Room Air 06/13/17 16:20 71 06/13/17 16:05 73 16 165/71 96 Room Air 06/13/17 14:51 37.0 98 16 156/99 98 Room Air 06/13/17 14:38 90 Room Air 06/13/17 14:38 90 Room Air General Appearance: WD/WN, no apparent distress Head: normocephalic, atraumatic Eyes: EOMI, sclerae normal Respiratory/Chest: normal breath sounds, no respiratory distress Cardiovascular: regular rate, rhythm, no edema Abdomen/GI: non tender, soft Extremities/Musculoskelatal: no calf tenderness, no pedal edema Neurologic/Psych: alert (to person only), + pertinent finding (answers questions but speech is somewhat difficult to understand, pleasant and cooperative) Skin: normal color, warm/dry Diagnostics Laboratory Results Results Past 24 Hours Test 06/13/17 14:46 06/13/17 15:14 06/13/17 15:16 06/13/17 17:31 Range/Units Bedside Prothrombin Time INR 4.9 0.9-1.1 White Blood Count 13.35 4.8-10.8 K/uL Red Blood Count 4.14 4.2-5.4 M/uL Hemoglobin 10.4 12.0-16.0 g/dL Hematocrit 33.0 37-47 % Mean Corpuscular Volume 79.7 80-100 fL Mean Corpuscular Hemoglobin 25.1 25-34 pg Mean Corpuscular Hemoglobin Concent 31.5 32-36 g/dl Platelet Count 448 130-400 K/uL Mean Platelet Volume 9.0 7.4-10.4 fL Neutrophils (%) (Auto) 84.4 % Lymphocytes (%) (Auto) 7.3 % Monocytes (%) (Auto) 7.7 % Eosinophils (%) (Auto) 0.0 % Basophils (%) (Auto) 0.2 % Neutrophils # (Auto) 11.27 1.4-6.5 K/uL Lymphocytes # (Auto) 0.97 1.2-3.4 K/uL Monocytes # (Auto) 1.03 0.11-0.59 K/uL Eosinophils # (Auto) 0.00 0-0.5 K/uL Basophils # (Auto) 0.03 0-0.2 K/uL RDW Standard Deviation 48.3 36.4-46.3 fL RDW Coefficient of Variation 16.6 11.5-14.5 % Immature Granulocyte % (Auto) 0.4 % Immature Granulocyte # (Auto) 0.05 0.00-0.02 K/uL Prothrombin Time 40.1 9.0-12.0 SECONDS Prothromb Time International Ratio 3.9 0.9-1.1 Activated Partial Thromboplast Time 57.2 21.0-31.0 SECONDS Partial Thromboplastin Ratio 2.2 Sodium Level 133 136-145 mmol/L Potassium Level 4.8 3.5-5.1 mmol/L Chloride Level 100 98-107 mmol/L Carbon Dioxide Level 27 21-32 mmol/L Anion Gap 6.0 3-11 mmol/L Blood Urea Nitrogen 47 7-18 mg/dl Creatinine 2.72 0.60-1.20 mg/dl Est Creatinine Clear Calc Drug Dose 19.5 ml/min Estimated GFR () 20.7 Estimated GFR (Non- 17.9 BUN/Creatinine Ratio 17.4 10-20 Random Glucose 195 70-99 mg/dl Calcium Level 8.8 8.5-10.1 mg/dl Magnesium Level 2.2 1.8-2.4 mg/dl Total Bilirubin 0.2 0.2-1 mg/dl Direct Bilirubin < 0.1 0-0.2 mg/dl Aspartate Amino Transf (AST/SGOT) 9 15-37 U/L Alanine Aminotransferase (ALT/SGPT) 12 12-78 U/L Alkaline Phosphatase 86 45-117 U/L Total Creatine Kinase 21 26-192 U/L Creatine Kinase MB < 0.5 0.5-3.6 ng/ml Creatine Kinase MB Ratio 0-3.0 Troponin I < 0.015 0-0.045 ng/ml Total Protein 7.6 6.4-8.2 gm/dl Albumin 2.0 3.4-5.0 gm/dl Thyroid Stimulating Hormone (TSH) 1.430 0.300-4.500 uIu/ml Urine Color YELLOW Urine Appearance CLEAR CLEAR Urine pH 7.0 4.5-7.5 Urine Specific [place] 1.019 1.000-1.030 Urine Protein 4+ NEG Urine Glucose (UA) 2+ NEG Urine Ketones NEG NEG Urine Occult Blood 2+ NEG Urine Nitrite NEG NEG Urine Bilirubin NEG NEG Urine Urobilinogen NEG NEG Urine Leukocyte Esterase TRACE NEG Urine WBC (Auto) >30 0-5 /hpf Urine RBC (Auto) 10-30 0-4 /hpf Urine Hyaline Casts (Auto) 5-10 0-5 /lpf Urine Epithelial Cells (Auto) >30 0-5 /lpf Urine Bacteria (Auto) 1+ NEG Test 06/13/17 17:45 Range/Units Influenza Type A Antigen Neg for Influ A NEG Influenza Type B Antigen Neg for Influ B NEG Microbiology Results 06/13/17 Urine Culture, Received Pending Diagnostic Radiology CT head with old infarcts only CXR neg for acute Normal EKG Impression Assessment and Plan 61 y/o F who was admitted on 06/13 with ambulatory dysfunction Ambulatory dysfunction: UTI vs elevated INR UA noted for + nitrites, neg leuk est with cx pending Started on rocephin in the ED, will continue Noted for leukocytosis INR is elevated at 3.9 in the setting of coumadin use, which can also cause neuro issues Hold coumadin and monitor Pelvis/femur XR neg Trop neg, electrolytes essentially WNL ARF: Baseline appears to be around 1.7-2.0 with CKD monitor on gentle IVF given possibly dehydrated if UTI + Afib: holding coumadin as above Home dosing is alt 3mg/4.5mg, was due for 3mg tonight DM: On PO meds only SSI for now A1c pending HTN: stable, continue home meds Hypothyroid: continue home meds Recent CVA: PT/OT states was to be d/c'd from speech therapy tomorrow and has ongoing OT services, d/c'd from PT Plavix on hold given elevated INR Other: Full code, however does not think pt would want prolonged intubation or placement of a feeding tube. Clears for now and ADAT SCDs for DVT proph given elevated INR CM: is having difficulty managing pt's medications and may benefit from HH on d/c PT/OT Level of Care Med/Surg Resuscitation Status FULL RESUSCITATION VTE Prophylaxis VTE Risk Assessment Done? Y/N: Yes Risk Level: Low
[2017-06-13 19:23] LABS: INFLUENZA A PCR Neg for Influ A (NEG); INFLUENZA B PCR Neg for Influ B (NEG)
[2017-06-13] MEDS: INSULIN ASPART 100 UNITS/ML 3 ML PEN SC SCH (21:00)
[2017-06-13] MEDS: SIMVASTATIN 40 MG TAB PO SCH (21:25)
[2017-06-13] MEDS: SODIUM CHLORIDE 0.9% 1000ML 1,000 ML IV SCH (22:11)
[2017-06-13 22:17] VITALS: BP 152/81; PULSE 77; TEMP 36.6; O2SAT 94; BMI 26.4
[2017-06-14 00:19] VITALS: BP 159/74; PULSE 71; TEMP 36.5; O2SAT 94
[2017-06-14] MEDS: LEVOTHYROXINE 25 MCG TAB PO SCH (05:33)
[2017-06-14 06:34] LABS: HEMATOCRIT 30.6 % (37-47); MEAN CELL VOLUME 80.3 fL (80-100); MEAN CORPUSCULAR HEMOGLOBIN 25.2 pg (25-34); MEAN CORPUSCULAR HGB CONC 31.4 g/dl (32-36); MEAN PLATELET VOLUME 9.1 fL (7.4-10.4); PLATELET COUNT 431 K/uL (130-400); RED BLOOD COUNT 3.81 M/uL (4.2-5.4); WHITE BLOOD COUNT 8.75 K/uL (4.8-10.8)
[2017-06-14 06:58] LABS: BUN/CREATININE RATIO 19.2 (10-20); CALCIUM 8.3 mg/dl (8.5-10.1); CREATININE 2.06 mg/dl (0.60-1.20); POTASSIUM 4.1 mmol/L (3.5-5.1)
[2017-06-14 07:02] LABS: INR 5.1 (0.9-1.1); PROTHROMBIN TIME (PATIENT) 52.3 SECONDS (9.0-12.0)
[2017-06-14 07:28] LABS: ESTIMATED AVERAGE GLUCOSE 160 mg/dl; HA1C FLAG Normal (Normal)
[2017-06-14] MEDS: METOPROLOL SUCC 25MG EXT REL TAB PO SCH (07:31)
[2017-06-14] MEDS: AMLODIPINE BESYLATE 5 MG TAB PO SCH (07:32)
[2017-06-14] MEDS: FERROUS SULFATE 325 MG TAB PO SCH ×2 (07:32→17:48)
[2017-06-14] MEDS: INSULIN ASPART 100 UNITS/ML 3 ML PEN SC SCH ×4 (07:35→20:51)
[2017-06-14 08:00] VITALS: BP 146/74; PULSE 80; TEMP 36.5; O2SAT 90
[2017-06-14] MEDS: SODIUM CHLORIDE 0.9% 1000ML 1,000 ML IV SCH (11:20)
[2017-06-14 11:45] VITALS: Ht 160 cm; Wt 67.5 kg
[2017-06-14 15:33] VITALS: BP 167/76; PULSE 75; TEMP 36.8; O2SAT 90
[2017-06-14 16:08] VITALS: O2SAT 90
--- NOTE | 2017-06-14 18:46 | Medical Student: [facility] ---
Med Student Progress Note Date of Service Jun 14, 2017. Subjective Pt evaluation today including: conversation w/ patient, conversation w/ family , physical exam, chart review, lab review Voiding: no voiding problems Shayy is a 61-year-old female with a recent history of a stroke who presented to the hospital on the evening of 06/13 with complaints of weakness and pain in both legs but primarily on the right more so than the left. The pain started a week prior to her admission but the weakness occurred on 06/13. Her explained that this was first noticed when she could not ambulate to the toilet from her bed, which are two feet apart. She is normally able to walk that distance. reports that Shayy may have bumped her leg on the footboard of her bed. Shayy was hospitalized for a stroke in April. After a weeklong stay she went to [facility] for three weeks. She was discharged home to home health. She was rehospitalized for bradycardia. She denies having had any other pain, no dysuria, no fever. reports recent dietary changes - they started receiving meals from [employer] a week ago. Says Shayy will only eat some of them. Denies medication changes. Today, Shayy was sitting upright in bed. She had no complaints. She has had no difficulties eating or drinking water. No problems with urination. Not had a BM yet. Seems comfortable on her oxygen. Review of Systems Constitutional: No fever, No chills, No sweats, No weight loss Eyes: No worsening of vision ENT: No hearing loss Respiratory: No cough, No wheezing, No shortness of breath Cardiac: No chest pain, No edema Abdomen: No pain, No nausea, No vomiting, No diarrhea, No constipation Musculoskeletal: + see HPI Female : No dysuria Neurologic: No weakness, No numbness/tingling, No vertigo Objective Vital Signs Date Time Temp Pulse Resp B/P (MAP) Pulse Ox O2 Delivery O2 Flow Rate FiO2 06/14/17 15:33 36.8 75 20 167/76 (106) 90 Nasal Cannula 2.0 06/14/17 08:15 Nasal Cannula 2.0 06/14/17 08:00 36.5 80 18 146/74 (98) 90 Nasal Cannula 2.0 06/14/17 00:30 Nasal Cannula 2.0 06/14/17 00:19 36.5 71 20 159/74 (102) 94 2.0 06/13/17 22:17 36.6 77 16 152/81 94 Nasal Cannula 2.0 06/13/17 19:21 77 16 167/78 94 Nasal Cannula 2.0 06/13/17 17:44 77 16 162/70 96 Room Air Physical Exam General Appearance: WD/WN, no apparent distress Eyes: bilateral eyes PERRL, bilateral eyes abnormal EOM (would not smoothly track moving object ) Neck: supple, no adenopathy Respiratory/Chest: chest non-tender, lungs clear, normal breath sounds, + pertinent finding (somewhat increased effort with breathing) Cardiovascular: regular rate, rhythm, no edema, no gallop, no JVD, no murmur Abdomen: normal bowel sounds, non tender, soft Extremities: normal range of motion, no pedal edema, no calf tenderness, + pertinent finding (tenderness on palpation of medial aspect of right thigh ) Neurologic/Psychiatric: alert, + abnormal cerebellar tests (only able to perform FNT with left hand; appendicular ataxia noted ), + 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, + aphasia (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 ), + disoriented (oriented to person but not place or time) Laboratory Results Last 24 Hours Test 06/13/17 17:31 06/13/17 17:45 06/13/17 20:13 06/14/17 05:56 Urine Color YELLOW Urine Appearance CLEAR Urine pH 7.[address] [place] 1.019 Urine Protein 4+ Urine Glucose (UA) 2+ Urine Ketones NEG Urine Occult Blood 2+ Urine Nitrite NEG Urine Bilirubin NEG Urine Urobilinogen NEG Urine Leukocyte Esterase TRACE Urine WBC (Auto) >30 /hpf Urine RBC (Auto) 10-30 /hpf Urine Hyaline Casts (Auto) 5-10 /lpf Urine Epithelial Cells (Auto) >30 /lpf Urine Bacteria (Auto) 1+ Influenza Type A (RT-PCR) Neg for Influ A Influenza Type A Antigen Neg for Influ A Influenza Type B Antigen Neg for Influ B Influenza Type B (RT-PCR) Neg for Influ B Bedside Glucose 126 mg/dl White Blood Count 8.75 K/uL Red Blood Count 3.81 M/uL Hemoglobin 9.6 g/dL Hematocrit 30.6 % Mean Corpuscular Volume 80.3 fL Mean Corpuscular Hemoglobin 25.2 pg Mean Corpuscular Hemoglobin Concent 31.4 g/dl RDW Standard Deviation 48.9 fL RDW Coefficient of Variation 16.7 % Platelet Count 431 K/uL Mean Platelet Volume 9.1 fL Prothrombin Time 52.3 SECONDS Prothromb Time International Ratio 5.1 Sodium Level 136 mmol/L Potassium Level 4.1 mmol/L Chloride Level 106 mmol/L Carbon Dioxide Level 24 mmol/L Anion Gap 6.0 mmol/L Blood Urea Nitrogen 40 mg/dl Creatinine 2.06 mg/dl Est Creatinine Clear Calc Drug Dose 25.8 ml/min Estimated GFR () 29.0 Estimated GFR (Non- 25.0 BUN/Creatinine Ratio 19.2 Random Glucose 105 mg/dl Estimated Average Glucose 160 mg/dl Hemoglobin A1c 7.2 % Calcium Level 8.3 mg/dl Test 06/14/17 07:08 06/14/17 11:12 06/14/17 16:28 Bedside Glucose 127 mg/dl 158 mg/dl 197 mg/dl Assessment and Plan Assessment and Plan: Shayy is a 61-year-old female who presented to the ER yesterday afternoon for complaints of weakness in both legs (but more prominent in her right leg). Muscle spasm -given her history of arthritis, her acute weakness being associated with tenderness of palpation of the medial aspect of her thigh along the quadriceps muscle and tightness of the hip, and absence of other symptoms, it is most likely that this process is musculoskeletal. -she is already showing improvement based on reports from her , who said that her leg was far more painful with even gentle touch prior to today, and the physical exam (which showed normal range of motion without pain and solely pain on palpation) -start with anti-inflammatory cream and apply over affected area Stroke -patient continues to display dysarthria, a mixed aphasia, and weakness and other motor deficits -patient has had PT/OT come to the home; consult PT/OT here to continue working towards more functional improvement HTN -patient's blood pressures have been elevated since admission -likely due to stress response of being in discomfort and being hospitalized -continue amlodipine 10 mg and metoprolol 25 mg daily po Atrial fibrillation -was in sinus rhythm on exam -hold warfarin due to INR = 5.1 Hypothyroidism -continue levothyroxine 25 mcg
[2017-06-14] MEDS: SIMVASTATIN 40 MG TAB PO SCH (20:51)
[2017-06-14 22:23] VITALS: BP 162/75; PULSE 80; TEMP 36.9; O2SAT 92
[2017-06-15] MEDS: SODIUM CHLORIDE 0.9% 1000ML 1,000 ML IV SCH ×3 (00:40→13:37)
[2017-06-15] MEDS: LEVOTHYROXINE 25 MCG TAB PO SCH (06:08)
[2017-06-15 06:53] LABS: INR 2.5 (0.9-1.1); PROTHROMBIN TIME (PATIENT) 26.2 SECONDS (9.0-12.0)
[2017-06-15 07:10] VITALS: BP 159/72; PULSE 79; TEMP 36.8; O2SAT 94
[2017-06-15] MEDS: FERROUS SULFATE 325 MG TAB PO SCH ×2 (07:47→17:30)
[2017-06-15] MEDS: AMLODIPINE BESYLATE 5 MG TAB PO SCH (07:47)
[2017-06-15] MEDS: METOPROLOL SUCC 25MG EXT REL TAB PO SCH (07:47)
[2017-06-15] MEDS: INSULIN ASPART 100 UNITS/ML 3 ML PEN SC SCH ×4 (07:50→21:07)
--- NOTE | 2017-06-15 08:19 | Progress Note ---
Subjective Date of Service: Jun 14, 2017. LATE ENTRY FROM DATE OF SERVICE 06/14, I APOLOGIZE FOR ANY CONFUSION Subjective Pt evaluation today including: conversation w/ patient, physical exam, chart review, lab review, review of inpatient medication list feeling better but still not out of bed R leg hurts down medial part of leg to about knee no real trauma no other complaitns HPI and ROS very limited due to stroke and aphasia, but she tries to communicate well and supplements well Problem List Medical Problems: (1) Acute renal failure Status: Acute (2) Altered mental status Status: Acute (3) Atrial fibrillation with rapid ventricular response Status: Acute (4) Bradycardia Status: Acute (5) Elevated troponin Status: Acute (6) Focal infarction of brain Status: Acute (7) Junctional rhythm Status: Acute (8) UTI (urinary tract infection) Status: Acute (9) Weakness Status: Acute Review of Systems ROS otherwise unobtainable except for as above Objective Vital Signs Date Time Temp Pulse Resp B/P (MAP) Pulse Ox O2 Delivery O2 Flow Rate FiO2 06/15/17 07:10 36.8 79 18 159/72 (101) 94 Oxymask 4.0 06/15/17 00:00 Oxymask 4.0 06/14/17 22:23 36.9 80 20 162/75 (104) 92 Nasal Cannula 6.0 06/14/17 16:08 90 Nasal Cannula 2.0 06/14/17 15:33 36.8 75 20 167/76 (106) 90 Nasal Cannula 2.0 Physical Exam General Appearance: no apparent distress Eyes: EOMI ENT: hearing grossly normal Neck: trachea midline Respiratory/Chest: no respiratory distress, no accessory muscle use Extremities: + pertinent finding (no pain on flexion and internal rotation. pain to palp medial quad region. 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
[2017-06-15] MEDS: DICLOFENAC SOD 1% GEL 100 GM TUBE EXT SCH ×4 (09:28→21:03)
[2017-06-15 15:00] VITALS: BP 157/65; PULSE 64; TEMP 36.6; O2SAT 96
[2017-06-15] MEDS ORDERED: NURSING DECISION MEDICATION ORDER SCH (15:15)
[2017-06-15 16:50] VITALS: O2SAT 93
--- NOTE | 2017-06-15 17:44 | Progress Note ---
Subjective Date of Service: Jun 15, 2017. Subjective Pt evaluation today including: conversation w/ patient, conversation w/ family , physical exam, chart review, lab review, review of inpatient medication list feeling better but still doesn't quite feel up to going home - still a litlte too much pain breathing fels Ok does have O2 at home but usually just wears at HS Problem List Medical Problems: (1) Acute renal failure Status: Acute (2) Altered mental status Status: Acute (3) Atrial fibrillation with rapid ventricular response Status: Acute (4) Bradycardia Status: Acute (5) Elevated troponin Status: Acute (6) Focal infarction of brain Status: Acute (7) Junctional rhythm Status: Acute (8) UTI (urinary tract infection) Status: Acute (9) Weakness Status: Acute Review of Systems ROS otherwise unobtainable except for as above Objective Vital Signs Date Time Temp Pulse Resp B/P (MAP) Pulse Ox O2 Delivery O2 Flow Rate FiO2 06/15/17 16:50 93 Nasal Cannula 3.0 06/15/17 15:50 Nasal Cannula 4.0 06/15/17 15:00 36.6 64 16 157/65 (95) 96 Room Air 06/15/17 08:00 Oxymask 4.0 06/15/17 07:10 36.8 79 18 159/72 (101) 94 Oxymask 4.0 06/15/17 00:00 Oxymask 4.0 06/14/17 22:23 36.9 80 20 162/75 (104) 92 Nasal Cannula 6.0 Physical Exam General Appearance: no apparent distress Eyes: EOMI ENT: hearing grossly normal Neck: trachea midline Respiratory/Chest: no respiratory distress, no accessory muscle use Extremities: + pertinent finding (still tedner medial R thigh but not as much no other significant cahnges) Neurologic/Psychiatric: director service II-XII 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
[2017-06-15 18:10] VITALS: O2SAT 90
[2017-06-15 21:00] VITALS: O2SAT 92
[2017-06-15] MEDS ORDERED: HEPARIN SOD 5000 UNIT/0.5 ML CARP SQ SCH (21:00)
[2017-06-15] MEDS: SIMVASTATIN 40 MG TAB PO SCH (21:03)
[2017-06-15 22:42] VITALS: BP 156/69; PULSE 70; TEMP 36.9; O2SAT 90
[2017-06-16] MEDS: LEVOTHYROXINE 25 MCG TAB PO SCH (06:04)
[2017-06-16 07:08] LABS: PROTHROMBIN TIME (PATIENT) 20.7 SECONDS (9.0-12.0)
[2017-06-16 07:16] VITALS: BP 111/82; PULSE 120; TEMP 36.8; O2SAT 90
[2017-06-16] MEDS: DICLOFENAC SOD 1% GEL 100 GM TUBE EXT SCH ×4 (07:29→20:48)
[2017-06-16] MEDS: FERROUS SULFATE 325 MG TAB PO SCH ×2 (07:29→17:28)
[2017-06-16] MEDS: METOPROLOL SUCC 25MG EXT REL TAB PO SCH (07:29)
[2017-06-16] MEDS: AMLODIPINE BESYLATE 5 MG TAB PO SCH (07:29)
[2017-06-16] MEDS: INSULIN ASPART 100 UNITS/ML 3 ML PEN SC SCH ×4 (07:57→20:51)
[2017-06-16] MEDS ORDERED: WARFARIN SOD 3 MG TAB PO SCH ×2 (08:45→16:00)
--- NOTE | 2017-06-16 09:45 | DIAGNOSTIC IMAGING REPORT ---
R ANKLE 2 VIEWS CLINICAL HISTORY: pain on ambulation, ?ankle fx COMPARISON STUDY: None. FINDINGS: Limited views of the right ankle demonstrate no fracture or dislocation. Mild osteoarthritis of the tibiotalar joint. Mild soft tissue swelling. IMPRESSION: No acute fracture or dislocation within the right ankle. Electronically signed by: Ethan Mari M.D. 06/16/2017 9:44 AM Dictated Date/Time: 06/16/2017 9:43 AM
[2017-06-16] MEDS: CLOPIDOGREL BISULFATE 75 MG TAB PO SCH (12:38)
[2017-06-16 14:44] VITALS: BP 138/61; PULSE 62; TEMP 37.3; O2SAT 93
--- NOTE | 2017-06-16 16:00 | Progress Note ---
Subjective Date of Service: Jun 16, 2017. Subjective Pt evaluation today including: conversation w/ patient, conversation w/ family , physical exam, chart review, lab review, review of studies, review of inpatient medication list had pain in foot/ankle on standing - PT asked for Xrays - obtained and no fx identified she's continuing to feel better but not well enough to go home - still a ltitle too much w pain, although is improving, and still too much weakness to be safe at home, although that too is improving Problem List Medical Problems: (1) Acute renal failure Status: Acute (2) Altered mental status Status: Acute (3) Atrial fibrillation with rapid ventricular response Status: Acute (4) Bradycardia Status: Acute (5) Elevated troponin Status: Acute (6) Focal infarction of brain Status: Acute (7) Junctional rhythm Status: Acute (8) UTI (urinary tract infection) Status: Acute (9) Weakness Status: Acute Review of Systems all other ROS otherwise negative except for as above Objective Vital Signs Date Time Temp Pulse Resp B/P (MAP) Pulse Ox O2 Delivery O2 Flow Rate FiO2 06/16/17 14:44 37.3 62 20 138/61 (86) 93 2.0 06/16/17 08:00 Oxymask 2.0 06/16/17 07:16 36.8 120 20 111/82 (92) 90 06/16/17 00:00 Nasal Cannula 2.0 06/15/17 22:42 36.9 70 18 156/69 (98) 90 Nasal Cannula 2.0 06/15/17 21:00 92 Nasal Cannula 1.0 06/15/17 18:10 90 Nasal Cannula 2.0 06/15/17 16:50 93 Nasal Cannula 3.0 Physical Exam General Appearance: no apparent distress Eyes: EOMI ENT: hearing grossly normal Neck: trachea midline Respiratory/Chest: no respiratory distress, no accessory muscle use Extremities: normal range of motion 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
[2017-06-16] MEDS: SIMVASTATIN 40 MG TAB PO SCH (20:48)
[2017-06-16 23:12] VITALS: BP 158/78; PULSE 68; TEMP 36.6; O2SAT 92
[2017-06-17] MEDS: LEVOTHYROXINE 25 MCG TAB PO SCH (05:50)
[2017-06-17 06:46] VITALS: BP 162/70; PULSE 67; TEMP 36.5; O2SAT 91
[2017-06-17 07:11] LABS: INR 1.3 (0.9-1.1); PROTHROMBIN TIME (PATIENT) 13.7 SECONDS (9.0-12.0)
[2017-06-17] MEDS: FERROUS SULFATE 325 MG TAB PO SCH ×2 (07:44→17:26)
[2017-06-17] MEDS: METOPROLOL SUCC 25MG EXT REL TAB PO SCH (07:44)
[2017-06-17] MEDS: CLOPIDOGREL BISULFATE 75 MG TAB PO SCH (07:44)
[2017-06-17] MEDS: DICLOFENAC SOD 1% GEL 100 GM TUBE EXT SCH ×4 (07:45→20:28)
[2017-06-17] MEDS: AMLODIPINE BESYLATE 5 MG TAB PO SCH (07:45)
[2017-06-17] MEDS: INSULIN ASPART 100 UNITS/ML 3 ML PEN SC SCH ×4 (07:48→20:15)
[2017-06-17] MEDS ORDERED: WARFARIN SOD 5 MG TAB PO ONE (08:45)
[2017-06-17 15:47] VITALS: BP 137/58; PULSE 69; TEMP 37.5; O2SAT 93
--- NOTE | 2017-06-17 15:49 | Progress Note ---
Subjective Date of Service: Jun 17, 2017. Subjective seen twice, sleeping comfortably each time present, updated. no new issues Problem List Medical Problems: (1) Acute renal failure Status: Acute (2) Altered mental status Status: Acute (3) Atrial fibrillation with rapid ventricular response Status: Acute (4) Bradycardia Status: Acute (5) Elevated troponin Status: Acute (6) Focal infarction of brain Status: Acute (7) Junctional rhythm Status: Acute (8) UTI (urinary tract infection) Status: Acute (9) Weakness Status: Acute Objective Vital Signs Date Time Temp Pulse Resp B/P (MAP) Pulse Ox O2 Delivery O2 Flow Rate FiO2 06/17/17 08:00 Nasal Cannula 2.0 06/17/17 06:46 36.5 67 16 162/70 (100) 91 Nasal Cannula 2.0 06/17/17 00:00 Nasal Cannula 2.0 06/16/17 23:12 36.6 68 18 158/78 (104) 92 Nasal Cannula 2.0 06/16/17 16:00 Oxymask 2.0 Physical Exam General Appearance: no apparent distress Eyes: EOMI ENT: hearing grossly normal Neck: trachea midline Respiratory/Chest: no respiratory distress, no accessory muscle use Extremities: normal range of motion Laboratory Results Last 24 Hours Test 06/16/17 16:48 06/16/17 19:46 06/16/17 20:42 06/17/17 06:15 Bedside Glucose 137 mg/dl 242 mg/dl 228 mg/dl Prothrombin Time 13.7 SECONDS Prothromb Time International Ratio 1.3 Test 06/17/17 07:13 06/17/17 11:16 Bedside Glucose 161 mg/dl 185 mg/dl Assessment and Plan APPEARS TO BE MUSCULAR R QUAD PAIN LIKELY ALSO ARTHRITIS FLARE -PT/OT -VOLTAREN GEL -weakness too much to be safe at home --> rehab (safe to go once approved) stroke w residual aphasia -supportive care
[2017-06-17] MEDS ORDERED: WARFARIN TAB 4 MG, WARFARIN TAB 0.5 MG PO SCH ×2 (16:00)
[2017-06-17] MEDS: SIMVASTATIN 40 MG TAB PO SCH (20:28)
[2017-06-17 23:24] VITALS: BP 148/69; PULSE 59; TEMP 36.8; O2SAT 94
[2017-06-18] MEDS: LEVOTHYROXINE 25 MCG TAB PO SCH (06:12)
[2017-06-18 06:50] LABS: INR 1.5 (0.9-1.1)
[2017-06-18 07:16] VITALS: BP 165/73; PULSE 73; TEMP 36.6; O2SAT 94
[2017-06-18] MEDS: AMLODIPINE BESYLATE 5 MG TAB PO SCH (07:28)
[2017-06-18] MEDS: FERROUS SULFATE 325 MG TAB PO SCH (07:28)
[2017-06-18] MEDS: CLOPIDOGREL BISULFATE 75 MG TAB PO SCH (07:28)
[2017-06-18] MEDS: DICLOFENAC SOD 1% GEL 100 GM TUBE EXT SCH ×2 (07:28→12:51)
[2017-06-18] MEDS: METOPROLOL SUCC 25MG EXT REL TAB PO SCH (07:28)
[2017-06-18] MEDS: INSULIN ASPART 100 UNITS/ML 3 ML PEN SC SCH ×2 (08:57→12:53)
[2017-06-18] MEDS ORDERED: VLTG EXT (12:45)
--- NOTE | 2017-06-18 12:54 | Discharge Instructions ---
Discharge Instructions Date of Service Jun 18, 2017. Admission Reason for Admission: UTI Discharge Discharge Diagnosis / Problem: Right leg pain, arthritis, weakness Discharge Goals Goal(s): Decrease discomfort, Improve function, Diagnostic testing, Therapeutic intervention Activity Recommendations Activity Limitations: resume your previous activity (as tolerated, per outpatient physical therapy recommendations) . Instructions / Follow-Up Instructions / Follow-Up You were admitted to the hospital after presenting with weakness and right leg/ thigh pain. You were found to have acute kidney injury as well, and this was treated with IV fluids. Your right pain appears to be musculoskeletal in nature , and there is likely an acute flare of your arthritis contributing as well. You were treated with a topical non-steroidal anti-inflammatory drug which has helped to alleviate your pain. You were evaluated by physical and occupational therapy due to your weakness, and you were cleared to be discharged home with home health physical/occupational therapy services. Medications: *You may apply Voltaren gel (diclofenac) to your right thigh up to four times a day as needed for pain. *Continue your home medications as prescribed. Follow up: *You have been scheduled to follow up with your primary care provider later this week regarding your hospital stay. Please seek medical attention if you experience fevers, chills, sweats, dizziness/lightheadedness, loss of consciousness, chest pain, shortness of breath, nausea, vomiting, numbness or tingling. Current Hospital Diet Patient's current hospital diet: Diabetes Type 2 Diet Discharge Diet Recommended Diet: AHA Diet (Heart Healthy), Diabetes Type 2 Diet Pending Studies Studies pending at discharge: no Laboratory Results Hemoglobin A1c Test 06/14/17 05:56 Range/Units Estimated Average Glucose 160 mg/dl Hemoglobin A1c 7.2 H 4.5-5.6 % Lipid Panel Test 03/31/17 01:01 Range/Units Triglycerides Level 109 0-150 mg/dl Cholesterol Level 127 0-200 mg/dl HDL Cholesterol 55 mg/dl Cholesterol/HDL Ratio 2.3 LDL Cholesterol, Calculated 50 mg/dl Medical Emergencies . Who to Call and When: Medical Emergencies: If at any time you feel your situation is an emergency, please call 911 immediately. . Non-Emergent Contact Non-Emergency issues call your: Primary Care Provider Call Non-Emergent contact if: you have a fever, your pain is not controlled, your pain is worsening, your pain is unusual for you, your pain is concerning you, you have any medication questions . Past History Medical & Surgical History: (1) Musculoskeletal pain of right thigh (2) Weakness . "Provider Documentation" section prepared by Charo Palumbo. . VTE Core Measure Inpt VTE Proph given/why not?: Unfractionated heparin SQ, Warfarin (Coumadin)
[2017-06-18 13:02] VITALS: BP 165/73; PULSE 73; TEMP 36.6; O2SAT 94
--- NOTE | 2017-06-18 13:32 | Discharge Summary ---
Discharge Summary Date of Service Jun 18, 2017. Discharge Summary Admission Date: Jun 13, 2017 at 19:04 Discharge Date: Jun 18, 2017 Discharge Disposition: Home with services Principal Diagnosis: Right leg musculoskeletal pain, arthritis, weakness Problems/Secondary Diagnoses: Carotid artery stenosis, CKD stage III, anemia, DM II, CVA, HTN, HLD, hypothyroidism, paroxysmal a-fib Immunizations: Have You Had Influenza Vaccine: No History of Tetanus Vaccine?: No History of Pneumococcal: No Procedures: HEAD CT NONCONTRAST CT DOSE: 614.27 mGy.cm HISTORY: Stroke symptoms. TECHNIQUE: Multiaxial CT images of the head were performed without the use of intravenous contrast. Automated exposure control was utilized for this study. A dose lowering technique was utilized adhering to the principles of ALARA. Comparison: Head CTA 04/02/2017. Findings: The paranasal sinuses and mastoid air cells are clear. The calvarium and skull base are intact. There is complete evolution of the old left MCA territory infarct. Small old right periventricular infarct is again noted. There is no mass, hematoma, midline shift, acute infarct. Impression: No acute intracranial abnormality. Old infarcts as described above. CHEST ONE VIEW PORTABLE CLINICAL HISTORY: Stroke COMPARISON STUDY: Chest radiograph May 07, 2017. FINDINGS: Lung volumes are normal. No pneumothorax or pleural effusion is present. There is no consolidation to suggest pneumonia. There is no evidence of pulmonary edema. Mild cardiomegaly is noted. An old left sixth rib fracture is noted. IMPRESSION: No acute cardiopulmonary findings. PELVIS 1 OR 2 VIEW ROUTINE, R FEMUR 2 VIEWS ROUTINE, L FEMUR 2 VIEWS ROUTINE HISTORY: 61 years-old Female Pt c/o Rt hip pain acute pelvic and bilateral hip pain COMPARISON: None available TECHNIQUE: Single AP view the pelvis with 2 views of the bilateral femora FINDINGS: PELVIS: High attenuating material seen within the central pelvis. Vascular calcifications are noted. There are degenerative changes of the lower lumbar spine. No pelvic ring fracture identified. The sacrum appears intact. Mild degenerative changes of the bilateral femoral acetabular joints without acute fracture or dislocation identified. Degenerative changes are seen within the pubic symphysis and bilateral SI joints. There is mild internal rotation of the right femur. RIGHT FEMUR: No acute fracture or dislocation identified. Degenerative changes are noted about the knee which appear moderate within the medial and patellofemoral compartments. Small knee joint effusion. LEFT FEMUR: Moderate degenerative changes are noted about the knee with small knee joint effusion. No acute fracture or dislocation. IMPRESSION: 1. No acute fracture or dislocation identified involving the pelvis or bilateral femora. 2. Degenerative changes are noted about the bilateral hips and knees with small bilateral knee joint effusions. 3. Peripheral vascular disease. R ANKLE 2 VIEWS CLINICAL HISTORY: pain on ambulation, ?ankle fx COMPARISON STUDY: None. FINDINGS: Limited views of the right ankle demonstrate no fracture or dislocation. Mild osteoarthritis of the tibiotalar joint. Mild soft tissue swelling. IMPRESSION: No acute fracture or dislocation within the right ankle. Medication Reconciliation New Medications: Diclofenac Sod (Voltaren) 100 Appln/100 Gm Gel 1 APPLN EXT QID PRN for Pain for 7 Days, #1 TUBE Apply topically to right upper leg up to four times a day as needed for pain. Continued Medications: Acetaminophen (Tylenol) 500 Mg Tab 500 MG PO Q4 PRN for Pain or Fever, TAB Amlodipine (Norvasc) 10 Mg Tab 10 MG PO DAILY Clopidogrel (Plavix) 75 Mg Tab 75 MG PO DAILY, TAB Ergocalciferol (Vitamin D 48943 Unit) 50,000 Unit Cap 53174 UNIT PO WK, CAP TAKES EVERY SUN. Ferrous Sulfate (Iron) 325 Mg Tab 325 MG PO BID Glimepiride (Amaryl) 1 Mg Tab 1 MG PO DAILY, TAB Levothyroxine Sodium (Synthroid) 25 Mcg Tab 25 MCG PO DAILY Metoprolol Succ (Toprol Xl) (Toprol-Xl) 25 Mg Tabcr 25 MG PO DAILY, #30 TAB Simvastatin (Zocor) 40 Mg Tab 40 MG PO QPM, TAB Warfarin Sod (Jantoven) 3 Mg Tab 3 MG PO Q2D, TAB Warfarin Sod (Jantoven) 3 Mg Tab 4.5 MG PO Q2D, TAB Discharge Exam Patient reports feeling well. She denies any pain in her right thigh currently. She states she is ready to go home. The patient denies fevers, chills, sweats , chest pain, palpitations, claudication, cough, wheezing, shortness of breath, nausea, vomiting, abdominal pain, dysuria, hematuria, urinary retention, paralysis, weakness, numbness and tingling. Constitutional: No fever, No chills, No sweats Eyes: No worsening of vision, No eye pain, No diplopia ENT: No hearing loss, No nasal symptoms, No trouble swallowing Respiratory: No cough, No wheezing, No shortness of breath Cardiovascular: No chest pain, No claudication, No palpitations Abdomen: No pain, No nausea, No vomiting Musculoskeletal: No joint pain, No muscle pain, No swelling Genitourinary - Female: No dysuria, No urinary retention, No hematuria Neurologic: No paralysis, No weakness, No numbness/tingling Integumentary: No rash, No itch, No color change General appearance: Well-developed, well-nourished, no apparent distress Head: Normocephalic, atraumatic Eyes: Normal inspection, PERRL, EOMI ENT: Normal ENT inspection, hearing grossly normal, pharynx normal Neck: Supple, no JVD, trachea midline Respiratory/Chest: Lungs clear to auscultation, normal breath sounds, no respiratory distress Cardiovascular: Regular rate & rhythm, no gallop, no murmur Abdomen/GI: Normal bowel sounds, non-tender, soft Extremities/Musculoskeletal: Normal inspection, no calf tenderness, no pedal edema Neurological/Psych: +Disoriented. Slurred speech, chronic secondary to stroke. Alert, normal mood/affect, oriented x 2 Skin: Normal color, warm/dry, no rash Hospital Course 61 y/o female with a history of recent CVA, carotid artery stenosis, CKD stage III, anemia, DM II, HTN, HLD, hypothyroidism, and paroxysmal a-fib who presents with weakness, ambulatory dysfunction and right leg pain. Right leg pain, ambulatory dysfunction, weakness in setting of recent CVA -Head CT no acute disease, old infarct -Pelvis, bilateral femur and right ankle x-rays no fracture/acute disease -Right thigh pain appears to be MSK with arthritis flare -Continue Voltaren gel QID prn pain -PT/OT evaluate and treat, recommend return home with family support and home health Supratherapeutic INR--resolved -INR 3.9 on admission, Coumadin had been held until resolution, restarted on -INR 1.5 on discharge, will give order to recheck tomorrow RUPALI on CKD stage III--improving -Creatinine 2.72 on admission, baseline around 1.7-2.0 -Given IVF with improvement -Recheck renal profile tomorrow with INR Recent CVA with residual aphasia -Home PT/OT HTN, HLD--stable -Continue Norvasc 10 mg PO qd, Toprol Xl 25 mg PO qd and Zocor 40 mg PO qd Paroxysmal a-fib--stable -Continue warfarin 3 mg/4.5 mg alternating, check INR as above DM II--last HgbA1c checked 06/14/17 was 7.2 -Hold glimepiride, resume on d/c -Insulin sliding scale -Check BSGs q ac and qhs Hypothyroidism -Continue Synthroid 25 mcg PO qd DVT prophylaxis -Warfarin -SCDs Code Status -Level I, FULL RESUSCITATION STATUS Total Time Spent: Greater than 30 minutes This includes examination of the patient, discharge planning, medication reconciliation, and communication with other providers. Discharge Instructions Please refer to the electronic Patient Visit Report (Discharge Instructions) for additional information. Additional Copies To Ugo Walker M.D.
== END 2017-06-18 13:41 | disposition home or self-care (01) | DRG 951 ==
LOC: EDBD 14:29 → C.EDA 14:30 → C.MS2W 19:04 → ENRESERV 19:18
PROVIDERS: ADMIT Family Medicine; ATTEND Hospitalist
DX: Z87.891 Personal history of nicotine dependence (principal); N17.9 Acute kidney failure, unspecified; Z79.02 Long term (current) use of antithrombotics/antiplatelets; I48.91 Unspecified atrial fibrillation; E11.9 Type 2 diabetes mellitus without complications; I12.9 Hypertensive chronic kidney disease with stage 1 through stage 4 chronic kidney disease, or unspecified chronic kidney disease; E03.9 Hypothyroidism, unspecified; I69.320 Aphasia following cerebral infarction; M19.90 Unspecified osteoarthritis, unspecified site; N18.3 Chronic kidney disease, stage 3 (moderate); R79.1 Abnormal coagulation profile; M79.1 Myalgia

== ENCOUNTER → 2017-06-19 | Outpatient (CLI) | payer OTHER ==
[~2017-06-19] MED LIST changes: +ACET-1256 PO; -CHOL1TAB42 PO; +CLOP1TAB15 PO; -CMD3 PO; +ERGO500037 PO; +FERR1TAB23 PO; +METO25TA3 PO; -NVLGIPEN SC; -PLV75 PO; +SIMV40TA2 PO; +VLTG EXT; +WARF3TAB6 PO; -ZCR40 PO
[2017-06-19 12:39] LABS: PROTHROMBIN TIME (PATIENT) 20.3 SECONDS (9.0-12.0)
[2017-06-19 12:43] LABS: BASO % 0.8 %; BASO ABS # 0.06 K/uL (0-0.2); BLOOD UREA NITROGEN 34 mg/dl (7-18); BUN/CREATININE RATIO 16.2 (10-20); CALCIUM 9.2 mg/dl (8.5-10.1); CARBON DIOXIDE 24 mmol/L (21-32); CHLORIDE 102 mmol/L (98-107); COMPLETE YES; CREATININE 2.12 mg/dl (0.60-1.20); GLUCOSE 194 mg/dl (70-99); HEMATOCRIT 31.8 % (37-47); LYMPH % 13.8 %; LYMPH ABS # 1.07 K/uL (1.2-3.4); MEAN CELL VOLUME 77.6 fL (80-100); MEAN CORPUSCULAR HEMOGLOBIN 24.9 pg (25-34); MEAN CORPUSCULAR HGB CONC 32.1 g/dl (32-36); MONO % 7.4 %; PLATELET COUNT 501 K/uL (130-400); POTASSIUM 4.4 mmol/L (3.5-5.1); SODIUM 134 mmol/L (136-145); WHITE BLOOD COUNT 7.75 K/uL (4.8-10.8)
== END | disposition home or self-care (01) ==
LOC: C.LABBFT 10:57
PROVIDERS: ATTEND Internal Medicine Nephrology
DX: N18.3 Chronic kidney disease, stage 3 (moderate) (principal); D64.9 Anemia, unspecified

== ENCOUNTER → 2017-09-12 | Outpatient (CLI) | payer OTHER ==
[2017-09-12 17:59] LABS: ALBUMIN 2.3 gm/dl (3.4-5.0); ALT/SGPT 22 U/L (12-78); BLOOD UREA NITROGEN 58 mg/dl (7-18); CALCIUM 9.1 mg/dl (8.5-10.1); CARBON DIOXIDE 25 mmol/L (21-32); CHOLESTEROL 186 mg/dl (0-200); CREATININE 2.57 mg/dl (0.60-1.20); GLUCOSE 234 mg/dl (70-99); POTASSIUM 5.5 mmol/L (3.5-5.1); SODIUM 134 mmol/L (136-145)
[2017-09-12 18:10] LABS: ALKALINE PHOSPHATASE 108 U/L (45-117); AST/SGOT 13 U/L (15-37); LDL CHOLESTEROL CALCULATED 107 mg/dl; TOTAL PROTEIN 7.3 gm/dl (6.4-8.2)
[2017-09-13 07:02] LABS: HEMOGLOBIN A1C 7.8 % (4.5-5.6)
== END | disposition home or self-care (01) ==
LOC: C.LABBFT 10:48
PROVIDERS: ATTEND Internal Medicine
DX: E78.00 Pure hypercholesterolemia, unspecified (principal); E11.29 Type 2 diabetes mellitus with other diabetic kidney complication; E03.9 Hypothyroidism, unspecified

== ENCOUNTER → 2017-09-19 | Outpatient (CLI) | payer OTHER ==
[2017-09-19 17:33] LABS: ALBUMIN 2.3 gm/dl (3.4-5.0); BLOOD UREA NITROGEN 53 mg/dl (7-18); CALCIUM 8.6 mg/dl (8.5-10.1); CARBON DIOXIDE 23 mmol/L (21-32); CREATININE 2.45 mg/dl (0.60-1.20); GLUCOSE 165 mg/dl (70-99); POTASSIUM 4.7 mmol/L (3.5-5.1); SODIUM 137 mmol/L (136-145)
== END | disposition home or self-care (01) ==
LOC: C.LABBFT 11:21
PROVIDERS: ATTEND Physician Assistant
DX: N17.9 Acute kidney failure, unspecified (principal)

== ENCOUNTER → 2017-11-06 | Outpatient (CLI) | payer OTHER ==
[2017-11-06 13:03] LABS: ALBUMIN 2.3 gm/dl (3.4-5.0); BLOOD UREA NITROGEN 58 mg/dl (7-18); CALCIUM 8.5 mg/dl (8.5-10.1); CARBON DIOXIDE 24 mmol/L (21-32); CREATININE 2.57 mg/dl (0.60-1.20); GLUCOSE 190 mg/dl (70-99); PHOSPHORUS 4.4 mg/dl (2.5-4.9); POTASSIUM 4.5 mmol/L (3.5-5.1); SODIUM 136 mmol/L (136-145)
== END | disposition home or self-care (01) ==
LOC: C.LABBFT 10:38
PROVIDERS: ATTEND Internal Medicine Nephrology
DX: N17.9 Acute kidney failure, unspecified (principal)

== ENCOUNTER 2018-09-30 07:47 | Inpatient (IN) ==
[2018-09-30] MEDS ORDERED: SODIUM CHLORIDE 0.9% 1000ML 500 ML IV ONE (08:00)
--- NOTE | 2018-09-30 08:15 | XRay Report ---
XR chest 1V portable HISTORY: weakness COMPARISON: Chest 06/13/2017. FINDINGS: No pneumothorax. No pleural effusions. The heart remains mildly enlarged. No evidence for p ulmonary edema. Calcifications within the aortic knob. Small focal density within the left lung base laterally. IMPRESSION: Small focal density within the left lung base laterally. This is nonspecific could represent atelecta sis or pneumonia. Electronically signed by: Ethan Mari M.D. 09/30/2018 8:13 AM
[2018-09-30 08:37] LABS: Basophils # (auto) 0.04 K/uL (0-0.2); Basophils % (auto) 0.2 %; Eosinophils # (auto) 0.01 K/uL (0-0.5); Hematocrit (blood only) 32.8 % (37-47); Hemoglobin 11.2 g/dL (12.0-16.0); Immature Granulocytes # (auto) 0.07 K/uL (0.00-0.02); Immature Granulocytes % (auto) 0.3 %; Lymphocytes # (auto) 0.58 K/uL (1.2-3.4); Lymphocytes % (auto) 2.7 %; Mean Corpuscular Hgb Conc 34.1 g/dL (32-36); Mean Corpuscular Volume 81.8 fL (80-100); Mean Platelet Volume 9.5 fL (7.4-10.4); Monocytes # (auto) 0.74 K/uL (0.11-0.59); Monocytes % (auto) 3.5 %; Neutrophils # (auto) 19.66 K/uL (1.4-6.5); Neutrophils % (auto) 93.3 %; Platelet Count 436 K/uL (130-400); RDW Coefficient of Variation 14.9 % (11.5-14.5); RDW Standard Deviation 44.4 fL (36.4-46.3); Red Blood Count 4.01 M/uL (4.2-5.4)
[2018-09-30 08:57] LABS: Appearance Urine Clear (Clear); Bacteria Urine Automated Negative (Negative); Bilirubin Urine Negative (Negative); Blood Urine 1+ (Negative); Color Urine Yellow; Epithelial Cell Urine Auto >30 /lpf (0-5); Glucose Urine UA 3+ (Negative); Ketones Urine Negative (Negative); Leukocyte Esterase Urine Negative (Negative); Nitrite Urine Negative (Negative); Protein Urine 4+ (Negative); RBC Urine Automated 0-4 /hpf (0-4); Specific Gravity Urine 1.023 (1.000-1.030); Urobilinogen Urine Negative (Negative); pH Urine 6.5 (4.5-7.5)
--- NOTE | 2018-09-30 09:03 | CT Scan Report ---
CT head/brain wo con CLINICAL HISTORY: 63 years-old Female with Pt c/o AMS. Acutely altered mental status. TECHNIQUE: Multiple axial CT images of the head were obtained without contrast. A dose lowering tech nique was utilized adhering to the principles of ALARA. CT DOSE: 537.48 mGy.cm COMPARISON: None. FINDINGS: No acute intracranial hemorrhage, midline shift, intracranial mass, hydrocephalus, territorial ischem ia or abnormal extra-axial collection. Progressive encephalomalacia of the left MCA distribution infa rct. Remote infarct about the left frontal mast radiata. Age-related involutional changes with ex v acuo ventriculomegaly and background moderate chronic microvascular ischemic changes. Remote infarct about the right mast radiata distribution. Cerebral vascular calcifications are noted. The calvarium is intact. Soft tissues and orbits are unremarkable. The paranasal sinuses, mastoid air cells, and middle ear cavities are clear. IMPRESSION: 1. No acute intracranial abnormality. 2. Progressive encephalomalacia about the remote left MCA distribution infarct. The above report was generated using voice recognition software. It may contain grammatical, syntax o r spelling errors. Electronically signed by: José Sanchez M.D. 09/30/2018 9:02 AM
[2018-09-30 09:04] LABS: Renal Epithelial Cells Urine 0-5 /lpf (0-5)
[2018-09-30 09:09] LABS: Albumin Globulin Ratio 0.5 (0.9-2); Albumin Level 2.4 gm/dl (3.4-5.0); BUN Creatinine Ratio 14.3 (10-20); Bilirubin,Total 0.2 mg/dl (0.2-1); Calcium 9.1 mg/dl (8.5-10.1); Creatine Kinase MB 1.4 ng/ml (0.5-3.6); Creatinine Clr Calc Pharmacy 9.6 ml/min; Est GFR (African American) 8.6; Est GFR (Non-African American) 7.4; Globulin 5.3 gm/dl (2.5-4.0); Potassium 4.2 mmol/L (3.5-5.1); Total Protein 7.7 gm/dl (6.4-8.2); Troponin I 0.059 ng/ml (0-0.045)
[2018-09-30 09:32] LABS: Prothrombin Time 42.9 Seconds (9.0-12.0)
[2018-09-30] MEDS ORDERED: SODIUM CHLORIDE 0.9% 1000ML 1,000 ML IV ONE (09:38)
[2018-09-30 09:54] LABS: INR 4.7 (0.9-1.1)
--- NOTE | 2018-09-30 10:25 | CT Scan Report ---
ABDOMEN AND PELVIS CT WITHOUT CONTRAST CT DOSE: 872.49 mGy.cm HISTORY: Acute generalized abdominal pain with acute renal failure Pt c/o abd pain, ARF TECHNIQUE: Multiaxial CT images of the abdomen and pelvis were performed without contrast. A dose lo wering technique was utilized adhering to the principles of ALARA. COMPARISON STUDY: Renal ultrasound 05/08/2017. FINDINGS: The lung bases appear generally clear with only minimal subsegmental atelectasis. The study is mildly motion degraded. No pneumatosis or pneumoperitoneum. The imaged inferior cardiac chambers are upper limits of normal in size with trace pericardial effusion. Coronary arterial calcifications noted. Contracted gallbladder. Vascular calcifications are noted throughout the abdomen. The unenhanced live r, spleen and right adrenal gland appear unremarkable. Mild thickening of the left adrenal gland. Hyp odense cystic-appearing ovoid 1.5 x 1.8 cm lesion of the pancreatic tail is noted on image 114 series 3. Pancreas is otherwise unremarkable. No pancreatic ductal dilation identified. Cortical scarring a nd parenchymal thinning of the inferior pole right kidney. Hypodense 10 mm lesion of the inferior claudio e right kidney is suggestive of a probable cyst. There is no renal or ureteral calculi identified. Th e ureters are within normal limits. Mild wall thickening of the bladder with partial distention. Mult iple calcified uterine leiomyomata. Uterus measures up to 7.7 x 6.5 cm. Extensive calcification of the abdominal aorta with chronic partially calcified saccular-appearing di lation about the mid abdominal aorta measuring 3.0 x 1.4 cm. No adenopathy. There is no small bowel o bstruction. Colonic diverticulosis without CT evidence of acute diverticulitis. There is no ascites o r mesenteric inflammation. Terminal ileum and appendix appear unremarkable. Diastases recti with tiny fat filled periumbilical hernia. Bones appear to be intact. There are no suspicious lytic or blastic bony lesions identified. IMPRESSION: 1. Motion degraded exam without acute intra-abdominal or intrapelvic abnormality identified. 2. Colonic diverticulosis without acute diverticulitis. 3. Ovoid circumscribed cystic lesion of the pancreatic tail measures 1.5 x 1.8 cm. Correlation with a nonemergent follow-up CT abdomen pancreatic mass protocol recommended to further evaluate. 4. Fibroid uterus. 5. Extensive calcification of the aorta with mild aneurysmal dilation. 6. Additional findings as above. Electronically signed by: José Sanchez M.D. 09/30/2018 10:23 AM
--- NOTE | 2018-09-30 11:41 | History & Physical Report ---
Date of Service September 30, 2018 Assessment & Plan (1) CKD (chronic kidney disease) stage 5, GFR less than 15 ml/min: Long-standing CKD from HTN and renovascular disease. Baseline Cr is ~3, with GFR ~15. On admission, Cr was 5.6 with GFR < 10. Patient has long-standing desire for no dialysis, documented in multiple outpatient notes and agreed upon by . Unclear if current RUPALI on CKD is reversible from pre-renal cause vs. simply progression of her CKD. - Nephrology consult - Received 2L IV fluids in the ED; defer further IV fluids until seen by nephrology for concern for volume overload - No plan for HD per patient wishes (2) Leukocytosis: WBC was 21 on admission. notes one episode of non-bloody emesis yesterday, but otherwise has no focal infectious complaints. No fever/chills, no shortness of breath or cough, no abdominal pain, no diarrhea, no dysuria, polyuria, or suprapubic pain. UA on 09/30 did not appear infectious (some WBCs, but no leuk esterase, nitrates, or bacteria). CXR on 09/30 did show atelectasis vs. pneumonia, but given the lack of SIRS criteria (only the WBC, nothing else) will defer treating. - Follow exam for focal sign of infection - Follow urine and blood cultures from 09/30 (3) Falls: Main reason patient presented to the ED was due to falls overnight and that the found her down on the floor in the morning. Patient denies loss of consciousness or striking her head, but her expressive aphasia makes robust history difficult. CT head on 09/30 did not show acute changes. - PT/OT/speech - Monitor for signs of injury such as further bruising, altered mental status (4) Elevated troponin: Troponin elevated to 0.06 on admission. No chest pain or anginal equivalent symptoms. EKG on admission was non-ischemic. Patient has clear and unequivocal history of not wanting procedures done on her. She is already on an anti-platelet agent and has an INR of 4.7, so heparin gtt would be contra- indicated. Additionally, her CKD could also lead to slightly higher troponins. - Given overall clinical picture and patient's wishes, will not trend troponins unless she has chest pain or anginal symptoms. (5) Atrial fibrillation: Paroxsymal atrial fib. EKG on admission showed sinus rhythm. On warfarin as she had a likely embolic stroke in 03/2017. On admission, INR was 4.7. Outpatient notes indicate she does not check her INR with anyone really, and has just been on this dose for months. - Hold warfarin; no signs of bleeding, so will not reverse with vitamin K at th is time - Monitor INR - Not on rate-control med, but not currently in atrial fib - Monitor HR (6) Diabetes mellitus: Only on glimepiride as outpatient. Not ideal with her CKD/ESRD. - Hold oral med - Sliding scale insulin - A1c in the morning (7) CVA (cerebral vascular accident): Presumed embolic CVA in 03/2017 from afib. Per , had received outpatient PT/OT/speech, but insurance stopped paying for it. Given her falls, is interested in rehab. - Continue clopidogrel - PT/OT/speech - CM for discharge planning (8) Hypertension: BP was low-normal in the ED (100/60), but on last check up to 150/70. - Continue amlodipine (9) Hypothyroidism: TSH was 3.6 in the ED. No signs/symptoms of hypo-/hyperthyroidism. - Continue home Synthroid 50mcg (10) Hyperlipemia: - Continue simvastatin (11) DVT prophylaxis: On warfarin for afib - INR supratherapeutic at this time History of Present Illness Primary Care Provider: Ugo Walker MD Allergies Allergy/AdvReac Type Severity Reaction Status Date / Time Penicillins Allergy Intermediate . Unverified 09/30/18 08:18 aspirin Allergy Unknown swelling Verified 09/30/18 08:18 hydralazine Allergy Unknown myalgias Verified 09/30/18 08:18 procaine Allergy Unknown unknown Verified 09/30/18 08:18 Home Medications Home Medications Medication Instructions Recorded Confirmed Type amlodipine 10 mg PO DAILY 09/30/18 09/30/18 History clopidogrel 75 mg PO DAILY 09/30/18 09/30/18 History ergocalciferol (vitamin D2) 50,000 units PO WK 09/30/18 09/30/18 History ferrous sulfate 325 mg PO BID 09/30/18 09/30/18 History glimepiride 2 mg PO BID 09/30/18 09/30/18 History levothyroxine 50 mcg PO DAILY 09/30/18 09/30/18 History simvastatin 40 mg PO PM 09/30/18 09/30/18 History warfarin 4.5 mg PO DAILY 09/30/18 09/30/18 History Past Med/Surg History Medical History Atrial fibrillation (Chronic) Hypertension (Chronic) CVA (cerebral vascular accident) (Chronic) Renal artery stenosis CKD (chronic kidney disease) stage 5, GFR less than 15 ml/min Diabetes mellitus Hyperlipemia Hypothyroidism Surgical History History of dental surgery Family History Father Hypertension Social History 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: [place] Feels Safe at Home: Yes Smoking Status: Former smoker Hx Alcohol Use: No Hx Substance Use: No Review of Systems Constitutional: + weakness (Non-focal); no fever, no chills and no sweats Eyes: no diplopia Ear, Nose, Mouth, Throat: no ear trauma, no nasal discharge and no dental pain Respiratory: no cough, no chest congestion and no dyspnea Cardiovascular: no chest pain, no dyspnea on exertion, no palpitations and no syncope Gastrointestinal: no abdominal pain, no belching, no constipation, no diarrhea/loose stools, no blood in stools and no melena Musculoskeletal: no back pain, no joint pain and no muscle weakness Integumentary: no rash, no skin ulcer and no erythema Neurologic: no generalized weakness, no loss of sensation, no numbness and no paresthesia Psychiatric: no depression and no anxiety Endocrine: no fatigue, no polydipsia and no polyphagia Physical Exam Vital Signs (Past 24 Hours): Last Vital Signs Temp 37.2 C 09/30/18 07:51 Pulse 78 09/30/18 10:01 Resp 17 09/30/18 10:01 BP 106/63 09/30/18 10:01 Pulse Ox 96 09/30/18 10:01 Constitutional: WD/WN, vitals as above Eyes: EOM intact bilaterally; no conjunctival abnormality ENMT: external ear and nose normal, oropharynx normal Neck: trachea midline, no thyromegaly normal visual inspection Respiratory: normal respiratory effort, lungs clear to auscultation no respiratory distress Cardiovascular: RRR, no murmur, no edema Gastrointestinal (Abdomen): Inspection/Auscultation: abdomen normal to inspection; abdomen not distended Percussion/Palpation: abdomen soft; abdomen nontender, no guarding and abdomen not rigid Musculoskeletal: no cyanosis or clubbing, extremities motor strength 5/5 Skin: no rashes, warm and dry Neurologic: moves all extremities and awake Speech / Cognition: + expressive aphasia Psychiatric: Orientation: alert, oriented to person and cooperative
[2018-09-30] MEDS ORDERED: GLUCOSE 40% GEL 15 GM TUBE PO PRN (12:31)
[2018-09-30] MEDS ORDERED: GLUCOSE 10 TABS/TUBE PO PRN (12:31)
[2018-09-30] MEDS ORDERED: DEXTROSE 50% 50 ML SYRINGE IV PRN (12:31)
[2018-09-30] MEDS ORDERED: ACETAMINOPHEN 325 MG TAB PO PRN (12:31)
[2018-09-30] MEDS ORDERED: GLUCAGON FOR INJ 1 MG VIAL SQ PRN (12:31)
[2018-09-30] MEDS ORDERED: CARBOHYDRATES FOR HYPOGLYCEMIA PO PRN (12:31)
--- NOTE | 2018-09-30 12:41 | Emergency Department Note ---
Entered by Barbara Peres acting as a scribe for Osmel Dolan MD History of Present Illness General Chief complaint: Illness Time Seen by Provider: 09/30/18 07:51 Source: patient, family and other (Nurse) Mode of arrival: EMS History of Present Illness Onset (ago): hour(s) less than 1 Location: head (Fall) Pain Consistency: + other (Episode) Quality: + other (Fall) Associated symptoms: + nausea/vomiting The patient is a 63 year old female who presents to the Emergency Room with complaints of episode of a fall less than an hour [employer]. The nurse reports that the patient fell this morning at her home where she resides with her . She states that the patient reported nausea and vomiting. The patient reports that nothing hurts and she has no pain. She states that she does not know why she is in the ED. The patients reports that the patient fell off of the couch [employer]. He states that he was not able to get the patient up which prompted him to call EMS. He notes that the patient is at her baseline. The HPI and ROS are limited due to AMS. Home Medications Home Medications Medication Instructions Recorded Confirmed Type amlodipine 10 mg PO DAILY 09/30/18 09/30/18 History clopidogrel 75 mg PO DAILY 09/30/18 09/30/18 History ergocalciferol (vitamin D2) 50,000 units PO WK 09/30/18 09/30/18 History ferrous sulfate 325 mg PO BID 09/30/18 09/30/18 History glimepiride 2 mg PO BID 09/30/18 09/30/18 History levothyroxine 50 mcg PO DAILY 09/30/18 09/30/18 History simvastatin 40 mg PO PM 09/30/18 09/30/18 History warfarin 4.5 mg PO DAILY 09/30/18 09/30/18 History Allergies Allergy/AdvReac Type Severity Reaction Status Date / Time Penicillins Allergy Intermediate . Unverified 09/30/18 08:18 aspirin Allergy Unknown swelling Verified 09/30/18 08:18 hydralazine Allergy Unknown myalgias Verified 09/30/18 08:18 procaine Allergy Unknown unknown Verified 09/30/18 08:18 Past Med/Surg History Medical History Atrial fibrillation (Chronic) Hypertension (Chronic) CVA (cerebral vascular accident) (Chronic) Renal artery stenosis CKD (chronic kidney disease) stage 5, GFR less than 15 ml/min Diabetes mellitus Hyperlipemia Hypothyroidism Surgical History History of dental surgery Social History 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: Romanian Feels Safe at Home: Yes Smoking Status: Former smoker Hx Alcohol Use: No Hx Substance Use: No Review of Systems The HPI and ROS are limited due to AMS. Physical Exam Vital Signs Vital Signs - 24 hr 09/30/18 07:51 09/30/18 08:08 09/30/18 10:01 Temperature 37.2 C Temperature Source Oral Sepsis Recent Fever Within 48 Hours No Sepsis New/Unexplained Change in Mental Status No Sepsis Action Taken by Nursing No Action Required Pulse Rate 79 72 Pulse Rate [Apical] 78 Pulse Rhythm Regular Regular Pulse Rhythm [Apical] Regular Pulse Strength [Apical] Normal Respiratory Rate 18 19 17 Respiratory Effort / Characteristics Non-Labored Spontaneous Non-Labored Spontaneous Respiratory Depth Normal Normal Respiratory Pattern Regular Regular Blood Pressure 158/64 H Blood Pressure [Right Arm] 106/63 Blood Pressure Mean 95 Blood Pressure Mean [Right Arm] 77 Blood Pressure Position [Right Arm] Pulse Oximetry 95 94 96 Oxygen Delivery Method Room Air Room Air Room Air 09/30/18 11:01 09/30/18 11:58 Temperature Temperature Source Sepsis Recent Fever Within 48 Hours Sepsis New/Unexplained Change in Mental Status Sepsis Action Taken by Nursing Pulse Rate 72 Pulse Rate [Apical] 75 Pulse Rhythm Pulse Rhythm [Apical] Pulse Strength [Apical] Respiratory Rate 18 20 Respiratory Effort / Characteristics Spontaneous Respiratory Depth Respiratory Pattern Blood Pressure 152/73 H Blood Pressure [Right Arm] 152/73 H Blood Pressure Mean Blood Pressure Mean [Right Arm] 99 Blood Pressure Position [Right Arm] Lying Pulse Oximetry 94 92 Oxygen Delivery Method Room Air GENERAL: Awake, alert, well-appearing, in no distress. Does not answer questions. states patient is at baseline. Patient reports no pain. HENT: Normocephalic, atraumatic. Oropharynx unremarkable. EYES: Normal conjunctiva. Sclera non-icteric. NECK: Inspection normal. Non-tender. Supple. No nuchal rigidity. FROM. No masses. RESPIRATORY: Clear to auscultation. No wheezes. No rales. Normal respiratory effort. CARDIAC: Normal rate. Normal rhythm. No murmurs. No rubs. Extremities warm and well perfused. Pulses equal. No JVD. GI: Soft, non-distended. No tenderness to palpation. No rebound or guarding. No masses. RECTAL: Deferred. MUSCULOSKELETAL: Atraumatic. Chest examination reveals no tenderness. The back is symmetrical on inspection without obvious abnormality. There is no CVA ten derness to palpation. No joint edema. LOWER EXTREMITIES: Calves are equal size bilaterally and non-tender. No edema. No discoloration. NEURO: Normal sensorium. No sensory or motor deficits noted. SKIN: No rash or jaundice noted. Course 0752: The patient was evaluated in room C7, and a complete history and physical examination were performed. 1006: I reviewed the patient's case with Dr. Cleveland HALEY hospitalist. He will evaluate the patient for further management. 1009: I updated the patient and her family on the patient's findings and disposi tion at this time. Reevaluation(s) Reevaluation #1: I reviewed the patient's case with Dr. Cleveland HALEY hospitalist. He will evaluate the patient for further management. Time: 10:06 Administered Medications Discontinued Medications Sodium Chloride (Nss 1000ml) 500 mls @ 999 mls/hr IV .Q31M ONE Stop: 09/30/18 08:30 Last Infusion: 09/30/18 08:59 Dose: 0 mls/hr Documented by: [id number] Admin: 09/30/18 08:28 Dose: 999 mls/hr Documented by: [id number] Sodium Chloride (Nss 1000ml) 1,000 mls @ 999 mls/hr IV .Q1H1M ONE Stop: 09/30/18 10:38 Last Infusion: 09/30/18 11:28 Dose: 0 mls/hr Documented by: [id number] Admin: 09/30/18 10:01 Dose: 999 mls/hr Documented by: [id number] Medical Decision Making Differential Diagnosis Differential includes acute coronary syndrome, myocardial infarction, CVA, TIA, anemia, infection, pneumonia, UTI, pyelonephritis, poor nutrition, dehydration, electrolyte disturbance,hypoglycemia. Medical Records Attestation: I reviewed the patient's medical records. Home Medications Current Medication List: was personally reviewed by me Laboratory Data Attestation: I reviewed the patient's lab results. Result diagrams: 09/30/18 08:25 09/30/18 08:25 Lab Results 09/30/18 09/30/18 09/30/18 Range/Units 08:25 08:25 08:25 WBC 21.10 H (4.8-10.8) K/uL RBC 4.01 L (4.2-5.4) M/uL Hgb 11.2 L (12.0-16.0) g/dL Hct 32.8 L (37-47) % MCV 81.8 (80-100) fL MCH 27.9 (25-34) pg MCHC 34.1 (32-36) g/dL RDW Std Deviation 44.4 (36.4-46.3) fL RDW Coeff of [place] 14.9 H (11.5-14.5) % Plt Count 436 H (130-400) K/uL MPV 9.5 (7.4-10.4) fL Immature Gran % (Auto) 0.3 % Neut % (Auto) 93.3 % Lymph % (Auto) 2.7 % [place] % (Auto) 3.5 % Eos % (Auto) 0.0 % Baso % (Auto) 0.2 % Immature Gran # (Auto) 0.07 H (0.00-0.02) K/uL Neut # (Auto) 19.66 H (1.4-6.5) K/uL Lymph # (Auto) 0.58 L (1.2-3.4) K/uL [place] # (Auto) 0.74 H (0.11-0.59) K/uL Eos # (Auto) 0.01 (0-0.5) K/uL Baso # (Auto) 0.04 (0-0.2) K/uL PT Cancelled INR Cancelled Sodium 133 L (136-145) mmol/L Potassium 4.2 (3.5-5.1) mmol/L Chloride 100 (98-107) mmol/L Carbon Dioxide 22 (21-32) mmol/L Anion Gap 11.0 (3-11) BUN 80 H (7-18) mg/dl Creatinine 5.58 H* (0.6-1.2) mg/dl Est Cr Clr Drug Dosing 9.6 ml/min Est GFR ( Amer) 8.6 Est GFR (Non-Af Amer) 7.4 BUN/Creatinine Ratio 14.3 (10-20) Glucose 248 H (70-99) mg/dl Calcium 9.1 (8.5-10.1) mg/dl Total Bilirubin 0.2 (0.2-1) mg/dl AST 11 L (15-37) U/L ALT 14 (12-78) U/L Alkaline Phosphatase 109 (45-117) U/L Total Creatine Kinase 104 (26-192) U/L CK-MB (CK-2) 1.4 (0.5-3.6) ng/ml CK/CKMB % Calc 1.3 (0-3.0) Troponin I 0.059 H* (0-0.045) ng/ml Total Protein 7.7 (6.4-8.2) gm/dl Albumin 2.4 L (3.4-5.0) gm/dl Globulin 5.3 H (2.5-4.0) gm/dl Albumin/Globulin Ratio 0.5 L (0.9-2) TSH 3.590 (0.300-4.500) uIu/ml Urine Color Urine Appearance (Clear) Urine pH (4.5-7.5) Ur Specific [place] (1.000-1.030) Urine Protein (Negative) Urine Glucose (UA) (Negative) Urine Ketones (Negative) Urine Blood (Negative) Urine Nitrite (Negative) Urine Bilirubin (Negative) Urine Urobilinogen (Negative) Ur Leukocyte Esterase (Negative) Urine WBC (Auto) (0-5) /hpf Urine RBC (Auto) (0-4) /hpf U Hyaline Cast (Auto) (0-5) /lpf U Epithel Cells (Auto) (0-5) /lpf Urine Bacteria (Auto) (Negative) Ur Renal Epithelial Cell (0-5) /lpf Urine Yeast 09/30/18 09/30/18 Range/Units 08:30 08:58 WBC (4.8-10.8) K/uL RBC (4.2-5.4) M/uL Hgb (12.0-16.0) g/dL Hct (37-47) % MCV (80-100) fL MCH (25-34) pg MCHC (32-36) g/dL RDW Std Deviation (36.4-46.3) fL RDW Coeff of [place] (11.5-14.5) % Plt Count (130-400) K/uL MPV (7.4-10.4) fL Immature Gran % (Auto) % Neut % (Auto) % Lymph % (Auto) % [place] % (Auto) % Eos % (Auto) % Baso % (Auto) % Immature Gran # (Auto) (0.00-0.02) K/uL Neut # (Auto) (1.4-6.5) K/uL Lymph # (Auto) (1.2-3.4) K/uL [place] # (Auto) (0.11-0.59) K/uL Eos # (Auto) (0-0.5) K/uL Baso # (Auto) (0-0.2) K/uL PT 42.9 H INR 4.7 H Sodium (136-145) mmol/L Potassium (3.5-5.1) mmol/L Chloride (98-107) mmol/L Carbon Dioxide (21-32) mmol/L Anion Gap (3-11) BUN (7-18) mg/dl Creatinine (0.6-1.2) mg/dl Est Cr Clr Drug Dosing ml/min Est GFR ( Amer) Est GFR (Non-Af Amer) BUN/Creatinine Ratio (10-20) Glucose (70-99) mg/dl Calcium (8.5-10.1) mg/dl Total Bilirubin (0.2-1) mg/dl AST (15-37) U/L ALT (12-78) U/L Alkaline Phosphatase (45-117) U/L Total Creatine Kinase (26-192) U/L CK-MB (CK-2) (0.5-3.6) ng/ml CK/CKMB % Calc (0-3.0) Troponin I (0-0.045) ng/ml Total Protein (6.4-8.2) gm/dl Albumin (3.4-5.0) gm/dl Globulin (2.5-4.0) gm/dl Albumin/Globulin Ratio (0.9-2) TSH (0.300-4.500) uIu/ml Urine Color Yellow Urine Appearance Clear (Clear) Urine pH 6.5 (4.5-7.5) Ur Specific [place] 1.023 (1.000-1.030) Urine Protein 4+ H (Negative) Urine Glucose (UA) 3+ H (Negative) Urine Ketones Negative (Negative) Urine Blood 1+ H (Negative) Urine Nitrite Negative (Negative) Urine Bilirubin Negative (Negative) Urine Urobilinogen Negative (Negative) Ur Leukocyte Esterase Negative (Negative) Urine WBC (Auto) 10-30 H (0-5) /hpf Urine RBC (Auto) 0-4 (0-4) /hpf U Hyaline Cast (Auto) 1-5 (0-5) /lpf U Epithel Cells (Auto) >30 H (0-5) /lpf Urine Bacteria (Auto) Negative (Negative) Ur Renal Epithelial Cell 0-5 (0-5) /lpf Urine Yeast Not Reportable Imaging Data Radiologist's Impression: Radiology results as stated below per my review and the radiologist's interpretation: CT head/brain wo con CLINICAL HISTORY: 63 years-old Female with Pt c/o AMS. Acutely altered mental status. TECHNIQUE: Multiple axial CT images of the head were obtained without contrast. A dose lowering technique was utilized adhering to the principles of ALARA. CT DOSE: 537.48 mGy.cm COMPARISON: None. FINDINGS: No acute intracranial hemorrhage, midline shift, intracranial mass, hydrocephalus, territorial ischemia or abnormal extra-axial collection. Progressive encephalomalacia of the left MCA distribution infarct. Remote infarct about the left frontal mast radiata. Age-related involutional changes with ex vacuo ventriculomegaly and background moderate chronic microvascular ischemic changes. Remote infarct about the right mast radiata distribution. Cerebral vascular calcifications are noted. The calvarium is intact. Soft tissues and orbits are unremarkable. The paranasal sinuses, mastoid air cells, and middle ear cavities are clear. IMPRESSION: 1. No acute intracranial abnormality. 2. Progressive encephalomalacia about the remote left MCA distribution infarct. The above report was generated using voice recognition software. It may contain grammatical, syntax or spelling errors. Electronically signed by: José Sanchez M.D. 09/30/2018 9:02 AM ABDOMEN AND PELVIS CT WITHOUT CONTRAST CT DOSE: 872.49 mGy.cm HISTORY: Acute generalized abdominal pain with acute renal failure Pt c/o abd pain, ARF TECHNIQUE: Multiaxial CT images of the abdomen and pelvis were performed without contrast. A dose lowering technique was utilized adhering to the principles of ALARA. COMPARISON STUDY: Renal ultrasound 05/08/2017. FINDINGS: The lung bases appear generally clear with only minimal subsegmental atelectasis. The study is mildly motion degraded. No pneumatosis or pneumoperitoneum. The imaged inferior cardiac chambers are upper limits of normal in size with trace pericardial effusion. Coronary arterial calcifications noted. Contracted gallbladder. Vascular calcifications are noted throughout the abdomen. The unenhanced liver, spleen and right adrenal gland appear unremarkable. Mild thickening of the left adrenal gland. Hypodense cystic- appearing ovoid 1.5 x 1.8 cm lesion of the pancreatic tail is noted on image 114 series 3. Pancreas is otherwise unremarkable. No pancreatic ductal dilation identified. Cortical scarring and parenchymal thinning of the inferior pole right kidney. Hypodense 10 mm lesion of the inferior pole right kidney is suggestive of a probable cyst. There is no renal or ureteral calculi identified. The ureters are within normal limits. Mild wall thickening of the bladder with p artial distention. Multiple calcified uterine leiomyomata. Uterus measures up to 7.7 x 6.5 cm. Extensive calcification of the abdominal aorta with chronic partially calcified saccular-appearing dilation about the mid abdominal aorta measuring 3.0 x 1.4 cm. No adenopathy. There is no small bowel obstruction. Colonic diverticulosis without CT evidence of acute diverticulitis. There is no ascites or mesenteric inflammation. Terminal ileum and appendix appear unremarkable. Diastases recti with tiny fat filled periumbilical hernia. Bones appear to be intact. There are no suspicious lytic or blastic bony lesions identified. IMPRESSION: 1. Motion degraded exam without acute intra-abdominal or intrapelvic abnormality identified. 2. Colonic diverticulosis without acute diverticulitis. 3. Ovoid circumscribed cystic lesion of the pancreatic tail measures 1.5 x 1.8 cm. Correlation with a nonemergent follow-up CT abdomen pancreatic mass protocol recommended to further evaluate. 4. Fibroid uterus. 5. Extensive calcification of the aorta with mild aneurysmal dilation. 6. Additional findings as above. Electronically signed by: José Sanchez M.D. 09/30/2018 10:23 AM XR chest 1V portable HISTORY: weakness COMPARISON: Chest 06/13/2017. FINDINGS: No pneumothorax. No pleural effusions. The heart remains mildly enlarged. No evidence for pulmonary edema. Calcifications within the aortic knob. Small focal density within the left lung base laterally. IMPRESSION: Small focal density within the left lung base laterally. This is nonspecific could represent atelectasis or pneumonia. Electronically signed by: Ethan Mari M.D. 09/30/2018 8:13 AM ECG Data Attestation: I personally reviewed and interpreted this ECG as follows: Indication: weakness Rate (beats per minute): 77 Rhythm: sinus rhythm Findings: + prolonged QT; no ST depression and no ST elevation Blood Pressure Blood Pressure Findings: Elevated blood pressure Blood Pressure Disposition: further management by hospitalist MDM Narrative This is a 63-year-old female who presents emergency department complaining of falling off her couch today and being unable to get up. She was brought in to the emergency department where she was found to be a poor historian and did not know where she was. The patient's reports he is having difficulty taking care of the patient. Her creatinine is found to be 6.58 today which is the highest it has ever been. The patient is not on dialysis. I did discuss the case with the hospitalist service who agreed to admit the patient. Patient and were in agreement with the treatment plan. Impression & Plan Elevated troponin, RUPALI (acute kidney injury) Discharge Plan Visit Data Chief Complaint: Illness Other Complaint: Fall ED Provider: Osmel Dolan Discharge Problem: Elevated troponin, RUPALI (acute kidney injury) Patient Disposition: Being Evaluated by Hospitalist Discharge Instructions Interventions: ED Discharge Assessment Last Done: 09/30/18 11:58 The scribe's documentation has been prepared under my direction and personally reviewed by me in its entirety. I confirm that the note above accurately reflects all work, treatment, procedures, and medical decision making performed by me.
[2018-09-30] MEDS: INSULIN ASPART 100 UNITS/ML 3 ML PEN SC SCH ×3 (13:46→21:34)
[2018-09-30] MEDS ORDERED: SODIUM CHLORIDE 0.9% 1000ML 1,000 ML IV SCH (16:15)
--- NOTE | 2018-09-30 16:26 | Nephrology Consultation ---
Date of Consultation September 30, 2018 Assessment & Plan (1) RUPALI (acute kidney injury): -- Patient appears clinically volume contracted. Will provide 1 L 0.9NS at 80 cc/hr and check FeNa -- Will order renal US -- Monitor PRP (2) Chronic kidney disease, stage 4 (severe): -- Baseline creatinine has been 3.0 - 4.7. Patient has advanced CKD on the basis of renal vascular disease. The Chance family has expressed a desire not to pursue aggressive medical intervention (ie., IHD) due to Shayy's h/o CVA and poor functional status (3) Dehydration: -- Will provide 0.9NS at 80 cc/hr and check FeNa (4) Leukocytosis: -- Will order follow up CXR following IV hydration -- Will order blood cultures x 2 -- Await results of urine culture results (5) Atrial fibrillation: -- INR is supratherapeutic. Recommend holding Warfarin until INR within 1 - 2 range (6) Hypertension: -- Amlodipine has been ordered. Will monitor BP History of Present Illness Reason for Consultation: Acute on CKD Attending Physician: Harjit Marino MD History of Present Illness Mrs. Fletcher is a 63 year old white female who is seen at the request of Dr. Marino for evaluation of RUPALI on CKD. Medical records in the EMR were reviewed and are summarized as follows: Mrs. Fletcher has advanced CKD. Her Steam Frame Operator is Dr. Jang. The patient's baseline creatinine has been 3.0 - 4.7. Her renal impairment is due to vascular disease. Renal US in 2017 revealed atrophy of the R kidney. Renal artery duplex 2019 revealed < 60% stenosis of R renal artery and > 60% stenosis of L renal artery with a RAR of 3.8. PTRA was not pursued due to patient's poor health. 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 Mrs. Fletcher is essentially bed bound. Dr. Jang has discussed the indications/benefits/risks and alternatives to IHD w/ Mrs. Fletcher and her . Mr. Fletcher indicated that he did not wish to pursue dialysis education or vascular access creation because he did not feel that his would want aggressive medical intervention. Mrs. Fletcher's medical history is also significant for AODM, anemia and HTN. Mrs. Fletcher was brought to [facility] today for evaluation of weakness. She was found to have significant leukocytosis and c reatinine has risen to 5.6. Admitting service is aware of the Chance family's desire not to pursue IHD. Nephrology consultation has been requested to assist w/ medical management and hydration. Allergies Allergy/AdvReac Type Severity Reaction Status Date / Time Penicillins Allergy Intermediate . Unverified 09/30/18 08:18 aspirin Allergy Unknown swelling Verified 09/30/18 08:18 hydralazine Allergy Unknown myalgias Verified 09/30/18 08:18 procaine Allergy Unknown unknown Verified 09/30/18 08:18 Home Medications Home Medications Medication Instructions Recorded Confirmed Type amlodipine 10 mg PO DAILY 09/30/18 09/30/18 History clopidogrel 75 mg PO DAILY 09/30/18 09/30/18 History ergocalciferol (vitamin D2) 50,000 units PO WK 09/30/18 09/30/18 History ferrous sulfate 325 mg PO BID 09/30/18 09/30/18 History glimepiride 2 mg PO BID 09/30/18 09/30/18 History levothyroxine 50 mcg PO DAILY 09/30/18 09/30/18 History simvastatin 40 mg PO PM 09/30/18 09/30/18 History warfarin 4.5 mg PO DAILY 09/30/18 09/30/18 History Patient History Medical History Atrial fibrillation (Chronic) Hypertension (Chronic) CVA (cerebral vascular accident) (Chronic) Renal artery stenosis CKD (chronic kidney disease) stage 5, GFR less than 15 ml/min Diabetes mellitus Hyperlipemia Hypothyroidism Surgical History History of dental surgery Social History 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: [place] 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 Beliefs That Will Affect Care: None Current Living Situation: Spouse Feels Safe at Home: Yes Safety Concerns: Feels Safe At This Time Smoking Status: Former smoker Hx Alcohol Use: No Hx Substance Use: No Review of Systems Patient is unable to participate in ROS due to expressive aphasia Physical Exam Vital Signs (Past 24 Hours): Last Vital Signs Temp 36.7 C 09/30/18 15:00 Pulse 18 L 09/30/18 15:00 Resp 18 09/30/18 15:00 BP 174/76 H 09/30/18 15:00 Pulse Ox 90 09/30/18 15:00 Constitutional: + ill appearing and + obese Eyes: PERRL, conjunctivae normal, anicteric sclerae ENMT: Mouth: + dry oral mucous membranes Neck: trachea midline, no thyromegaly Respiratory: normal respiratory effort, lungs clear to auscultation (anteriorly. Unable to sit forward for evaluation of posterior lung duffy) Cardiovascular: Rate/Rhythm: + abnormal rate and + abnormal rhythm Extremities: no edema Skin: + abnormal turgor Results & Data Laboratory Results Laboratory Tests 09/30/18 09/30/18 09/30/18 08:25 08:25 08:30 WBC 21.10 H Hgb 11.2 L Hct 32.8 L Plt Count 436 H Neut % (Auto) 93.3 Neut # (Auto) 19.66 H INR Sodium 133 L Potassium 4.2 Chloride 100 Carbon Dioxide 22 BUN 80 H Creatinine 5.58 H* Glucose 248 H Troponin I 0.059 H* Albumin 2.4 L TSH 3.590 Urine Color Yellow Urine Appearance Clear Urine pH 6.5 Ur Specific [place] 1.023 Urine Protein 4+ H Urine Glucose (UA) 3+ H Urine Blood 1+ H Urine WBC (Auto) 10-30 H Urine RBC (Auto) 0-4 U Epithel Cells (Auto) >30 H Urine Bacteria (Auto) Negative Urine Yeast Not Reportable 09/30/18 08:58 WBC Hgb Hct Plt Count Neut % (Auto) Neut # (Auto) INR 4.7 H Sodium Potassium Chloride Carbon Dioxide BUN Creatinine Glucose Troponin I Albumin TSH Urine Color Urine Appearance Urine pH Ur Specific [place] Urine Protein Urine Glucose (UA) Urine Blood Urine WBC (Auto) Urine RBC (Auto) U Epithel Cells (Auto) Urine Bacteria (Auto) Urine Yeast
[2018-09-30] MEDS: SIMVASTATIN 40 MG TAB PO SCH (21:34)
--- NOTE | 2018-09-30 21:44 | Ultrasound Report ---
ULTRASOUND KIDNEYS AND BLADDER CLINICAL HISTORY: Acute renal insufficiency. COMPARISON STUDY: Abdominal CT dated 09/30/2018. TECHNIQUE: Real-time, grayscale, and color flow sonography of the kidneys and bladder is performed. I mages are reviewed in the transverse and longitudinal planes. FINDINGS: Kidneys: The kidneys are atrophic and echogenic consistent with medical renal disease. The right kidn ey measures 7.2 x 3.9 x 4.9 cm and the left kidney measures 9.4 x 4.9 x 5.6 cm. There is no hydronep hrosis. No shadowing renal calculi are identified. There is no sonographic evidence of contour deform ing renal mass lesion. No perinephric fluid is identified. Bladder: The bladder is normal in appearance. Bilateral ureteral jets were seen. IMPRESSION: 1. The kidneys are atrophic and echogenic consistent with medical renal disease. 2. There is no hydronephrosis. This is unchanged from today's CT scan. 3. The bladder is normal as imaged. Electronically signed by: Cooper Finch M.D. 09/30/2018 9:42 PM
[2018-10-01] MEDS: LEVOTHYROXINE SODIUM 50 MCG TABLET PO SCH (06:09)
[2018-10-01 06:58] LABS: Hematocrit (blood only) 29.2 % (37-47); Hemoglobin 9.9 g/dL (12.0-16.0); Mean Corpuscular Hgb Conc 33.9 g/dL (32-36); Mean Corpuscular Volume 82.5 fL (80-100); Mean Platelet Volume 9.5 fL (7.4-10.4); Platelet Count 407 K/uL (130-400); RDW Coefficient of Variation 15.1 % (11.5-14.5); RDW Standard Deviation 46.2 fL (36.4-46.3); Red Blood Count 3.54 M/uL (4.2-5.4); White Blood Count 23.64 K/uL (4.8-10.8)
--- NOTE | 2018-10-01 07:08 | XRay Report ---
XR chest 1V portable HISTORY: 63 years-old Female fever, eval for pulm infiltrate acute fever with shortness of breath COMPARISON: Chest radiograph and CT abdomen and pelvis 09/30/2018 TECHNIQUE: Portable AP view of the chest FINDINGS: Cardiac silhouette is mildly enlarged, unchanged. Calcification of the thoracic aortic arch. No pneum othorax or large pleural effusion. Ill-defined opacity about the lateral left lung base is unchanged. Minimal scarring/atelectasis of the lateral left midlung. There is no overt pulmonary edema. Degener ative changes of the shoulders and spine. IMPRESSION: 1. Mild cardiomegaly without overt pulmonary edema. 2. Minimal opacities of the lateral left lung base redemonstrated, likely correlating with prominent epicardial fat pad with adjacent atelectasis/scarring as seen on yesterday's CT study. The above report was generated using voice recognition software. It may contain grammatical, syntax o r spelling errors. Electronically signed by: José Sanchez M.D. 10/01/2018 7:07 AM
[2018-10-01 07:26] LABS: Prothrombin Time 56.2 Seconds (9.0-12.0)
[2018-10-01 07:43] LABS: BUN Creatinine Ratio 12.3 (10-20); Creatinine Clr Calc Pharmacy 9.9 ml/min; Est GFR (African American) 8.9; Est GFR (Non-African American) 7.7; Magnesium 1.9 mg/dl (1.8-2.4); Phosphorus 5.7 mg/dl (2.5-4.9); Potassium 3.8 mmol/L (3.5-5.1)
[2018-10-01 07:48] LABS: INR 6.3 (0.9-1.1)
[2018-10-01] MEDS: INSULIN ASPART 100 UNITS/ML 3 ML PEN SC SCH ×4 (07:50→21:18)
[2018-10-01] MEDS: CLOPIDOGREL BISULFATE 75 MG TAB PO SCH (07:52)
[2018-10-01] MEDS: AMLODIPINE BESYLATE 5 MG TAB PO SCH (07:52)
[2018-10-01 09:20] LABS: Estimated Average Glucose 220 mg/dl; Hemoglobin A1C 9.3 % (4.5-5.6)
--- NOTE | 2018-10-01 11:10 | Nephrology Progress Note ---
Date of Service October 01, 2018 Assessment & Plan (1) RUPALI (acute kidney injury): -- Patient tolerated 1 L 0.9NS without complication. Creatinine has stablized at ~ 5.5. Electrolyte balance is acceptable -- UO has not been recorded. Will order daily I&O's. Patient has em catheter in place -- Renal US 09/30/18 was negative for obstruction -- Monitor PRP (2) Chronic kidney disease, stage 4 (severe): -- Baseline creatinine has been 3.0 - 4.7. Patient has advanced CKD on the basis of renal vascular disease. The Chance family has expressed a desire not to pursue aggressive medical intervention (ie., IHD) due to Shayy's h/o CVA and poor functional status (3) Dehydration: -- Patient remains clinically volume contracted. Urine studies not yet obtained. CXR without overt edema. Will provide 1 L 0.9NS today (4) Leukocytosis: -- Progressive leukocytosis -- Blood & urine cultures are pending -- CXR is without infiltrate / consolidation (5) Atrial fibrillation: -- INR is supratherapeutic. Recommend holding Warfarin until INR within 1 - 2 range. Consider vitamin K (6) Hypertension: -- Amlodipine has been ordered. Will monitor BP Subjective Mrs. Fletcher was seen & examined in her hospital room this morning. She is awake and alert but oriented only to self. She has significant expressive aphasia. Review of Systems Unable due to expressive aphasia Physical Exam Vital Signs (Past 24 Hours): Last Vital Signs Temp 37.1 C 10/01/18 07:54 Pulse 102 H 10/01/18 07:54 Resp 18 10/01/18 07:54 BP 172/93 H 10/01/18 07:54 Pulse Ox 88 L 10/01/18 09:41 Constitutional: + ill appearing and + obese Eyes: PERRL, conjunctivae normal, anicteric sclerae ENMT: Mouth: + dry oral mucous membranes Neck: trachea midline, no thyromegaly Respiratory: normal respiratory effort, lungs clear to auscultation (anterior ly. Unable to sit forward for evaluation of posterior lung duffy) Cardiovascular: RRR, no murmur, no edema Rate/Rhythm: + abnormal rate and + abnormal rhythm Extremities: no edema Skin: + abnormal turgor Results & Data Laboratory Results Laboratory Tests 09/30/18 10/01/18 10/01/18 08:30 06:38 06:38 WBC 23.64 H Hgb 9.9 L Hct 29.2 L Plt Count 407 H Sodium 136 Potassium 3.8 Chloride 107 Carbon Dioxide 20 L BUN 67 H Creatinine 5.40 H* Glucose 194 H Urine Color Yellow Urine Appearance Clear Urine pH 6.5 Ur Specific Monona 1.023 Urine Protein 4+ H Urine Glucose (UA) 3+ H Urine Blood 1+ H Urine Nitrite Negative Urine WBC (Auto) 10-30 H Urine RBC (Auto) 0-4 Urine Bacteria (Auto) Negative Diagnostic Findings 09/30/18 Urine culture - pending 09/30/18 Blood culture - pending Renal US 09/30/18: The kidneys are atrophic and echogenic consistent with medical renal disease. The right kidney measures 7.2 x 3.9 x 4.9 cm and the left kidney measures 9.4 x 4.9 x 5.6 cm. There is no hydronephrosis. No shadowing renal calculi are identified. There is no sonographic evidence of contour deforming renal mass lesion. No perinephric fluid is identified. The bladder is normal in appearance. Bilateral ureteral jets were seen. CXR 10/01/18: Mild cardiomegaly without overt pulmonary edema. Minimal opacities of the lateral left lung base redemonstrated, likely correlating with prominent epicardial fat pad with adjacent atelectasis/scarring as seen on yesterday's CT study.
--- NOTE | 2018-10-01 14:19 | Palliative Care Consultation ---
Date of Consultation October 01, 2018 Assessment & Plan (1) Goals of care, counseling/discussion: -63 year old female with PMH CKD stage IV, CVA, renal artery stenosis, htn, Afib, and DM, presented with falls and dehydration. Patient has known chronic kidney disease and patient is followed by Dr. Jang. Baseline creatinine is 3-4, is 5.58 yesterday on admission and 5.40 today. Patient and family have expressed desire to not undergo dialysis. She was admitted for acute on chronic kidney injury. Nephrology consulted, giving patient gentle IV hydration. Palliative care consulted. -Met with patient and her , Ozzy, in room 257. Patient is awake, but oriented to person only. Her stated that he has been taking care of her since her stroke about a year and a half ago. -Overarching goal is for comfort. -Ozzy confirmed that patient would NOT want dialysis as it would not improve her quality of life. She is already dependent in her care and hates being in the hospital, having needle sticks, etc. -Plan will likely be for SNF after discharge. 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 We did discuss that patient has potential to decline quickly, especially if her kidneys do not recover. Ozzy understands. -Patient does not have children. Ozzy has a son from previous marriage. There really is no other family to help Ozzy. We discussed home hospice, Ozzy would be amenable if he does take her home. -Will wait to see what our PT/OT departments say about patient and continue to monitor kidney function. -Will follow as needed. (2) Dehydration: (3) Falls: (4) History of CVA (cerebrovascular accident): (5) Chronic kidney disease, stage 4 (severe): History of Present Illness Attending Physician: Tyson Campos DO History of Present Illness This 63 year old female with PMH CKD stage IV, CVA, renal artery stenosis, htn, Afib, and DM, presented with falls and dehydration. Patient has known chronic kidney disease and patient is followed by Dr. Jang. Baseline creatinine is 3-4, is 5.58 yesterday on admission and 5.40 today. Patient and family have expressed desire to not undergo dialysis. She was admitted for acute on chronic kidney injury. Nephrology consulted, giving patient gentle IV hydration. Palliative care consulted. Thank you kindly for this consult. I will follow as needed. Allergies Allergy/AdvReac Type Severity Reaction Status Date / Time Penicillins Allergy Intermediate . Unverified 09/30/18 08:18 aspirin Allergy Unknown swelling Verified 09/30/18 08:18 hydralazine Allergy Unknown myalgias Verified 09/30/18 08:18 procaine Allergy Unknown unknown Verified 09/30/18 08:18 Home Medications Home Medications Medication Instructions Recorded Confirmed Type amlodipine 10 mg PO DAILY 09/30/18 09/30/18 History clopidogrel 75 mg PO DAILY 09/30/18 09/30/18 History ergocalciferol (vitamin D2) 50,000 units PO WK 09/30/18 09/30/18 History ferrous sulfate 325 mg PO BID 09/30/18 09/30/18 History glimepiride 2 mg PO BID 09/30/18 09/30/18 History levothyroxine 50 mcg PO DAILY 09/30/18 09/30/18 History simvastatin 40 mg PO PM 09/30/18 09/30/18 History warfarin 4.5 mg PO DAILY 09/30/18 09/30/18 History Patient History Medical History Atrial fibrillation (Chronic) Hypertension (Chronic) CVA (cerebral vascular accident) (Chronic) Renal artery stenosis CKD (chronic kidney disease) stage 5, GFR less than 15 ml/min Diabetes mellitus Hyperlipemia Hypothyroidism Surgical History History of dental surgery Social History Communication Ability: Impaired Beliefs That Will Affect Care: None marital status: Current Living Situation: Spouse Feels Safe at Home: Yes Safety Concerns: Feels Safe At This Time Smoking Status: Former smoker Hx Alcohol Use: No Hx Substance Use: No Review of Systems Constitutional: + weakness Respiratory: no dyspnea Cardiovascular: no chest pain and no edema Gastrointestinal: no abdominal pain and no nausea Neurologic: + confusion (reported by , Ozzy) Psychiatric: no anxiety Physical Exam Vital Signs (Past 24 Hours): Last Vital Signs Temp 37.1 C 10/01/18 07:54 Pulse 102 H 10/01/18 07:54 Resp 18 10/01/18 07:54 BP 172/93 H 10/01/18 07:54 Pulse Ox 88 L 10/01/18 09:41 Constitutional: + ill appearing and + obese ENMT: external ear and nose normal, oropharynx normal Mouth: + dry oral mucous membranes Neck: normal visual inspection Respiratory: normal respiratory effort and + tachypneic (mildly) Auscultation: + diminished lung sounds Cardiovascular: RRR, no murmur, no edema Gastrointestinal (Abdomen): Inspection/Auscultation: abdomen normal to inspection; abdomen not distended Percussion/Palpation: abdomen soft; abdomen nontender Musculoskeletal: no cyanosis or clubbing, extremities motor strength 5/5 Skin: no rashes, warm and dry Neurologic: moves all extremities and awake Psychiatric: Orientation: alert and oriented to person Time Spent Midlevel 70 minutes with >50% of time spent at bedside with patient and discussing condition and GOC.
--- NOTE | 2018-10-01 16:33 | Family Medicine Progress Note ---
Date of Service October 01, 2018 Assessment & Plan (1) History of CVA (cerebrovascular accident): Falls Likely 2/2 chronic deconditioning but appears to be sparked by a more acute process With white count markedly elevated, infection is definite possibility CT abdomen negative, blood and urine cultures NGTD, lungs clear to auscultation and chest xr, urinalysis clean, No skin ulcers, wounds, or other abnormalities. Will get CT scan of lungs as cough developed late in the day. Will continue to follow cultures and also added on a flu swab this evening. CKD Patient with creatinine >5 Acute on chronic renal failure, previous baseline around 3. Nephrology involved, given several liters of fluid believe it is likely pre renal Not desiring dialysis for her renal failure, will continue to monitor Atrial Fibrillation On coumadin, INR super therapeutic on admission. Lavonne further today to 6.3 Holding coumadin. Will recheck tomorrowl (2) Goals of care, counseling/discussion: (3) Dehydration: (4) Chronic kidney disease, stage 4 (severe): (5) Elevated troponin: (6) Falls: (7) Leukocytosis: (8) DVT prophylaxis: Supervising Physician Co-Signing Physician Notes I personally examined the patient and verified all mack points of history and exam, discussed case, and agree with decision making with Dr Sanchez HPI as above - all obtained from family. cough is new. low grade temp. vitals noted nad breathing unlabored lungs cta b/l no r/r/w. abd soft nd nt no guarding no rebound. no c//ce. no skin lesions/erythema decline/weakness/leukocytosis/arf - does appear a little dry, and still poor intake - maintenance IVF. no clear source for sepsis but wbc not resolving and crp more than nominally elevated --> start empiric rocephin following for blood cultures and further serial exams. flu swab negative, but newly rising temp and cough -- if worsens may need to re-swab. otherwise as above Subjective Ms Lucas is sitting up eating eggs this morning, she has some degree of expressive aphasia and is mostly responding only with yes and no, though appropriately. She tells me she feels good and that nothing was wrong. Will talk to family later to gain more information Review of Systems Other (Limited due to aphasia) Physical Exam Vital Signs (Past 24 Hours): Last Vital Signs Temp 37.7 C H 10/01/18 15:03 Pulse 96 H 10/01/18 15:03 Resp 22 10/01/18 15:03 BP 177/77 H 10/01/18 15:03 Pulse Ox 99 10/01/18 15:03 Constitutional: + obese and cooperative Eyes: PERRL, conjunctivae normal, anicteric sclerae Respiratory: no respiratory distress, no labored breathing and no cough Auscultation: lungs clear to auscultation bilaterally Cardiovascular: Rate/Rhythm: regular rate and regular rhythm Heart Sounds: normal S1 and normal S2 Gastrointestinal (Abdomen): Inspection/Auscultation: + abdomen distended and normal bowel sounds Percussion/Palpation: abdomen soft; abdomen nontender and no guarding Skin: + turgor decreased and + nails discolored; no rashes, no ulcers, no wound, no erythema and no excoriations Trauma: no evidence of skin trauma and no laceration Neurologic: Speech / Cognition: + expressive aphasia Resident Activity Tracking Resident Involvement: Resident Care Provided Care Provided: Adult Hospital Medicine
[2018-10-01 17:01] LABS: Basophils # (auto) 0.04 K/uL (0-0.2); Basophils % (auto) 0.2 %; Eosinophils # (auto) 0.04 K/uL (0-0.5); Eosinophils % (auto) 0.2 %; Immature Granulocytes # (auto) 0.16 K/uL (0.00-0.02); Immature Granulocytes % (auto) 0.7 %; Lymphocytes # (auto) 0.89 K/uL (1.2-3.4); Lymphocytes % (auto) 3.8 %; Monocytes # (auto) 1.06 K/uL (0.11-0.59); Monocytes % (auto) 4.5 %; Neutrophils # (auto) 21.53 K/uL (1.4-6.5); Neutrophils % (auto) 90.6 %
[2018-10-01] MEDS: SODIUM CHLORIDE 0.9% 1000ML 1,000 ML IV SCH (17:08)
--- NOTE | 2018-10-01 17:11 | CT Scan Report ---
CT chest wo con CT DOSE: 1104.50 mGy.cm HISTORY: Hypoxia and Leukocytosis TECHNIQUE: Multiaxial CT images of the chest were performed without contrast. A dose lowering techni que was utilized adhering to the principles of ALARA. COMPARISON: Chest x-ray 10/01/2018. FINDINGS: No pneumothorax. No pleural effusions. Mild respiratory motion artifact is noted. Trace muc oid material within the mid trachea. Otherwise, the central airways are patent. A few scattered linea r densities within the lungs favor atelectasis are scarring. No focal lung consolidations to suggest pneumonia. No suspicious lytic or blastic osseous lesions. The visualized unenhanced liver, spleen, a nd adrenal glands are unremarkable. Redemonstration of the 1.8 cm cystic lesion at the pancreatic vaibhav l. A 1.5 cm left thyroid nodule. Normal esophagus. The heart is mildly enlarged. Mild to moderate fransisca cified plaque is identified within the aorta and coronary arteries. No mediastinal or hilar lymphaden opathy. There is a 2.2 cm saccular aneurysm at the inferolateral aspect of the aortic arch. This may be located at the ductus arteriosus. IMPRESSION: 1. No focal lung consolidations to suggest pneumonia. 2. A 1.5 cm left thyroid nodule. 3. A 2.2 cm saccular aneurysm at the inferolateral aspect of the aortic arch. 4. Redemonstration of the 1.8 cm cystic lesion at the pancreatic tail. 5. Mild cardiomegaly. Electronically signed by: Ethan Mari M.D. 10/01/2018 5:10 PM
[2018-10-01] MEDS: cefTRIAXone SODIUM 1,000 MG in DEXTROSE 5% 50 ML IV SCH (18:49)
[2018-10-01] MEDS: SIMVASTATIN 40 MG TAB PO SCH (21:19)
[2018-10-02] MEDS: LEVOTHYROXINE SODIUM 50 MCG TABLET PO SCH (05:03)
[2018-10-02] MEDS ORDERED: XOPENEX/ATROVENT 0.63mg/0.5MG NEB COMBO NEB ONE (06:11)
[2018-10-02 06:15] LABS: Hematocrit (blood only) 29.6 % (37-47); Hemoglobin 9.6 g/dL (12.0-16.0); Mean Corpuscular Hgb Conc 32.4 g/dL (32-36); Mean Corpuscular Volume 83.6 fL (80-100); Mean Platelet Volume 9.9 fL (7.4-10.4); Platelet Count 392 K/uL (130-400); RDW Coefficient of Variation 15.5 % (11.5-14.5); RDW Standard Deviation 47.5 fL (36.4-46.3); Red Blood Count 3.54 M/uL (4.2-5.4); White Blood Count 23.43 K/uL (4.8-10.8)
[2018-10-02] MEDS ORDERED: LEVALBUTEROL HCL 0.63 MG/3 ML NEB NEB ONE (06:15)
[2018-10-02] MEDS ORDERED: IPRATROPIUM BROMIDE NEB SOLN 0.02% 2.5 ML VIAL INH ONE (06:15)
[2018-10-02 06:34] LABS: Prothrombin Time 55.7 Seconds (9.0-12.0)
[2018-10-02 06:37] LABS: INR 6.2 (0.9-1.1)
[2018-10-02 07:13] LABS: BUN Creatinine Ratio 12.3 (10-20); C Reactive Protein 16.9 mg/dl (0-0.29); Calcium 8.7 mg/dl (8.5-10.1); Creatinine Clr Calc Pharmacy 9.4 ml/min; Est GFR (African American) 8.4; Est GFR (Non-African American) 7.2; Potassium 4.1 mmol/L (3.5-5.1)
[2018-10-02] MEDS: AMLODIPINE BESYLATE 5 MG TAB PO SCH (07:54)
[2018-10-02] MEDS: INSULIN ASPART 100 UNITS/ML 3 ML PEN SC SCH ×4 (07:55→21:13)
[2018-10-02] MEDS: CLOPIDOGREL BISULFATE 75 MG TAB PO SCH (07:55)
[2018-10-02] MEDS: SODIUM CHLORIDE 0.9% 1000ML 1,000 ML IV SCH ×3 (08:00→23:48)
[2018-10-02 09:48] LABS: Creatinine Urine Random 89.5 mg/dl
[2018-10-02] MEDS ORDERED: AZITHROMYCIN 500 MG in DEXTROSE 5% 250 ML IV ONE (11:15)
--- NOTE | 2018-10-02 11:19 | Nephrology Progress Note ---
Date of Service October 02, 2018 Assessment & Plan (1) RUPALI (acute kidney injury): -- Creatinine continues to slowly trend upward. Patient remains clinically volume contracted. Will hydrate w/ 0.9NS at 80 cc/hr -- Rodriguez catheter is in place. FeNa is pending. Patient is nonoliguric -- Renal US 09/30/18 was negative for obstruction -- Monitor PRP -- Patient is afebrile w/ leukocytosis. She has progressive renal dysfunction. Palliative care recommendations reviewed. Primary concern is comfort. Family is considering hospice care (2) Chronic kidney disease, stage 4 (severe): -- Baseline creatinine has been 3.0 - 4.7. Patient has advanced CKD on the basis of renal vascular disease. The Chance family has expressed a desire not to pursue aggressive medical intervention (ie., IHD) due to Shayy's h/o CVA and poor functional status (3) Dehydration: -- Patient remains clinically volume contracted. Urine studies not yet obtained. CXR without overt edema. Will provide gentle hydration (4) Leukocytosis: -- Progressive leukocytosis -- Blood & urine cultures are pending -- CXR is without infiltrate / consolidation (5) Atrial fibrillation: -- INR is supratherapeutic. Recommend holding Warfarin until INR within 1 - 2 range. Consider vitamin K (6) Hypertension: -- Amlodipine has been ordered. Will monitor BP Subjective Mrs. Fletcher was seen & examined in her hospital room this morning. She is awake and alert but oriented only to self. She has significant expressive aphasia. ROS could not be obtained Physical Exam Vital Signs (Past 24 Hours): Last Vital Signs Temp 36.9 C 10/02/18 07:57 Pulse 98 H 10/02/18 07:57 Resp 22 10/02/18 07:57 BP 138/74 10/02/18 07:57 Pulse Ox 93 10/02/18 07:57 Constitutional: + ill appearing and + obese Eyes: PERRL, conjunctivae normal, anicteric sclerae ENMT: Mouth: + dry oral mucous membranes Neck: trachea midline, no thyromegaly Respiratory: normal respiratory effort, lungs clear to auscultation (anteriorly. Unable to sit forward for evaluation of posterior lung duffy) Cardiovascular: RRR, no murmur, no edema Rate/Rhythm: + abnormal rate and + abnormal rhythm Extremities: no edema Skin: + abnormal turgor Results & Data Laboratory Results Laboratory Tests 10/02/18 10/02/18 05:45 05:45 WBC 23.43 H Hgb 9.6 L Hct 29.6 L Plt Count 392 Sodium 139 Potassium 4.1 Chloride 109 H Carbon Dioxide 18 L BUN 70 H Creatinine 5.69 H* Glucose 155 H
--- NOTE | 2018-10-02 14:52 | Palliative Care Progress Note ---
Date of Service October 02, 2018 Assessment & Plan (1) Goals of care, counseling/discussion: -Patient more somnolent today. was not at bedside. -Creatinine increased today at 5.69. Still making urine, however. - was reportedly asking about rehab at [facility]. I am concerned this will be too rigorous for patient to tolerate. She is at high risk of fast decline given her renal and cognitive status. -Would recommend SNF with eventual transition to hospice either at SNF or at home if patient's thinks he would be able to take her home. Again, concern about how much care will be required. -Will follow up tomorrow. (2) Dehydration: (3) Falls: (4) History of CVA (cerebrovascular accident): (5) Chronic kidney disease, stage 4 (severe): Subjective Patient more somnolent today. Falls asleep during my visit, did not answer questions. Creatinine increased to 5.69 today. reportedly was asking about patient going to rehab, possibly [facility]. Review of Systems Unobtainable due to cognitive status Physical Exam Vital Signs (Past 24 Hours): Last Vital Signs Temp 36.9 C 10/02/18 07:57 Pulse 98 H 10/02/18 07:57 Resp 22 10/02/18 07:57 BP 138/74 10/02/18 07:57 Pulse Ox 93 10/02/18 07:57 Constitutional: + ill appearing and + obese ENMT: external ear and nose normal, oropharynx normal Mouth: + dry oral mucous membranes Neck: normal visual inspection Respiratory: normal respiratory effort and + tachypneic (mildly) Auscultation: + diminished lung sounds Cardiovascular: RRR, no murmur, no edema Gastrointestinal (Abdomen): Inspection/Auscultation: abdomen normal to inspection; abdomen not distended Percussion/Palpation: abdomen soft; abdomen nontender Skin: no rashes, warm and dry Neurologic: moves all extremities and awake Time Spent Midlevel 25 minutes with >50% of time spent at bedside with patient and on nursing unit collaborating with IDT to discuss plan of care.
[2018-10-02] MEDS: cefTRIAXone SODIUM 1,000 MG in DEXTROSE 5% 50 ML IV SCH (16:58)
--- NOTE | 2018-10-02 19:27 | Family Medicine Progress Note ---
Date of Service October 02, 2018 Assessment & Plan (1) History of CVA (cerebrovascular accident): Falls Likely 2/2 chronic deconditioning but appears to be sparked by a more acute process With white count markedly elevated, infection is definite possibility CT abdomen negative, blood and urine cultures NGTD, lungs clear to auscultation and chest xr, urinalysis clean, No skin ulcers, wounds, or other abnormalities. Flu swab negative will continue to follow cultures Hypoxia CT scan of lungs shows no marked abnormalities, perhaps smallest amount of consolidation forming in left lower lobe Starte azithromycin to cover atypical organisms CKD Patient with creatinine up to 5.69 Acute on chronic renal failure, previous baseline around 3. Nephrology involved, given several liters of fluid believe it is likely pre renal Not desiring dialysis for her renal failure, will continue to monitor Atrial Fibrillation On coumadin, INR super therapeutic on admission. Lavonne further today to 6.4 Continuing to hold coumadin. Will recheck tomorrow (2) Goals of care, counseling/discussion: (3) Dehydration: (4) Chronic kidney disease, stage 4 (severe): (5) Elevated troponin: (6) Falls: (7) Leukocytosis: (8) DVT prophylaxis: Supervising Physician Co-Signing Physician Notes I personally examined the patient and verified all mack points of history and exam, discussed case, and agree with decision making with Dr Sanchez No new significant HPI or review of systems right now. Seems to be a little bit more alert. vitals noted nad breathing unlabored lungs with faint rhonchi left greater than right more on expiration. No accessory muscle use. Skin shows no rashes no pallor or icterus. decline/weakness/leukocytosis/arf -clinically seems most likely to have a pulmonary infection as the inciting factor. Rocephin initiated, add Zithromax, gentle IV fluids, supportive care. Cautiously follow her progress given her overall degree of frailty. otherwise as above Subjective Ms Shayy Fletcher had some worsening oxygen demands overnight and a productive cough requiring the night doctor to come evaluate her and give her a breathing treatment. She appears very comfortable and as communicative as she was yesterday this morning. She is still mostly answering in yes or no or simple short phrases. Review of Systems Unobtainable due to reduced consciousness Physical Exam Vital Signs (Past 24 Hours): Last Vital Signs Temp 36.7 C 10/02/18 15:02 Pulse 111 H 10/02/18 15:02 Resp 18 10/02/18 15:02 BP 100/65 10/02/18 15:02 Pulse Ox 95 10/02/18 15:02 Constitutional: + obese and cooperative Eyes: PERRL, conjunctivae normal, anicteric sclerae Respiratory: no respiratory distress, no labored breathing and no cough Auscultation: + rhonchi (Left lower lobe); no wheezes Cardiovascular: Rate/Rhythm: regular rate and regular rhythm Heart Sounds: normal S1 and normal S2 Gastrointestinal (Abdomen): Inspection/Auscultation: normal bowel sounds Percussion/Palpation: abdomen soft; abdomen nontender and no guarding Skin: + nails discolored; no rashes, no ulcers, no wound, no erythema and no excoriations Trauma: no evidence of skin trauma and no laceration Neurologic: Speech / Cognition: + expressive aphasia Resident Activity Tracking Resident Involvement: Resident Care Provided Care Provided: Adult Hospital Medicine
[2018-10-02] MEDS: SIMVASTATIN 40 MG TAB PO SCH (21:25)
[2018-10-03] MEDS ORDERED: XOPENEX/ATROVENT 0.63mg/0.5MG NEB COMBO NEB ONE (03:14)
[2018-10-03] MEDS ORDERED: LEVALBUTEROL HCL 0.63 MG/3 ML NEB NEB ONE (03:15)
[2018-10-03] MEDS ORDERED: IPRATROPIUM BROMIDE NEB SOLN 0.02% 2.5 ML VIAL INH ONE (03:15)
[2018-10-03] MEDS: LEVOTHYROXINE SODIUM 50 MCG TABLET PO SCH (06:12)
--- NOTE | 2018-10-03 07:37 | Family Medicine Progress Note ---
Date of Service October 03, 2018 Assessment & Plan (1) Chronic kidney disease, stage 4 (severe): Goals of care * Patient continues to have worsening renal function, had goals of care discussion with the family and they fully understand that she is nearing the end of her life * Patient's family reasonably does not want to put her through any more discomfort than necessary to make her comfortable. * At this time they want to discharge her to hospice care to finish her life in comfort. * While here in hospital we will still treat her atrial fibrillation to try to improve her pulmonary congestion and relieve her breathing difficulty * Brother from [place] flying in tomorrow, will have another meeting with family to clarify goals of care. A fib * Attempted two boluses of lopressor, and settled for diltiazem Drip * Transferred to Telemetry * Probably contributing to pulmonary congestion * Will continue to monitor Pulmonary edema * Rate control for A fib as above * HOlding off on IV fluid for now * Lasix 40 mg CKD IV * Creatining continues to worsen 6.16 today FEN: Oral regular DVT PPx supertheraputic on warfarin Dispo: Telemetry for cardizem drip (2) Falls: (3) Leukocytosis: (4) Atrial fibrillation: (5) Hypertension: (6) History of CVA (cerebrovascular accident): (7) Goals of care, counseling/discussion: Supervising Physician Co-Signing Physician Notes I personally examined the patient and verified all mack points of history and exam, discussed case, and agree with decision making with Dr Sanchez. Tachycardic earlier today. Discussed with Dr. Sanchez extensively, patient seen, chest x-ray noted, present in the room for discussions with patient/. Revisited later after transfer to telemetry as nursing witnessed her vomit and aspirate. No meaningful HPI or review of systems obtainable from patient, although she does open eyes make contact and follow some commands. Vitals noted, in general she is fatigued appearing but surprisingly not in any significant respiratory distress despite her status. She does not appear to be in pain. Breathing shows scattered rhonchi reasonable air entry no accessory muscle use good effort. She is irregularly irregularly tachycardic A. fib/RVRappears to be secondary to the physiologic stress. Unfortunately metoprolol has only worked transiently, and she seems to be showing a degree of diastolic filling time related CHF, will try to obtain better consistent rate control with the diltiazem drip. Pulmonary edemaappears to be diastolic failure related to her RVR. Controlled rate better, oxygen/supportive care, will try to affect diuresis with Lasix (this is been discussed with the family that it may impair her already very bad renal function worse, but they note that since they are overall looking at palliative goals they are accepting of this if it may help her breathing) Leukocytosis/failure to thriveit seems most likely a pneumonia was the inciting factor, continue antibiotics, continue to follow closely, continue supportive care. There is a very small area that seems a bit nebulous on her CT scan, but clinically it seems to fit the clinical picture well. Renal failurein discussion with nephrology she is essentially progressed to end-stage renal disease, she had noted she did not want dialysis. Overall goals are palliative, but in discussions with family right now because the above acute issues can potentially resolve with treatment, they would prefer we continue to treat the A. fib/pulmonary edema/presumed pneumonia, as long as she is not uncomfortable. Should she progress to where she is more uncomfortable, in discussions with them they would likely want care withdrawn, but she is at a point right now where this would need to be discussed with them. But overall the goal will be palliative especially since she does not want dialysis. Jennifer Lucas has slipped into a fib with RVR this morning. She continues to have worsening O2 demand and worsening creatinine. Had joint discussion with palliative care and family and patient's two brother's are going to come help make decisions for his . Currently they are leaning towards discharging on hospice care and I endeavored to explain her medical conditions and explain her poor prognosis to the family members present. They expressed their understanding and are still willing to treat the patient for comfort reasons, but do not want to put her through anything she doesn't readily tolerate. Firmly against dialysis and intubation, mask only if she's tolerating. Review of Systems Unobtainable due to cognitive status Physical Exam Vital Signs (Past 24 Hours): Last Vital Signs Temp 36.8 C 10/03/18 07:02 Pulse 138 H 10/03/18 07:02 Resp 22 10/03/18 07:02 BP 135/67 10/03/18 07:02 Pulse Ox 94 10/03/18 07:02 Constitutional: cooperative and comfortable; no acute distress Respiratory: + tachypneic Auscultation: lungs clear to auscultation bilaterally; no diminished lung sounds Cardiovascular: Rate/Rhythm: + tachycardic; + abnormal rate and + abnormal rhythm Heart Sounds: normal S1 and normal S2; no gallop, no murmur and no cardiac rub Extremities: + edema irregularly irregularly pulses approximately 140-150 bpm. Gastrointestinal (Abdomen): Inspection/Auscultation: abdomen normal to inspection; abdomen not distended Percussion/Palpation: abdomen soft; abdomen nontender Resident Activity Tracking Resident Involvement: Resident Care Provided Care Provided: Adult Hospital Medicine
[2018-10-03 07:45] LABS: Prothrombin Time 50.9 Seconds (9.0-12.0)
[2018-10-03] MEDS: AMLODIPINE BESYLATE 5 MG TAB PO SCH (07:55)
[2018-10-03] MEDS: CLOPIDOGREL BISULFATE 75 MG TAB PO SCH (07:55)
[2018-10-03] MEDS: INSULIN ASPART 100 UNITS/ML 3 ML PEN SC SCH ×4 (07:56→21:38)
[2018-10-03 07:58] LABS: BUN Creatinine Ratio 13.2 (10-20); Calcium 8.8 mg/dl (8.5-10.1); Creatinine Clr Calc Pharmacy 8.7 ml/min; Est GFR (African American) 7.6; Est GFR (Non-African American) 6.6; Potassium 4.5 mmol/L (3.5-5.1)
[2018-10-03 08:02] LABS: INR 5.6 (0.9-1.1)
[2018-10-03] MEDS: AZITHROMYCIN 250 MG/6.25 ML UDP PO SCH (08:03)
[2018-10-03] MEDS ORDERED: METOPROLOL TARTRATE 1 MG/ML VIAL IV ONE (08:23)
[2018-10-03] MEDS: METOPROLOL TARTRATE 1 MG/ML VIAL IV PRN ×3 (08:36→16:52)
[2018-10-03 09:03] LABS: Basophils # (auto) 0.03 K/uL (0-0.2); Basophils % (auto) 0.1 %; Eosinophils # (auto) 0.04 K/uL (0-0.5); Eosinophils % (auto) 0.2 %; Hematocrit (blood only) 29.2 % (37-47); Hemoglobin 9.6 g/dL (12.0-16.0); Immature Granulocytes # (auto) 0.23 K/uL (0.00-0.02); Immature Granulocytes % (auto) 1.1 %; Lymphocytes # (auto) 0.53 K/uL (1.2-3.4); Lymphocytes % (auto) 2.6 %; Mean Corpuscular Hgb Conc 32.9 g/dL (32-36); Mean Corpuscular Volume 84.9 fL (80-100); Mean Platelet Volume 9.7 fL (7.4-10.4); Monocytes % (auto) 4.4 %; Neutrophils # (auto) 18.62 K/uL (1.4-6.5); Neutrophils % (auto) 91.6 %; Nucleated RBC # (auto) 0.03 K/uL (0-0); Nucleated RBC % (auto) 0.1 %; Platelet Count 395 K/uL (130-400); RDW Coefficient of Variation 15.8 % (11.5-14.5); RDW Standard Deviation 49.2 fL (36.4-46.3); Red Blood Count 3.44 M/uL (4.2-5.4); White Blood Count 20.35 K/uL (4.8-10.8)
--- NOTE | 2018-10-03 09:20 | Nephrology Progress Note ---
Date of Service October 03, 2018 Assessment & Plan (1) RUPALI (acute kidney injury): -- Creatinine continues to slowly trend upward. FeNa is equivocal at 0.9%. Patient has not responded to IV hydration -- Keep Rodriguez catheter in place to monitor I&O's -- Renal US 09/30/18 was negative for obstruction -- Monitor PRP -- Patient is afebrile but has significant leukocytosis. She continues to suffer progressive renal dysfunction despite IV hydration. Palliative care recommendations have been reviewed. Spouse & family's primary concern is for patient's comfort. Family is considering hospice care. (2) Chronic kidney disease, stage 4 (severe): -- Baseline creatinine has been 3.0 - 4.7. Patient has advanced CKD on the basis of renal vascular disease. The Chance family has expressed a desire not to pursue aggressive medical intervention (ie., IHD) due to Shayy's h/o CVA and poor functional status (3) Dehydration: -- Patient is net 4 L volume positive. Hold IVF at this time (4) Leukocytosis: -- Persistent leukocytosis -- Blood & urine cultures are NGTD -- CXR is without infiltrate / consolidation (5) Atrial fibrillation: -- INR is supratherapeutic. Recommend holding Warfarin until INR within 1 - 2 range. Consider vitamin K (6) Hypertension: -- Amlodipine has been ordered. Will monitor BP Subjective Mrs. Fletcher was seen & examined in her hospital room this morning. She is awake and alert but oriented only to self. She has significant expressive aphasia. ROS could not be obtained. senior staff specialized employment reports that patient went back into atrial fibrillation w/ RVR this am. She required IV Metoprolol Physical Exam Vital Signs (Past 24 Hours): Last Vital Signs Temp 36.8 C 10/03/18 07:02 Pulse 110 H 10/03/18 08:59 Resp 22 10/03/18 07:02 BP 97/63 L 10/03/18 08:59 Pulse Ox 94 10/03/18 07:02 Constitutional: + ill appearing and + obese Eyes: PERRL, conjunctivae normal, anicteric sclerae ENMT: Mouth: + dry oral mucous membranes Neck: trachea midline, no thyromegaly Respiratory: normal respiratory effort, lungs clear to auscultation (anteriorl y. Unable to sit forward for evaluation of posterior lung duffy) Cardiovascular: RRR, no murmur, no edema Rate/Rhythm: + abnormal rate and + abnormal rhythm Extremities: no edema Skin: + abnormal turgor Results & Data Laboratory Results Laboratory Tests 10/02/18 10/03/18 05:45 07:14 WBC 23.43 H Hgb 9.6 L Hct 29.6 L Plt Count 392 Sodium 141 Potassium 4.5 Chloride 112 H Carbon Dioxide 16 L BUN 81 H Creatinine 6.16 H* D Glucose 134 H Laboratory Tests 10/03/18 07:14 INR 5.6 H*
--- NOTE | 2018-10-03 11:06 | XRay Report ---
TWO VIEW CHEST CLINICAL HISTORY: Hypoxia. FINDINGS: AP and lateral chest radiographs are compared to chest x-ray and chest CT dated 10/01/2018. T he AP view is degraded by patient rotation. The heart is enlarged and there is atherosclerotic calcif ication of the thoracic aorta. There is pulmonary vascular congestion. There are small layering pleur al effusions with bibasilar consolidation. There is no pneumothorax. The skeletal structures are oste openic. Degenerative change is noted in the thoracic spine. There is a healed left-sided rib fracture . IMPRESSION: 1. Cardiomegaly with evidence of congestive failure. 2. There are layering pleural effusions with bibasilar consolidation. This likely represents atelecta sis. Correlate clinically for evidence of superimposed pneumonia. Electronically signed by: Cooper Finch M.D. 10/03/2018 11:04 AM
--- NOTE | 2018-10-03 13:08 | Palliative Care Progress Note ---
Date of Service October 03, 2018 Assessment & Plan (1) Goals of care, counseling/discussion: -Patient more somnolent today. was not at bedside. -Creatinine increased again today to 6.1. Still making urine, however. -Went into afib with RVR last night. Appears more dyspneic today. Remains confused. CXR obtained and shows congestive failure, pleural effusions and possible pneumonia. -Met with patient, her , Dr. Sanchez, Dr. Chang, Dr. Campos, and Maryam [employer] student, in room 257. Patient is awake and alert, but remains confused. Update given by Dr. Sanchez. Patient's has stated multiple times that patient does not like being in hospital, hates needles, etc. Stated, "I just don't want her to suffer." -We discussed goals of care. From my perspective, this is a woman with worsening renal failure, poor functional and mental status at baseline, has been said by multiple family members that patient has "given up," now experiencing more complications. Patient's was going to call some other family members in to help him make decision on either continuing current care or transitioning to comfort measures only. I spoke with Ozzy's sister, Maddy, on phone with update. Dr. Sanchez spoke to patient's brother on phone. -Further discussion to come. (2) Dehydration: (3) Falls: (4) History of CVA (cerebrovascular accident): (5) Chronic kidney disease, stage 4 (severe): Subjective Patient's condition worsening. at bedside. See A&P Review of Systems Unobtainable due to cognitive status Physical Exam Vital Signs (Past 24 Hours): Last Vital Signs Temp 36.7 C 10/03/18 11:53 Pulse 133 H 10/03/18 11:53 Resp 24 10/03/18 11:53 BP 145/76 H 10/03/18 11:53 Pulse Ox 98 10/03/18 11:53 Constitutional: + ill appearing and + obese ENMT: external ear and nose normal, oropharynx normal Mouth: + dry oral mucous membranes Neck: normal visual inspection Respiratory: + labored breathing and + tachypneic (mildly) Auscultation: + diminished lung sounds and + wheezes (expiratory wheezes) Cardiovascular: RRR, no murmur, no edema Gastrointestinal (Abdomen): Inspection/Auscultation: abdomen normal to inspection; abdomen not distended Percussion/Palpation: abdomen soft; abdomen nontender Musculoskeletal: no cyanosis or clubbing, extremities motor strength 5/5 Skin: no rashes, warm and dry Neurologic: moves all extremities and awake Psychiatric: Orientation: alert and oriented to person Supervising Physician Co-Signing Physician Notes Patient seen and examined, multiple family at bedside including patient's , cousin, friend and brother. Discussed patient's recent lab results as well as her chest [id number] her general prognosis given her worsening renal failure. Prognosis is likely weeks. Patient and family aware of prognosis, patient's is unable to provide all of her care due to his medical issues. We will have case management collaborate with family regarding discharge planning. If patient will deteriorate more rapidly-she may be GIP hospice appropriate. PE: Patient awake, alert, some were aware of conversation HEENT: EOMI, hearing within normal limits CV: Rate controlled on exam Respiratory: Slight increased work of breathing, on O2 at 6 L nasal cannula, patient denies discomfort or dyspnea Abdomen: Soft nontender Neuro: Positive cognitive deficits Agree with above note, assessment and plan as per VAZQUEZ Orellana. Will continue to follow and assist family with medical decision making Time Spent Midlevel 40 minutes with >50% of time spent at bedside with patient, family and hospitalist team discussing condition and GOC. Attending Time spent 30 minutes in addition to the above 40 minutes by VAZQUEZ Orellana-for a total of 70 minutes with greater than 50% of the time spent at bedside discussing patient's prognosis, goals of care, and discussing plan of care
[2018-10-03] MEDS ORDERED: MoRPHine SULFATE 2 MG/ML CARP IV ONE (13:32)
[2018-10-03] MEDS: SODIUM CHLORIDE 0.9% 1000ML 1,000 ML IV SCH (14:05)
[2018-10-03] MEDS ORDERED: FUROSEMIDE 40 MG in SYRINGE 0 ML IV ONE (15:15)
[2018-10-03] MEDS ORDERED: FUROSEMIDE 80 MG in SYRINGE 0 ML IV ONE (19:00)
[2018-10-03] MEDS: dilTIAZem HCl 125 MG in DEXTROSE 5% 100 ML IV SCH ×2 (19:09→20:27)
[2018-10-03] MEDS: ALBUT/IPRATROP 3MG/0.5MG NEB 3 ML VIAL NEB SCH ×2 (19:54→23:22)
[2018-10-03] MEDS: SIMVASTATIN 5 MG TAB PO SCH (20:27)
[2018-10-03] MEDS ORDERED: PROCHLORPERAZINE 5 MG in SYRINGE 4 ML IV PRN (21:17)
[2018-10-03] MEDS: cefTRIAXone SODIUM 1,000 MG in DEXTROSE 5% 50 ML IV SCH (21:38)
[2018-10-04] MEDS: ALBUT/IPRATROP 3MG/0.5MG NEB 3 ML VIAL NEB SCH ×6 (03:36→23:57)
[2018-10-04] MEDS: LEVOTHYROXINE SODIUM 50 MCG TABLET PO SCH (05:21)
[2018-10-04] MEDS: dilTIAZem HCl 125 MG in DEXTROSE 5% 100 ML IV SCH ×2 (06:27→14:15)
[2018-10-04 06:44] LABS: BUN Creatinine Ratio 13.4 (10-20); Calcium 8.6 mg/dl (8.5-10.1); Creatinine Clr Calc Pharmacy 7.5 ml/min; Est GFR (African American) 6.2; Est GFR (Non-African American) 5.4; Potassium 4.1 mmol/L (3.5-5.1)
[2018-10-04 08:02] LABS: Basophils # (auto) 0.03 K/uL (0-0.2); Basophils % (auto) 0.2 %; Eosinophils # (auto) 0.04 K/uL (0-0.5); Eosinophils % (auto) 0.2 %; Hematocrit (blood only) 26.1 % (37-47); Hemoglobin 8.5 g/dL (12.0-16.0); Immature Granulocytes # (auto) 0.22 K/uL (0.00-0.02); Immature Granulocytes % (auto) 1.3 %; Lymphocytes # (auto) 0.49 K/uL (1.2-3.4); Mean Corpuscular Hgb Conc 32.6 g/dL (32-36); Mean Corpuscular Volume 84.7 fL (80-100); Mean Platelet Volume 9.6 fL (7.4-10.4); Monocytes # (auto) 0.86 K/uL (0.11-0.59); Monocytes % (auto) 5.2 %; Neutrophils # (auto) 14.89 K/uL (1.4-6.5); Neutrophils % (auto) 90.1 %; Nucleated RBC # (auto) 0.04 K/uL (0-0); Nucleated RBC % (auto) 0.2 %; Platelet Count 410 K/uL (130-400); RDW Coefficient of Variation 15.9 % (11.5-14.5); RDW Standard Deviation 49.3 fL (36.4-46.3); Red Blood Count 3.08 M/uL (4.2-5.4); White Blood Count 16.53 K/uL (4.8-10.8)
[2018-10-04] MEDS: INSULIN ASPART 100 UNITS/ML 3 ML PEN SC SCH ×4 (08:11→21:01)
[2018-10-04] MEDS: CLOPIDOGREL BISULFATE 75 MG TAB PO SCH (08:11)
[2018-10-04] MEDS: AMLODIPINE BESYLATE 5 MG TAB PO SCH (08:11)
[2018-10-04] MEDS: AZITHROMYCIN 250 MG/6.25 ML UDP PO SCH (08:12)
[2018-10-04 08:31] LABS: Echinocytes 1+
--- NOTE | 2018-10-04 10:28 | Nephrology Progress Note ---
Date of Service October 04, 2018 Assessment & Plan (1) RUPALI (acute kidney injury): -- Patient has progressive renal failure that has not responded to IV hydration -- Renal US 09/30/18 was negative for obstruction. R kidney was atrophic measuring only 7 cm -- Keep Rodriguez catheter in place to monitor I&O's -- Monitor PRP -- Patient is afebrile but has significant leukocytosis. She continues to suffer progressive renal dysfunction despite IV hydration. Palliative care recommendations have been reviewed. Spouse & family's primary concern is for patient's comfort. Family is considering hospice care. I have spoken w/ primary service this am. Plan is for [facility] family to arrive today and finalize POC. Primary service indicates that family does not desire to escalate care (ie., HD) (2) Chronic kidney disease, stage 4 (severe): -- Baseline creatinine has been 3.0 - 4.7. Patient has advanced CKD on the basis of renal vascular disease. The Chance family has expressed a desire not to pursue aggressive medical intervention (ie., IHD) due to Shayy's h/o CVA and poor functional status (3) Dehydration: -- Patient is net 4 L volume positive. Hold IVF at this time (4) Leukocytosis: -- Persistent leukocytosis -- Blood & urine cultures are NGTD -- CXR is without infiltrate / consolidation (5) Atrial fibrillation: -- INR is supratherapeutic. Recommend holding Warfarin until INR within 1 - 2 range. Consider vitamin K (6) Hypertension: -- Amlodipine has been ordered. Will monitor BP Subjective Mrs. Fletcher was seen & examined in her hospital room this morning. She is awake and alert but oriented only to self. She has significant expressive aphasia. ROS could not be obtained. Mrs. Fletcher has been transferred to telemetry bed yesterday for management and monitoring of atrial fibrillation w/ RVR Physical Exam Vital Signs (Past 24 Hours): Last Vital Signs Temp 36.6 C 10/04/18 06:50 Pulse 108 H 10/04/18 07:34 Resp 22 10/04/18 07:34 BP 111/70 10/04/18 06:50 Pulse Ox 91 10/04/18 07:34 Constitutional: + ill appearing and + obese Eyes: PERRL, conjunctivae normal, anicteric sclerae ENMT: Mouth: + dry oral mucous membranes Neck: trachea midline, no thyromegaly Respiratory: normal respiratory effort, lungs clear to auscultation (anteriorly. Unable to sit forward for evaluation of posterior lung duffy) Cardiovascular: Rate/Rhythm: + abnormal rate and + abnormal rhythm Extremities: no edema Skin: + abnormal turgor Results & Data Laboratory Results Laboratory Tests 10/04/18 10/04/18 05:45 05:46 WBC 16.53 H Hgb 8.5 L Hct 26.1 L Plt Count 410 H Sodium 143 Potassium 4.1 Chloride 112 H Carbon Dioxide 16 L BUN 97 H Creatinine 7.25 H* D Glucose 236 H Laboratory Tests 10/03/18 07:14 INR 5.6 H*
--- NOTE | 2018-10-04 13:34 | Palliative Care Progress Note ---
Date of Service October 04, 2018 Assessment & Plan (1) Goals of care, counseling/discussion: -Patient was transferred to PCU last evening for afib with RVR, started on IV cardizem gtt. -Today she appears to have labored breathing. -Creatinine increased from 6.1 to 7.25. -Worry about fluid overloading and inability to diurese due to kidney failure. -Patient's Ozzy and Ozzy's son, Obdulio, and Obdulio's at bedside during my visit. -Patient's brother who is a nurse is coming from [place] this afternoon/evening. The family will then have the resident physician paged to discuss plan and GOC. Palliative care has discussed the option of transitioning to comfort measures only should they choose. (2) Dehydration: (3) Falls: (4) History of CVA (cerebrovascular accident): (5) Chronic kidney disease, stage 4 (severe): Subjective Patient was transferred last evening to PCU for afib with RVR. Family at bedside during my visit. Patient remains awake and confused per her baseline. Patient also had an episode of vomiting last night. Review of Systems Patient denies pain or SOB (although her breathing is obviously labored at rest), no N/V/D at this time. Physical Exam Vital Signs (Past 24 Hours): Last Vital Signs Temp 36.6 C 10/04/18 11:45 Pulse 83 10/04/18 11:45 Resp 19 10/04/18 11:45 BP 127/66 10/04/18 11:45 Pulse Ox 96 10/04/18 11:45 Constitutional: + ill appearing and + obese ENMT: external ear and nose normal, oropharynx normal Neck: normal visual inspection Respiratory: + labored breathing and + tachypneic (mildly) Auscultation: + diminished lung sounds and + wheezes (expiratory wheezes) Cardiovascular: Rate/Rhythm: + abnormal rate and + abnormal rhythm Gastrointestinal (Abdomen): Inspection/Auscultation: abdomen normal to inspe ction; abdomen not distended Percussion/Palpation: abdomen soft; abdomen nontender Musculoskeletal: no cyanosis or clubbing, extremities motor strength 5/5 Skin: no rashes, warm and dry Neurologic: moves all extremities and awake Psychiatric: Orientation: alert and oriented to person Supervising Physician Co-Signing Physician Notes Chart reviewed, collaborated with DANI Chan Patient seen on 2 separate occasions-first occasion was with at bedside, patient's brother who is an RN was flying in from [place] to arrive shortly, returned to room to answer questions from patient's brother after he arrived. Patient's urine output continues to decrease-had 375 cc output in the past 24 hours. PE: Patient awake, no acute distress-states her breathing is comfortable HEENT: EOMI, mild AKIAK Respirations: Mild increased work of breathing, diminished breath sounds bilaterally CV: Irregular, rate controlled Abdomen: Obese, soft, nontender Neuro: Alert, confused Patient is now on a diltiazem drip for A. fib with RVR-concern regarding fluid overload in light of patient's decreasing renal function. Family agreeable to comfort care-aware that patient's prognosis is poor-talking days to a few weeks. Agree with above note, assessment and plan as per DANI Chan-both patient and family aware prognosis-spoke with and brother at bedside, answered all their questions and addressed all their concerns. Time Spent Midlevel 25 minutes with >50% of time spent at bedside with patient and family discussing condition and GOC. Attending Spent 40 minutes on 2 separate visits to talk with family members in addition to the 25 minutes spent by DANI Chan for a total of 65 minutes with greater than 50% of the time spent at bedside discussing patient's prognosis, goals of care, as well as plan of care.
--- NOTE | 2018-10-04 13:37 | Family Medicine Progress Note ---
Date of Service October 04, 2018 Assessment & Plan (1) Chronic kidney disease, stage 4 (severe): Goals of care * Patient continues to have worsening renal function, had goals of care discussion with the family and they fully understand that she is nearing the end of her life * Patient's family reasonably does not want to put her through any more discomfort than necessary to make her comfortable. * At this time they want to discharge her to hospice care to finish her life in comfort. * While here in hospital we will still treat her atrial fibrillation to try to improve her pulmonary congestion and relieve her breathing difficulty * Brother from [place] flying in tomorrow, will have another meeting with family to clarify goals of care. A fib * Attempted two boluses of lopressor, and settled for diltiazem Drip * Transferred to Telemetry * Probably contributing to pulmonary congestion * Will continue to monitor Pulmonary edema * Rate control for A fib as above * HOlding off on IV fluid for now * Lasix 40 mg CKD IV * Creatining continues to worsen 6.16 today FEN: Oral regular DVT PPx supertheraputic on warfarin Dispo: Telemetry for cardizem drip (2) Falls: (3) Leukocytosis: (4) Atrial fibrillation: (5) Hypertension: (6) History of CVA (cerebrovascular accident): Goals of care * Patient's family, quite compassionately, does not want to put her through any more discomfort than necessary to make her comfortable. * At this time they want to discharge her to hospice care to finish her life in comfort. * While here in hospital we will continue to treat her atrial fibrillation to try to improve her pulmonary congestion and relieve her breathing difficulty * Spoke with family including brother from [place] Everyone seems to be on the same page regarding goals of care and hospice care upon discharge. Falls Likely 2/2 chronic deconditioning but appears to be sparked by a more acute process White count starting to come down, patient appears like she is doing better from ID point of view. CT abdomen negative, blood and urine cultures NGTD, lungs clear to auscultation and chest xr, urinalysis clean, No skin ulcers, wounds, or other abnormalities. Flu swab negative will continue to follow cultures Hypoxia Getting better control over afib rvr with diltiazem drip seems to have helped with her pulmonary edema Breathing more comfortably today 98% on 4L currently will continue to monitor CKD Patient with creatinine up over 7 Still making urine .2 mg/kg/hour Acute on chronic renal failure, previous baseline around 3. Not desiring dialysis for her renal failure, will continue to monitor Nephrology feels her kidneys will not improve, family and palliative care on board for making her as comfortable as possible as this is likely the beginning of a life limiting insult. Atrial Fibrillation Started diltiazem drip last night, rates well controlled Will try to transition to oral medication for discharge. still supertherapeutic INR Continuing to hold warfarin (7) Goals of care, counseling/discussion: Supervising Physician Co-Signing Physician Notes I personally examined the patient and verified all mack points of history and exam, discussed case, and agree with decision making with Dr Calvo. more interactive today. family present. dr calvo updated under my supervision. all questions answered to the best of my ability. Vitals noted, in general she is fatigued appearing but less than before. breathing unlabored no pallor or icterus. A. fib/RVRappears to be secondary to the physiologic stress. improving w cardizem Pulmonary edemaappears to be diastolic failure related to her RVR. improving w better rate control. unclear how much lasix helped w such low UO, but rate con trol helped. Leukocytosis/failure to thriveit seems most likely a pneumonia was the inciting factor, continue antibiotics, continue to follow closely, continue supportive care. There is a very small area that seems a bit nebulous on her CT scan, but clinically it seems to fit the clinical picture well. improving Renal failurein discussion with nephrology she is essentially progressed to end-stage renal disease, she had noted she did not want dialysis. Overall goals are palliative, but in discussions with family right now because the above acute issues can potentially resolve with treatment, they would prefer we continue to treat the A. fib/pulmonary edema/presumed pneumonia, as long as she is not uncomfortable. Should she progress to where she is more uncomfortable, in discussions with them they would likely want care withdrawn, but she is at a point right now where this would need to be discussed with them. But overall the goal will be palliative especially since she does not want dialysis. Subjective Shayy comfortable today, talking in sentences longer than she usually does. Still not completely oriented but doesn't endorse any pain at this time. Review of Systems Unobtainable due to cognitive status Physical Exam Vital Signs (Past 24 Hours): Last Vital Signs Temp 36.6 C 10/04/18 11:45 Pulse 83 10/04/18 11:45 Resp 19 10/04/18 11:45 BP 127/66 10/04/18 11:45 Pulse Ox 96 10/04/18 11:45 Constitutional: + obese, cooperative and comfortable; no acute distress Eyes: PERRL, conjunctivae normal, anicteric sclerae Respiratory: + tachypneic; no respiratory distress, no labored breathing and no cough Auscultation: lungs clear to auscultation bilaterally and + rhonchi (Left lower lobe); no diminished lung sounds and no wheezes Cardiovascular: Rate/Rhythm: + tachycardic; + abnormal rate and + abnormal rhythm Heart Sounds: normal S1 and normal S2; no gallop, no murmur and no cardiac rub Extremities: + edema Gastrointestinal (Abdomen): Inspection/Auscultation: abdomen normal to inspection and normal bowel sounds; abdomen not distended Percussion/Palpation: abdomen soft; abdomen nontender and no guarding Skin: + nails discolored; no rashes, no ulcers, no wound, no erythema and no excoriations Trauma: no evidence of skin trauma and no laceration Neurologic: Speech / Cognition: + expressive aphasia Resident Activity Tracking Resident Involvement: Resident Care Provided Care Provided: Adult Hospital Medicine
[2018-10-04] MEDS: SIMVASTATIN 5 MG TAB PO SCH (21:00)
[2018-10-04] MEDS: cefTRIAXone SODIUM 1,000 MG in DEXTROSE 5% 50 ML IV SCH (21:00)
[2018-10-05] MEDS: dilTIAZem HCl 125 MG in DEXTROSE 5% 100 ML IV SCH (02:16)
[2018-10-05] MEDS: ALBUT/IPRATROP 3MG/0.5MG NEB 3 ML VIAL NEB SCH ×2 (03:36→07:33)
[2018-10-05] MEDS: LEVOTHYROXINE SODIUM 50 MCG TABLET PO SCH (05:36)
[2018-10-05 07:47] LABS: Prothrombin Time 61.8 Seconds (9.0-12.0)
[2018-10-05 07:52] LABS: INR 6.9 (0.9-1.1)
[2018-10-05 08:02] LABS: BUN Creatinine Ratio 12.2 (10-20); Calcium 8.4 mg/dl (8.5-10.1); Creatinine Clr Calc Pharmacy 6.7 ml/min; Est GFR (African American) 5.4; Est GFR (Non-African American) 4.7; Potassium 4.3 mmol/L (3.5-5.1)
[2018-10-05] MEDS: AMLODIPINE BESYLATE 5 MG TAB PO SCH (08:12)
[2018-10-05] MEDS: AZITHROMYCIN 250 MG/6.25 ML UDP PO SCH (08:12)
[2018-10-05] MEDS: CLOPIDOGREL BISULFATE 75 MG TAB PO SCH (08:12)
--- NOTE | 2018-10-05 08:54 | Nephrology Progress Note ---
Date of Service October 05, 2018 Subjective Chart reviewed this morning. Patient is at ESRD. Primary service has met with family and discussed goals of care. Patient has been transitioned to hospice care. Will sign off. Please call if further Nephrology assistance is needed. Physical Exam Vital Signs (Past 24 Hours): Last Vital Signs Temp 37.4 C 10/05/18 06:58 Pulse 89 10/05/18 07:33 Resp 18 10/05/18 07:33 BP 135/66 10/05/18 06:58 Pulse Ox 90 10/05/18 07:33 Results & Data Laboratory Results Laboratory Tests 10/05/18 06:55 Sodium 134 L D Potassium 4.3 Chloride 104 Carbon Dioxide 16 L BUN 100 H Creatinine 8.14 H* D Glucose 215 H
[2018-10-05] MEDS: INSULIN ASPART 100 UNITS/ML 3 ML PEN SC SCH ×4 (09:37→21:18)
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
[2018-10-05] MEDS ORDERED: dilTIAZem HCl 60 MG TAB PO ONE (10:00)
[2018-10-05] MEDS ORDERED: ALBUT/IPRATROP 3MG/0.5MG NEB 3 ML VIAL NEB PRN (10:10)
[2018-10-05] MEDS ORDERED: MoRPHine SULFATE 2 MG/ML CARP IV PRN (14:45)
[2018-10-05] MEDS: dilTIAZem HCl 60 MG TAB PO SCH ×2 (15:13→20:36)
[2018-10-05] MEDS: SIMVASTATIN 5 MG TAB PO SCH (20:35)
[2018-10-05] MEDS: cefTRIAXone SODIUM 1,000 MG in DEXTROSE 5% 50 ML IV SCH (20:43)
[2018-10-06] MEDS: LEVOTHYROXINE SODIUM 50 MCG TABLET PO SCH (05:26)
[2018-10-06 07:19] LABS: Prothrombin Time > 90.0 Seconds (9.0-12.0)
[2018-10-06] MEDS: CLOPIDOGREL BISULFATE 75 MG TAB PO SCH (07:32)
[2018-10-06] MEDS: AMLODIPINE BESYLATE 5 MG TAB PO SCH (07:32)
[2018-10-06] MEDS: AZITHROMYCIN 250 MG/6.25 ML UDP PO SCH (07:32)
[2018-10-06] MEDS: dilTIAZem HCl 60 MG TAB PO SCH ×2 (07:33→14:46)
[2018-10-06 07:45] LABS: INR > 10.4 (0.9-1.1)
--- NOTE | 2018-10-06 07:47 | Family Medicine Progress Note ---
Date of Service October 06, 2018 Assessment & Plan (1) Chronic kidney disease, stage 4 (severe): Chloe Fletcher is a 63 year old woman with history of chronic kidney disease and prior CVA who is likely nearing the end of her life. We are currently treating her possible infection, Continuing to treat her symptomatically and trying to make her as comfortable as possible before d/c to hospice care. Goals of care * Patient's family, quite compassionately, does not want to put her through any more discomfort than necessary to make her comfortable. * At this time they want to discharge her to hospice care to finish her life in comfort. * While here in hospital we will continue to treat her atrial fibrillation to try to improve her pulmonary congestion and relieve her breathing difficulty * Spoke with family including brother from [place] Everyone seems to be on the same page regarding goals of care and hospice care upon discharge. * We are treating medically up to the point of dialysis or intubation or resuscitation, but if any of our interventions are causing discomfort family is okay with withdrawing that care. * Dynamically distilling goals of care. A fib * Attempted two boluses of lopressor, and settled for diltiazem Drip * Patient has now been transitioned to oral diltiazem for rate control * Will continue to monitor Pulmonary edema * Rate control for A fib as above * HOlding off on IV fluid for now CKD IV * Creatinine continues to worsen 9.48 today * Urine production minimal .02 ml/kg/hr * Potassium rising 5.4 today Supertherapeutic INR * >10.4 will give Vitamin K 5mg PO * continuing to hold coumadin FEN: Oral regular DVT PPx supertheraputic on warfarin Dispo: Hospice care upon discharge (2) Falls: (3) Leukocytosis: (4) Atrial fibrillation: (5) Hypertension: (6) History of CVA (cerebrovascular accident): (7) Goals of care, counseling/discussion: Supervising Physician Co-Signing Physician Notes I personally examined the patient and verified all mack points of history and exam, discussed case, and agree with decision making with Dr Sanchez. less interactive. mostly in bed sleeping, occassionally pulls O2 off. present and updated. seems to be grasping that she is declining precipitously but still wants a degree of medical care for infection/RVR pictures. still would not want HD. Vitals noted, in general she is fatigued but appears in no distress. breahting unlabored. no pallor or icterus A. fib/RVRappears to be secondary to the physiologic stress. now stable on PO cardizem Pulmonary edemaappears to be diastolic failure related to her RVR. improving w better rate control. appearing comfortable. Leukocytosis/failure to thriveit seems most likely a pneumonia was the inciting factor, continue antibiotics, continue to follow closely, continue supportive care. There is a very small area that seems a bit nebulous on her CT scan, but clinically it seems to fit the clinical picture well. improving - for now continue abx Renal failurein discussion with nephrology she is essentially progressed to end-stage renal disease, she had noted she did not want dialysis. this now is appearing to cause a more precipitous decline given oliguria/near anuria, acidosis, and electrolyte abnormalities changing time frame on prognosis -- d/w that she may pass sooner with this rather than later; for now continue care of above, but opened discussion of a true comfort measures only plan of treatment. he seems a little overwhelmed with this, but ongoing discussions with him/family will be had, and he definitely understands and wants an overall palliative plan - the questions mostly are on what/how much he wants done with the above more acute medical issues. Subjective Ms Fletcher sleeping this morning, family not at bedside. Review of Systems Unobtainable due to cognitive status Physical Exam Vital Signs (Past 24 Hours): Last Vital Signs Temp 36 C L 10/06/18 07:21 Pulse 84 10/06/18 07:21 Resp 24 10/06/18 07:21 BP 103/62 10/06/18 07:21 Pulse Ox 95 10/06/18 03:51 Constitutional: + obese, cooperative and comfortable; no acute distress Eyes: PERRL, conjunctivae normal, anicteric sclerae Respiratory: no respiratory distress, no labored breathing and no cough Auscultation: lungs clear to auscultation bilaterally; no diminished lung sounds and no wheezes Cardiovascular: Rate/Rhythm: + abnormal rate and + abnormal rhythm Heart Sounds: normal S1 and normal S2; no gallop, no murmur and no cardiac rub Extremities: + edema Gastrointestinal (Abdomen): Inspection/Auscultation: abdomen normal to inspection and normal bowel sounds; abdomen not distended Percussion/Palpation: abdomen soft; abdomen nontender and no guarding Skin: + nails discolored; no rashes, no ulcers, no wound, no erythema and no excoriations Trauma: no evidence of skin trauma and no laceration Neurologic: Speech / Cognition: + expressive aphasia Resident Activity Tracking Resident Involvement: Resident Care Provided Care Provided: Adult Hospital Medicine
[2018-10-06 07:49] LABS: BUN Creatinine Ratio 11.9 (10-20); Calcium 8.5 mg/dl (8.5-10.1); Creatinine Clr Calc Pharmacy 5.7 ml/min; Est GFR (African American) 4.5; Est GFR (Non-African American) 3.9
[2018-10-06 07:50] LABS: Potassium 5.4 mmol/L (3.5-5.1)
[2018-10-06] MEDS ORDERED: PHYTONADIONE 5 MG TAB PO STA ×2 (07:51→09:10)
[2018-10-06] MEDS: INSULIN ASPART 100 UNITS/ML 3 ML PEN SC SCH ×2 (09:34→13:08)
[2018-10-06] MEDS: SODIUM POLYSTYRENE SULFONATE 15G/60ML SUSP PO ONE ×2 (09:36→10:00)
[2018-10-06] MEDS: MoRPHine SULFATE 2 MG/ML CARP IV PRN ×4 (15:51→21:01)
[2018-10-06] MEDS: cefTRIAXone SODIUM 1,000 MG in DEXTROSE 5% 50 ML IV SCH (20:08)
[2018-10-07] MEDS: MoRPHine SULFATE 2 MG/ML CARP IV PRN ×2 (06:23→10:54)
--- NOTE | 2018-10-07 07:45 | Family Medicine Progress Note ---
Date of Service October 07, 2018 Assessment & Plan (1) Chronic kidney disease, stage 4 (severe): Pt is a 63yo who is at the end of her life and being made comfortable with comfort care measures. Her family is at her bedside. RUPALI on CKD Stage 4 -No dialysis in agreement with pt's comfort goals. -Last Cr of 9.48 -will NOT continue to follow. Diastolic heart failure due to RVR ? Pneumonia Atrial Fibrillation HTN -No longer receiving treatment. Palliative Care -appreciate consult -patient goal of comfort with morphine 5mg q1h as needed for pain. Supervising Physician Co-Signing Physician Notes Resident Physician Supervision Note: I independently interviewed and examined the patient and verified the mack history and physical, reviewed labs and image studies, discussed the case with the resident Dr. Gibson and agree with the findings and care plan. Subjective Ms. Fletcher has been made complete comfort care. Her morphine dose was increased today to 5mg q1h. Family at bedside. Review of Systems Unobtainable due to cognitive status Physical Exam Vital Signs (Past 24 Hours): Last Vital Signs Temp 36 C L 10/06/18 07:21 Pulse 84 10/06/18 07:21 Resp 24 10/06/18 07:21 BP 103/62 10/06/18 07:21 Pulse Ox 95 10/06/18 03:51 General: Resting in bed, periodically moaning. HEENT: NC/AT Chest: Nontender to palpation. CV: RRR, Normal s1, s2. Resp: Breath sounds with some coarseness on anterior chest. Abdomen: Soft, tender to palpation (pt moved in response). Extremities: No edema. Some bluish discoloration to left foot. SCDs on. Results & Data Medications Administered Home Medications amlodipine 10 mg PO DAILY 09/30/18 [History Confirmed 09/30/18] clopidogrel 75 mg PO DAILY 09/30/18 [History Confirmed 09/30/18] ergocalciferol (vitamin D2) 50,000 units PO WK 09/30/18 [History Confirmed 09/30/18] ferrous sulfate 325 mg PO BID 09/30/18 [History Confirmed 09/30/18] glimepiride 2 mg PO BID 09/30/18 [History Confirmed 09/30/18] levothyroxine 50 mcg PO DAILY 09/30/18 [History Confirmed 09/30/18] simvastatin 40 mg PO PM 09/30/18 [History Confirmed 09/30/18] warfarin 4.5 mg PO DAILY 09/30/18 [History Confirmed 09/30/18] Active Medications Acetaminophen (Tylenol) 650 mg PO Q4H PRN PRN Reason: pain/fever Stop: 10/30/18 12:30 Last Admin: 10/05/18 12:07 Dose: 650 mg Documented by: Albuterol (Duoneb) 3 ml NEB Q4R PRN PRN Reason: Shortness Of Breath Or Wheezing Stop: 11/02/18 19:59 Azithromycin (Zithromax) 250 mg PO QAM CHUCK Stop: 10/08/18 08:59 Last Admin: 10/07/18 08:11 Dose: Not Given Documented by: Ceftriaxone Sodium 1,000 mg/ (Dextrose) 50 mls @ 100 mls/hr IV Q24H CHUCK; Protocol Stop: 10/10/18 19:59 Last Admin: 10/06/18 20:08 Dose: Not Given Documented by: Prochlorperazine 5 mg/ Syringe 5 mls @ 5 mls/min IV Q4H PRN PRN Reason: nasuea Stop: 11/02/18 21:16 Last Admin: 10/03/18 21:55 Dose: 5 mls/min Documented by: Morphine Sulfate (Morphine Sulf/Nss) 250 mg in 250 mls @ 5 mls/hr IV .Q24H CHUCK; Protocol Stop: 10/21/18 17:29 Resident Activity Tracking Resident Involvement: Resident Care Provided Care Provided: Adult Hospital Medicine
[2018-10-07] MEDS: AZITHROMYCIN 250 MG/6.25 ML UDP PO SCH (08:11)
[2018-10-07] MEDS ORDERED: MoRPHine SULFATE 10 MG/ML CARP/VIAL IV PRN (11:25)
[2018-10-07] MEDS ORDERED: Nursing to Pharmacy Communication ONE (11:27)
[2018-10-07] MEDS ORDERED: MoRPHine SULFATE 10 MG/ML CARP/VIAL ONE (11:29)
--- NOTE | 2018-10-07 14:54 | Palliative Care Progress Note ---
Date of Service October 07, 2018 Assessment & Plan (1) Palliative care encounter: Patient appears comfortable, continue PRN Roxanol as needed for pain or shortness of breath Discussed prognosis and end-of-life issues at length with family at bedside (2) Chronic kidney disease, stage 4 (severe): No dialysis-patient known complete renal failure-approaching end-of-life (3) RUPALI (acute kidney injury): Comfort care, patient now with no urinary output in the past 24 hours (4) Atrial fibrillation: Rate controlled (5) CVA (cerebral vascular accident): History of CVA-now at end of life Subjective Patient seen and examined, multiple family at bedside including patient's husba nd-patient unresponsive to voice or touch. Patient with no urine output in the past 24 hours, has not required any as needed medications for comfort. Review of Systems Unable to obtain as patient is unresponsive Physical Exam Vital Signs (Past 24 Hours): Last Vital Signs Temp 36 C L 10/06/18 07:21 Pulse 84 10/06/18 07:21 Resp 24 10/06/18 07:21 BP 103/62 10/06/18 07:21 Pulse Ox 95 10/06/18 03:51 Physical Exam: PE: Appears comfortable, no facial grimace with passive range of motion of upper extremities HEENT-no spontaneous eye movements Respiratory: Unlabored, no rhonchi or rales CV: Regular rate, no edema Abdomen: Soft, no grimace with light palpation Neuro: Unresponsive to voice or touch Skin: Positive mottling bilateral lower extremities, skin cool to approximately mid kim bilaterally Time Spent Attending Total time spent 35 minutes with greater than 50% of the time spent at bedside assessing patient's comfort, discussing prognosis as well as end-of-life issues at length with family at bedside.
[2018-10-07] MEDS ORDERED: MoRPHine SULF/NSS 250 MG/250 ML BTL IV SCH (17:30)
--- NOTE | 2018-10-08 09:24 | Death Summary ---
Date of Service October 08, 2018 Pronouncement Note Date and Time of Time of : 18:25 Contributing Factors (1) Chronic kidney disease, stage 4 (severe): Summary Additional details: Ms. Fletcher was a 63yo F w/ hx of CKD, paroxysmal afib, and prior CVA who presented on September 30 to the hospital after falls at home. She was treated and managed while hospitalized for her acute on chronic renal failure, falls, a leukocytosis, atrial fibrillation, increased troponins, diabetes mellitus, Hx of cerebrovascular stroke, hypertension, hypothyroidism and hyperlipidemia before being made comfort care by her family for a compassionate passing. Her acute on chronic renal failure was the cause of her with her last Cr at the time of passing being 9.48. Her baseline prior was 3. She and her family had no desire for dialysis treatment. Towards the end of her life her pain was adequately treated with morphine. She on October 07 2018 at 1825. Additional Data Confirmation of : no pulse Family: at bedside Attending/PCP notified?: Yes Attending physician: Rosalia Porter MD Resident Activity Tracking Resident Involvement: Resident Care Provided Care Provided: Adult Hospital Medicine
== END 2018-10-07 21:36 | disposition expired | DRG 682 ==
LOC: ED 07:47 → 2W 11:17 → SUATTDRO 11:17 → 2W 11:58 → 2S 10-03 17:52 → 4E 10-06 14:09
DX: E86.0 Dehydration; E11.22 Type 2 diabetes mellitus with diabetic chronic kidney disease; I69.320 Aphasia following cerebral infarction; I70.1 Atherosclerosis of renal artery; I48.2 Chronic atrial fibrillation; I48.0 Paroxysmal atrial fibrillation; Z82.49 Family history of ischemic heart disease and other diseases of the circulatory system; J18.9 Pneumonia, unspecified organism; Z86.73 Personal history of transient ischemic attack (TIA), and cerebral infarction without residual deficits; E03.9 Hypothyroidism, unspecified; Z88.0 Allergy status to penicillin; E78.5 Hyperlipidemia, unspecified; Z87.891 Personal history of nicotine dependence; N17.9 Acute kidney failure, unspecified; I13.0 Hypertensive heart and chronic kidney disease with heart failure and stage 1 through stage 4 chronic kidney disease, or unspecified chronic kidney disease; Z79.02 Long term (current) use of antithrombotics/antiplatelets; R29.6 Repeated falls; N18.4 Chronic kidney disease, stage 4 (severe); Z88.8 Allergy status to other drugs, medicaments and biological substances; I50.30 Unspecified diastolic (congestive) heart failure